=== PATIENT | male | born 1935 | race Hispanic/Latino ===

== ENCOUNTER 2017-05-06 19:48 | Inpatient (IN) | payer MEDICARE, MEDICAID ==
[2017-05-06] MEDS ORDERED: Water For Inject, Bacteriostat 30 ML ONE (20:51)
[2017-05-06] MEDS ORDERED: methylPREDNISolone Sod Succ/PF 125 MG/2 ML VIAL ONE (20:51)
[2017-05-06 21:23] LABS: PTT 29.7 SEC (22.9-36.1)
[2017-05-06 21:33] LABS: Lactic Acid - Sepsis 1.9 mmol/L (0.5-2.2)
[2017-05-06 21:39] LABS: ALT (SGPT) 17 U/L (8-55); AST (SGOT) 21 U/L (5-34); Alkaline Phosphatase 118 U/L (40-150); Anion Gap 13 mmol/L (10-20); BUN (Urea Nitrogen) 20 mg/dL (8.4-25.7); Bilirubin, Total 0.8 mg/dL (0.2-1.2); Calc. Creatinine Clearance 0 mL/min (70-130); Calcium 9.8 mg/dL (7.8-10.44); Carbon Dioxide 24 mmol/L (23-31); Chloride 105 mmol/L (98-107); Estimated GFR-MDRD 40; Globulin 4.6 g/dL (2.4-3.5); Magnesium 2.1 mg/dL (1.6-2.6); Protein, Total 8.8 g/dL (5.8-8.1)
[2017-05-06 21:40] LABS: Band 2 % (5-11); Hematocrit 51.2 % (42.0-52.0); Mean Platelet Volume 8.1 fL (7.4-10.4); Neutrophil 77 % (42-75); Red Blood Cell (RBC) Count 5.65 mill/uL (4.70-6.10); White Blood Cell (WBC) Count 20.4 thou/uL (4.8-10.8)
[2017-05-06 21:43] LABS: Troponin I Less than 0.010 ng/mL (< 0.028)
--- NOTE | 2017-05-06 21:45 | RAD ---
PORTABLE CHEST ONE VIEW: 05/06/17 at 9:11 p.m. HISTORY: Chest pain, bronchiolitis, wheezing, cough, yellow sputum. FINDINGS: Comparison made to exam of 06/12/15. The heart size is borderline. The aorta is tortuous. The lungs are expanded without focal areas of c onsolidation, pneumothorax, leilani pulmonary edema, or pleural effusions. IMPRESSION: No acute process. POS: [facility]
[2017-05-06] MEDS ORDERED: cefTRIAXone\\ROCEPHIN 1 GM VIAL ONE (23:06)
[2017-05-06] MEDS ORDERED: Sodium Chloride 0.9% 100 ML ONE (23:07)
[2017-05-06 23:15] LABS: Bilirubin Negative (Negative); Blood, Urine Small (Negative); Glucose, Urine (Dipstick) 250 mg/dL (Negative); Ketone, Urine Negative (Negative); Nitrite Negative (Negative); Protein, Urine (Dipstick) 30 mg/dL (Neg-Trace)
[2017-05-06] MEDS ORDERED: Azithromycin 500 MG in Sodium Chloride 0.9% 250 ML 250 ML IVPB SCH (23:15)
[2017-05-06 23:16] LABS: Bacteria/HPF None Seen HPF (None Seen); Hyaline Casts/LPF 0-3 HYALINE CAST LPF (0-3 Hyaline); RBC/HPF 0-3 HPF (0-3); Squamous Epithelial 0-3 HPF (0-3); WBC/HPF 0-3 HPF (0-3)
[2017-05-07] MEDS ORDERED: Acetaminophen 325 MG TAB PO PRN ×2 (00:53→01:00)
[2017-05-07] MEDS ORDERED: Ondansetron ODT 4 MG TAB SL PRN (00:53)
[2017-05-07] MEDS ORDERED: Ondansetron HCl/PF 4 MG/2 ML Vial IVP PRN (00:53)
[2017-05-07] MEDS ORDERED: Ondansetron ODT 4 MG TAB PO PRN (01:00)
[2017-05-07 01:14] VITALS: BMI 34.8
[2017-05-07 01:43] LABS: Troponin I 0.022 ng/mL (< 0.028)
[2017-05-07] MEDS ORDERED: Naproxen 500 MG TAB PO PRN (03:05)
[2017-05-07] MEDS ORDERED: PROVENTIL INHALER 6.7 G (200 INHALATIONS) INH PRN (03:05)
[2017-05-07] MEDS ORDERED: Calcium Carbonate 500 MG ChewTAB PO PRN (03:05)
[2017-05-07] MEDS ORDERED: traMADol HCl 50 MG TAB PO PRN ×3 (03:05→03:24)
[2017-05-07 04:15] LABS: #Lymphocytes 1.3 thou/uL (1.20-3.40); #Monocytes 0.2 thou/uL (0.11-0.59); #Neutrophils 21.7 thou/uL (1.40-6.50); %Basophils 0.2 % (0.0-1.0); %Eosinophils 0.2 % (0.0-10.0); %Lymphocytes 5.8 % (21.0-51.0); %Monocytes 0.8 % (0.0-10.0); Hematocrit 46.8 % (42.0-52.0); Mean Platelet Volume 8.3 fL (7.4-10.4); Red Blood Cell (RBC) Count 5.13 mill/uL (4.70-6.10); White Blood Cell (WBC) Count 23.3 thou/uL (4.8-10.8)
[2017-05-07 04:39] LABS: Troponin I 0.016 ng/mL (< 0.028)
[2017-05-07 04:44] LABS: Anion Gap 13 mmol/L (10-20); BUN (Urea Nitrogen) 21 mg/dL (8.4-25.7); Calc. Creatinine Clearance 48 mL/min (70-130); Calcium 9.1 mg/dL (7.8-10.44); Carbon Dioxide 20 mmol/L (23-31); Chloride 110 mmol/L (98-107); Estimated GFR-MDRD 44
[2017-05-07] MEDS: Sodium Chloride 0.9% 1,000 ML IV SCH ×2 (04:47→16:29)
--- NOTE | 2017-05-07 04:58 | HP-2 ---
CODE STATUS: FULL. PRIMARY CARE PHYSICIAN: [facility]. ATTENDING: Dr. Cuadra. PGY1: Nolan Olmos MD HISTORIAN: Daughter. CHIEF COMPLAINT: Chest pain and wheezing. HISTORY OF PRESENT ILLNESS: The patient is an 81-year-old male complaining of cough for 3 weeks. His daughter states that over 3 weeks, his cough got worse and began using his inhalers more. He also states he began complaining of chest pain. She notes that he has had more wheezy with shortness of breath. He states he had not had any ill contacts. The pain is made worse with coughing and is not relieved by anything. His cough has been nonproductive. In the ER, he was given Rocephin, azithromycin, Solu-Medrol, DuoNebs, and aspirin. PAST MEDICAL HISTORY: Hyperlipidemia, hypertension, diabetes mellitus, asthma, CKD 3, and chronic obstructive pulmonary disease. PAST SURGICAL HISTORY: He had a right femur fracture from a fall that was repaired. He had bladder surgery, prostate surgery, and cholecystectomy. ALLERGIES: No known drug allergies. MEDICATIONS: 1. Albuterol 8.5 gram HFA. 2. Amlodipine 10 mg. 3. Aspirin 81 mg. 4. Budesonide/eformoterol 80 mcg/4.5 mg. 5. Calcium carbonate 500 mg. 6. Carboxymethylcellulose glycerin eyedrops. 7. Docusate sodium 100 mg. 8. Hydrocortisone lotion. 9. Insulin Glargine 88 units subcu daily. 10. Lisinopril 40 mg. 11. Naproxen 220 mg t.i.d. 12. Oxybutynin 5 mg. 13. Potassium chloride 10 mEq. 14. Pravastatin 20 mg. 15. Propylene glycol eyedrops. 16. Tramadol 50 mg. SOCIAL HISTORY: He is a former tobacco user. He had about a [id number] smoking history and he quit 18 years ago. He denies alcohol use. Denies any drug use. REVIEW OF SYSTEMS: General: He denies any fevers or chills, weight changes, night sweats, or fatigue. Eyes: Denies any vision changes or eye pain. ENT: Denies nasal congestion, rhinorrhea, or sore throat. Respiratory: Admits to cough. He denies any congestion. He does admit to shortness of breath and he does admit to wheezing. Cardiovascular: Admits to chest pain, denies any palpitations, edema, orthopnea. Gastrointestinal: Denies any nausea, vomiting , diarrhea, constipation, abdominal pain, GI bleed. Genitourinary: Denies incontinence, dysuria. Skin: Denies any rashes, lesions, jaundice, itching. Musculoskeletal: Denies pain or tenderness, stiffness, swelling, or arthritis in joints. Neurologic: Denies any weakness, numbness, syncope, or seizures. Psychiatric: Denies anxiety or depression. PHYSICAL EXAMINATION: VITAL SIGNS: BP was 150/65, pulse 104, respiratory rate 24, temperature max 98.9, pulse ox 94% on room air. Current weight is 93 kilos. GENERAL: He was alert and oriented x4. He was obese and appropriately interactive, but he is only [place] speaking. EYES: PERRL. Conjunctivae within normal limits. ENT: Nasal mucosa and oropharynx within normal limits, but he is edentulous. NECK: Supple, without lymphadenopathy, without thyromegaly, without bruit. CARDIOVASCULAR: Regular rate and rhythm. No murmur. Radial and pedal pulses are equal bilaterally. RESPIRATORY: Normal effort, no retractions. LUNGS: Clear to auscultation bilaterally. There was some question coarse lung sounds. No wheezes were heard. SKIN: Warm and dry. ABDOMEN: Soft, nontender to palpation. Bowel sounds present x4. No masses or distention. EXTREMITIES: No clubbing, cyanosis. He did have slight edema to the lower extremities. MUSCULOSKELETAL: No Structure, tone. Muscle strength and range of motion within normal limits. NEUROLOGIC: No focal neurologic deficits. Sensation within normal limits. Cranial nerves II through XII are grossly intact. GCS of 15. PSYCHIATRIC: Appropriate. LABORATORY DATA: White blood cell count 20.4, platelet count 226, hemoglobin 17.6, hematocrit 51.2, MCV was 90.7. Bands are 2%, 77% neutrophils. CK-MB was 2.9. Troponins I was 0.01. Sodium was 138, potassium 4.4, chloride 105, bicarb 24, BUN 20, creatinine 1.65, glucose 192, calcium 9.8, total protein 8.8 , albumin 4.2, total bilirubin 0.8, AST 21, ALT 17, alkaline phosphatase 118, magnesium 2.1. Lactate 1.9, PTT 29.7. PT 13.0, INR 1.0. BNP was 17.0. Chest x-ray showed nothing acute. ASSESSMENT AND PLAN: This 81-year-old male with a past medical shows up with: 1. Chronic obstructive pulmonary disease exacerbation. We will continue with azithromycin. He was given Rocephin in the ER, but will be deescalated to just azithromycin p.o. We will continue his DuoNebs and prednisone. We have blood cultures pending and we will give O2 supplementation if needed. 2. Sepsis secondary to #1 above. We will give intravenous fluids for this. 3. Diabetes mellitus type 2, hemoglobin A1c. We will continue his home medications and Accu-Cheks. 4. Hypertension. Continue his home medications. 5. Hyperlipidemia. Continue his home medications. 6. Chronic kidney disease, 3. We will monitor with BMP. His creatinine is currently at baseline. 7. Atypical chest pain, likely secondary to costochondritis. We will trend his troponins. Disposition length possibly inpatient 2 midnights. Symptomatic medication will be provided. History and physical exam as well as management were discussed with Dr. Cuadra. TYRESE
[2017-05-07] MEDS ORDERED: Non-Formulary Item 1 EACH (Budesonide-Formoterol [Symbicort 80-4.5] 2 PUFF) INH SCH (06:30)
[2017-05-07] MEDS: Mometasone/Formoterol 120 PUFF INHALER INH SCH ×2 (07:17→18:48)
[2017-05-07] MEDS ORDERED: INSULIN GLARGINE SC SCH (07:30)
[2017-05-07] MEDS ORDERED: Senokot 8.6 MG TAB PO PRN (08:48)
[2017-05-07] MEDS: Amlodipine 10 MG TAB PO SCH (08:50)
[2017-05-07] MEDS: Azithromycin 250 MG TAB PO SCH (08:52)
[2017-05-07] MEDS: INSULIN DETEMIR SC SCH (08:52)
[2017-05-07] MEDS: PRE FILLED SC SCH (08:52)
[2017-05-07] MEDS: Docusate 100 MG CAP PO SCH (08:53)
[2017-05-07] MEDS: Lisinopril 20 MG TAB PO SCH (08:53)
[2017-05-07] MEDS: Potassium Chloride 10 MEQ TAB PO SCH (08:54)
[2017-05-07] MEDS: Oxybutynin 5 MG TAB PO SCH ×2 (08:54→20:31)
[2017-05-07] MEDS: predniSONE 20 MG TAB PO SCH (08:55)
[2017-05-07] MEDS ORDERED: HYDROCORTISONE TOP SCH (09:00)
[2017-05-07] MEDS ORDERED: FLU VACC TS2017-18 (>65YR) 0.5 ML SYRINGE IM ONE (09:00)
[2017-05-07] MEDS: Polyethylene Glycol OPTH DROP 15 ML BOT EA EYE SCH ×3 (09:00→20:32)
[2017-05-07] MEDS: Hydrocortisone 1% Cream 30 GM TUBE TOP SCH ×2 (09:00→20:32)
[2017-05-07] MEDS ORDERED: Dextrose 5% in Water 1,000 ML IV PRN (09:15)
[2017-05-07] MEDS ORDERED: Dextrose 50% Abboject 50 ML SYRINGE SLOW IVP PRN (09:15)
--- NOTE | 2017-05-07 10:30 | RAD ---
KUB 05/07/17 PROVIDED CLINICAL HISTORY: Abdominal distention. FINDINGS: No comparisons. The abdominal bowel gas pattern is nonspecific. Cholecystectomy clips overlie the right upper quadra nt. Presumed ingested material overlies the left upper quadrant medially. No definite evidence for u rinary tract calculi. Postoperative changes involving the right hip are partially visualized. The [place] nature of the examination is not sensitive for detection of pneumoperitoneum. IMPRESSION: Nonspecific bowel gas pattern. POS: [facility]
[2017-05-07] MEDS: HumaLOG 300 UNITS/3 ML VIAL SC PRN ×3 (12:11→21:12)
[2017-05-07] MEDS: Refresh (Polyvinyl Alcohol 1.4%/Povidone 0.6%) Opth Drops EA EYE SCH ×3 (12:13→20:31)
[2017-05-07] MEDS: Pravastatin Sodium 20 MG TAB PO SCH (20:31)
[2017-05-08] MEDS: Sodium Chloride 0.9% 1,000 ML IV SCH ×2 (00:55→03:05)
[2017-05-08 04:37] LABS: #Monocytes 1.8 thou/uL (0.11-0.59); #Neutrophils 19.8 thou/uL (1.40-6.50); %Basophils 0.1 % (0.0-1.0); %Eosinophils 0.1 % (0.0-10.0); %Lymphocytes 8.6 % (21.0-51.0); %Monocytes 7.7 % (0.0-10.0); Hematocrit 43.1 % (42.0-52.0); Mean Platelet Volume 8.5 fL (7.4-10.4); Red Blood Cell (RBC) Count 4.68 mill/uL (4.70-6.10); White Blood Cell (WBC) Count 23.7 thou/uL (4.8-10.8)
[2017-05-08 05:02] LABS: Anion Gap 13 mmol/L (10-20); BUN (Urea Nitrogen) 33 mg/dL (8.4-25.7); Calc. Creatinine Clearance 44 mL/min (70-130); Calcium 8.7 mg/dL (7.8-10.44); Carbon Dioxide 22 mmol/L (23-31); Chloride 106 mmol/L (98-107); Estimated GFR-MDRD 39
[2017-05-08] MEDS: Mometasone/Formoterol 120 PUFF INHALER INH SCH ×2 (06:39→18:27)
[2017-05-08] MEDS: Potassium Chloride 10 MEQ TAB PO SCH (07:57)
[2017-05-08] MEDS: Azithromycin 250 MG TAB PO SCH (07:57)
[2017-05-08] MEDS: Amlodipine 10 MG TAB PO SCH (07:57)
[2017-05-08] MEDS: Oxybutynin 5 MG TAB PO SCH ×2 (07:57→19:59)
[2017-05-08] MEDS: predniSONE 20 MG TAB PO SCH (07:58)
[2017-05-08] MEDS: Docusate 100 MG CAP PO SCH (07:58)
[2017-05-08] MEDS: Lisinopril 20 MG TAB PO SCH (07:58)
[2017-05-08] MEDS: Hydrocortisone 1% Cream 30 GM TUBE TOP SCH ×2 (08:06→20:01)
[2017-05-08] MEDS: Polyethylene Glycol OPTH DROP 15 ML BOT EA EYE SCH ×3 (08:07→20:00)
[2017-05-08] MEDS: Refresh (Polyvinyl Alcohol 1.4%/Povidone 0.6%) Opth Drops EA EYE SCH ×3 (09:35→20:00)
[2017-05-08] MEDS: PRE FILLED SC SCH (09:37)
[2017-05-08] MEDS: INSULIN DETEMIR SC SCH (09:37)
[2017-05-08] MEDS: Insulin Detemir 100 UNITS/ML 100 UNITS in Pre-Filled Syringe 1 EACH SC SCH (10:04)
[2017-05-08] MEDS: cefTRIAXone\\ROCEPHIN 1 GM, Admixture Fee 1 EACH in Sodium Chloride 0.9% 100 ML IVPB SCH (10:09)
--- NOTE | 2017-05-08 10:41 | PDOC.FM ---
- Subjective Subjective: Pt endorses feeling better this morning. Says he can breath better. States he had a bowel movement last night and passed gas despite the fact that his belly is still very distended. - Objective MAR Reviewed: Yes Vital Signs & Weight: Vital Signs (12 hours) Temp Pulse Resp BP BP BP Pulse Ox 05/08/17 10:18 90 16 05/08/17 08:20 97.6 F 89 16 129/68 95 05/08/17 08:00 97.6 F 89 16 99 05/08/17 07:58 143/73 H 05/08/17 07:57 74 05/08/17 06:39 74 16 95 05/08/17 04:16 98.1 F 83 18 112/72 96 05/08/17 02:30 95 16 95 05/08/17 00:50 98.3 F 98 20 128/68 94 L Weight Weight 92 kg I&O: 05/07/17 05/08/17 05/09/17 06:59 06:59 06:59 Intake Total 1200 360 Balance 1200 360 Result Diagrams: 05/08/17 03:27 05/08/17 03:27 <Ivanna Nguyen - Last Filed: 05/08/17 10:48> - Objective Vital Signs & Weight: Vital Signs (12 hours) Temp Pulse Resp BP BP BP Pulse Ox 05/08/17 10:18 90 16 05/08/17 08:20 97.6 F 89 16 129/68 95 05/08/17 08:00 97.6 F 89 16 99 05/08/17 07:58 143/73 H 05/08/17 07:57 74 05/08/17 06:39 74 16 95 05/08/17 04:16 98.1 F 83 18 112/72 96 05/08/17 02:30 95 16 95 05/08/17 00:50 98.3 F 98 20 128/68 94 L Weight Weight 202 lb 13.204 oz I&O: 05/07/17 05/08/17 05/09/17 06:59 06:59 06:59 Intake Total 1200 360 Balance 1200 360 Result Diagrams: 05/08/17 03:27 05/08/17 03:27 <Chris Cuadra - Last Filed: 05/08/17 11:01> Phys Exam - Physical Examination HEENT: PERRLA, moist MMs Neck: no nodes, no JVD Respiratory: no wheezing, no rales, no rhonchi, clear to auscultation bilateral Cardiovascular: RRR, no significant murmur Gastrointestinal: non-tender, positive bowel sounds distended Musculoskeletal: no edema, pulses present Neurological: non-focal, normal sensation <Ivanna Nguyen - Last Filed: 05/08/17 10:48> Dx/Plan (1) COPD (chronic obstructive pulmonary disease) Status: Chronic Qualifiers: COPD type: COPD with acute exacerbation Qualified Code(s): J44.1 - Chronic obstructive pulmonary disease with (acute) exacerbation (2) COPD exacerbation Code(s): J44.1 - CHRONIC OBSTRUCTIVE PULMONARY DISEASE W (ACUTE) EXACERBATION Status: Acute (3) HTN (hypertension) Code(s): I10 - ESSENTIAL (PRIMARY) HYPERTENSION Status: Chronic Qualifiers: Hypertension type: essential hypertension Qualified Code(s): I10 - Essential (primary) hypertension (4) IDDM (insulin dependent diabetes mellitus) Code(s): E11.9 - TYPE 2 DIABETES MELLITUS WITHOUT COMPLICATIONS; Z79.4 - [facility] (CURRENT) USE OF INSULIN Status: Chronic - Plan Plan: 81 yo male with PMHX COPD, T2DM, and HTN presents in an acute COPD exacerbation and admitted for acute management. 1.)COPD, acute exacerbation -Pt was started on azithromicin however, pt has an increased wbc this morning. Will add rocephin to pt's regimen. Will continue duonebs scheduled with prn duonebs, madhav continue O2 prn, will order a repeat CXR to make sure there is not a new infectious etiology. Will continue prednisone 40mg daily for a total of 5 days. 2.)DM, type 2, uncontrolled d/t prednisone- Pt required additional 28U of humalog overnight; increased Lantus to 100 and scheduled 4U before meals. 3.)HTN-will continue home meds and continue to monitor 4.)Abdomenal distention- -Provided bowel regimen for pt; Pt endorsed BM overnight. Will get a standing xray to evaluate for a pneumoperitoneum. Pt has not other signs of peritonitis. <Ivanna Nguyen - Last Filed: 05/08/17 10:48> Attending Addendum - Attending Addendum I personally evaluated the patient and discussed the management with Dr. Jung I agree with the History, Examination, Assessment and Plan documented above. <Chris Cuadra - Last Filed: 05/08/17 11:01>
[2017-05-08] MEDS: HumaLOG 300 UNITS/3 ML VIAL SC SCH ×2 (11:24→16:42)
--- NOTE | 2017-05-08 12:47 | RAD ---
PA AND LATERAL CHEST X-RAY: 05/08/2017 HISTORY: Elevated white blood cell count. Wheezing. COMPARISON: 05/06/2017 FINDINGS: The cardiac silhouette and pulmonary vasculature are within normal limits. The lungs are clear. Mi nimal symmetric biapical pleural thickening is present. The lungs are otherwise clear. Minimal vas cular calcifications are seen in an ectatic thoracic aorta. There has been no interval change from the prior study. IMPRESSION: No acute cardiopulmonary process. POS: [facility]
--- NOTE | 2017-05-08 12:52 | RAD ---
AP ABDOMINAL RADIOGRAPH: 05/08/2017 HISTORY: Abdominal distention. COMPARISON: 05/07/2017 FINDINGS: Surgical clips overly the right upper quadrant. There is an oval-shaped radiopaque density overlyin g the right upper quadrant, which previously projected over the left upper quadrant. This could pot entially represent medication within a loop of bowel. The bowel gas pattern is overall nonspecific. Tiny phleboliths overly the right hemipelvis. Stable degenerative changes are seen in the spine w ith post surgical changes of the right hip. IMPRESSION: 1. Nonspecific bowel gas pattern. 2. Oval-shaped radiopaque density overlying the right upper quadrant, which could be related to med ication within a loop of bowel. POS: [facility]
[2017-05-08] MEDS: HumaLOG 300 UNITS/3 ML VIAL SC PRN ×2 (16:44→21:32)
[2017-05-08] MEDS: Pravastatin Sodium 20 MG TAB PO SCH (19:59)
[2017-05-09 04:36] LABS: #Lymphocytes 2.1 thou/uL (1.20-3.40); #Monocytes 1.2 thou/uL (0.11-0.59); #Neutrophils 15.2 thou/uL (1.40-6.50); %Eosinophils 0.2 % (0.0-10.0); %Lymphocytes 11.2 % (21.0-51.0); %Monocytes 6.5 % (0.0-10.0); Hematocrit 43.8 % (42.0-52.0); Mean Platelet Volume 8.5 fL (7.4-10.4); Red Blood Cell (RBC) Count 4.75 mill/uL (4.70-6.10); White Blood Cell (WBC) Count 18.5 thou/uL (4.8-10.8)
[2017-05-09 05:03] LABS: Anion Gap 13 mmol/L (10-20); BUN (Urea Nitrogen) 29 mg/dL (8.4-25.7); Calc. Creatinine Clearance 51 mL/min (70-130); Calcium 8.7 mg/dL (7.8-10.44); Carbon Dioxide 24 mmol/L (23-31); Chloride 108 mmol/L (98-107); Estimated GFR-MDRD 47
[2017-05-09] MEDS: HumaLOG 300 UNITS/3 ML VIAL SC PRN (05:30)
[2017-05-09] MEDS: Mometasone/Formoterol 120 PUFF INHALER INH SCH (06:23)
--- NOTE | 2017-05-09 06:46 | PDOC.FM ---
- Subjective Subjective: Patient doing well this AM. No significant overnight events. No O2 requirement. Satting 100% on RA. Patient states that he is doing ok. He endorses some leg pain originating from lower back which sounds like sciatica. Additionally, he has complaints of mild abdominal pain in left lower quadrant. He did have BM yesterday. - Objective MAR Reviewed: Yes Vital Signs & Weight: Vital Signs (12 hours) Temp Pulse Resp BP Pulse Ox 05/09/17 06:23 71 16 100 05/09/17 02:43 91 12 05/08/17 22:47 90 16 96 05/08/17 21:06 98.6 F 90 22 H 152/51 H 96 05/08/17 20:00 98.6 F 90 22 H 96 Weight Weight 92 kg I&O: 05/07/17 05/08/17 05/09/17 06:59 06:59 06:59 Intake Total 1200 600 Balance 1200 600 Result Diagrams: 05/09/17 03:26 05/09/17 03:26 Radiology Reviewed by me: Yes <Brandi Dong - Last Filed: 05/09/17 07:54> - Objective Vital Signs & Weight: Vital Signs (12 hours) Temp Pulse Resp BP BP Pulse Ox 05/09/17 10:07 79 14 99 05/09/17 08:14 97.7 F 73 18 150/71 H 97 05/09/17 08:00 97.7 F 73 18 97 05/09/17 07:43 143/73 H 05/09/17 07:42 73 05/09/17 06:23 71 16 100 05/09/17 02:43 91 12 05/08/17 22:47 90 16 96 Weight Weight 202 lb 13.204 oz I&O: 05/08/17 05/09/17 05/10/17 06:59 06:59 06:59 Intake Total 1200 600 360 Balance 1200 600 360 Result Diagrams: 05/09/17 03:26 05/09/17 03:26 <Chris Cuadra - Last Filed: 05/09/17 10:36> Phys Exam - Physical Examination Constitutional: NAD HEENT: moist MMs, sclera anicteric Neck: supple, full ROM Wheezing diffusely throughout Cardiovascular: RRR, no significant murmur Gastrointestinal: soft Distended. Mildly tender to palpation in left lower quadrant. Musculoskeletal: no edema, pulses present Neurological: non-focal, moves all 4 limbs Psychiatric: normal affect, A&O x 3 Skin: cap refill <2 seconds <Brandi Dong - Last Filed: 05/09/17 07:54> Dx/Plan (1) COPD exacerbation Code(s): J44.1 - CHRONIC OBSTRUCTIVE PULMONARY DISEASE W (ACUTE) EXACERBATION Status: Acute (2) IDDM (insulin dependent diabetes mellitus) Code(s): E11.9 - TYPE 2 DIABETES MELLITUS WITHOUT COMPLICATIONS; Z79.4 - [facility] (CURRENT) USE OF INSULIN Status: Chronic (3) Chronic kidney disease, stage 3 (moderate) Code(s): N18.3 - CHRONIC KIDNEY DISEASE, STAGE 3 (MODERATE) Status: Acute (4) HTN (hypertension) Code(s): I10 - ESSENTIAL (PRIMARY) HYPERTENSION Status: Chronic Qualifiers: Hypertension type: essential hypertension Qualified Code(s): I10 - Essential (primary) hypertension (5) HLD (hyperlipidemia) Code(s): E78.5 - HYPERLIPIDEMIA, UNSPECIFIED Status: Acute - Plan Plan: 81 yo male with PMHX COPD, T2DM, and HTN presents in an acute COPD exacerbation and admitted for acute management. 1.) COPD, acute exacerbation: Patient started on azithromycin, duonebs, and prednisone. WBC increased on admission. This is likely 2/2 steroid use, however , rocephin was added to cover for potential infectious etiology. Will continue duonebs scheduled with prn duonebs. Patient was not using O2 this AM and satting 100%. Will continue prednisone 40mg daily for a total of 5 days. Will continue symbicort upon discharge. 2.) DM, type 2, uncontrolled: Worsening elevation in BG due to steroids. Pt required additional 24U of humalog yesterday; Lantus increased to 100 and scheduled 4U lispro before meals. BG this AM initially 199 which increased to 500. Patient may need further adjustment on insulin. Consider BID dosing of levemir. 3.) HTN: Will continue home meds and continue to monitor. BP this AM 152/51. 4.) Abdominal distention: Provided bowel regimen for pt; Pt endorsed BM yesterday. Abdominal xray yesterday showed nonspecific bowel gas pattern. No peritonitis. <Brandi Dong - Last Filed: 05/09/17 07:54> Attending Addendum - Attending Addendum I personally evaluated the patient and discussed the management with Dr. Dong I agree with the History, Examination, Assessment and Plan documented above with any addition or exceptions noted below. He is doing well. We will send home on Levaquin and tapering steroids. It appears that he has not been into the clinic in a while and needs to reestablish for care of his diabetes. <Chris Cuadra - Last Filed: 05/09/17 10:36>
[2017-05-09] MEDS: Insulin Detemir 100 UNITS/ML 100 UNITS in Pre-Filled Syringe 1 EACH SC SCH (07:39)
[2017-05-09] MEDS: HumaLOG 300 UNITS/3 ML VIAL SC SCH ×2 (07:40→11:51)
[2017-05-09] MEDS: Oxybutynin 5 MG TAB PO SCH (07:42)
[2017-05-09] MEDS: Amlodipine 10 MG TAB PO SCH (07:42)
[2017-05-09] MEDS: Potassium Chloride 10 MEQ TAB PO SCH (07:42)
[2017-05-09] MEDS: predniSONE 20 MG TAB PO SCH (07:42)
[2017-05-09] MEDS: Hydrocortisone 1% Cream 30 GM TUBE TOP SCH (07:43)
[2017-05-09] MEDS: Docusate 100 MG CAP PO SCH (07:43)
[2017-05-09] MEDS: Azithromycin 250 MG TAB PO SCH (07:43)
[2017-05-09] MEDS: Lisinopril 20 MG TAB PO SCH (07:43)
[2017-05-09] MEDS: Polyethylene Glycol OPTH DROP 15 ML BOT EA EYE SCH (07:47)
[2017-05-09] MEDS: Refresh (Polyvinyl Alcohol 1.4%/Povidone 0.6%) Opth Drops EA EYE SCH (07:47)
[2017-05-09 08:15] VITALS: BP 150/71; TEMP 97.7
[2017-05-09] MEDS: cefTRIAXone\\ROCEPHIN 1 GM, Admixture Fee 1 EACH in Sodium Chloride 0.9% 100 ML IVPB SCH (09:41)
[2017-05-09 10:22] LABS: Hemoglobin A1c 7.5 % (4.0-6.0)
--- NOTE | 2017-05-12 06:32 | DIS-2 ---
DATE OF ADMISSION: 05/06/2017 DATE OF DISCHARGE: 05/09/2017 COSIGNER: Dr. Chris Cuadra. ADMITTING RESIDENT: Dr. Nolan Olmos. ADMITTING ATTENDING: Dr. Chris Cuadra. DISCHARGE RESIDENT: Dr. Ivanna Nguyen. DISCHARGE ATTENDING: Dr. Chris Cuadra. CONSULTATIONS: None. PROCEDURES: Chest x-ray, which showed no acute process. The patient had a second chest x-ray, whic h also showed no acute process. Abdominal x-ray due to distention, which showed nonspecific bowel g as pattern. Second abdominal x-ray to follow up on his distention, nonspecific bowel gas pattern. PRIMARY DIAGNOSES: 1. Chronic obstructive pulmonary disease acute exacerbation. 2. Diabetes type 2. 3. Hypertension. 4. Abdominal distention. DISCHARGE MEDICATIONS: 1. Prednisone 40 mg daily for a total of 5 days. 2. Levaquin 500 mg daily for 7 days. 3. Metformin 500 mg p.o. b.i.d. 4. Detemir 100 units subcutaneously daily. 5. Docusate 100 mg oral daily. 6. Oxybutynin 5 mg oral twice a day. 7. Lisinopril 40 mg oral daily. 8. Symbicort 2 puffs inhalation twice daily. 9. Potassium chloride 10 mEq oral daily. 10. Pravastatin 20 mg oral at bedtime. 11. Tramadol 50-100 mg oral 4 times a day as needed. 12. Albuterol 2 puffs inhalation every 4 hours as needed. 13. Propylene glycol 1 drop each eye 3 times a day. 14. Aspirin 81 mg oral daily. 15. Amlodipine 10 mg oral daily. 16. Naproxen 220 mg oral 3 times a day as needed. 17. Carboxymethylcellulose/glycerin 1 drop each eye 3 times daily. 18. Lantus. DISCONTINUED MEDICATION: Lantus 88 units subcutaneous daily before food. HISTORY OF PRESENT ILLNESS AND HOSPITAL COURSE: An 81-year-old male who presented with a cough for 3 weeks. The patient also complained of some chest pain and states he has been more wheezy with talia rtness of breath. He states the chest pain is made worse with coughing. It is not relieved by anyt fan, with cough has been nonproductive. He was given Rocephin, azithromycin, Solu-Medrol, DuoNeb a nd aspirin in the ER. Patient was admitted for an acute COPD exacerbation. He has a past medical h istory of hyperlipidemia, hypertension, diabetes mellitus type 2, asthma, CKD and of course chronic obstructive pulmonary disease. On admission, patient's blood pressure was elevated at 150/65, patie claire was tachycardic at 104 and had an increased respiratory rate of 24. Patient was afebrile and sat ting 94% on room air. On admission, the patient had a white blood cell count 20.4, bands were 2% an d neutrophils are 77%. Patient's troponins were negative at 0.01. CK-MB was normal at 2.9. The val lutz did have an elevated creatinine of 1.65 and an elevated glucose of 192. Patient's liver enzym es were normal. Patient's lactate was normal. Patient's alkaline phosphatase was 118. The x-ray d id not show any acute process. 1. SIRS secondary to chronic obstructive pulmonary disease exacerbation. The patient was started o n DuoNeb scheduled as well as DuoNeb p.r.n. He was also given Rocephin in the ER and then was place d on azithromycin. Patient was also placed on prednisone 40 mg daily. Blood cultures were received . The patient was provided with O2 supplementation as needed. Patient initially was admitted with tachycardia and tachypnea, which resolved. No source of infection was found during the patient's [facility] stay. Patient was given Spiriva upon discharge as well as a supply of prednisone and Levaqui n to complete a 5-day course of prednisone and 7-day course of Levaquin in order to treat his chroni c obstructive pulmonary disease exacerbation. The patient improved clinically during his hospital s lizzeth. Wheezing decreased. Patient was satting well on room air upon discharge. 2. Diabetes mellitus type 2. Patient required adjustment in his Levemir regimen as his blood gluco se increased secondary to prednisone use. Patient increased from 80 units to 200 units and was disc harged on 100 units. Patient's hemoglobin A1c was ordered and resulted as 7.5. 3. Hypertension. The patient was continued on his home medications of lisinopril and amlodipine. The patient was discharged on the same medication. His blood pressure was controlled, ranging in th e 112s-150 systolic and mostly sitting in the 120s-130. 4. Chronic kidney disease stage 3. Patient's BUN and creatinine slowly down trended through his spital admission. The patient was initially started on a very slow rate of normal saline, which imp roved his BUN and creatinine. 5. Hyperlipidemia. Patient's diet was started in the hospital. 6. Atypical chest pain, likely musculoskeletal in etiology. Patient's troponins were trended and w ere negative. Patient's CK-MB was normal. The patient also had a BNP, which was . DISPOSITION: Stable. DISCHARGE INSTRUCTIONS: 1. Location: Home. 2. Diet: Heart healthy diabetic diet. ACTIVITY: As tolerated. FOLLOWUP: With primary care physician within 1-2 weeks of discharge.
== END 2017-05-09 14:31 | disposition home or self-care (01) | DRG 191 ==
LOC: ERS 19:48 → T4-A 23:00
PROVIDERS: ADMIT Student in an Organized Health Care Education/Training Program; ATTEND Student in an Organized Health Care Education/Training Program
DX: J44.1 Chronic obstructive pulmonary disease with (acute) exacerbation (principal); R65.10 Systemic inflammatory response syndrome (SIRS) of non-infectious origin without acute organ dysfunction; E11.22 Type 2 diabetes mellitus with diabetic chronic kidney disease; N18.3 Chronic kidney disease, stage 3 (moderate); E78.5 Hyperlipidemia, unspecified; J45.909 Unspecified asthma, uncomplicated; I12.9 Hypertensive chronic kidney disease with stage 1 through stage 4 chronic kidney disease, or unspecified chronic kidney disease; Z79.4 Long term (current) use of insulin; Z87.891 Personal history of nicotine dependence; M94.0 Chondrocostal junction syndrome [Tietze]; Z79.82 Long term (current) use of aspirin; E66.9 Obesity, unspecified; Z68.34 Body mass index [BMI] 34.0-34.9, adult
CPT/HCPCS: 36415; 36416; 51701; 71010; 71020; 74000; 80048; 80053; 81003; 81015; 82553; 83036; 83605; 83735; 83880; 84484; 85025; 85610; 85730; 87040; 90471; 90682; 93005; 94640; 94664; 96361; 96365; 96375; A4216; G0008; J0456; J0696; J1815; J2930; J7050; J7506; J7620; Q2036

== ENCOUNTER 2018-10-13 11:02 | Inpatient (IN) | payer MEDICARE, MEDICAID ==
--- NOTE | 2018-10-13 11:46 | CT ---
FCT Brain WO Con: 10/13/2018 11:18 AM CLINICAL HISTORY: Fall. IMAGING TECHNIQUE: Multiple CT images were obtained of the brain without IV contrast. COMPARISON: January 04, 2014 FINDINGS: Extra axial spaces: There is mild generalized cerebral atrophy. Hemorrhage: None. Ventricular system: Normal in size and morphology for the patient's age. Basal cisterns: Normal. Cerebral parenchyma: There is stable mild chronic small vessel white matter ischemic change. Midline shift: None. Cerebellum: Normal. Brainstem: Normal. OTHER: Calvarium: Normal. Vascular system: Normal. Visualized Paranasal sinuses: There is moderate mucosal thickening within the ethmoid air cells. Visualized Orbits: Normal. Visualized upper cervical spine: Normal. Sella and skull base: Normal. IMPRESSION: No acute intracranial abnormality. Stable chronic findings as above
--- NOTE | 2018-10-13 11:58 | RAD ---
FChest AP view INDICATION: Altered mental status COMPARISON: May 06, 2017 FINDINGS: The lungs are clear. The heart size is normal. No pleural effusion or pneumothorax is evide nt. No acute osseous abnormality is noted. There are mild vascular calcifications involving the thoracic aorta. There are scattered degenerati ve change involving the visualized osseous structures. IMPRESSION: No acute cardiopulmonary abnormality.
[2018-10-13 12:09] LABS: #Basophils 0.1 thou/uL (0.0-0.2); #Eosinphils 0.2 thou/uL (0.0-0.7); #Lymphocytes 1.6 thou/uL (1.20-3.40); #Monocytes 1.3 thou/uL (0.11-0.59); #Neutrophils 14.2 thou/uL (1.40-6.50); %Basophils 0.3 % (0.0-1.0); %Eosinophils 0.9 % (0.0-10.0); %Lymphocytes 9.4 % (21.0-51.0); %Monocytes 7.4 % (0.0-10.0); Mean Corpuscular HGB CONC 34.9 g/dL (32.0-36.0); Mean Corpuscular Hemoglobin 31.3 pg (27.0-31.0); Mean Corpuscular Volume 89.7 fL (78.0-98.0); Mean Platelet Volume 8.8 fL (7.4-10.4); Platelet Count 177 thou/uL (130-400); RBC Distribution Width 12.7 % (11.5-14.5); Red Blood Cell (RBC) Count 5.44 mill/uL (4.70-6.10); White Blood Cell (WBC) Count 17.3 thou/uL (4.8-10.8)
[2018-10-13 12:32] LABS: Acetaminophen Less than 6.0 mcg/mL (10.0-30.0); Alcohol Less than 10 mg/dL (Less than 10); Lipase 20 U/L (8-78); Salicylate Less than 8.0 mg/dL (15.0-30.0)
[2018-10-13 12:42] LABS: ALT (SGPT) 11 U/L (8-55); AST (SGOT) 17 U/L (5-34); Albumin 3.9 g/dL (3.4-4.8); Alkaline Phosphatase 123 U/L (40-150); Anion Gap 15 mmol/L (10-20); BUN (Urea Nitrogen) 16 mg/dL (8.4-25.7); Bilirubin, Total 1.3 mg/dL (0.2-1.2); CK (CPK) 87 U/L (30-200); Calc. Creatinine Clearance 0 mL/min (70-130); Calcium 8.9 mg/dL (7.8-10.44); Carbon Dioxide 23 mmol/L (23-31); Chloride 111 mmol/L (98-107); Estimated GFR-MDRD 44; Globulin 3.4 g/dL (2.4-3.5); Glucose 147 mg/dL (83-110); Potassium 3.9 mmol/L (3.5-5.1); Protein, Total 7.3 g/dL (5.8-8.1); Sodium 145 mmol/L (136-145)
[2018-10-13] MEDS ORDERED: Acetaminophen 325 MG TAB ONE (14:15)
[2018-10-13] MEDS ORDERED: Piperacillin/Tazobactam 4.5 GM VIAL ONE (14:15)
[2018-10-13] MEDS ORDERED: Vancomycin HCl 1.5 GM in Sodium Chloride 0.9% 250 ML 300 ML IVPB SCH (15:30)
[2018-10-13 15:32] LABS: Bilirubin Negative (Negative); Blood, Urine Trace (Negative); Clarity CLEAR (Clear); Glucose, Urine (Dipstick) >=1000 mg/dL (Negative); Leukocyte Negative (Negative); Nitrite Negative (Negative); Protein, Urine (Dipstick) 30 mg/dL (Neg-Trace); Specific Gravity, Urine 1.023 (1.002-1.036); pH, Urine 6.5 (5.0-9.0)
[2018-10-13 15:34] LABS: Bacteria/HPF None Seen HPF (None Seen); Hyaline Casts/LPF 0-3 HYALINE CAST LPF (0-3 Hyaline); Squamous Epithelial None Seen HPF (0-3); WBC/HPF 0-3 HPF (0-3)
--- NOTE | 2018-10-13 16:47 | HP ---
PRIMARY CARE PHYSICIAN: Dr. Mervat Collins. REASON FOR ADMISSION: Sepsis. HISTORY OF PRESENT ILLNESS: An 83-year-old male, who is Hungarian-speaking only, who has a daughter at bedside. The patient is extremely poor historian, unable to get detail and focused history. Today, the patient was at home and his home health nurse found him confused. He was having high-grade fever at home. He was coughing for last couple of days. He denies any chest pain. He denies any shortness of breath. He denies any constipation, diarrhea, or any flu-like illness. He denies any runny nose, but he reports some sore throat. His urine was foul smelling, but he denies any dysuria, increased frequency, or lower abdominal pain. He denies any back pain. He denies any fall or any skin rash. Currently, the patient denies any pain. The patient was appeared altered to daughter as well and that is why they brought him to emergency room for evaluation. In the emergency room, the patient was hypertensive, febrile, and slightly tachycardic. Routine blood test showed leukocytosis with left shift, and he had normal chest x-ray. In the emergency room, the patient has received vancomycin and Zosyn. As per the patient's daughter, he also had episode of fall, but he did not have any injury, and his CT of brain was negative. REVIEW OF SYSTEMS: CONSTITUTIONAL: Negative for weight loss or gain, ability to conduct usual activities. SKIN: Negative for rash, itching. EYES: Negative for double vision, pain. ENT/MOUTH: Negative for nose bleeding, neck stiffness, pain, tenderness. CARDIOVASCULAR: Negative for palpitations, dyspnea on exertion, orthopnea. RESPIRATORY: Negative for shortness of breath, wheezing, cough, hemoptysis, fever or night sweats. GASTROINTESTINAL: Negative for poor appetite, abdominal pain, heartburn, nausea, vomiting, constipation, or diarrhea. GENITOURINARY: Negative for urgency, frequency, dysuria, nocturia. MUSCULOSKELETAL: Negative for pain, swelling. NEUROLOGIC/PSYCHIATRIC: Negative for anxiety, depression. ALLERGY/IMMUNOLOGIC: Negative for skin rash, bleeding tendency. Please see my HPI for pertinent positives and negatives. All other review of systems reviewed and negative except as mentioned in HPI. Above-mentioned review of system is not reliable because of the patient's level of cognitive status. PAST MEDICAL HISTORY: 1. COPD. 2. Former smoker. 3. Hypertension. 4. Dyslipidemia. 5. Diabetes type 2. 6. CKD stage 3. 7. Obesity. 8. Right femoral fracture. PAST SURGICAL HISTORY: 1. ERCP. 2. Cholecystectomy for cholecystitis. 3. Right femur fracture repair. 4. Bladder surgery. 5. Prostate surgery. ALLERGIES: NO KNOWN DRUG ALLERGY. CURRENT HOME MEDICATIONS: 1. Amlodipine 10 mg p.o. daily. 2. Lisinopril 40 mg daily. 3. Symbicort 2 puffs inhalation b.i.d. 4. ProAir HFA as needed. 5. Pravastatin 20 mg p.o. at bedtime. 6. Colace 100 mg b.i.d. 7. Aspirin 81 mg daily. 8. Oxybutynin 5 mg b.i.d. 9. Systane eye drops t.i.d. 10. Potassium chloride 10 mEq p.o. daily. 11. Insulin. FAMILY HISTORY: No strong family history of premature coronary artery disease, stroke, or cancer. SOCIAL HISTORY: The patient lives at home. He quit smoking 18 years ago. He drinks alcohol occasionally. He denies any other illicit drug abuse. EMERGENCY ROOM COURSE: The patient has received vancomycin, Zosyn, Tylenol, IV fluid. PHYSICAL EXAMINATION: VITAL SIGNS: Currently, blood pressure 167/70, temperature 100.6, pulse 103, respiratory rate 22. Weight 87 kg. GENERAL: The patient is currently alert, awake. No obvious acute distress. HEENT: Head; normocephalic, atraumatic. Eyes; pupils are round, reactive to light. Extraocular muscle intact. ENT; oropharynx within normal limit. Moist mucous membrane. No oral lesion. No pharyngeal erythema. No exudate. NECK: Supple. No JVD. No thyromegaly. No carotid bruit. No jugular venous distention. LUNGS: Few end-expiratory wheezing heard, but no rales, no accessory muscles of respiration in use. CARDIAC: S1, S2 regular. No murmur. No gallop. No rub. ABDOMEN: Obesity present. No peritoneal sign. No guarding. No rigidity. No rebound. BACK: Unremarkable. No CVA tenderness. EXTREMITIES: Upper extremities; passive movement of all joints are normal. Lower extremities; trace edema noted. Good distal pulsation. SKIN: No skin rash. HEMATOLOGICAL: No lymphadenopathy. NEUROLOGIC: Nonfocal examination. SIGNIFICANT LABORATORY DATA: Chest x-ray based on my review, no acute cardiopulmonary process. EKG showing sinus rhythm. CBC; WBC 17.3, hemoglobin 17.0, platelet 177. BMP; sodium 145, potassium 3.9, chloride 111, carbon dioxide 23, BUN 16, creatinine 1.53, glucose 147, calcium 8.9. Lactic acid 2.1. LFT; AST 17, ALT 11, alkaline phosphatase 123, albumin 3.9. CK of 87. Troponin-I less than 0.010. Lipase 20. Serum drug screen, negative. ASSESSMENT AND PLAN: 1. Acute septic encephalopathy. 2. Sepsis with acute organ dysfunction. The patient has tachycardia, fever, leukocytosis, and encephalopathy, that met sepsis with acute organ dysfunction criteria. Source of infection is suspecting acute bronchitis and possibility of urinary tract infection cannot be entirely excluded. We will check respiratory virus panel as well. We will start empiric antibiotic therapy with vancomycin and Zosyn. We will follow up on culture result, and we will continue with gentle IV fluid. 3. Diabetes type 2. We will continue with insulin as per sliding scale protocol. Diabetic diet will be given. 4. Chronic kidney disease stage 3. Currently, stable renal function. We will continue gentle IV fluid and avoid nephrotoxin agent. We will repeat BMP tomorrow. 5. Acute bronchitis with history of chronic obstructive pulmonary disease. We will continue DuoNeb q.6 hourly, Dulera 2 puffs inhalation b.i.d., Mucinex 600 mg twice daily, and we will check respiratory virus panel to rule out any respiratory etiology. 6. Hypertension. We will continue amlodipine 10 mg p.o. daily and p.r.n. basis hydralazine, labetalol. 7. Dyslipidemia. Continue pravastatin 20 mg p.o. at bedtime. 8. Obesity. Dietary education given. Weight loss education given. 9. Deep venous thrombosis prophylaxis, Lovenox 40 mg subcu daily. 10. Gastrointestinal prophylaxis, Pepcid 20 mg p.o. b.i.d. CODE STATUS: The patient is full code. The patient's daughter is surrogate decision maker. DISPOSITION PLAN: Based on clinical course, we are expecting the patient's stay in hospital more than 2 midnights. Plan of care discussed with the patient and family member at bedside. The patient will need PT, OT while in hospital. Job ID: [id number]
[2018-10-13] MEDS ORDERED: hydrALAZINE 20 MG/ML VIAL SLOW IVP PRN (18:09)
[2018-10-13] MEDS ORDERED: Diabetic Tussin 200 MG/10 ML UDCUP PO PRN (18:09)
[2018-10-13] MEDS ORDERED: Sodium Chloride 0.65% Nasal 44 ML BOT EA NARE PRN (18:09)
[2018-10-13] MEDS ORDERED: Calcium Carbonate 500 MG ChewTAB PO PRN (18:09)
[2018-10-13] MEDS ORDERED: Acetaminophen 325 MG TAB PO PRN (18:09)
[2018-10-13] MEDS ORDERED: HumaLOG 300 UNITS/3 ML VIAL SC PRN (18:09)
[2018-10-13] MEDS ORDERED: Ondansetron PF 4 MG/2 ML Vial IVP PRN (18:09)
[2018-10-13] MEDS ORDERED: Senokot S 8.6-50 MG TAB PO PRN (18:09)
[2018-10-13] MEDS ORDERED: Docusate 100 MG CAP PO PRN (18:09)
[2018-10-13] MEDS ORDERED: Loperamide HCl 2 MG CAP PO PRN (18:09)
[2018-10-13] MEDS ORDERED: Labetalol HCl 100 MG/20 ML VIAL SLOW IVP PRN (18:09)
[2018-10-13] MEDS ORDERED: VANCOMYCIN IVPB PRN (18:09)
[2018-10-13] MEDS ORDERED: Artificial Tears 18 DROP/0.9 ML EA EYE PRN (18:09)
[2018-10-13] MEDS ORDERED: Dextrose 50% Abboject 50 ML SYRINGE SLOW IVP PRN (18:09)
[2018-10-13] MEDS ORDERED: Dextrose 5% in Water 1,000 ML IV PRN (18:09)
[2018-10-13] MEDS ORDERED: Bisacodyl 5 MG TAB PO PRN (18:09)
[2018-10-13] MEDS ORDERED: Ondansetron ODT 4 MG TAB PO PRN (18:09)
[2018-10-13] MEDS ORDERED: Loratadine 10 MG TAB PO PRN (18:09)
[2018-10-13] MEDS ORDERED: HYDROcodone/Acetaminophen 5/325 mg Tablet PO PRN (18:09)
[2018-10-13] MEDS ORDERED: Eucerin (Mineral Oil/Petrolatum,White) 30 gm Jar TOP PRN (18:09)
[2018-10-13] MEDS ORDERED: Bisacodyl 10 MG SUPP PR PRN (18:09)
[2018-10-13 18:35] LABS: Lactic Acid 1.2 mmol/L (0.5-2.2)
[2018-10-13] MEDS: Mometasone/Formoterol 120 PUFF INHALER INH SCH (18:45)
[2018-10-13] MEDS ORDERED: Piperacillin/Tazobactam 3.375 GM in Sodium Chloride 0.9% 100 ML IVPB SCH (21:00)
[2018-10-13] MEDS: Sodium Chloride 0.9% 1,000 ML IV SCH (23:21)
[2018-10-13] MEDS: guaiFENesin ER 600 MG TAB PO SCH (23:30)
[2018-10-13] MEDS: Pravastatin Sodium 20 MG TAB PO SCH (23:30)
[2018-10-13] MEDS: Famotidine 20 MG TAB PO SCH (23:30)
[2018-10-13] MEDS: Piperacillin/Tazobactam 3.375 GM in Sodium Chloride 0.9% 100 ML IVPB SCH (23:30)
[2018-10-13] MEDS: Oxybutynin 5 MG TAB PO SCH (23:30)
[2018-10-14] MEDS: Piperacillin/Tazobactam 3.375 GM in Sodium Chloride 0.9% 100 ML IVPB SCH (05:39)
[2018-10-14] MEDS: Sodium Chloride 0.9% 1,000 ML IV SCH (05:41)
[2018-10-14] MEDS: Mometasone/Formoterol 120 PUFF INHALER INH SCH ×2 (06:09→18:30)
[2018-10-14 06:29] LABS: #Basophils 0.1 thou/uL (0.0-0.2); #Eosinphils 0.3 thou/uL (0.0-0.7); #Lymphocytes 2.4 thou/uL (1.20-3.40); #Monocytes 1.3 thou/uL (0.11-0.59); #Neutrophils 8.1 thou/uL (1.40-6.50); %Basophils 0.6 % (0.0-1.0); %Eosinophils 2.4 % (0.0-10.0); %Lymphocytes 19.8 % (21.0-51.0); %Neutrophils 66.2 % (42.0-75.0); Hemoglobin 15.5 g/dL (14.0-18.0); Mean Corpuscular HGB CONC 35.3 g/dL (32.0-36.0); Mean Corpuscular Hemoglobin 30.9 pg (27.0-31.0); Mean Corpuscular Volume 87.5 fL (78.0-98.0); Mean Platelet Volume 8.7 fL (7.4-10.4); Platelet Count 169 thou/uL (130-400); RBC Distribution Width 12.5 % (11.5-14.5); Red Blood Cell (RBC) Count 5.02 mill/uL (4.70-6.10); White Blood Cell (WBC) Count 12.2 thou/uL (4.8-10.8)
[2018-10-14 06:52] LABS: ALT (SGPT) 11 U/L (8-55); AST (SGOT) 17 U/L (5-34); Albumin 3.3 g/dL (3.4-4.8); Alkaline Phosphatase 98 U/L (40-150); Anion Gap 11 mmol/L (10-20); BUN (Urea Nitrogen) 15 mg/dL (8.4-25.7); Bilirubin, Total 1.3 mg/dL (0.2-1.2); Calc. Creatinine Clearance 57 mL/min (70-130); Calcium 8.3 mg/dL (7.8-10.44); Carbon Dioxide 23 mmol/L (23-31); Chloride 111 mmol/L (98-107); Estimated GFR-MDRD 58; Globulin 3.4 g/dL (2.4-3.5); Glucose 63 mg/dL (83-110); Potassium 3.1 mmol/L (3.5-5.1); Protein, Total 6.7 g/dL (5.8-8.1); Sodium 142 mmol/L (136-145)
[2018-10-14] MEDS: Enoxaparin Sodium 40 MG/0.4 ML SYRINGE SC SCH (08:47)
[2018-10-14] MEDS: Famotidine 20 MG TAB PO SCH ×2 (08:48→21:43)
[2018-10-14] MEDS: Saccharomyces boulardii 250 MG CAP PO SCH (08:48)
[2018-10-14] MEDS: Oxybutynin 5 MG TAB PO SCH ×2 (08:48→21:43)
[2018-10-14] MEDS: Aspirin Chewable 81 MG TAB PO SCH (08:48)
[2018-10-14] MEDS: Lisinopril 20 MG TAB PO SCH (08:49)
[2018-10-14] MEDS: Mirtazapine 15 MG TAB PO SCH (08:49)
[2018-10-14] MEDS: Amlodipine 10 MG TAB PO SCH (08:49)
[2018-10-14] MEDS: guaiFENesin ER 600 MG TAB PO SCH ×2 (08:49→21:44)
[2018-10-14] MEDS: Polyethylene Glycol 3350 17 GM Packet PO SCH (09:01)
--- NOTE | 2018-10-14 11:08 | PDOC.PN ---
- Subjective Encounter Start Date: 10/14/18 Encounter Start Time: 07:40 -: old records requested/rev Patient seen and examined. No new complaints. No overnight events - Objective Resuscitation Status - Order Detail: 10/13/18 15:27 Resuscitation Status Routine Resuscitation Status: FULL: Full Resuscitation MAR Reviewed: Yes Vital Signs & Weight: Vital Signs (12 hours) Temp Pulse Resp BP Pulse Ox 10/14/18 08:49 67 10/14/18 08:00 97.5 F L 67 20 114/66 96 10/14/18 06:09 68 16 95 10/14/18 06:06 68 16 95 10/14/18 05:51 98.1 F 68 18 134/66 95 10/14/18 00:05 98.8 F 76 18 148/74 H 96 Weight Weight 193 lb 1.999 oz I&O: 10/13/18 10/14/18 10/15/18 06:59 06:59 06:59 Intake Total 600 Output Total 450 Balance 150 Result Diagrams: 10/14/18 06:15 10/14/18 06:15 Additional Labs: Accuchecks 10/14/18 05:39 POC Glucose 86 Phys Exam - Physical Examination Constitutional: NAD HEENT: PERRLA, moist MMs, sclera anicteric Neck: no JVD, supple Respiratory: no wheezing, no rales, no rhonchi Cardiovascular: RRR, no significant murmur, no rub Gastrointestinal: soft, non-tender, no distention, positive bowel sounds Musculoskeletal: no edema, pulses present Neurological: non-focal, normal sensation Lymphatic: no nodes Psychiatric: normal affect, A&O x 3 Skin: no rash, normal turgor Dx/Plan (1) Acute bronchitis Code(s): J20.9 - ACUTE BRONCHITIS, UNSPECIFIED Status: Acute (2) Encephalopathy in sepsis Code(s): G93.41 - METABOLIC ENCEPHALOPATHY Status: Acute (3) Hypokalemia Code(s): E87.6 - HYPOKALEMIA Status: Acute (4) Sepsis with acute organ dysfunction Code(s): A41.9 - SEPSIS, UNSPECIFIED ORGANISM; R65.20 - SEVERE SEPSIS WITHOUT SEPTIC SHOCK Status: Acute (5) COPD (chronic obstructive pulmonary disease) Status: Chronic (6) Chronic kidney disease, stage 3 (moderate) Code(s): N18.3 - CHRONIC KIDNEY DISEASE, STAGE 3 (MODERATE) Status: Chronic (7) HLD (hyperlipidemia) Code(s): E78.5 - HYPERLIPIDEMIA, UNSPECIFIED Status: Chronic (8) HTN (hypertension) Code(s): I10 - ESSENTIAL (PRIMARY) HYPERTENSION Status: Chronic Qualifiers: (9) Obesity (BMI 30.0-34.9) Code(s): E66.9 - OBESITY, UNSPECIFIED Status: Chronic - Plan cont current plan of care, continue antibiotics, PT/OT * change antibiotic to monotherapy with levaquin * medication reviewed as below * symptomatic treatment * discussed with family * pt is improving. Review of Systems - Review of Systems ENT: negative: Ear Pain, Ear Discharge, Nose Pain, Nose Discharge, Nose Congestion, Mouth Pain, Mouth Swelling, Throat Pain, Throat Swelling, Other Respiratory: negative: Cough, Dry, Shortness of Breath, Hemoptysis, SOB with Excertion, Pleuritic Pain, Sputum, Wheezing Cardiovascular: negative: chest pain, palpitations, orthopnea, paroxysmal nocturnal dyspnea, edema, light headedness, other Gastrointestinal: negative: Nausea, Vomiting, Abdominal Pain, Diarrhea, Constipation, Melena, Hematochezia, Other Genitourinary: negative: Dysuria, Frequency, Incontinence, Hematuria, Retention , Other Musculoskeletal: negative: Neck Pain, Shoulder Pain, Arm Pain, Back Pain, Hand Pain, Leg Pain, Foot Pain, Other - Medications/Allergies Allergies/Adverse Reactions: Allergies Allergy/AdvReac Type Severity Reaction Status Date / Time No Known Drug Allergies Allergy Verified 10/25/14 17:54 Medications: Current Medications Acetaminophen (Tylenol) 650 mg PO Q4H PRN PRN Reason: Headache/Fever/Mild Pain (1-3) Hydrocodone Bitart/Acetaminophen ([place] 5/325) 1 tab PO Q4H PRN PRN Reason: Moderate Pain (4-6) Albuterol/Ipratropium (Duoneb) 3 ml NEB [id number] [facility] Last Admin: 10/14/18 06:06 Dose: 3 ml Amlodipine Besylate (Norvasc) 10 mg PO DAILY [facility] Last Admin: 10/14/18 08:49 Dose: 10 mg Artificial Tears (Tears Naturale) 2 drop EA EYE PRN PRN PRN Reason: Dry Eyes Aspirin (Aspirin Chewable) 81 mg PO DAILY [facility] Last Admin: 10/14/18 08:48 Dose: 81 mg Bisacodyl (Dulcolax) 10 mg PO DAILYPRN PRN PRN Reason: Constipation Bisacodyl (Dulcolax) 10 mg [place] DAILYPRN PRN PRN Reason: Constipation Calcium Carbonate (Tums) 1,000 mg PO Q4H PRN PRN Reason: Heartburn or Indigestion Dextrose/Water (Dextrose 50%) 25 gm SLOW IVP PRN PRN PRN Reason: Hypoglycemia Docusate Sodium (Colace) 100 mg PO BIDPRN PRN PRN Reason: Constipation Enoxaparin Sodium (Lovenox) 40 mg SC 0900 [facility] Last Admin: 10/14/18 08:47 Dose: 40 mg Famotidine (Pepcid) 20 mg PO BID [facility] Last Admin: 10/14/18 08:48 Dose: 20 mg Glucagon (Glucagon) 1 mg IM PRN PRN PRN Reason: Hypoglycemia Guaifenesin (Mucinex) 600 mg PO Q12HR [facility] Last Admin: 10/14/18 08:49 Dose: 600 mg Guaifenesin (Robitussin Sf) 200 mg PO Q4H PRN PRN Reason: Cough Hydralazine HCl (Apresoline) 10 mg SLOW IVP Q4H PRN PRN Reason: SBP > 180 and HR < 70 Dextrose/Water (D5w) 1,000 mls @ 0 mls/hr IV .Q0M PRN PRN Reason: Hypoglycemia Levofloxacin 750 mg/ Device 150 mls @ 100 mls/hr IVPB 0800 [facility] Last Admin: 10/14/18 08:47 Dose: 150 mls Insulin Human Lispro (Humalog) 0 units SC .MODERATE SLIDING SC PRN PRN Reason: Moderate Correctional Scale Insulin Human Lispro (Humalog) 0 units SC .BEDTIME SLIDING SC PRN PRN Reason: Bedtime Correctional Scale Labetalol HCl (Normodyne) 20 mg SLOW IVP Q4H PRN PRN Reason: SBP > 180 and HR >/= 70 Lisinopril (Zestril) 20 mg PO DAILY [facility] Last Admin: 10/14/18 08:49 Dose: 20 mg Loperamide HCl (Imodium) 2 mg PO PRN PRN PRN Reason: Diarrhea/Loose Stools Loratadine (Claritin) 10 mg PO DAILYPRN PRN PRN Reason: Sinus Symptoms Mineral Oil/White Petrolatum (Eucerin Cream) 0 gm TOP BIDPRN PRN PRN Reason: Dry Skin Mirtazapine (Remeron) 15 mg PO DAILY [facility] Last Admin: 10/14/18 08:49 Dose: 15 mg Mometasone Furoate/Formoterol Fumar (Dulera 200 Mcg/5 Mcg Inhaler) 2 puff INH BID-RT [facility] Last Admin: 10/14/18 06:09 Dose: 2 puff Ondansetron HCl (Zofran Odt) 4 mg PO Q6H PRN PRN Reason: Nausea/Vomiting Ondansetron HCl (Zofran) 4 mg IVP Q6H PRN PRN Reason: Nausea/Vomiting Oxybutynin Chloride (Ditropan) 5 mg PO BID [facility] Last Admin: 10/14/18 08:48 Dose: 5 mg Polyethylene Glycol (Miralax) 17 gm PO DAILY [facility] Last Admin: 10/14/18 09:01 Dose: Not Given Pravastatin Sodium (Pravachol) 20 mg PO HS [facility] Last Admin: 10/13/18 23:30 Dose: Not Given Saccharomyces Boulardii (Florastor) 250 mg PO DAILY [facility] Last Admin: 10/14/18 08:48 Dose: 250 mg Senna/Docusate Sodium (Senokot S) 2 tab PO BIDPRN PRN PRN Reason: Constipation Sodium Chloride ([place] Nasal [place] 0.65%) 0 ml EA NARE QIDPRN PRN PRN Reason: Nasal Congestion
[2018-10-14] MEDS ORDERED: Vancomycin HCl 1.25 GM in Sodium Chloride 0.9% 250 ML 250 ML IVPB SCH (16:00)
[2018-10-14] MEDS: Pravastatin Sodium 20 MG TAB PO SCH (21:43)
[2018-10-15] MEDS: Mometasone/Formoterol 120 PUFF INHALER INH SCH ×2 (05:35→19:12)
[2018-10-15] MEDS: Enoxaparin Sodium 40 MG/0.4 ML SYRINGE SC SCH (08:04)
[2018-10-15] MEDS: Polyethylene Glycol 3350 17 GM Packet PO SCH (08:04)
[2018-10-15] MEDS: Amlodipine 10 MG TAB PO SCH (08:04)
[2018-10-15] MEDS: Famotidine 20 MG TAB PO SCH ×2 (08:04→21:36)
[2018-10-15] MEDS: Mirtazapine 15 MG TAB PO SCH (08:05)
[2018-10-15] MEDS: Lisinopril 20 MG TAB PO SCH ×3 (08:05→21:33)
[2018-10-15] MEDS: guaiFENesin ER 600 MG TAB PO SCH ×2 (08:05→21:33)
[2018-10-15] MEDS: Oxybutynin 5 MG TAB PO SCH ×2 (08:05→21:32)
[2018-10-15] MEDS: Aspirin Chewable 81 MG TAB PO SCH (08:05)
[2018-10-15] MEDS: Saccharomyces boulardii 250 MG CAP PO SCH (08:05)
--- NOTE | 2018-10-15 09:11 | PDOC.PN ---
- Subjective Encounter Start Date: 10/15/18 Encounter Start Time: 07:10 pt is overall doing fine, he has less dyspnea, no fever, did ok with PT, - Objective Resuscitation Status - Order Detail: 10/13/18 15:27 Resuscitation Status Routine Resuscitation Status: FULL: Full Resuscitation MAR Reviewed: Yes Vital Signs & Weight: Vital Signs (12 hours) Temp Pulse Resp BP BP Pulse Ox 10/15/18 08:05 175/80 H 10/15/18 08:04 97 175/80 H 10/15/18 07:51 98.1 F 97 18 175/80 H 97 10/15/18 05:35 78 16 98 10/15/18 05:33 78 16 98 10/14/18 23:32 78 16 98 Weight Weight 193 lb 1.999 oz I&O: 10/14/18 10/15/18 10/16/18 06:59 06:59 06:59 Intake Total 600 Output Total 450 850 Balance 150 -850 Result Diagrams: 10/14/18 06:15 10/14/18 06:15 Additional Labs: Accuchecks 10/15/18 10/14/18 10/14/18 04:43 19:37 16:31 POC Glucose 111 H 196 H 132 H Phys Exam - Physical Examination Constitutional: NAD HEENT: PERRLA, moist MMs, sclera anicteric Neck: no JVD, supple Respiratory: no rales few wheeze+ Cardiovascular: RRR, no significant murmur, no rub Gastrointestinal: soft, non-tender, no distention, positive bowel sounds Musculoskeletal: pulses present, edema present trace edema+ Neurological: non-focal, normal sensation Lymphatic: no nodes Psychiatric: normal affect, A&O x 3 Skin: no rash, normal turgor Dx/Plan (1) Acute bronchitis Code(s): J20.9 - ACUTE BRONCHITIS, UNSPECIFIED Status: Acute (2) Encephalopathy in sepsis Code(s): G93.41 - METABOLIC ENCEPHALOPATHY Status: Acute (3) Hypokalemia Code(s): E87.6 - HYPOKALEMIA Status: Acute (4) Sepsis with acute organ dysfunction Code(s): A41.9 - SEPSIS, UNSPECIFIED ORGANISM; R65.20 - SEVERE SEPSIS WITHOUT SEPTIC SHOCK Status: Acute (5) COPD (chronic obstructive pulmonary disease) Status: Chronic (6) Chronic kidney disease, stage 3 (moderate) Code(s): N18.3 - CHRONIC KIDNEY DISEASE, STAGE 3 (MODERATE) Status: Chronic (7) HLD (hyperlipidemia) Code(s): E78.5 - HYPERLIPIDEMIA, UNSPECIFIED Status: Chronic (8) HTN (hypertension) Code(s): I10 - ESSENTIAL (PRIMARY) HYPERTENSION Status: Chronic Qualifiers: (9) Obesity (BMI 30.0-34.9) Code(s): E66.9 - OBESITY, UNSPECIFIED Status: Chronic - Plan cont current plan of care, continue antibiotics, PT/OT, respiratory therapy * continue levaquin * so far culture negative * continue respiratory therapy * medication reviewed as below * symptomatic treatment * stable and improving. Review of Systems - Review of Systems ENT: negative: Ear Pain, Ear Discharge, Nose Pain, Nose Discharge, Nose Congestion, Mouth Pain, Mouth Swelling, Throat Pain, Throat Swelling, Other Respiratory: negative: Cough, Dry, Shortness of Breath, Hemoptysis, SOB with Excertion, Pleuritic Pain, Sputum, Wheezing Cardiovascular: negative: chest pain, palpitations, orthopnea, paroxysmal nocturnal dyspnea, edema, light headedness, other Gastrointestinal: negative: Nausea, Vomiting, Abdominal Pain, Diarrhea, Constipation, Melena, Hematochezia, Other Genitourinary: negative: Dysuria, Frequency, Incontinence, Hematuria, Retention , Other Musculoskeletal: negative: Neck Pain, Shoulder Pain, Arm Pain, Back Pain, Hand Pain, Leg Pain, Foot Pain, Other Skin: negative: Rash, Lesions, Alexey, Bruising, Other - Medications/Allergies Allergies/Adverse Reactions: Allergies Allergy/AdvReac Type Severity Reaction Status Date / Time No Known Drug Allergies Allergy Verified 10/25/14 17:54 Medications: Current Medications Acetaminophen (Tylenol) 650 mg PO Q4H PRN PRN Reason: Headache/Fever/Mild Pain (1-3) Hydrocodone Bitart/Acetaminophen ([place] 5/325) 1 tab PO Q4H PRN PRN Reason: Moderate Pain (4-6) Albuterol/Ipratropium (Duoneb) 3 ml NEB [id number] [facility] Last Admin: 10/15/18 05:33 Dose: 3 ml Amlodipine Besylate (Norvasc) 10 mg PO DAILY [facility] Last Admin: 10/15/18 08:04 Dose: 10 mg Artificial Tears (Tears Naturale) 2 drop EA EYE PRN PRN PRN Reason: Dry Eyes Aspirin (Aspirin Chewable) 81 mg PO DAILY [facility] Last Admin: 10/15/18 08:05 Dose: 81 mg Bisacodyl (Dulcolax) 10 mg PO DAILYPRN PRN PRN Reason: Constipation Bisacodyl (Dulcolax) 10 mg [place] DAILYPRN PRN PRN Reason: Constipation Calcium Carbonate (Tums) 1,000 mg PO Q4H PRN PRN Reason: Heartburn or Indigestion Dextrose/Water (Dextrose 50%) 25 gm SLOW IVP PRN PRN PRN Reason: Hypoglycemia Docusate Sodium (Colace) 100 mg PO BIDPRN PRN PRN Reason: Constipation Enoxaparin Sodium (Lovenox) 40 mg SC 0900 [facility] Last Admin: 10/15/18 08:04 Dose: 40 mg Famotidine (Pepcid) 20 mg PO BID [facility] Last Admin: 10/15/18 08:04 Dose: 20 mg Glucagon (Glucagon) 1 mg IM PRN PRN PRN Reason: Hypoglycemia Guaifenesin (Mucinex) 600 mg PO Q12HR [facility] Last Admin: 10/15/18 08:05 Dose: 600 mg Guaifenesin (Robitussin Sf) 200 mg PO Q4H PRN PRN Reason: Cough Hydralazine HCl (Apresoline) 10 mg SLOW IVP Q4H PRN PRN Reason: SBP > 180 and HR < 70 Dextrose/Water (D5w) 1,000 mls @ 0 mls/hr IV .Q0M PRN PRN Reason: Hypoglycemia Levofloxacin 750 mg/ Device 150 mls @ 100 mls/hr IVPB 0800 [facility] Last Admin: 10/15/18 08:05 Dose: 150 mls Insulin Human Lispro (Humalog) 0 units SC .MODERATE SLIDING SC PRN PRN Reason: Moderate Correctional Scale Insulin Human Lispro (Humalog) 0 units SC .BEDTIME SLIDING SC PRN PRN Reason: Bedtime Correctional Scale Labetalol HCl (Normodyne) 20 mg SLOW IVP Q4H PRN PRN Reason: SBP > 180 and HR >/= 70 Lisinopril (Zestril) 20 mg PO DAILY [facility] Last Admin: 10/15/18 08:05 Dose: 20 mg Loperamide HCl (Imodium) 2 mg PO PRN PRN PRN Reason: Diarrhea/Loose Stools Loratadine (Claritin) 10 mg PO DAILYPRN PRN PRN Reason: Sinus Symptoms Mineral Oil/White Petrolatum (Eucerin Cream) 0 gm TOP BIDPRN PRN PRN Reason: Dry Skin Mirtazapine (Remeron) 15 mg PO DAILY [facility] Last Admin: 10/15/18 08:05 Dose: 15 mg Mometasone Furoate/Formoterol Fumar (Dulera 200 Mcg/5 Mcg Inhaler) 2 puff INH BID-RT [facility] Last Admin: 10/15/18 05:35 Dose: 2 puff Ondansetron HCl (Zofran Odt) 4 mg PO Q6H PRN PRN Reason: Nausea/Vomiting Ondansetron HCl (Zofran) 4 mg IVP Q6H PRN PRN Reason: Nausea/Vomiting Oxybutynin Chloride (Ditropan) 5 mg PO BID [facility] Last Admin: 10/15/18 08:05 Dose: 5 mg Polyethylene Glycol (Miralax) 17 gm PO DAILY [facility] Last Admin: 10/15/18 08:04 Dose: 17 gm Pravastatin Sodium (Pravachol) 20 mg PO HS [facility] Last Admin: 10/14/18 21:43 Dose: 20 mg Saccharomyces Boulardii (Florastor) 250 mg PO DAILY [facility] Last Admin: 10/15/18 08:05 Dose: 250 mg Senna/Docusate Sodium (Senokot S) 2 tab PO BIDPRN PRN PRN Reason: Constipation Sodium Chloride ([place] Nasal [place] 0.65%) 0 ml EA NARE QIDPRN PRN PRN Reason: Nasal Congestion
[2018-10-15] MEDS: HumaLOG 300 UNITS/3 ML VIAL SC PRN ×2 (13:22→17:11)
[2018-10-15] MEDS: Pravastatin Sodium 20 MG TAB PO SCH (21:35)
[2018-10-16] MEDS: Mometasone/Formoterol 120 PUFF INHALER INH SCH ×2 (07:12→19:04)
[2018-10-16 08:43] LABS: #Basophils 0.1 thou/uL (0.0-0.2); #Eosinphils 0.6 thou/uL (0.0-0.7); #Lymphocytes 3.4 thou/uL (1.20-3.40); #Monocytes 1.1 thou/uL (0.11-0.59); #Neutrophils 5.7 thou/uL (1.40-6.50); %Basophils 0.6 % (0.0-1.0); %Eosinophils 5.7 % (0.0-10.0); %Lymphocytes 30.9 % (21.0-51.0); %Monocytes 10.2 % (0.0-10.0); %Neutrophils 52.6 % (42.0-75.0); Hemoglobin 16.6 g/dL (14.0-18.0); Mean Corpuscular Hemoglobin 29.5 pg (27.0-31.0); Mean Corpuscular Volume 89.5 fL (78.0-98.0); Mean Platelet Volume 8.7 fL (7.4-10.4); Platelet Count 210 thou/uL (130-400); RBC Distribution Width 12.6 % (11.5-14.5); Red Blood Cell (RBC) Count 5.61 mill/uL (4.70-6.10); White Blood Cell (WBC) Count 10.9 thou/uL (4.8-10.8)
[2018-10-16 08:52] LABS: Anion Gap 15 mmol/L (10-20); BUN (Urea Nitrogen) 15 mg/dL (8.4-25.7); Calc. Creatinine Clearance 46 mL/min (70-130); Calcium 9.8 mg/dL (7.8-10.44); Carbon Dioxide 25 mmol/L (23-31); Chloride 105 mmol/L (98-107); Estimated GFR-MDRD 45; Glucose 127 mg/dL (83-110); Potassium 3.4 mmol/L (3.5-5.1); Sodium 142 mmol/L (136-145)
[2018-10-16] MEDS: Famotidine 20 MG TAB PO SCH ×2 (09:00→21:02)
[2018-10-16] MEDS: Mirtazapine 15 MG TAB PO SCH (09:00)
[2018-10-16] MEDS: Saccharomyces boulardii 250 MG CAP PO SCH (09:00)
[2018-10-16] MEDS: Lisinopril 20 MG TAB PO SCH ×2 (09:00→21:02)
[2018-10-16] MEDS: Amlodipine 10 MG TAB PO SCH (09:00)
[2018-10-16] MEDS: Oxybutynin 5 MG TAB PO SCH ×2 (09:00→21:01)
[2018-10-16] MEDS: Aspirin Chewable 81 MG TAB PO SCH (09:00)
[2018-10-16] MEDS: guaiFENesin ER 600 MG TAB PO SCH ×2 (09:00→21:01)
[2018-10-16] MEDS: Polyethylene Glycol 3350 17 GM Packet PO SCH (09:01)
[2018-10-16] MEDS: Enoxaparin Sodium 40 MG/0.4 ML SYRINGE SC SCH (09:01)
--- NOTE | 2018-10-16 10:24 | PDOC.PN ---
- Subjective Encounter Start Date: 10/16/18 Encounter Start Time: 08:20 Patient seen and examined. No new complaints. No overnight events - Objective Resuscitation Status - Order Detail: 10/13/18 15:27 Resuscitation Status Routine Resuscitation Status: FULL: Full Resuscitation MAR Reviewed: Yes Vital Signs & Weight: Vital Signs (12 hours) Temp Pulse Resp BP BP Pulse Ox 10/16/18 09:00 81 112/63 99 10/16/18 07:42 98.1 F 81 18 112/63 99 10/16/18 07:12 80 16 97 10/16/18 07:10 80 18 99 10/16/18 00:31 77 16 98 Weight Weight 193 lb 1.999 oz I&O: 10/15/18 10/16/18 10/17/18 06:59 06:59 06:59 Intake Total 1450 Output Total 850 950 Balance -850 500 Result Diagrams: 10/16/18 08:18 10/16/18 08:18 Additional Labs: Accuchecks 10/16/18 10/15/18 10/15/18 06:19 19:58 16:47 POC Glucose 120 H 188 H 279 H 10/15/18 11:33 POC Glucose 211 H Phys Exam - Physical Examination Constitutional: NAD HEENT: PERRLA, moist MMs, sclera anicteric Neck: no JVD, supple Respiratory: no wheezing, no rales, no rhonchi Cardiovascular: RRR, no significant murmur, no rub Gastrointestinal: soft, non-tender, no distention, positive bowel sounds Musculoskeletal: no edema, pulses present Neurological: non-focal, normal sensation Lymphatic: no nodes Psychiatric: normal affect, A&O x 3 Skin: no rash, normal turgor Dx/Plan (1) Acute bronchitis Code(s): J20.9 - ACUTE BRONCHITIS, UNSPECIFIED Status: Acute (2) Encephalopathy in sepsis Code(s): G93.41 - METABOLIC ENCEPHALOPATHY Status: Acute (3) Hypokalemia Code(s): E87.6 - HYPOKALEMIA Status: Acute (4) Sepsis with acute organ dysfunction Code(s): A41.9 - SEPSIS, UNSPECIFIED ORGANISM; R65.20 - SEVERE SEPSIS WITHOUT SEPTIC SHOCK Status: Acute (5) COPD (chronic obstructive pulmonary disease) Status: Chronic (6) Chronic kidney disease, stage 3 (moderate) Code(s): N18.3 - CHRONIC KIDNEY DISEASE, STAGE 3 (MODERATE) Status: Chronic (7) HLD (hyperlipidemia) Code(s): E78.5 - HYPERLIPIDEMIA, UNSPECIFIED Status: Chronic (8) HTN (hypertension) Code(s): I10 - ESSENTIAL (PRIMARY) HYPERTENSION Status: Chronic Qualifiers: (9) Obesity (BMI 30.0-34.9) Code(s): E66.9 - OBESITY, UNSPECIFIED Status: Chronic - Plan cont current plan of care, continue antibiotics, respiratory therapy * add rocephin * start IVF with KCL * continue levaquin * repeat labs tomorrow * medication reviewed as below * symptomatic treatment. Review of Systems - Review of Systems ENT: negative: Ear Pain, Ear Discharge, Nose Pain, Nose Discharge, Nose Congestion, Mouth Pain, Mouth Swelling, Throat Pain, Throat Swelling, Other Respiratory: negative: Cough, Dry, Shortness of Breath, Hemoptysis, SOB with Excertion, Pleuritic Pain, Sputum, Wheezing Cardiovascular: negative: chest pain, palpitations, orthopnea, paroxysmal nocturnal dyspnea, edema, light headedness, other Gastrointestinal: negative: Nausea, Vomiting, Abdominal Pain, Diarrhea, Constipation, Melena, Hematochezia, Other Genitourinary: negative: Dysuria, Frequency, Incontinence, Hematuria, Retention , Other Musculoskeletal: negative: Neck Pain, Shoulder Pain, Arm Pain, Back Pain, Hand Pain, Leg Pain, Foot Pain, Other Neurological: Confusion. negative: Weakness, Numbness, Incoordination, Change in Speech, Seizures, Other - Medications/Allergies Allergies/Adverse Reactions: Allergies Allergy/AdvReac Type Severity Reaction Status Date / Time No Known Drug Allergies Allergy Verified 10/25/14 17:54 Medications: Current Medications Acetaminophen (Tylenol) 650 mg PO Q4H PRN PRN Reason: Headache/Fever/Mild Pain (1-3) Hydrocodone Bitart/Acetaminophen ([place] 5/325) 1 tab PO Q4H PRN PRN Reason: Moderate Pain (4-6) Albuterol/Ipratropium (Duoneb) 3 ml NEB [id number] [facility] Last Admin: 10/16/18 07:10 Dose: 3 ml Amlodipine Besylate (Norvasc) 10 mg PO DAILY [facility] Last Admin: 10/16/18 09:00 Dose: 10 mg Artificial Tears (Tears Naturale) 2 drop EA EYE PRN PRN PRN Reason: Dry Eyes Aspirin (Aspirin Chewable) 81 mg PO DAILY [facility] Last Admin: 10/16/18 09:00 Dose: 81 mg Bisacodyl (Dulcolax) 10 mg PO DAILYPRN PRN PRN Reason: Constipation Bisacodyl (Dulcolax) 10 mg [place] DAILYPRN PRN PRN Reason: Constipation Calcium Carbonate (Tums) 1,000 mg PO Q4H PRN PRN Reason: Heartburn or Indigestion Dextrose/Water (Dextrose 50%) 25 gm SLOW IVP PRN PRN PRN Reason: Hypoglycemia Docusate Sodium (Colace) 100 mg PO BIDPRN PRN PRN Reason: Constipation Enoxaparin Sodium (Lovenox) 40 mg SC 0900 [facility] Last Admin: 10/16/18 09:01 Dose: 40 mg Famotidine (Pepcid) 20 mg PO BID [facility] Last Admin: 10/16/18 09:00 Dose: 20 mg Glucagon (Glucagon) 1 mg IM PRN PRN PRN Reason: Hypoglycemia Guaifenesin (Mucinex) 600 mg PO Q12HR [facility] Last Admin: 10/16/18 09:00 Dose: 600 mg Guaifenesin (Robitussin Sf) 200 mg PO Q4H PRN PRN Reason: Cough Hydralazine HCl (Apresoline) 10 mg SLOW IVP Q4H PRN PRN Reason: SBP > 180 and HR < 70 Dextrose/Water (D5w) 1,000 mls @ 0 mls/hr IV .Q0M PRN PRN Reason: Hypoglycemia Levofloxacin 750 mg/ Device 150 mls @ 100 mls/hr IVPB 0800 [facility] Last Admin: 10/16/18 09:04 Dose: 150 mls Potassium Chloride/Sodium Chloride (1/2 Ns W/Kcl 20 Meq) 1,000 mls @ 75 mls/hr IV .[id number] [facility] Ceftriaxone Sodium 1 gm/ (Sodium Chloride) 100 mls @ 200 mls/hr IVPB Q24HR [facility] Insulin Human Lispro (Humalog) 0 units SC .MODERATE SLIDING SC PRN PRN Reason: Moderate Correctional Scale Last Admin: 10/15/18 17:11 Dose: 6 unit Insulin Human Lispro (Humalog) 0 units SC .BEDTIME SLIDING SC PRN PRN Reason: Bedtime Correctional Scale Labetalol HCl (Normodyne) 20 mg SLOW IVP Q4H PRN PRN Reason: SBP > 180 and HR >/= 70 Lisinopril (Zestril) 20 mg PO BID [facility] Last Admin: 10/16/18 09:00 Dose: 20 mg Loperamide HCl (Imodium) 2 mg PO PRN PRN PRN Reason: Diarrhea/Loose Stools Loratadine (Claritin) 10 mg PO DAILYPRN PRN PRN Reason: Sinus Symptoms Mineral Oil/White Petrolatum (Eucerin Cream) 0 gm TOP BIDPRN PRN PRN Reason: Dry Skin Mirtazapine (Remeron) 15 mg PO DAILY [facility] Last Admin: 10/16/18 09:00 Dose: 15 mg Mometasone Furoate/Formoterol Fumar (Dulera 200 Mcg/5 Mcg Inhaler) 2 puff INH BID-RT [facility] Last Admin: 10/16/18 07:12 Dose: 2 puff Ondansetron HCl (Zofran Odt) 4 mg PO Q6H PRN PRN Reason: Nausea/Vomiting Ondansetron HCl (Zofran) 4 mg IVP Q6H PRN PRN Reason: Nausea/Vomiting Oxybutynin Chloride (Ditropan) 5 mg PO BID [facility] Last Admin: 10/16/18 09:00 Dose: 5 mg Polyethylene Glycol (Miralax) 17 gm PO DAILY [facility] Last Admin: 10/16/18 09:01 Dose: 17 gm Potassium Chloride (K-Dur) 20 meq PO ONE [facility] Pravastatin Sodium (Pravachol) 20 mg PO HS [facility] Last Admin: 10/15/18 21:35 Dose: 20 mg Saccharomyces Boulardii (Florastor) 250 mg PO DAILY [facility] Last Admin: 10/16/18 09:00 Dose: 250 mg Senna/Docusate Sodium (Senokot S) 2 tab PO BIDPRN PRN PRN Reason: Constipation Sodium Chloride ([place] Nasal [place] 0.65%) 0 ml EA NARE QIDPRN PRN PRN Reason: Nasal Congestion
[2018-10-16] MEDS ORDERED: Potassium Chloride 20 MEQ TAB PO SCH (10:30)
[2018-10-16] MEDS: cefTRIAXone\\ROCEPHIN 1 GM in Sodium Chloride 0.9% 100 ML IVPB SCH (11:19)
[2018-10-16] MEDS: 1/2 NS w/KCL 20 mEq 1,000 ML IV SCH (12:56)
[2018-10-16] MEDS ORDERED: Labetalol HCl 100 MG/20 ML VIAL SLOW IVP PRN (14:37)
[2018-10-16] MEDS ORDERED: Lorazepam 2 MG/ML VIAL SLOW IVP SCH (14:45)
[2018-10-16] MEDS: Pravastatin Sodium 20 MG TAB PO SCH (21:01)
[2018-10-17] MEDS: 1/2 NS w/KCL 20 mEq 1,000 ML IV SCH ×2 (00:28→03:55)
[2018-10-17] MEDS: Mometasone/Formoterol 120 PUFF INHALER INH SCH (07:01)
[2018-10-17 07:41] LABS: #Eosinphils 0.6 thou/uL (0.0-0.7); #Lymphocytes 2.8 thou/uL (1.20-3.40); #Monocytes 0.9 thou/uL (0.11-0.59); #Neutrophils 5.9 thou/uL (1.40-6.50); %Basophils 0.4 % (0.0-1.0); %Eosinophils 5.5 % (0.0-10.0); %Lymphocytes 27.5 % (21.0-51.0); %Monocytes 8.8 % (0.0-10.0); %Neutrophils 57.9 % (42.0-75.0); Hemoglobin 17.4 g/dL (14.0-18.0); Mean Corpuscular HGB CONC 34.2 g/dL (32.0-36.0); Mean Corpuscular Hemoglobin 30.3 pg (27.0-31.0); Mean Corpuscular Volume 88.5 fL (78.0-98.0); Mean Platelet Volume 8.4 fL (7.4-10.4); Platelet Count 214 thou/uL (130-400); RBC Distribution Width 12.6 % (11.5-14.5); Red Blood Cell (RBC) Count 5.76 mill/uL (4.70-6.10); White Blood Cell (WBC) Count 10.1 thou/uL (4.8-10.8)
[2018-10-17] MEDS: Oxybutynin 5 MG TAB PO SCH (07:42)
[2018-10-17] MEDS: Saccharomyces boulardii 250 MG CAP PO SCH (07:42)
[2018-10-17] MEDS: guaiFENesin ER 600 MG TAB PO SCH (07:42)
[2018-10-17] MEDS: Famotidine 20 MG TAB PO SCH (07:43)
[2018-10-17] MEDS: Amlodipine 10 MG TAB PO SCH (07:43)
[2018-10-17] MEDS: Lisinopril 20 MG TAB PO SCH (07:43)
[2018-10-17] MEDS: Aspirin Chewable 81 MG TAB PO SCH (07:44)
[2018-10-17] MEDS: Mirtazapine 15 MG TAB PO SCH (07:44)
[2018-10-17] MEDS: Enoxaparin Sodium 40 MG/0.4 ML SYRINGE SC SCH (07:44)
[2018-10-17] MEDS: Polyethylene Glycol 3350 17 GM Packet PO SCH (07:44)
[2018-10-17 07:58] LABS: Anion Gap 13 mmol/L (10-20); BUN (Urea Nitrogen) 16 mg/dL (8.4-25.7); Calc. Creatinine Clearance 46 mL/min (70-130); Calcium 9.4 mg/dL (7.8-10.44); Carbon Dioxide 23 mmol/L (23-31); Chloride 107 mmol/L (98-107); Estimated GFR-MDRD 45; Glucose 150 mg/dL (83-110); Sodium 139 mmol/L (136-145)
--- NOTE | 2018-10-17 10:16 | DIS ---
DATE OF ADMISSION: 10/13/2018 DATE OF DISCHARGE: 10/17/2018 PRIMARY CARE PHYSICIAN: Dr. Mervat Collins. DISCHARGE DISPOSITION: Home. PRIMARY DISCHARGE DIAGNOSES: Acute bronchitis, acute encephalopathy in sepsis, hypokalemia, sepsis with acute organ dysfunction. SECONDARY DISCHARGE DIAGNOSES: Obesity, hypertension, dyslipidemia, COPD, chronic kidney disease stage 3. PRIMARY PROCEDURE/OPERATION: None. RADIOLOGIST INVESTIGATION: CT brain, chest x-ray. SIGNIFICANT LABORATORY DATA: Hemoglobin 17.4, creatinine 1.48. Urinalysis unremarkable. Serum drug screen negative. Blood culture negative. Influenza negative. Respiratory virus panel showed rhinovirus. Streptococcal culture was positive. DISCHARGE MEDICATIONS: 1. Levofloxacin 750 mg p.o. daily for 5 more days. 2. MiraLAX 17 g p.o. daily. 3. Aricept 5 mg p.o. at bedtime. 4. Florastor 250 mg p.o. daily for 5 days. The patient will continue following medications: 1. Amlodipine 10 mg daily. 2. Aspirin 81 mg daily. 3. Dapagliflozin 5 mg p.o. daily. 4. Colace 100 mg daily. 5. Remeron 15 mg p.o. daily. 6. Oxybutynin 5 mg b.i.d. 7. Pravastatin 20 mg p.o. at bedtime. 8. Lisinopril 40 mg p.o. daily. 9. Levemir insulin as per home dosage. CONTRAINDICATION: None. CODE STATUS: Full code. INPATIENT PLASTIC PROCESS TECHNICIAN: None. ALLERGIES: NO KNOWN DRUG ALLERGIES. DISCHARGE PLAN: Posthospital, the patient will follow up with primary care physician in one week. HOSPITAL COURSE: An 83-year-old male with above-mentioned medical problem, who was admitted by me on October 13, 2018. Please see my HPI for further details. The patient was admitted for confusion, increasing weakness, increasing cough and wheezing. The patient clinically diagnosed with acute bronchitis. His influenza screen was negative but respiratory virus panel was positive for rhinovirus. His rapid strep test was negative, but streptococcal culture was positive. The patient was treated with Rocephin and levofloxacin while in the hospital. On discharge , we changed to levofloxacin. The patient had slight confusion while in the hospital , which we are attributing to be due to dementia. This patient is given Aricept upon discharge. The patient will continue all his previous medication. All new medication prescription given to him. I have seen and examined the patient at bedside today. His vitals are stable. Plan of care discussed with the patient and the patient's family member with help of asphalt patcher. Discharge instruction given. The patient physical's examination is normal. He is on room air, tolerating p.o. well, ambulatory. Total time spent on discharge day 31 minutes Job ID: [id number] MTDD
[2018-10-17 10:25] VITALS: BP 134/81; TEMP 97.4
[2018-10-17] MEDS: cefTRIAXone\\ROCEPHIN 1 GM in Sodium Chloride 0.9% 100 ML IVPB SCH (10:26)
--- NOTE | 2018-10-17 10:57 | PDOC.PN ---
- Subjective Encounter Start Date: 10/17/18 Encounter Start Time: 09:00 Patient seen and examined. No new complaints. No overnight events - Objective Resuscitation Status - Order Detail: 10/13/18 15:27 Resuscitation Status Routine Resuscitation Status: FULL: Full Resuscitation MAR Reviewed: Yes Vital Signs & Weight: Vital Signs (12 hours) Temp Pulse Resp BP BP BP Pulse Ox 10/17/18 10:24 97.4 F L 90 18 134/81 99 10/17/18 08:00 98.2 F 91 20 165/65 H 97 10/17/18 07:43 80 159/77 H 10/17/18 07:40 97 10/17/18 07:03 80 18 96 10/17/18 07:01 85 18 96 10/17/18 01:04 88 20 98 Weight Weight 193 lb 1.999 oz I&O: 10/16/18 10/17/18 10/18/18 06:59 06:59 06:59 Intake Total 1450 2500 Output Total 950 Balance 500 2500 Result Diagrams: 10/17/18 07:18 10/17/18 07:18 Additional Labs: Accuchecks 10/17/18 10/16/18 10/16/18 04:29 20:25 16:21 POC Glucose 155 H 206 H 221 H 10/16/18 11:28 POC Glucose 172 H Phys Exam - Physical Examination Constitutional: NAD HEENT: PERRLA, moist MMs, sclera anicteric Neck: no JVD, supple Respiratory: no wheezing, no rales, no rhonchi Cardiovascular: RRR, no significant murmur, no rub Gastrointestinal: soft, non-tender, no distention, positive bowel sounds Musculoskeletal: no edema, pulses present Neurological: non-focal, normal sensation Lymphatic: no nodes Psychiatric: normal affect Skin: no rash, normal turgor Dx/Plan (1) Acute bronchitis Code(s): J20.9 - ACUTE BRONCHITIS, UNSPECIFIED Status: Acute (2) Encephalopathy in sepsis Code(s): G93.41 - METABOLIC ENCEPHALOPATHY Status: Acute (3) Hypokalemia Code(s): E87.6 - HYPOKALEMIA Status: Acute (4) Sepsis with acute organ dysfunction Code(s): A41.9 - SEPSIS, UNSPECIFIED ORGANISM; R65.20 - SEVERE SEPSIS WITHOUT SEPTIC SHOCK Status: Acute (5) COPD (chronic obstructive pulmonary disease) Status: Chronic (6) Chronic kidney disease, stage 3 (moderate) Code(s): N18.3 - CHRONIC KIDNEY DISEASE, STAGE 3 (MODERATE) Status: Chronic (7) HLD (hyperlipidemia) Code(s): E78.5 - HYPERLIPIDEMIA, UNSPECIFIED Status: Chronic (8) HTN (hypertension) Code(s): I10 - ESSENTIAL (PRIMARY) HYPERTENSION Status: Chronic Qualifiers: (9) Obesity (BMI 30.0-34.9) Code(s): E66.9 - OBESITY, UNSPECIFIED Status: Chronic - Plan cont current plan of care, plan discussed w/ family, continue antibiotics * medication reviewed as below * symptomatic treatment * see discharge summery. Review of Systems - Review of Systems ENT: negative: Ear Pain, Ear Discharge, Nose Pain, Nose Discharge, Nose Congestion, Mouth Pain, Mouth Swelling, Throat Pain, Throat Swelling, Other Respiratory: negative: Cough, Dry, Shortness of Breath, Hemoptysis, SOB with Excertion, Pleuritic Pain, Sputum, Wheezing Cardiovascular: negative: chest pain, palpitations, orthopnea, paroxysmal nocturnal dyspnea, edema, light headedness, other Gastrointestinal: negative: Nausea, Vomiting, Abdominal Pain, Diarrhea, Constipation, Melena, Hematochezia, Other Genitourinary: negative: Dysuria, Frequency, Incontinence, Hematuria, Retention , Other Musculoskeletal: negative: Neck Pain, Shoulder Pain, Arm Pain, Back Pain, Hand Pain, Leg Pain, Foot Pain, Other - Medications/Allergies Allergies/Adverse Reactions: Allergies Allergy/AdvReac Type Severity Reaction Status Date / Time No Known Drug Allergies Allergy Verified 10/25/14 17:54
== END 2018-10-17 10:42 | disposition home or self-care (01) | DRG 871 ==
LOC: ERS 11:02 → T4-A 15:46
PROVIDERS: ADMIT Internal Medicine; ATTEND Internal Medicine
DX: A41.9 Sepsis, unspecified organism (principal); G93.41 Metabolic encephalopathy; J44.0 Chronic obstructive pulmonary disease with (acute) lower respiratory infection; J44.9 Chronic obstructive pulmonary disease, unspecified; E78.5 Hyperlipidemia, unspecified; E11.22 Type 2 diabetes mellitus with diabetic chronic kidney disease; N18.3 Chronic kidney disease, stage 3 (moderate); I12.9 Hypertensive chronic kidney disease with stage 1 through stage 4 chronic kidney disease, or unspecified chronic kidney disease; E66.9 Obesity, unspecified; E87.6 Hypokalemia; R65.20 Severe sepsis without septic shock; J20.6 Acute bronchitis due to rhinovirus; F03.90 Unspecified dementia, unspecified severity, without behavioral disturbance, psychotic disturbance, mood disturbance, and anxiety; Z79.51 Long term (current) use of inhaled steroids; Z90.49 Acquired absence of other specified parts of digestive tract; Z79.82 Long term (current) use of aspirin; Z79.899 Other long term (current) drug therapy; Z79.4 Long term (current) use of insulin; Z87.891 Personal history of nicotine dependence; Z68.31 Body mass index [BMI] 31.0-31.9, adult
CPT/HCPCS: 36415; 36416; 70450; 71045; 80048; 80053; 80307; 81003; 81015; 82550; 83605; 83690; 84484; 85025; 87040; 87081; 87086; 87430; 87633; 87804; 93005; 94640; 96361; 96365; 96367; J0696; J1650; J1956; J2060; J2543; J3370; J3480; J7050; J7620

== ENCOUNTER 2019-01-17 08:54 | Emergency (ER) | payer MEDICARE, MEDICAID ==
--- NOTE | 2019-01-17 09:56 | CT ---
Exam: Head CT without contrast HISTORY: Headache, onset last night COMPARISON: 10/13/2018 FINDINGS: Hemorrhage: No intraparenchymal hemorrhage or extra-axial hematoma. Brain parenchyma: Cortical addison-white matter differentiation is preserved. No mass effect or midline shift. Basilar cisterns are patent.Stable white matter hypodensities due to chronic small vessel ischemic change Ventricular system: Ventricles and sulci are patent and symmetric. Calvarium: Intact. Sinuses and mastoid air cells: Minimal opacification of the ethmoid air cells. Adequate mastoid air c ell aeration. IMPRESSION: No acute intracranial process.
[2019-01-17 10:18] LABS: #Eosinphils 0.3 thou/uL (0.0-0.7); #Lymphocytes 2.6 thou/uL (1.20-3.40); #Monocytes 0.8 thou/uL (0.11-0.59); #Neutrophils 7.7 thou/uL (1.40-6.50); %Basophils 0.1 % (0.0-1.0); %Lymphocytes 22.9 % (21.0-51.0); %Monocytes 7.2 % (0.0-10.0); %Neutrophils 66.8 % (42.0-75.0); Mean Corpuscular HGB CONC 33.6 g/dL (32.0-36.0); Mean Corpuscular Hemoglobin 29.9 pg (27.0-31.0); Mean Corpuscular Volume 89.1 fL (78.0-98.0); Mean Platelet Volume 9.1 fL (7.4-10.4); Platelet Count 207 thou/uL (130-400); RBC Distribution Width 12.3 % (11.5-14.5); Red Blood Cell (RBC) Count 6.01 mill/uL (4.70-6.10); White Blood Cell (WBC) Count 11.5 thou/uL (4.8-10.8)
[2019-01-17 11:05] LABS: Anion Gap 15 mmol/L (10-20); BUN (Urea Nitrogen) 15 mg/dL (8.4-25.7); Calc. Creatinine Clearance 0 mL/min (70-130); Calcium 9.2 mg/dL (7.8-10.44); Carbon Dioxide 25 mmol/L (23-31); Chloride 104 mmol/L (98-107); Estimated GFR-MDRD 51; Glucose 140 mg/dL (83-110); Potassium 3.5 mmol/L (3.5-5.1); Sodium 140 mmol/L (136-145)
[2019-01-17] MEDS ORDERED: Acetaminophen 500 MG TAB ONE (11:16)
[2019-01-17] MEDS ORDERED: Ketorolac Tromethamine 60 MG/2 ML VIAL ONE (11:16)
[2019-01-17] MEDS ORDERED: Ondansetron PF 4 MG/2 ML Vial ONE (11:16)
== END 2019-01-17 11:45 | disposition home or self-care (01) ==
LOC: ERS 08:54
DX: S06.9X9A Unspecified intracranial injury with loss of consciousness of unspecified duration, initial encounter (principal); S46.919A Strain of unspecified muscle, fascia and tendon at shoulder and upper arm level, unspecified arm, initial encounter; I10 Essential (primary) hypertension; E11.9 Type 2 diabetes mellitus without complications; E78.5 Hyperlipidemia, unspecified; J44.9 Chronic obstructive pulmonary disease, unspecified; N40.0 Benign prostatic hyperplasia without lower urinary tract symptoms; Z87.891 Personal history of nicotine dependence; Z79.899 Other long term (current) drug therapy; Z79.4 Long term (current) use of insulin; Z79.82 Long term (current) use of aspirin; W19.XXXA Unspecified fall, initial encounter
CPT/HCPCS: 36415; 70450; 80048; 85025; 96374; 96375; J1885; J2405

== ENCOUNTER 2019-06-01 10:23 | Emergency (ER) | payer MEDICARE, MEDICAID ==
[2019-06-01] MEDS ORDERED: HYDROcodone/Acetaminophen 5/325 mg Tablet ONE (10:50)
--- NOTE | 2019-06-01 11:11 | RAD ---
XR Knee Lt 4 View STANDARD HISTORY: Injury, fall, left knee pain FINDINGS: No fracture or dislocation is identified. Mild degenerative changes are present. No joint effusion is seen.
--- NOTE | 2019-06-01 11:12 | RAD ---
XR Hip Lt 2-3 View HISTORY: Fall, trauma, left hip pain FINDINGS: Degenerative changes are present. No fracture or dislocation is identified.
== END 2019-06-01 12:35 | disposition home or self-care (01) ==
LOC: ERS 10:23
DX: M25.552 Pain in left hip (principal); E78.5 Hyperlipidemia, unspecified; I10 Essential (primary) hypertension; J44.9 Chronic obstructive pulmonary disease, unspecified; N40.0 Benign prostatic hyperplasia without lower urinary tract symptoms; F03.90 Unspecified dementia, unspecified severity, without behavioral disturbance, psychotic disturbance, mood disturbance, and anxiety; F20.9 Schizophrenia, unspecified; Z87.891 Personal history of nicotine dependence; Z79.899 Other long term (current) drug therapy; Z79.82 Long term (current) use of aspirin

== ENCOUNTER 2019-07-07 10:36 | Inpatient (IN) | payer MEDICARE, MEDICAID ==
[2019-07-07] MEDS ORDERED: Albuterol Sulfate 2.5 mg/3 ml Neb ONE (10:49)
[2019-07-07] MEDS ORDERED: methylPREDNISolone Sod Succ/PF 125 MG/2 ML VIAL ONE (10:51)
[2019-07-07] MEDS ORDERED: Magnesium 2 GM/50 ML BAG (IN WATER) ONE (10:51)
[2019-07-07 11:04] LABS: Bilirubin Negative (Negative); Blood, Urine Moderate (Negative); Glucose, Urine (Dipstick) >=1000 mg/dL (Negative); Leukocyte Negative (Negative); Nitrite Negative (Negative); Protein, Urine (Dipstick) 30 mg/dL (Neg-Trace)
[2019-07-07] MEDS ORDERED: Cefepime 2 GM VIAL ONE (11:06)
[2019-07-07] MEDS ORDERED: cefTRIAXone\\ROCEPHIN 2 GM VIAL ONE (11:11)
--- NOTE | 2019-07-07 11:13 | RAD ---
XR Chest 1 View Portable HISTORY: Cough, fever COMPARISON: 10/13/2018 FINDINGS: The heart size is normal. The lungs are well expanded without focal areas of consolidation, pneumothorax or pleural effusions. IMPRESSION: No radiographic evidence of acute cardiopulmonary process.
[2019-07-07 11:19] LABS: Clarity Clear (Clear)
[2019-07-07 11:20] LABS: Bacteria/HPF 1+ HPF (None Seen); Squamous Epithelial None Seen HPF (0-3); WBC/HPF None Seen HPF (0-3)
[2019-07-07 11:34] LABS: Hemoglobin 17.6 g/dL (14.0-18.0); Mean Corpuscular HGB CONC 33.2 g/dL (32.0-36.0); Mean Corpuscular Hemoglobin 29.7 pg (27.0-31.0); Mean Corpuscular Volume 89.6 fL (78.0-98.0); Mean Platelet Volume 9.5 fL (7.4-10.4); Platelet Count 194 thou/uL (130-400); RBC Distribution Width 12.5 % (11.5-14.5); Red Blood Cell (RBC) Count 5.91 mill/uL (4.70-6.10); White Blood Cell (WBC) Count 26.7 thou/uL (4.8-10.8)
[2019-07-07 11:54] LABS: ALT (SGPT) 16 U/L (8-55); AST (SGOT) 55 U/L (5-34); Albumin 4.1 g/dL (3.4-4.8); Alkaline Phosphatase 119 U/L (40-110); Anion Gap 13 mmol/L (10-20); BUN (Urea Nitrogen) 20 mg/dL (8.4-25.7); Band 16 % (5-11); Bilirubin, Total 2.2 mg/dL (0.2-1.2); Calc. Creatinine Clearance 0 mL/min (70-130); Calcium 9.4 mg/dL (7.8-10.44); Carbon Dioxide 26 mmol/L (23-31); Chloride 106 mmol/L (98-107); Estimated GFR-MDRD 30; Globulin 4.2 g/dL (2.4-3.5); Glucose 150 mg/dL (83-110); Lymphocytes 14 % (21-51); MDiff Complete? YES; Monocytes 2 % (0-10); Neutrophil 60 % (42-75); Potassium 3.7 mmol/L (3.5-5.1); Protein, Total 8.3 g/dL (5.8-8.1); RBC Morphology Normal; Reactive Lymphocytes 8 % (0-10)
[2019-07-07 12:00] LABS: Sodium 143 mmol/L (136-145)
[2019-07-07] MEDS ORDERED: Azithromycin 500 MG VIAL ONE (13:09)
[2019-07-07] MEDS ORDERED: HYDROcodone/Acetaminophen 5/325 mg Tablet PO PRN (14:29)
[2019-07-07] MEDS ORDERED: Acetaminophen 325 MG TAB PO PRN (14:29)
[2019-07-07] MEDS ORDERED: Acetaminophen 650 MG Suppository PR PRN (14:29)
--- NOTE | 2019-07-07 14:39 | RAD ---
XR Knee Lt 4 View STANDARD HISTORY: Injury, left knee pain FINDINGS: No fracture or dislocation is identified. Mild degenerative changes are present.
[2019-07-07] MEDS ORDERED: Dextrose 5% in Water 1,000 ML IV PRN (14:41)
[2019-07-07] MEDS ORDERED: HumaLOG 300 UNITS/3 ML VIAL SC PRN (14:41)
[2019-07-07] MEDS ORDERED: Dextrose 50% Abboject 50 ML SYRINGE SLOW IVP PRN (14:41)
--- NOTE | 2019-07-07 14:41 | RAD ---
XR Hip Lt 2-3 View HISTORY: Fall, left hip pain FINDINGS: No fracture or dislocation is identified. Degenerative changes are present. If there is high clinical suspicion for fracture, further evaluation with CT scan or MRI should be pe rformed.
[2019-07-07] MEDS ORDERED: Sodium Chloride 0.45% 1,000 ML IV SCH (14:45)
[2019-07-07 14:46] LABS: Actual Bicarbonate (HCO3a) 19.2 mEq/L (22-28); Analyzer IN Cardio ER; Base Excess (BEa) -4.6 mEq/L (-2.0 to +3.0); CO2 Tension 32.7 mmHg (35.0-45.0); Calcium, Ionized 1.12 mmol/L (1.12-1.30); Carboxyhemoglobin (COHb) 0.7 gm% (0.0-3.0); Hemoglobin (Hb) 16.2 g/dL (14.0-18.0); O2 Tension (PaO2) 76.9 mmHg (> 60.0); pH, Arterial 7.39 (7.35-7.45)
[2019-07-07 14:49] LABS: ALV-art Gradient 81.865 (0-20); Puncture Site RRA
[2019-07-07 14:55] LABS: Lipase Less than 4 U/L (8-78); Magnesium 1.9 mg/dL (1.6-2.6)
--- NOTE | 2019-07-07 16:05 | HP ---
TIME OF ASSESSMENT: 1400 hours. CHIEF COMPLAINT: Weakness, shortness of breath, and diarrhea. HISTORY OF PRESENT ILLNESS: Mr. Arriaza is an 83-year-old gentleman, who presents to the emergency department due to shortness of breath that started yesterday evening. The patient apparently has been feeling unwell for the last 3 to 4 days. He was having abdominal pain and distention, therefore started taking a laxative or stool softener of some sort. The patient and his daughter do not know exactly what he was taking. Apparently after taking it for 2 or 3 days, he then developed severe diarrhea two days ago. He states yesterday it was excessive and frequent, but denies any watery stools or blood in the stools. He was getting up to get to the bathroom with the help of his walker yesterday evening when he suddenly felt weak in the knees and fell face forward. The patient does not recall if he hit his head, but does recall falling onto his left knee. Since then he has had a significant amount of pain in his left knee up his thigh and into the left hip. He has had limited range of motion in the left leg because of this and has been unable to bear weight. Yesterday evening, he suddenly began to experience shortness of breath and therefore was brought in today. The patient does have a history of asthma, but does not use oxygen at home. He does use nebulizer treatments regularly. His daughter states he had a temperature 3 to 4 days ago and he has been managing this with ibuprofen. They are unable to pinpoint exactly how much ibuprofen he has required or how high his temperature has been or how frequently he has taken medications for his fever. Family and the patient are poor historians, and there is also language barrier. REVIEW OF SYSTEMS: The patient reports having lower extremity weakness and feeling generally unwell for about a week. He denies any chills. Denies any chest pain. Reports a cough, which is dry. Denies any hemoptysis. He is not experiencing any abdominal pain at this present time, but states he has noted intermittent abdominal discomfort and abdominal distention. He reports noting dysuria as of the last couple of days. Denies any hematuria. All other review of systems apart from those mentioned above in HPI are negative. ED COURSE: In the emergency department, the patient was noted to have elevated respiratory rate of 36 on initial presentation and apparently his breathing was labored, though he was saturating 94% on room air. Once placed on oxygen, his respiratory rate improved to the mid 20s and he is saturating 97% on 2 L. The patient has been treated with DuoNebs and also given 125 mg of IV methylprednisolone as well as 2 g of magnesium sulfate. He had laboratory studies done that were notable for a white count of 26. There was clinical suspicion for pneumonia. Therefore, he was started on IV antibiotics with cefepime and Rocephin as well as azithromycin. The lactic acid did come back normal and the chest x-ray was unremarkable. The patient underwent a urinalysis, which demonstrated 30 of protein, greater than 1000 glucose, trace ketones, moderate blood, and 1+ bacteria. Otherwise, no nitrites, leukocytes, or white blood cells. Remaining laboratory studies are notable for acute on chronic renal insufficiency with a creatinine of 2.14, GFR of 30, normally in the 50s, and a BUN of 20. His total bilirubin was elevated at 2.2, total protein 8.3, albumin 4.1, calcium 9.4, AST 55, and ALT 16. Imaging was done of the knee and left hip, both showing no acute findings. ALLERGIES: NO KNOWN DRUG ALLERGIES. CURRENT MEDICATIONS: 1. Lisinopril. 2. Lantus. 3. Docusate sodium. 4. Aspirin. 5. Amlodipine. 6. Oxybutynin. 7. Pravastatin. 8. Pantoprazole. 9. Farxiga. 10. Montelukast. 11. Janumet. 12. Hytone. 13. Remeron. 14. Cipro. PHYSICAL EXAMINATION: GENERAL: The patient appears generally unwell, but in no acute distress. VITAL SIGNS: Temperature 98.4, pulse 96, blood pressure 131/62, respirations 26, O2 saturation 97% on 2 L by nasal cannula. HEENT: Normocephalic and atraumatic. Pupils are equal, round, and reactive to light. Sclerae are without icterus. Oropharynx is clear. NECK: Supple. Full range of motion. LUNGS: Notable for wheezing throughout all lung ruiz. CARDIAC: Regular rate and rhythm. No chest wall tenderness. No bony deformities. Normal chest wall expansion. ABDOMEN: Obese and distended. No guarding or rigidity. Some discomfort with palpation of the right upper quadrant. EXTREMITIES: No lower leg swelling or edema. Left extremity externally rotated. Limited range of motion due to pain. Tenderness along the mid thigh. No obvious bone deformity, bruising, or swelling. NEUROLOGIC: Alert and oriented x3. No neuro deficits. INVESTIGATIONS: As mentioned above in HPI. IMPRESSION AND PLAN: Mr. Arriaza is a pleasant 83-year-old [place]iny[place]-speaking gentleman, who is being admitted for management of the followin. Suspected pneumonia. The patient with leukocytosis, low-grade temperatures, and shortness of breath with wheezing. We will continue DuoNebs. Lactic acid normal and chest x-ray unremarkable. We will obtain a CT of the chest to better assess for underlying pneumonia. We will obtain an arterial blood gas. We will also add a respiratory viral panel. 2. Left leg pain with limited range of motion. Awaiting x-ray imaging. If negative, he would benefit from Physical Therapy and Occupational Therapy consult. Consider rehab screening as family reports generalized weakness has been causing him to be more sedentary at home and difficulty coping as well on his own. 3. Abdominal pain. The patient with complaints of constipation, managed with laxative/stool softeners that has led to diarrhea. He has not been on any antibiotics recently. Stools are not watery. He does not meet criteria for Clostridium difficile testing. Given liver function tests being elevated and complaints, we will obtain CT imaging of the abdomen and pelvis. This would also help to better assess for any underlying pelvic fractures. 4. Diabetes mellitus. Monitor blood glucose and initiate insulin sliding scale. Resume home medications once verified. 5. Hypertension. Monitor blood pressure and resume home medications once verified. 6. Hyperlipidemia. Resume home medications once verified. 7. Gastrointestinal prophylaxis with famotidine. 8. Deep venous thrombosis prophylaxis with mechanical sequential compression devices. 9. Code status, full. Surrogate decision maker is his daughter, Sultana Arriaza. The patient's case was discussed with attending, who agrees upon care as described above. Job ID: [id number]
--- NOTE | 2019-07-07 16:05 | RAD ---
EXAM: LEFT FEMUR TWO VIEWS: 07/07/19 HISTORY: Injury from trauma. Pain and tenderness to the left thigh following a fall. FINDINGS: Mild osteoarthrosis changes of the hip joint and knee joint. No acute fracture or dislocation or othe r acute process. IMPRESSION: Unremarkable left femur. POS: [facility]
--- NOTE | 2019-07-07 17:02 | CT ---
CT CHEST, ABDOMEN AND PELVIS WITHOUT CONTRAST: 07/07/19 HISTORY: 83-year-old male with shortness of breath and suspected pneumonia, wheezing, cough. FINDINGS: Absence of IV contrast reduces the sensitivity of the exam particularly for evaluation of mediastinal , hilar, vascular structures and solid organs. Oral contrast was administered. No pleural or pericardial effusions are seen. No pneumothoraces identified. There is mild patchy infi ltrates in the posterior segment of the left upper lobe. There are dependent changes in the left lung base. The patient is post cholecystectomy. No free air or free fluid is seen in the abdomen or pelvis. The small bowel loops are not abnormally dilated. Appendix is normal. No calculi is seen in the kidneys, ureters, or the urinary bladder. No hydroureteronephrosis is noted on either side. There is a 2.5 cm cyst in the inferior pole of the left kidney. The prostate is mildly enlarged. There are vascular calcifications without evidence of aneurysmal dilatation of the thoracoabdominal a heriberto. There are degenerative changes in the thoracolumbar spine. Postop changes are noted in the righ t proximal femur. IMPRESSION: 1. Mild patchy infiltrate in the left upper lobe suspicious for pneumonia. 2. No evidence of urinary tract calculi/obstruction, small bowel obstruction or appendicitis. POS: [facility]
[2019-07-07 17:14] VITALS: BMI 31.4
[2019-07-07] MEDS: methylPREDNISolone Sod Succ 40 MG VIAL IVP SCH ×2 (17:37→23:36)
[2019-07-07] MEDS: HumaLOG 300 UNITS/3 ML VIAL SC PRN (17:44)
[2019-07-07] MEDS: Famotidine/PF 20 mg/2ml Vial SLOW IVP SCH (19:59)
[2019-07-07] MEDS: Sodium Chloride 0.45% 1,000 ML IV SCH (20:00)
--- NOTE | 2019-07-08 02:09 | CON ---
DATE OF CONSULTATION: SUBJECTIVE: Mr. Arriaza is an 83-year-old male, who was admitted for complaints of shortness of breath. This was associated with weakness and diarrhea. We are now being consulted for his acute kidney injury on top of his chronic renal failure. He also was complaining of joint pains. For that reason, he had an x-ray of the knee and the hip, which were all negative. Chest x-ray showed no evidence of CHF. The patient does have a history of longstanding asthma. The patient also makes mention of having fever a few days ago. REVIEW OF SYSTEMS: Positive for occasional shortness of breath. No nausea. No vomiting. No constipation. Occasional diarrhea?. No fever. Appetite and energy level are fair. No headache. No diplopia. No syncopal episode. No dysuria. No hematochezia. No melena. No hematemesis. No abdominal pain. HOME MEDICATIONS: Include the following; amitriptyline 10 mg daily, lisinopril 20 mg daily, Farxiga 5 mg q.a.m., ibuprofen 200 mg q.6 p.r.n., aspirin 81 mg tablet once a day, amlodipine 10 mg once a day, DuoNeb q.6, ProAir as directed, pravastatin 20 mg tablet at bedtime, insulin detemir 50 units subcu daily, oxybutynin 5 mg p.o. b.i.d. PAST MEDICAL HISTORY: DJD, status post sepsis, hypertension, COPD, hyperlipidemia, type 2 diabetes mellitus, status post bronchitis, status post BPH. PAST SURGICAL HISTORY: Status post cholecystectomy, status post upper GI endoscopy with ERCP, status post bladder surgery, status post cystoscopy, status post prostate surgery. SOCIAL HISTORY: The patient is . He lives in [place]. 12 children with 3 . 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 Education, no formal schooling. Used to smoke heavily, but currently not smoking. Alcohol, none. No IV drug abuse. Sedentary lifestyle. FAMILY HISTORY: No family history of ESRD. IMMUNIZATIONS: Up to date. ALLERGIES: NONE. TRAUMA: None. FAMILY HISTORY: No family history of ESRD. PHYSICAL EXAMINATION: VITAL SIGNS: Blood pressure 130/74, heart rate is 92, temperature 98, respiratory rate 20, and pulse ox 94% on 2 L. GENERAL: Awake, alert, comfortable, not in overt distress. SKIN: Adequate turgor. HEENT: Pinkish conjunctivae. Anicteric sclerae. No neck mass. No carotid bruits. No JVD. CHEST: No deformities. LUNGS: Decreased breath sounds. Positive for wheezing. HEART: Normal sinus rhythm. No murmur. No gallops. No rubs. ABDOMEN: Globular, soft, nontender. No masses. EXTREMITIES: No edema. No deformities. NEUROLOGICAL: Moving all extremities. No tremors. No asterixis. No ataxia. LABORATORY DATA: July 07, 2019, white count 26.7, hemoglobin 17.6, hematocrit 52.9. Sodium 143, potassium 3.7, chloride 106, carbon dioxide 26, BUN 20, creatinine 2.14, glucose 153, calcium 9.4, AST 55, ALT 16, albumin 4.1, lactic acid 3.0. Urinalysis, specific gravity 1.010, protein is 30, no red cells, no white cells. CT scan of the chest shows mild patchy infiltrate in the left upper lobe suspicious for pneumonia. ASSESSMENT/PLAN: 1. Acute kidney injury on top of his chronic renal failure. Consider hemodynamically-mediated renal dysfunction. The patient was on lisinopril. The plan is to continue his IV hydration at increased rate of 100 mL/h. Agree to hold off lisinopril. No indication for any dialytic intervention. Continue current management. 2. Chronic renal failure with history of diabetes and proteinuria. Consider the possibility of underlying diabetic nephropathy. 3. Leukocytosis/pneumonia. Consider empirically treating this patient with IV antibiotics - ceftriaxone 1 g IV daily. 4. Recheck basic metabolic panel, CBC in a.m. Job ID: [id number]
[2019-07-08] MEDS: methylPREDNISolone Sod Succ 40 MG VIAL IVP SCH ×4 (04:21→22:52)
[2019-07-08] MEDS: Sodium Chloride 0.45% 1,000 ML IV SCH ×2 (04:21→16:07)
[2019-07-08] MEDS: HumaLOG 300 UNITS/3 ML VIAL SC PRN ×3 (05:40→17:08)
[2019-07-08 06:36] LABS: Hemoglobin 14.8 g/dL (14.0-18.0); Mean Corpuscular HGB CONC 33.1 g/dL (32.0-36.0); Mean Corpuscular Hemoglobin 29.2 pg (27.0-31.0); Mean Corpuscular Volume 88.2 fL (78.0-98.0); Mean Platelet Volume 9.4 fL (7.4-10.4); Platelet Count 188 thou/uL (130-400); RBC Distribution Width 12.3 % (11.5-14.5); Red Blood Cell (RBC) Count 5.08 mill/uL (4.70-6.10); White Blood Cell (WBC) Count 19.9 thou/uL (4.8-10.8)
[2019-07-08 07:08] LABS: ALT (SGPT) 19 U/L (8-55); AST (SGOT) 58 U/L (5-34); Albumin 3.3 g/dL (3.4-4.8); Alkaline Phosphatase 103 U/L (40-110); Anion Gap 15 mmol/L (10-20); BUN (Urea Nitrogen) 26 mg/dL (8.4-25.7); Bilirubin, Total 0.9 mg/dL (0.2-1.2); Calc. Creatinine Clearance 39 mL/min (70-130); Calcium 8.3 mg/dL (7.8-10.44); Carbon Dioxide 19 mmol/L (23-31); Chloride 107 mmol/L (98-107); Estimated GFR-MDRD 39; Globulin 3.8 g/dL (2.4-3.5); Glucose 184 mg/dL (83-110); Potassium 3.6 mmol/L (3.5-5.1); Protein, Total 7.1 g/dL (5.8-8.1); Sodium 137 mmol/L (136-145)
[2019-07-08 07:27] LABS: Band 11 % (5-11); Lymphocytes 3 % (21-51); MDiff Complete? YES; Neutrophil 85 % (42-75); RBC Morphology Normal; Reactive Lymphocytes 1 % (0-10)
[2019-07-08] MEDS ORDERED: Prevnar 13-Val Conj/PF 0.5 ML SYRINGE IM ONE (09:00)
[2019-07-08] MEDS ORDERED: FLU VACC TS2019-20(65YR UP)/PF 180 MCG/0.5 ML SYRINGE IM ONE (09:00)
[2019-07-08] MEDS: cefTRIAXone\\ROCEPHIN 1 GM in Sodium Chloride 0.9% 100 ML IVPB SCH (12:06)
--- NOTE | 2019-07-08 19:17 | PDOC.HOSPP ---
- Subjective Encounter Date: 07/08/19 Encounter Time: 13:12 Subjective: 83 y/o male with HTN, asthma admitted with worsening SOB associated with weakness and a fall. Patient had developed abdominal pain and distension wwhich he felt was constipation and had started laxatives following which he developed frequent loose stools. Evaluation showed left upper lobe patchy infiltrates consistent with pneumonia. Feeling better. - Objective Vital Signs & Weight: Vital Signs (12 hours) Temp Pulse Resp BP Pulse Ox Pulse Ox Pulse Ox 07/08/19 18:52 83 16 90 L 07/08/19 16:00 98.0 F 83 20 132/76 96 07/08/19 14:13 72 16 95 07/08/19 12:00 97.5 F L 94 20 125/63 96 07/08/19 10:43 93 L 94 L 07/08/19 09:56 76 16 93 L 07/08/19 09:17 94 L 07/08/19 08:20 94 L 07/08/19 07:41 97.4 F L 86 20 106/62 Pulse Ox 07/08/19 18:52 07/08/19 16:00 07/08/19 14:13 07/08/19 12:00 07/08/19 10:43 94 L 07/08/19 09:56 07/08/19 09:17 07/08/19 08:20 07/08/19 07:41 Weight Weight 188 lb 14.4 oz I&O: 07/07/19 07/08/19 07/09/19 06:59 06:59 06:59 Intake Total 1450 1720 Output Total 450 Balance 1000 1720 Result Diagrams: 07/08/19 05:51 07/08/19 05:51 Additional Labs: Accuchecks 07/08/19 07/08/19 07/08/19 16:41 12:07 04:49 POC Glucose 243 H 267 H 214 H 07/07/19 20:17 POC Glucose 285 H Hospitalist ROS - Medication Medications: Active Medications Generic Name Dose Route Start Last Admin Trade Name Freq PRN Reason Stop Dose Admin Albuterol/Ipratropium 3 ml 07/07/19 14:30 07/08/19 18:52 Duoneb NEB 3 ml [id number] SHAYE Administration Famotidine 20 mg 07/07/19 21:00 07/07/19 19:59 Pepcid SLOW IVP 20 mg QPM SHAYE Administration Sodium Chloride 1,000 mls @ 100 mls/hr 07/07/19 19:16 07/08/19 16:07 1/2 Normal Saline IV 1,000 mls .Q10H SHAYE Administration Ceftriaxone Sodium 1 gm/ 100 mls @ 200 mls/hr 07/08/19 12:00 07/08/19 12:06 Sodium Chloride IVPB 100 mls 1200 SHAYE Administration Insulin Human Lispro 0 units 07/07/19 14:41 07/08/19 17:08 Humalog SC 3 unit .MILD SLIDING SCALE PRN Administration Mild Correctional Scale Methylprednisolone Sodium Succinate 40 mg 07/07/19 18:00 07/08/19 17:08 Solu-Medrol IVP 40 mg Q6HR SHAYE Administration - Exam General Appearance: awake alert ENT: normocephalic atraumatic Neck: symmetric, no JVD Heart: RRR Respiratory: no wheezes, no ronchi, no tachypnea Gastrointestinal: soft, non-tender, non-distended, normal bowel sounds Extremities: no edema Neurological: cranial nerve grossly intact, no focal deficits Psychiatric: A&O x 3 Hosp A/P (1) Left upper lobe pneumonia Code(s): J18.9 - PNEUMONIA, UNSPECIFIED ORGANISM Status: Acute (2) Constipation Code(s): K59.00 - CONSTIPATION, UNSPECIFIED Status: Acute (3) Frequent bowel movements Code(s): R19.4 - CHANGE IN BOWEL HABIT Status: Acute (4) Physical deconditioning Code(s): R53.81 - OTHER MALAISE Status: Acute (5) Chronic kidney disease, stage 3 (moderate) Code(s): N18.3 - CHRONIC KIDNEY DISEASE, STAGE 3 (MODERATE) Status: Chronic (6) HTN (hypertension) Code(s): I10 - ESSENTIAL (PRIMARY) HYPERTENSION Status: Chronic Qualifiers: (7) COLETTE (acute kidney injury) Code(s): N17.9 - ACUTE KIDNEY FAILURE, UNSPECIFIED Status: Acute (8) Diabetes mellitus Code(s): E11.9 - TYPE 2 DIABETES MELLITUS WITHOUT COMPLICATIONS Status: Acute Qualifiers: Diabetes mellitus complication detail: with dermatitis - Plan Continue antibiotics, Wean oxygen Continue insulin therapy PT.OT eval and treat
[2019-07-08] MEDS: Famotidine/PF 20 mg/2ml Vial SLOW IVP SCH (19:58)
[2019-07-09] MEDS: Sodium Chloride 0.45% 1,000 ML IV SCH ×3 (02:47→22:26)
[2019-07-09] MEDS: methylPREDNISolone Sod Succ 40 MG VIAL IVP SCH (05:49)
[2019-07-09] MEDS: HumaLOG 300 UNITS/3 ML VIAL SC PRN ×3 (05:50→17:03)
[2019-07-09 06:17] LABS: Hemoglobin 14.9 g/dL (14.0-18.0); Mean Corpuscular HGB CONC 34.9 g/dL (32.0-36.0); Mean Corpuscular Hemoglobin 30.8 pg (27.0-31.0); Mean Corpuscular Volume 88.2 fL (78.0-98.0); Mean Platelet Volume 9.3 fL (7.4-10.4); Platelet Count 195 thou/uL (130-400); RBC Distribution Width 12.2 % (11.5-14.5); Red Blood Cell (RBC) Count 4.85 mill/uL (4.70-6.10); White Blood Cell (WBC) Count 19.2 thou/uL (4.8-10.8)
[2019-07-09 06:19] LABS: #Lymphocytes 0.7 thou/uL (1.20-3.40); #Monocytes 0.7 thou/uL (0.11-0.59); #Neutrophils 17.4 thou/uL (1.40-6.50); %Eosinophils 0.1 % (0.0-10.0); %Lymphocytes 3.5 % (21.0-51.0); %Monocytes 3.5 % (0.0-10.0); %Neutrophils 92.9 % (42.0-75.0); Mean Corpuscular HGB CONC 34.5 g/dL (32.0-36.0); Mean Corpuscular Hemoglobin 30.5 pg (27.0-31.0); Mean Corpuscular Volume 88.5 fL (78.0-98.0); Mean Platelet Volume 9.8 fL (7.4-10.4); Platelet Count 200 thou/uL (130-400); RBC Distribution Width 12.2 % (11.5-14.5); Red Blood Cell (RBC) Count 4.92 mill/uL (4.70-6.10); White Blood Cell (WBC) Count 18.7 thou/uL (4.8-10.8)
[2019-07-09 06:34] LABS: Anion Gap 15 mmol/L (10-20); BUN (Urea Nitrogen) 35 mg/dL (8.4-25.7); Calc. Creatinine Clearance 41 mL/min (70-130); Calcium 8.3 mg/dL (7.8-10.44); Carbon Dioxide 18 mmol/L (23-31); Chloride 108 mmol/L (98-107); Estimated GFR-MDRD 40; Glucose 283 mg/dL (83-110); Potassium 3.7 mmol/L (3.5-5.1); Sodium 137 mmol/L (136-145)
[2019-07-09] MEDS ORDERED: Melatonin 3 MG TAB PO PRN (11:48)
[2019-07-09] MEDS: cefTRIAXone\\ROCEPHIN 1 GM in Sodium Chloride 0.9% 100 ML IVPB SCH (12:19)
[2019-07-09] MEDS: Sodium Bicarbonate Tab 325 MG TAB PO SCH ×2 (14:57→20:07)
--- NOTE | 2019-07-09 15:57 | PDOC.HOSPP ---
- Subjective Encounter Date: 07/09/19 Encounter Time: 13:55 Subjective: 83 y/o male with HTN, asthma admitted with worsening SOB associated with weakness and a fall. Evaluation showed left upper lobe patchy infiltrates consistent with pneumonia. Feeling better. Complaining of sleepless night. - Objective Vital Signs & Weight: Vital Signs (12 hours) Temp Pulse Resp BP BP Pulse Ox 07/09/19 14:12 82 16 92 L 07/09/19 12:00 97.1 F L 07/09/19 11:00 97.1 F L 100 20 133/69 92 L 07/09/19 08:00 97.8 F 07/09/19 07:56 97.8 F 105 H 18 147/76 H 93 L 07/09/19 06:33 79 16 91 L 07/09/19 04:00 98.7 F 88 20 137/76 92 L Weight Weight 188 lb 14.4 oz I&O: 07/08/19 07/09/19 07/10/19 06:59 06:59 06:59 Intake Total 1450 3270 480 Output Total 450 300 Balance 1000 2970 480 Result Diagrams: 07/09/19 05:36 07/09/19 05:36 Additional Labs: Accuchecks 07/09/19 07/09/19 07/08/19 11:19 05:14 19:45 POC Glucose 299 H 277 H 302 H 07/08/19 16:41 POC Glucose 243 H Hospitalist ROS - Medication Medications: Active Medications Generic Name Dose Route Start Last Admin Trade Name Freq PRN Reason Stop Dose Admin Albuterol/Ipratropium 3 ml 07/07/19 14:30 07/09/19 14:12 Duoneb NEB 3 ml [id number] SHAYE Administration Famotidine 20 mg 07/07/19 21:00 07/08/19 19:58 Pepcid SLOW IVP 20 mg QPM SHAYE Administration Sodium Chloride 1,000 mls @ 100 mls/hr 07/07/19 19:16 07/09/19 12:28 1/2 Normal Saline IV Not Given .Q10H SHAYE Ceftriaxone Sodium 1 gm/ 100 mls @ 200 mls/hr 07/08/19 12:00 07/09/19 12:19 Sodium Chloride IVPB 100 mls 1200 SHAYE Administration Insulin Human Lispro 0 units 07/07/19 14:41 07/09/19 14:20 Humalog SC 4 unit .MILD SLIDING SCALE PRN Administration Mild Correctional Scale Sodium Bicarbonate 650 mg 07/09/19 15:00 07/09/19 14:57 Bicarbonate, Sodium PO 650 mg TID SHAYE Administration - Exam General Appearance: awake alert Eye: anicteric sclera ENT: normocephalic atraumatic, moist mucosa Neck: supple, symmetric, no JVD Heart: RRR Respiratory: no wheezes, no ronchi, normal chest expansion Gastrointestinal: soft, non-tender, non-distended, normal bowel sounds Extremities: no edema Neurological: cranial nerve grossly intact, no focal deficits Neurological - other findings: mild memory lapses noted Psychiatric: A&O x 3 Hosp A/P (1) Left upper lobe pneumonia Code(s): J18.9 - PNEUMONIA, UNSPECIFIED ORGANISM Status: Acute (2) COLETTE (acute kidney injury) Code(s): N17.9 - ACUTE KIDNEY FAILURE, UNSPECIFIED Status: Acute (3) Constipation Code(s): K59.00 - CONSTIPATION, UNSPECIFIED Status: Acute (4) Frequent bowel movements Code(s): R19.4 - CHANGE IN BOWEL HABIT Status: Acute (5) Physical deconditioning Code(s): R53.81 - OTHER MALAISE Status: Acute (6) Chronic kidney disease, stage 3 (moderate) Code(s): N18.3 - CHRONIC KIDNEY DISEASE, STAGE 3 (MODERATE) Status: Chronic (7) HTN (hypertension) Code(s): I10 - ESSENTIAL (PRIMARY) HYPERTENSION Status: Chronic Qualifiers: (8) Diabetes mellitus Code(s): E11.9 - TYPE 2 DIABETES MELLITUS WITHOUT COMPLICATIONS Status: Acute Qualifiers: Diabetes mellitus complication detail: with dermatitis - Plan Add azithromycin to Rocephin. Start alkali therapy for metabolic acidosis Continue mucolytic and bronchodilators as needed DC Steroid. Adjust insulin therapy to get adequate glycemic control PT.OT eval and treat. Discussed SNF with patient and daughter but this is not an option for them. Positive blood culture with 1/2 coag negative staph considered contaminant
[2019-07-09] MEDS: guaiFENesin ER 600 MG TAB PO SCH (20:06)
[2019-07-09] MEDS: Famotidine/PF 20 mg/2ml Vial SLOW IVP SCH (20:06)
--- NOTE | 2019-07-09 20:35 | PRG ---
DATE OF SERVICE: 07/09/2019 Mr. Arriaza is an 83-year-old male, who was seen for an acute kidney injury. He had a hemodynamically-mediated renal dysfunction. Empiric volume repletion was given. We have also discontinued his lisinopril. Renal function over the last 2 days improving. No new complaints, no chest pain or shortness of breath. BP - 140/70, HR-80, RR-12 Gen: Awake, alert, supine, comfortable, not in distres Skin: Adequate turgor HEENT: Pinkish conjunctiva, anicteric sclerae, no neck mass,no JVD Lungs: Clear breath sounds,no wheezing, no crackles Heart: NSR, no murmur,no gallops, no rubs Abdomen: Globular, soft, non-tender, + BS Ext: no edema,no deformities Meds of 07/09/19 - Reviewed Labs of 07/09/19 - Reviewed 1. Acute renal failure - superimposed hemodynamically mediated renal dysfunction - much improved with IV hydration and cessation of the use of ROXANN- i. 2. Chronic renal failure with proteinuria, diabetes, most likely diabetic nephropathy. 3. Leukocytosis/pneumonia - patient is positive for his blood culture, currently on IV antibiotics. We will recheck CBC, basic metabolic panel. Agree with current management. Job ID: [id number] [facility]ITAL[facility]a
--- NOTE | 2019-07-10 01:50 | PDOC.EVN ---
Event Note - Event Note Event Note: Mr Arriaza became very agitated and confused tonight after he was woken up for vital signs. While the nurse was speaking with his family to try and calm him, they mentioned he does this at home as well. They are asking for if testing for intermittent confusion/agitation would be needed. Nurse was able to calm him down and he settled without further intervention.
[2019-07-10] MEDS: HumaLOG 300 UNITS/3 ML VIAL SC PRN ×2 (06:32→12:18)
[2019-07-10] MEDS: Sodium Chloride 0.45% 1,000 ML IV SCH (06:41)
[2019-07-10 06:47] LABS: Anion Gap 14 mmol/L (10-20); BUN (Urea Nitrogen) 29 mg/dL (8.4-25.7); Calc. Creatinine Clearance 49 mL/min (70-130); Calcium 8.7 mg/dL (7.8-10.44); Carbon Dioxide 23 mmol/L (23-31); Chloride 109 mmol/L (98-107); Estimated GFR-MDRD 50; Glucose 207 mg/dL (83-110); Potassium 3.9 mmol/L (3.5-5.1); Sodium 142 mmol/L (136-145)
[2019-07-10 07:39] LABS: Band 4 % (5-11); Hemoglobin 15.9 g/dL (14.0-18.0); Lymphocytes 3 % (21-51); MDiff Complete? YES; Mean Corpuscular Hemoglobin 30.7 pg (27.0-31.0); Mean Corpuscular Volume 87.8 fL (78.0-98.0); Mean Platelet Volume 9.3 fL (7.4-10.4); Monocytes 9 % (0-10); Neutrophil 84 % (42-75); Platelet Count 212 thou/uL (130-400); RBC Distribution Width 12.2 % (11.5-14.5); Red Blood Cell (RBC) Count 5.19 mill/uL (4.70-6.10); White Blood Cell (WBC) Count 19.3 thou/uL (4.8-10.8)
[2019-07-10] MEDS: Sodium Bicarbonate Tab 325 MG TAB PO SCH ×2 (08:48→13:49)
[2019-07-10] MEDS: guaiFENesin ER 600 MG TAB PO SCH (08:48)
[2019-07-10] MEDS ORDERED: Azithromycin 250 MG TAB PO SCH (09:00)
[2019-07-10] MEDS: Insulin Glargine 20 UNITS in Pre-Filled Syringe 1 EACH SC SCH ×2 (10:00→10:34)
[2019-07-10 13:54] VITALS: BP 178/84; TEMP 98.2
--- NOTE | 2019-07-10 20:16 | DIS ---
DATE OF ADMISSION: 07/07/2019 DATE OF DISCHARGE: 07/10/2019 PRIMARY CARE PHYSICIAN: Dr. Turner Zamudio. DISCHARGE DIAGNOSES: 1. Sepsis due to Left upper lobe pneumonia. present on admission 2. left upper lobe pneumonia 3. Acute metabolic encephalopathy: Present on admission. 4. Acute kidney injury. 5. Diabetes mellitus with hyperglycemia. 6. Chronic kidney disease, stage 3. 7. Hypertension. 8. Physical deconditioning. 9. Frequent bowel movements. 10. Constipation. CONSULT: Nephrology. HOSPITAL COURSE: An 83-year-old male with known history of hypertension and asthma, admitted with worsening shortness of breath associated with weakness. The patient has been having constipation for which he took some laxative and subsequently developed frequent loose stools associated with weakness. About the same time, he developed worsening shortness of breath and cough associated with generalized weakness and fever necessitating presentation to the ER. Evaluation with chest x-ray showed left upper lobe patchy infiltrate consistent with pneumonia. The patient also was found to have acute elevation in creatinine. He was started on IV fluid, antibiotics, and bronchodilators with improvement of respiratory status such that oxygen supplementation was soon weaned off. Renal function improved such that creatinine went down from above 2 to 1.3 on the day of discharge. Hospital course was complicated by some confusion since presentation as well as sleepless nights and ing. The patient improved generally and was found to have physical deconditioning. Discussion about alf placement was discussed with the patient and family, but this was considered not an option and the patient and family would prefer him to come home with home health. He remained stable and was subsequently discharged home with home health. PHYSICAL EXAMINATION: VITAL SIGNS: Temperature 98.4, pulse 89, respiratory rate 20, SpO2 of 94% on room air and blood pressure is 160/77. GENERAL: Comfortable elderly male, in no distress. Afebrile. Anicteric. Acyanotic. HEENT: Normocephalic, atraumatic. Oral mucosa is moist. NECK: Supple with no JVD. CARDIOVASCULAR: Regular rhythm and rate with normal heart sounds 1 and 2. RESPIRATORY: Fair air entry bilaterally. Few transmitted breath sounds. No crackle or rhonchi was appreciated. GI: Full, soft, nontender, and nondistended with normal bowel sounds. EXTREMITIES: No edema or erythema. 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 Memory lapse is noted. DISCHARGE CONDITION: Improved. DISCHARGE DISPOSITION: Home with home health. DISCHARGE MEDICATIONS: 1. Albuterol HFA 1 puff inhalation q.4 hours p.r.n. 2. Elavil 10 mg p.o. daily. 3. Amlodipine 10 mg p.o. daily. 4. Aspirin 81 mg p.o. daily. 5. Docusate sodium 100 mg p.o. daily. 6. Levemir 50 units subcutaneously daily. 7. DuoNeb 3 mL inhalation q.6h. p.r.n. for shortness of breath. 8. Oxybutynin chloride 5 mg p.o. b.i.d. 9. Pravastatin 20 mg p.o. daily at bedtime. 10. Mucinex 600 mg p.o. b.i.d. 11. Humalog 0-6 units subcutaneously according to mild sliding scale. 12. Levofloxacin 500 mg p.o. daily for 7 days. 13. Sodium bicarbonate 650 mg p.o. b.i.d. This discharge took more than 37 minutes. Job ID: [id number] [facility]
--- NOTE | 2019-07-12 07:58 | PQF ---
MARIAH CHAN OBI, CHIZOBA C [id number] CLINICAL DOCUMENTATION CLARIFICATION FORM: POST DISCHARGE Addendum to original discharge summary date: ____ Late entry note date: __ DATE: 07/12/2019 ATTN: LUKE WOODS Please exercise your independent, professional judgment in responding to the clarification form. Clinical indicators are provided on the bottom of this form for your review Please check appropriate box(s) to clarify if the following diagnosis has been ruled in or ruled out: SEPSIS [ x ] Ruled in diagnosis [ ] Continue to treat [ x ] Resolved [ ] Ruled out diagnosis [ ] Cannot rule out diagnosis [ ] Other diagnosis [ ] Unable to determine For continuity of documentation, please document condition throughout progress notes and discharge summary. Thank You. CLINICAL INDICATORS - SIGNS / SYMPTOMS / LABS - Sepsis- ED record, 07/07, Indy Perez MD - Temp: 98.0, RR: 36, Pulse: 118-ED record, 07/07, Inyd Perez MD - Pulse: tachycardic-ED record, 07/07, Indy Perez MD - Acute metabolic encephalopathy- DS, 07/10, Luke Woods MD - WBC: 26.7H on 07/07, 19.9H on 07/08, 19.2H on 07/09 RISK FACTORS - Left upper lobe pneumonia-DS, 07/10, Luke Woods MD - Acute kidney injury- DS, 07/10, Luke Woods MD TREATMENTS - Cefepime.IV-07/07 - Rocephin.IV-07/07, 07/10 (This form is maintained as a part of the permanent medical record) 2014 [employer]. All Rights Reserved Riri Ramirez [not provided] [not provided] MTDD
== END 2019-07-10 14:33 | disposition home health service (06) | DRG 871 ==
LOC: ERS 10:36 → T4-B 16:51
PROVIDERS: ADMIT Internal Medicine; ATTEND Internal Medicine
DX: A41.9 Sepsis, unspecified organism (principal); G93.41 Metabolic encephalopathy; J18.9 Pneumonia, unspecified organism; N17.9 Acute kidney failure, unspecified; J44.0 Chronic obstructive pulmonary disease with (acute) lower respiratory infection; K59.00 Constipation, unspecified; N18.3 Chronic kidney disease, stage 3 (moderate); I12.9 Hypertensive chronic kidney disease with stage 1 through stage 4 chronic kidney disease, or unspecified chronic kidney disease; J45.909 Unspecified asthma, uncomplicated; E78.5 Hyperlipidemia, unspecified; E11.65 Type 2 diabetes mellitus with hyperglycemia; E11.21 Type 2 diabetes mellitus with diabetic nephropathy; N40.0 Benign prostatic hyperplasia without lower urinary tract symptoms; Z90.49 Acquired absence of other specified parts of digestive tract; Z79.4 Long term (current) use of insulin
CPT/HCPCS: 36415; 36416; 51701; 71045; 71250; 74177; 80048; 80053; 81003; 81015; 82805; 83605; 83690; 83735; 83880; 84484; 85025; 85027; 87040; 87086; 87149; 87633; 93005; 94640; 94644; 94760; 96365; 96367; 96375; J0456; J0692; J0696; J1815; J1956; J2920; J2930; J3370; J3475; J3490; J7611; J7620; S0028

== ENCOUNTER 2019-09-28 13:46 | Inpatient (IN) | payer MEDICARE, MEDICAID ==
[2019-09-28 14:45] LABS: Hemoglobin 16.6 g/dL (14.0-18.0); Mean Corpuscular Hemoglobin 29.8 pg (27.0-31.0); Mean Corpuscular Volume 87.9 fL (78.0-98.0); Mean Platelet Volume 9.3 fL (7.4-10.4); Platelet Count 217 thou/uL (130-400); RBC Distribution Width 12.3 % (11.5-14.5); Red Blood Cell (RBC) Count 5.56 mill/uL (4.70-6.10); White Blood Cell (WBC) Count 20.1 thou/uL (4.8-10.8)
[2019-09-28 15:02] LABS: Band 27 % (5-11); Lymphocytes 8 % (21-51); MDiff Complete? YES; Metamyelocyte 1 % (0-0); Monocytes 8 % (0-10); Neutrophil 52 % (42-75); Platelet Morphology Comment Appears Adequate; RBC Morphology Normal; Reactive Lymphocytes 4 % (0-10)
[2019-09-28 15:27] LABS: ALT (SGPT) 11 U/L (8-55); AST (SGOT) 19 U/L (5-34); Albumin 3.6 g/dL (3.4-4.8); Alkaline Phosphatase 117 U/L (40-110); Anion Gap 14 mmol/L (10-20); BUN (Urea Nitrogen) 20 mg/dL (8.4-25.7); Bilirubin, Total 1.6 mg/dL (0.2-1.2); Calc. Creatinine Clearance 0 mL/min (70-130); Calcium 8.6 mg/dL (7.8-10.44); Carbon Dioxide 24 mmol/L (23-31); Chloride 107 mmol/L (98-107); Estimated GFR-MDRD 35; Globulin 3.2 g/dL (2.4-3.5); Glucose 166 mg/dL (83-110); Potassium 3.6 mmol/L (3.5-5.1); Protein, Total 6.8 g/dL (5.8-8.1); Sodium 141 mmol/L (136-145)
--- NOTE | 2019-09-28 16:12 | RAD ---
Chest one view HISTORY: Cough. COMPARISON: 07/07/2019. FINDINGS: Cardiac silhouette and pulmonary vasculature are unremarkable. Mediastinum is midline with aortic calcification. No lobar consolidation or evidence of pneumothorax. compliance monitor leads overlie the chest. IMPRESSION: Atherosclerosis. No active cardiopulmonary abnormalities are otherwise demonstrated.
[2019-09-28] MEDS ORDERED: Cefepime 2 GM VIAL ONE (16:23)
--- NOTE | 2019-09-28 17:51 | CT ---
CT OF BRAIN PERFORMED WITHOUT CONTRAST ENHANCEMENT: 09/28/19 HISTORY: Right arm numbness. COMPARISON: 01/17/19 study. Generalized ventricular and sulcal prominence with decreased attenuation of the periventricular white matter consistent with chronic white matter change. There is no signs of intracerebral hemorrhage or extra-axial fluid collections. Mastoid air cells are clear. There is some moderate mucosal change wi thin the ethmoid air cells. IMPRESSION: No acute intracranial abnormalities. POS: [facility]
[2019-09-28] MEDS ORDERED: Labetalol HCl 100 MG/20 ML VIAL SLOW IVP PRN (18:33)
[2019-09-28] MEDS ORDERED: hydrALAZINE 20 MG/ML VIAL SLOW IVP PRN (18:33)
[2019-09-28] MEDS ORDERED: Dextrose 5% in Water 1,000 ML IV PRN (18:42)
[2019-09-28] MEDS ORDERED: HumaLOG 300 UNITS/3 ML VIAL SC PRN ×2 (18:42)
[2019-09-28] MEDS ORDERED: Dextrose 50% Abboject 50 ML SYRINGE SLOW IVP PRN (18:42)
[2019-09-28] MEDS ORDERED: Calcium Carbonate 500 MG ChewTAB PO PRN (18:43)
[2019-09-28] MEDS ORDERED: Acetaminophen 325 MG TAB PO PRN (18:43)
[2019-09-28] MEDS ORDERED: Guaifenesin DM 100-10/5 ML UDCUP PO PRN (18:43)
[2019-09-28] MEDS ORDERED: Benzonatate 100 MG CAP PO PRN (18:46)
--- NOTE | 2019-09-28 18:57 | PDOC.HHP ---
Hospitalist HPI - History of Present Illness Left upper extremity weakness History of Present Illness: PCP: Dr. Collins The patient is icelandic speaking, the H&P was taken from both the patient and his daughter, Hina, at bedside. The patient is an 84/M with PMH significant for HTN, HLD, DMII, and dementia that presents to ER for above complaint. Hina reports that her sister came to the patient's house to help dress him this morning, as she often does. She noticed that his left arm was weak. She also noticed some left facial droop and slurred speech. She denies any known trauma or falls. The patient denies any headaches or vision changes. At that time, the patient's home health nurse was there for her daily visit for medication administration. She examined the patient and told the family that "he was fine", so she left to continue on with her day. The sister returned to the house, around noon, a felt that he still had left arm weakness with left facial droop and slurred speech. She called EMS. Of note, the patient has been battling bronchitis for past week, family reports he has been getting weaker over past several day. He is taking nebs and inhalers for his bronchitis. ED Course: BP: 129/72, MAP: 91, Pulse: 91, Resp: 24, Temp: 98.7 (Oral), Pain: 5, O2 sat: 93 on (Room Air) GCS 15, NIH 5 CT brain negative CXR negative Trop negative WBC > 54296 LA 1.5 Given Cefepime, Vanc and 1L NS Hospitalist ROS - Review of Systems Constitutional: reports: malaise. denies: fever, chills Eyes: denies: pain, vision change, conjunctivae inflammation, eyelid inflammation, redness, other ENT: denies: ear pain, ear discharge, nose pain, nose discharge, nose congestion , mouth pain, mouth swelling, throat pain, throat swelling, other Respiratory: reports: cough, dry. denies: shortness of breath, hemoptysis, SOB with excertion, sputum Cardiovascular: denies: chest pain, palpitations, orthopnea, paroxysmal noc. dyspnea, edema, light headedness, other Gastrointestinal: denies: nausea, vomiting, abdominal pain, diarrhea, constipation, melena, hematochezia, other Genitourinary: denies: dysuria, frequency, incontinence, hematuria, retention, other Musculoskeletal: denies: neck pain, shoulder pain, arm pain, back pain, hand pain, leg pain, foot pain, other Skin: denies: rash, lesions, miryam, bruising, other Neurological: reports: weakness, change in speech Hospitalist History - Past Medical History Source: patient, family Cardiac: reports: HTN, Hyperlipidemia Pulmonary: reports: asthma [employer]: reports: Dementia Gastrointestinal: reports: GERD Endocrine: reports: Diabetes - Past Surgical History Past Surgical History: reports: Cholecystectomy, Other (Prostate and Bladder sx) - Family History Family History: reports: cardiac disorder, diabetes mellitus - Social History Smoking Status: Former smoker Tobacco Type: cigarettes Alcohol: reports: None Drugs: reports: none Living Situation: Alone 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, 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 in 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 Activity level: independent ambulation - Exam General Appearance: NAD, awake alert Eye: PERRL, anicteric sclera ENT: normocephalic atraumatic Neck: supple, no JVD, no thyromegaly, no lymphadenopathy, no carotid bruit Heart: RRR, no murmur, no gallops, no rubs, diminshed peripheral pulses Respiratory: CTAB, no wheezes, no rales, no ronchi Gastrointestinal: non-tender, normal bowel sounds, no guarding, no rigidity Extremities: no cyanosis, no edema Skin: no rashes Neurological: cranial nerve grossly intact Neurological - other findings: NIH 3, LUE drift, LLE drift, Left facial droop, GCS 15 Psychiatric: normal affect, A&O x 3 Hospitalist Results - Labs Result Diagrams: 09/28/19 14:19 09/28/19 14:19 Lab results: WBC 20.1 thou/uL (4.8-10.8) H 09/28/19 14:19 Hgb 16.6 g/dL (14.0-18.0) 09/28/19 14:19 Hct 48.8 % (42.0-52.0) 09/28/19 14:19 MCV 87.9 fL (78.0-98.0) 09/28/19 14:19 Plt Count 217 thou/uL (130-400) 09/28/19 14:19 Band Neuts % (Manual) 27 % (5-11) H 09/28/19 14:19 Sodium 141 mmol/L (136-145) 09/28/19 14:19 Potassium 3.6 mmol/L (3.5-5.1) 09/28/19 14:19 Chloride 107 mmol/L (98-107) 09/28/19 14:19 Carbon Dioxide 24 mmol/L (23-31) 09/28/19 14:19 BUN 20 mg/dL (8.4-25.7) 09/28/19 14:19 Creatinine 1.83 mg/dL (0.7-1.3) H 09/28/19 14:19 Glucose 166 mg/dL (83-110) H 09/28/19 14:19 Lactic Acid 1.5 mmol/L (0.5-2.2) 09/28/19 15:15 Calcium 8.6 mg/dL (7.8-10.44) 09/28/19 14:19 Total Bilirubin 1.6 mg/dL (0.2-1.2) H 09/28/19 14:19 AST 19 U/L (5-34) 09/28/19 14:19 ALT 11 U/L (8-55) 09/28/19 14:19 Alkaline Phosphatase 117 U/L (40-110) H 09/28/19 14:19 Troponin I 0.015 ng/mL (< 0.028) 09/28/19 14:19 Serum Total Protein 6.8 g/dL (5.8-8.1) 09/28/19 14:19 Albumin 3.6 g/dL (3.4-4.8) 09/28/19 14:19 - EKG Interpretation EKG: NSR - Radiology Interpretation CT scan - head Status: report reviewed by me Chest x-ray Status: report reviewed by me Hospitalist H&P A/P - Problem (1) Weakness of left upper extremity Code(s): R29.898 - OTH SYMPTOMS AND SIGNS INVOLVING THE MUSCULOSKELETAL SYSTEM Status: Acute Assessment and Plan: Admit to stroke unit, inpatient status Rule out CVA Order MRI, CD, Echocardiogram Consult neurology and Stroke team Administer ASA 243mg Continue 81 mg ASA daily Check TSH, FLP, B12 and folate (2) Facial droop Code(s): R29.810 - FACIAL WEAKNESS Status: Acute Assessment and Plan: family is unsure if this is his baseline. Will rule out CVA (3) Dysarthria Code(s): R47.1 - DYSARTHRIA AND ANARTHRIA Status: Acute Assessment and Plan: family is unsure if he is baseline. Will rule out stroke. (4) COLETTE (acute kidney injury) Code(s): N17.9 - ACUTE KIDNEY FAILURE, UNSPECIFIED Status: Acute Assessment and Plan: Creatinine 1.83, was 1.37 in 07/07 Gentle IVF hydration Avoid nephrotoxic medications Recheck bmp in am (5) Leukocytosis Code(s): D72.829 - ELEVATED WHITE BLOOD CELL COUNT, UNSPECIFIED Status: Acute Assessment and Plan: WBC 20,100 LA 1.5 Blood and Urine CX pending CXR negative Will continue Vanc and cefepime (6) Diabetes mellitus Code(s): E11.9 - TYPE 2 DIABETES MELLITUS WITHOUT COMPLICATIONS Status: Chronic Qualifiers: Diabetes mellitus complication detail: with dermatitis Assessment and Plan: Lantus 88 units daily home dose Aggressive sliding scale AC/HS accuchecks Consistent carb diet (7) HTN (hypertension) Code(s): I10 - ESSENTIAL (PRIMARY) HYPERTENSION Status: Chronic Qualifiers: Assessment and Plan: Will restart home medications when reconciled by nursing (8) HLD (hyperlipidemia) Code(s): E78.5 - HYPERLIPIDEMIA, UNSPECIFIED Status: Chronic Assessment and Plan: Will restart home medications when reconciled FLP in am (9) Obesity (BMI 30.0-34.9) Code(s): E66.9 - OBESITY, UNSPECIFIED Status: Chronic Assessment and Plan: HH/diabetic diet (10) GERD (gastroesophageal reflux disease) Code(s): K21.9 - GASTRO-ESOPHAGEAL REFLUX DISEASE WITHOUT ESOPHAGITIS Status: Acute Assessment and Plan: Will restart home medication when reconciled. (11) COPD (chronic obstructive pulmonary disease) Status: Chronic Assessment and Plan: Duo nebs, tessalon perles and guaifenesin prn (12) Chronic kidney disease, stage 3 (moderate) Code(s): N18.3 - CHRONIC KIDNEY DISEASE, STAGE 3 (MODERATE) Status: Chronic (13) Dementia Code(s): F03.90 - UNSPECIFIED DEMENTIA WITHOUT BEHAVIORAL DISTURBANCE Status: Acute Assessment and Plan: Patient is at baseline per family Will have OT evaluation already has HH nurse daily. - Plan Plan: CMP, CBC, FLP in am Full Code DPOA Hina Arsalan [phone]
[2019-09-28] MEDS ORDERED: Aspirin 81 mg Enteric Coated Tablet PO SCH (19:00)
[2019-09-28 19:06] LABS: Bilirubin Negative (Negative); Blood, Urine Negative (Negative); Clarity Clear (Clear); Glucose, Urine (Dipstick) Greater than 1000 mg/dL (Negative); Leukocyte Negative Leu/uL (Negative); Nitrite Negative (Negative); Protein, Urine (Dipstick) 20 mg/dL (Neg-Trace); Urobilinogen Normal mg/dL (Less than 2)
[2019-09-28 20:35] LABS: Thyroid Stimulating Hormone 1.1585 uIU/mL (0.35-4.94)
[2019-09-28 20:40] VITALS: BMI 33.0
--- NOTE | 2019-09-28 21:52 | ULT ---
US Carotid Doppler STANDARD HISTORY: Stroke symptoms. Left-sided weakness. COMPARISON: None. FINDINGS: Real-time color Doppler evaluation the right and left carotid systems was performed. On the right side peak systolic velocities of the common carotid were 109 cm/s. Internal carotid velo cities were 99 cm/s. External carotid velocities 101 cm/s. On the left side peak systolic velocities of the common carotid were as high as 122 cm/s. Internal ca rotid velocities of 73 cm/s and external carotid velocities of 68 cm/s were obtained. Vertebral flow is antegrade bilaterally. IMPRESSION: No evidence of hemodynamically significant stenosis of either internal carotid artery.
[2019-09-28] MEDS: Sodium Chloride 0.9% 1,000 ML IV SCH (22:04)
[2019-09-29 05:11] LABS: #Basophils 0.1 thou/uL (0.0-0.2); #Eosinphils 0.4 thou/uL (0.0-0.7); #Lymphocytes 2.4 thou/uL (1.20-3.40); #Neutrophils 9.4 thou/uL (1.40-6.50); %Basophils 0.5 % (0.0-1.0); %Eosinophils 3.3 % (0.0-10.0); %Lymphocytes 18.2 % (21.0-51.0); %Monocytes 7.5 % (0.0-10.0); %Neutrophils 70.6 % (42.0-75.0); Mean Corpuscular HGB CONC 34.4 g/dL (32.0-36.0); Mean Corpuscular Hemoglobin 30.6 pg (27.0-31.0); Mean Corpuscular Volume 88.9 fL (78.0-98.0); Mean Platelet Volume 9.1 fL (7.4-10.4); Platelet Count 183 thou/uL (130-400); RBC Distribution Width 12.4 % (11.5-14.5); Red Blood Cell (RBC) Count 5.23 mill/uL (4.70-6.10); White Blood Cell (WBC) Count 13.4 thou/uL (4.8-10.8)
[2019-09-29 05:39] LABS: ALT (SGPT) 9 U/L (8-55); AST (SGOT) 18 U/L (5-34); Albumin 3.2 g/dL (3.4-4.8); Alkaline Phosphatase 97 U/L (40-110); Anion Gap 10 mmol/L (10-20); BUN (Urea Nitrogen) 14 mg/dL (8.4-25.7); Bilirubin, Total 1.1 mg/dL (0.2-1.2); Calc. Creatinine Clearance 52 mL/min (70-130); Calcium 8.3 mg/dL (7.8-10.44); Carbon Dioxide 22 mmol/L (23-31); Cardiac Risk 2.9 (Less than 4.5); Chloride 113 mmol/L (98-107); Cholesterol 84 mg/dl (< 200 Desired); Estimated GFR-MDRD 55; Globulin 3.2 g/dL (2.4-3.5); Glucose 93 mg/dL (83-110); HDL Cholesterol 29 mg/dL (>60 Neg Risk); LDL Cholesterol, Calculated 42 mg/dL; Potassium 3.2 mmol/L (3.5-5.1); Protein, Total 6.4 g/dL (5.8-8.1); Sodium 142 mmol/L (136-145); Triglycerides 67 mg/dL (Less than 150)
[2019-09-29] MEDS ORDERED: PROVENTIL INHALER 6.7 G (200 INHALATIONS) INH PRN (07:47)
[2019-09-29] MEDS ORDERED: Potassium Chloride 20 MEQ TAB PO SCH (08:00)
--- NOTE | 2019-09-29 09:06 | MRI ---
MRI of thebrain without contrast: 09/29/2019 COMPARISON:None available HISTORY:Altered mental status with generalized weakness TECHNIQUE: Multiplanar multisequence MR imaging of thebrain without contrast Findings:The diffusion weighted imaging demonstrates no evidence for acute infarction. The axial gradient echo imaging demonstrates no evidence for acute intracranial hemorrhage. There is mild polypoid mucosal thickening involving the maxillary sinus on the left. There is periventricular T2 and FLAIR hyperintensity, evidence of small vessel disease. Arterial flow voids at the axial level of the skull base appear grossly unremarkable on the T2-weight ed imaging. There is mild degenerative change at the atlantoaxial interspace. Regional bone marrow signal intensi ty appears within normal limits. IMPRESSION:Small vessel disease. No evidence for intracranial hemorrhage or acute infarction.
[2019-09-29] MEDS: Insulin Glargine 50 UNITS in Pre-Filled Syringe 1 EACH SC SCH (09:37)
[2019-09-29] MEDS: Amlodipine 10 MG TAB PO SCH (09:38)
[2019-09-29] MEDS: Sodium Bicarbonate Tab 325 MG TAB PO SCH ×2 (09:38→23:06)
[2019-09-29] MEDS: Amitriptyline HCl 10 MG TAB PO SCH (09:38)
[2019-09-29] MEDS: Oxybutynin 5 MG TAB PO SCH ×2 (09:38→23:06)
[2019-09-29] MEDS: Aspirin 81 mg Enteric Coated Tablet PO SCH (09:38)
[2019-09-29] MEDS: Docusate 100 MG CAP PO SCH (09:38)
--- NOTE | 2019-09-29 11:19 | PDOC.HOSPP ---
- Subjective Encounter Date: 09/29/19 Encounter Time: 07:00 Subjective: Patient seen and examined. No new complaints. No overnight events - Objective Vital Signs & Weight: Vital Signs (12 hours) Temp Pulse Resp BP Pulse Ox 09/29/19 09:38 76 09/29/19 07:19 98.4 F 76 20 159/77 H 94 L 09/29/19 03:28 98 F 79 18 185/83 H 98 09/28/19 23:54 98 F 74 18 135/74 96 Weight Weight 186 lb 6.4 oz I&O: 09/28/19 09/29/19 09/30/19 06:59 06:59 06:59 Intake Total 360 Balance 360 Result Diagrams: 09/29/19 04:53 09/29/19 04:53 Additional Labs: Accuchecks 09/29/19 09/29/19 09/28/19 11:05 05:52 22:04 POC Glucose 135 H 86 138 H Radiology Reviewed by me: Yes EKG Reviewed by me: Yes Hospitalist ROS - Review of Systems ENT: denies: ear pain, ear discharge, nose pain, nose discharge, nose congestion , mouth pain, mouth swelling, throat pain, throat swelling, other Respiratory: denies: cough, dry, shortness of breath, hemoptysis, SOB with excertion, pleuritic pain, sputum, wheezing, other Cardiovascular: denies: chest pain, palpitations, orthopnea, paroxysmal noc. dyspnea, edema, light headedness, other Gastrointestinal: denies: nausea, vomiting, abdominal pain, diarrhea, constipation, melena, hematochezia, other Genitourinary: denies: dysuria, frequency, incontinence, hematuria, retention, other Musculoskeletal: denies: neck pain, shoulder pain, arm pain, back pain, hand pain, leg pain, foot pain, other - Medication Medications: Active Medications Generic Name Dose Route Start Last Admin Trade Name Freq PRN Reason Stop Dose Admin Amitriptyline HCl 10 mg 09/29/19 09:00 09/29/19 09:38 Elavil PO 10 mg DAILY SHYAE Administration Amlodipine Besylate 10 mg 09/29/19 09:00 09/29/19 09:38 Norvasc PO 10 mg DAILY SHAYE Administration Aspirin 81 mg 09/29/19 09:00 09/29/19 09:38 Ecotrin PO 81 mg DAILY SHAYE Administration Docusate Sodium 100 mg 09/29/19 09:00 09/29/19 09:38 Colace PO 100 mg DAILY SHAYE Administration Sodium Chloride 1,000 mls @ 70 mls/hr 09/28/19 19:45 09/28/19 22:04 Normal Saline 0.9% IV 1,000 mls .[id number] SHAYE Administration Insulin Glargine 50 units/ 0.5 mls @ 0 mls/hr 09/29/19 09:00 09/29/19 09:37 Miscellaneous Medication SC 0.5 mls QAM SHAYE Administration Oxybutynin Chloride 5 mg 09/29/19 09:00 09/29/19 09:38 Ditropan PO 5 mg BID SHAYE Administration Sodium Bicarbonate 650 mg 09/29/19 09:00 09/29/19 09:38 Bicarbonate, Sodium PO 650 mg BID SHAYE Administration Sodium Chloride 10 ml 09/28/19 21:00 09/29/19 09:40 Flush - Normal Saline IVF 10 ml Q12HR SHAYE Administration Sodium Chloride 10 ml 09/28/19 18:33 09/28/19 22:05 Flush - Normal Saline IVF 10 ml PRN PRN Administration Saline Flush - Exam General Appearance: NAD, awake alert Eye: PERRL, anicteric sclera ENT: normocephalic atraumatic, no oropharyngeal lesions Neck: supple, symmetric, no JVD, no thyromegaly Heart: RRR, no murmur, no gallops, no rubs Respiratory: CTAB, no wheezes, no rales, no ronchi Gastrointestinal: soft, non-tender, non-distended, normal bowel sounds Extremities: no cyanosis, no clubbing Skin: normal turgor, no lesions Neurological: no focal deficits Musculoskeletal: normal tone, normal strength Psychiatric: normal affect, normal behavior Hosp A/P (1) Weakness of left upper extremity Code(s): R29.898 - OTH SYMPTOMS AND SIGNS INVOLVING THE MUSCULOSKELETAL SYSTEM Status: Acute (2) Dysarthria Code(s): R47.1 - DYSARTHRIA AND ANARTHRIA Status: Acute (3) Facial droop Code(s): R29.810 - FACIAL WEAKNESS Status: Acute (4) GERD (gastroesophageal reflux disease) Code(s): K21.9 - GASTRO-ESOPHAGEAL REFLUX DISEASE WITHOUT ESOPHAGITIS Status: Chronic (5) COPD (chronic obstructive pulmonary disease) Status: Chronic (6) Chronic kidney disease, stage 3 (moderate) Code(s): N18.3 - CHRONIC KIDNEY DISEASE, STAGE 3 (MODERATE) Status: Chronic (7) Diabetes mellitus Code(s): E11.9 - TYPE 2 DIABETES MELLITUS WITHOUT COMPLICATIONS Status: Chronic Qualifiers: Diabetes mellitus complication detail: with dermatitis (8) HLD (hyperlipidemia) Code(s): E78.5 - HYPERLIPIDEMIA, UNSPECIFIED Status: Chronic (9) HTN (hypertension) Code(s): I10 - ESSENTIAL (PRIMARY) HYPERTENSION Status: Chronic Qualifiers: (10) Obesity (BMI 30.0-34.9) Code(s): E66.9 - OBESITY, UNSPECIFIED Status: Chronic (11) Dementia Code(s): F03.90 - UNSPECIFIED DEMENTIA WITHOUT BEHAVIORAL DISTURBANCE Status: Chronic Qualifiers: Dementia type: Alzheimer's disease (12) Leukocytosis Code(s): D72.829 - ELEVATED WHITE BLOOD CELL COUNT, UNSPECIFIED Status: Acute Qualifiers: Leukocytosis type: unspecified Qualified Code(s): D72.829 - Elevated white blood cell count, unspecified - Plan old records reviewed/req, plan discussed w/ family, PT/OT continue PT/OT echo pending MRI negative, carotid US normal discussed with pt and family neuro consult will observe today repeat labs tomorrow hold on antibiotic for now
[2019-09-29] MEDS: Sodium Chloride 0.9% 1,000 ML IV SCH (16:03)
[2019-09-29] MEDS: Simvastatin 20 MG TAB PO SCH (23:04)
--- NOTE | 2019-09-30 00:07 | RAD ---
XR Abdomen 1 View/KUB HISTORY: Abdominal distention and bloating. COMPARISON: 05/08/2017 exam. FINDINGS: There is air within mildly distended small bowel loops also air throughout the colon. No fr ee air demonstrated in the supine film. Postcholecystectomy changes are present. IMPRESSION: Findings raising the possibility of a developing small bowel obstruction versus ileus.
--- NOTE | 2019-09-30 03:38 | PDOC.EVN ---
Event Note - Event Note Event Note: Notified by RN, patient complaining of constipation and requesting stool softener. Patient with abdominal distention, unknown date of last bowel movement. I ordered KUB, and it has shown changes concerning for bowel obstruction vs. ileus. No vomiting. Will keep patient NPO and KUB to be repeated in the AM as per discussion with Dr. Gillette.
[2019-09-30 05:10] LABS: #Eosinphils 0.8 thou/uL (0.0-0.7); #Lymphocytes 3.7 thou/uL (1.20-3.40); #Monocytes 0.8 thou/uL (0.11-0.59); #Neutrophils 7.6 thou/uL (1.40-6.50); %Basophils 0.1 % (0.0-1.0); %Eosinophils 6.3 % (0.0-10.0); %Lymphocytes 28.3 % (21.0-51.0); %Monocytes 6.5 % (0.0-10.0); %Neutrophils 58.9 % (42.0-75.0); Hemoglobin 16.1 g/dL (14.0-18.0); Mean Corpuscular HGB CONC 34.2 g/dL (32.0-36.0); Mean Corpuscular Hemoglobin 30.3 pg (27.0-31.0); Mean Corpuscular Volume 88.5 fL (78.0-98.0); Platelet Count 204 thou/uL (130-400); RBC Distribution Width 12.3 % (11.5-14.5); Red Blood Cell (RBC) Count 5.33 mill/uL (4.70-6.10); White Blood Cell (WBC) Count 12.9 thou/uL (4.8-10.8)
[2019-09-30 05:30] LABS: Anion Gap 12 mmol/L (10-20); BUN (Urea Nitrogen) 13 mg/dL (8.4-25.7); Calc. Creatinine Clearance 57 mL/min (70-130); Calcium 8.4 mg/dL (7.8-10.44); Carbon Dioxide 21 mmol/L (23-31); Chloride 111 mmol/L (98-107); Estimated GFR-MDRD 61; Glucose 65 mg/dL (83-110); Potassium 3.4 mmol/L (3.5-5.1); Sodium 141 mmol/L (136-145)
[2019-09-30] MEDS: Sodium Chloride 0.9% 1,000 ML IV SCH (06:03)
[2019-09-30] MEDS ORDERED: Dextrose 5 % And 0.9 % NaCl 1,000 ML IV SCH (06:30)
[2019-09-30] MEDS ORDERED: INSULIN DETEMIR SC SCH (07:30)
--- NOTE | 2019-09-30 08:52 | RAD ---
Radiograph abdomen one view: DATE: 09/30/2019 HISTORY: 84-year-old male with abdominal distention. Follow-up abnormal bowel gas pattern. COMPARISON: 09/29/2019 FINDINGS: There is now interval decrease in the number of air-filled small bowel loops, at upper limits of norm al in caliber. There is one such bowel loop in the left lateral mid abdomen which is dilated to at least 4 cm. There is also gas in nondilated colon, including a greater amount of air in the sigmoid. Cholecystectomy clips in the right upper quadrant. No organomegaly. Moderate volume of stool. IMPRESSION: Interval overall improvement in bowel gas pattern. No convincing evidence of high-grade small bowel o bstruction.
--- NOTE | 2019-09-30 09:30 | PDOC.HOSPP ---
- Subjective Encounter Date: 09/30/19 Encounter Time: 07:00 Subjective: pt has abdominal bloating, has constipation, no fever, no focal deficit, last night xray sispected sbo but this morning has improvement, - Objective Vital Signs & Weight: Vital Signs (12 hours) Temp Pulse Resp BP Pulse Ox 09/30/19 07:23 97.5 F L 81 19 168/90 H 96 09/30/19 03:29 97.8 F 82 16 143/78 H 100 09/29/19 23:13 97.9 F 77 18 164/77 H 96 Weight Admit Weight 186 lb 6.4 oz Weight 186 lb 6.4 oz I&O: 09/29/19 09/30/19 10/01/19 06:59 06:59 06:59 Intake Total 1265 Balance 1265 Result Diagrams: 09/30/19 04:46 09/30/19 04:46 Additional Labs: Accuchecks 09/30/19 09/29/19 09/29/19 06:01 21:06 16:53 POC Glucose 73 88 187 H 09/29/19 11:05 POC Glucose 135 H Radiology Reviewed by me: Yes EKG Reviewed by me: Yes Hospitalist ROS - Review of Systems Eyes: denies: pain, vision change, conjunctivae inflammation, eyelid inflammation, redness, other ENT: denies: ear pain, ear discharge, nose pain, nose discharge, nose congestion , mouth pain, mouth swelling, throat pain, throat swelling, other Respiratory: denies: cough, dry, shortness of breath, hemoptysis, SOB with excertion, pleuritic pain, sputum, wheezing, other Cardiovascular: denies: chest pain, palpitations, orthopnea, paroxysmal noc. dyspnea, edema, light headedness, other Gastrointestinal: reports: abdominal pain, constipation. denies: nausea, vomiting, diarrhea, melena, hematochezia, other Genitourinary: denies: dysuria, frequency, incontinence, hematuria, retention, other Musculoskeletal: denies: neck pain, shoulder pain, arm pain, back pain, hand pain, leg pain, foot pain, other - Medication Medications: Active Medications Generic Name Dose Route Start Last Admin Trade Name Freq PRN Reason Stop Dose Admin Acetaminophen 650 mg 09/28/19 18:43 09/30/19 04:16 Tylenol PO 650 mg Q4H PRN Administration Headache/Fever/Mild Pain (1-3) Amitriptyline HCl 10 mg 09/29/19 09:00 09/29/19 09:38 Elavil PO 10 mg DAILY SHAYE Administration Amlodipine Besylate 10 mg 09/29/19 09:00 09/29/19 09:38 Norvasc PO 10 mg DAILY SHAYE Administration Aspirin 81 mg 09/29/19 09:00 09/29/19 09:38 Ecotrin PO 81 mg DAILY SHAYE Administration Docusate Sodium 100 mg 09/29/19 09:00 09/29/19 09:38 Colace PO 100 mg DAILY SHAYE Administration Insulin Glargine 50 units/ 0.5 mls @ 0 mls/hr 09/29/19 09:00 09/29/19 09:37 Miscellaneous Medication SC 0.5 mls QAM SHAYE Administration Dextrose/Sodium Chloride 1,000 mls @ 70 mls/hr 09/30/19 06:30 09/30/19 06:27 D5 0.9% Ns IV 1,000 mls .[id number] SHAYE Administration Insulin Human Lispro 0 units 09/28/19 18:42 09/29/19 17:51 Humalog SC 3 unit .AGGRESSIVE SLIDING PRN Administration Aggressive Correctional Scale Oxybutynin Chloride 5 mg 09/29/19 09:00 09/29/19 23:06 Ditropan PO 5 mg BID SHAYE Administration Simvastatin 10 mg 09/29/19 21:00 09/29/19 23:04 Zocor PO 10 mg HS SHAYE Administration Sodium Bicarbonate 650 mg 09/29/19 09:00 09/29/19 23:06 Bicarbonate, Sodium PO 650 mg BID SHAYE Administration Sodium Chloride 10 ml 09/28/19 21:00 09/29/19 23:33 Flush - Normal Saline IVF Not Given Q12HR SHAYE Sodium Chloride 10 ml 09/28/19 18:33 09/28/19 22:05 Flush - Normal Saline IVF 10 ml PRN PRN Administration Saline Flush - Exam General Appearance: NAD, awake alert Eye: PERRL, anicteric sclera ENT: normocephalic atraumatic, no oropharyngeal lesions Neck: supple, symmetric, no JVD, no thyromegaly Heart: RRR, no murmur, no gallops, no rubs Respiratory: CTAB, no wheezes, no rales, no ronchi Gastrointestinal: soft, non-tender, non-distended, normal bowel sounds Extremities: no edema Skin: normal turgor, no lesions Neurological: no focal deficits Musculoskeletal: normal tone, normal strength Psychiatric: normal affect, normal behavior Hosp A/P (1) Weakness of left upper extremity Code(s): R29.898 - OT SYMPTOMS AND SIGNS INVOLVING THE MUSCULOSKELETAL SYSTEM Status: Resolved (2) Dysarthria Code(s): R47.1 - DYSARTHRIA AND ANARTHRIA Status: Resolved (3) Facial droop Code(s): R29.810 - FACIAL WEAKNESS Status: Resolved (4) GERD (gastroesophageal reflux disease) Code(s): K21.9 - GASTRO-ESOPHAGEAL REFLUX DISEASE WITHOUT ESOPHAGITIS Status: Chronic (5) COPD (chronic obstructive pulmonary disease) Status: Chronic (6) Chronic kidney disease, stage 3 (moderate) Code(s): N18.3 - CHRONIC KIDNEY DISEASE, STAGE 3 (MODERATE) Status: Chronic (7) Diabetes mellitus Code(s): E11.9 - TYPE 2 DIABETES MELLITUS WITHOUT COMPLICATIONS Status: Chronic Qualifiers: Diabetes mellitus complication detail: with dermatitis (8) HLD (hyperlipidemia) Code(s): E78.5 - HYPERLIPIDEMIA, UNSPECIFIED Status: Chronic (9) HTN (hypertension) Code(s): I10 - ESSENTIAL (PRIMARY) HYPERTENSION Status: Chronic Qualifiers: (10) Obesity (BMI 30.0-34.9) Code(s): E66.9 - OBESITY, UNSPECIFIED Status: Chronic (11) Dementia Code(s): F03.90 - UNSPECIFIED DEMENTIA WITHOUT BEHAVIORAL DISTURBANCE Status: Chronic Qualifiers: Dementia type: Alzheimer's disease (12) Leukocytosis Code(s): D72.829 - ELEVATED WHITE BLOOD CELL COUNT, UNSPECIFIED Status: Acute Qualifiers: Leukocytosis type: unspecified Qualified Code(s): D72.829 - Elevated white blood cell count, unspecified (13) TIA (transient ischemic attack) Code(s): G45.9 - TRANSIENT CEREBRAL ISCHEMIC ATTACK, UNSPECIFIED Status: Acute (14) Constipation Code(s): K59.00 - CONSTIPATION, UNSPECIFIED Status: Acute - Plan old records reviewed/req, plan discussed w/ family, PT/OT continue PT/OT echo pending MRI negative, carotid US normal discussed with pt and family neuro consult will observe today repeat labs tomorrow hold on antibiotic for now 09/30/[address] abdomen for evaluation neuro to see today expecting discharge tomorrow treat constipation watch for hypoglycemia today will decide about diet after CT abdomen continue IVF
[2019-09-30] MEDS ORDERED: Potassium Chloride 20 MEQ TAB PO SCH (09:45)
--- NOTE | 2019-09-30 11:43 | CT ---
CT ABDOMEN AND PELVIS WITH ORAL AND IV CONTRAST: Date: 09/30/2019 HISTORY: Abdominal distention. FINDINGS: There are mild patchy infiltrates in the lung bases. There is diffusely decreased attenuation of the liver compared to the spleen consistent with fatty infiltration. No focal mass or abnormal biliary du ctal dilatation is seen. The patient is post cholecystectomy. The spleen and adrenal glands appear no rmal. There are cysts in the kidneys. There is a 7.0 mm lipoma in the neck of the pancreas and a 14.0 mm lipoma in the body of the pancreas. No free air, free fluid, or lymphadenopathy seen in the abdomen or pelvis. There are vascular calcifi cations without evidence of aneurysmal dilatation of the abdominal aorta. There are degenerative linder ges in the spine. The small bowel loops are not abnormally dilated. A normal appearing appendix is pr esent. There are postop changes of metallic hardware in the right proximal femur. A small hiatal hernia is present. A small, fat-containing umbilical hernia is present. IMPRESSION: 1. Mild bibasilar infiltrates. 2. Small hiatal hernia. 3. Fatty liver. 4. Small pancreatic lipomas. 5. Renal cysts. POS: [facility]
[2019-09-30] MEDS: Sodium Bicarbonate Tab 325 MG TAB PO SCH ×2 (13:15→22:11)
[2019-09-30] MEDS: Oxybutynin 5 MG TAB PO SCH ×2 (13:16→22:11)
[2019-09-30] MEDS: Aspirin 81 mg Enteric Coated Tablet PO SCH (13:16)
[2019-09-30] MEDS: Docusate 100 MG CAP PO SCH (13:16)
[2019-09-30] MEDS: Amlodipine 10 MG TAB PO SCH (13:16)
[2019-09-30] MEDS: Amitriptyline HCl 10 MG TAB PO SCH (13:17)
[2019-09-30] MEDS ORDERED: Iopamidol-370 76% 500 ML 1 ML ONE (15:24)
[2019-09-30] MEDS: Simvastatin 20 MG TAB PO SCH (22:10)
[2019-10-01] MEDS: Oxybutynin 5 MG TAB PO SCH (08:59)
[2019-10-01] MEDS: Amlodipine 10 MG TAB PO SCH (08:59)
[2019-10-01] MEDS: Sodium Bicarbonate Tab 325 MG TAB PO SCH (08:59)
[2019-10-01] MEDS: Amitriptyline HCl 10 MG TAB PO SCH (08:59)
[2019-10-01] MEDS: Docusate 100 MG CAP PO SCH (08:59)
[2019-10-01] MEDS: Aspirin 81 mg Enteric Coated Tablet PO SCH (08:59)
[2019-10-01] MEDS: Insulin Glargine 50 UNITS in Pre-Filled Syringe 1 EACH SC SCH (08:59)
[2019-10-01 12:26] VITALS: BP 129/73; TEMP 98.3
[2019-10-01] MEDS ORDERED: Atorvastatin Calcium 20 MG TAB PO SCH (13:00)
[2019-10-01] MEDS ORDERED: Aspirin 81 mg Enteric Coated Tablet PO SCH (13:00)
[2019-10-01 13:19] LABS: Hemoglobin 16.3 g/dL (14.0-18.0); Mean Corpuscular HGB CONC 34.8 g/dL (32.0-36.0); Mean Corpuscular Hemoglobin 30.4 pg (27.0-31.0); Mean Corpuscular Volume 87.3 fL (78.0-98.0); Mean Platelet Volume 8.2 fL (7.4-10.4); Platelet Count 236 thou/uL (130-400); RBC Distribution Width 12.2 % (11.5-14.5); Red Blood Cell (RBC) Count 5.37 mill/uL (4.70-6.10); White Blood Cell (WBC) Count 9.9 thou/uL (4.8-10.8)
[2019-10-01 13:39] LABS: Anion Gap 14 mmol/L (10-20); BUN (Urea Nitrogen) 11 mg/dL (8.4-25.7); Calc. Creatinine Clearance 54 mL/min (70-130); Calcium 8.6 mg/dL (7.8-10.44); Carbon Dioxide 24 mmol/L (23-31); Chloride 106 mmol/L (98-107); Estimated GFR-MDRD 58; Glucose 143 mg/dL (83-110); Potassium 3.6 mmol/L (3.5-5.1); Sodium 140 mmol/L (136-145)
--- NOTE | 2019-10-01 15:37 | EKG ---
Test Reason : Blood Pressure : / mmHG Vent. Rate : 089 BPM Atrial Rate : 089 BPM P-R Int : 170 ms QRS Dur : 138 ms QT Int : 406 ms P-R-T Axes : 040 -56 016 degrees QTc Int : 493 ms Normal sinus rhythm Right bundle branch block Left anterior fascicular block Bifascicular block Inferior infarct , age undetermined Abnormal ECG Confirmed by CATRACHO JEFFERSON M.D. ([id number]), city editor ELFEGO PATEL ([id number]) on 10/01/2019 3:37:26 PM Referred By: Confirmed By:CATRACHO JEFFERSON M.D.
[2019-10-01] MEDS ORDERED: Prevnar 13-Val Conj/PF 0.5 ML SYRINGE IM ONE (16:00)
--- NOTE | 2019-10-01 19:44 | DIS ---
DATE OF ADMISSION: 09/28/2019 DATE OF DISCHARGE: 10/01/2019 DISCHARGE DIAGNOSES: Transient ischemic attack, pancreatic lipoma, fatty liver, renal cyst, leukocytosis. CONSULTATIONS: Neurology with Alem Fong MD. PROCEDURES: None. BRIEF HISTORY OF PRESENT ILLNESS: This is an 84-year-old male with a past medical history of TIA in the past, diabetes, who had presented to the emergency room due to left-sided facial droop, slurred speech, and left arm weakness. The patient has been noting to have bronchitis for the past week and reported excessive cough. The patient has been reporting some abdominal pain with eating and also reported that he was having difficulty with having a bowel movement for the past few days. The patient was admitted for stroke workup. HOSPITAL COURSE: TIA: The patient had a CT scan of his head, which showed no acute disease. He had an MRI of his brain, which was normal. Carotid Dopplers were unremarkable. Chest x-ray was unremarkable. ECHO was normal. Upon the day of discharge, the patient had no neuro deficits and had 5/5 strength. He does have some difficulty moving his eyes completely to the right side. The patient otherwise had no sensory deficits or no motor deficits on the day of discharge. He does have mild face pain on the left side of his face from a fall. He was seen by Physical Therapy who felt that he did not need rehab. Neurology was consulted and the patient was started on aspirin 325 mg and switched to 20 mg of atorvastatin. On discharge, the patient should follow up with his PCP in a week. Possible cataracts: The patient is noted to have a sluggish pupillary reflex on the left eye and difficulty completely looking to the right side on both eyes. He also does have slightly cloudy lens bilaterally. He should have consideration of Ophthalmology evaluation on discharge. The patient does have normal visual acuity. Constipation: The patient reported that he was having severe abdominal pain and was not able to have adequate bowel movement. He did have an abdominal x-ray done on the , which showed possible small bowel obstruction versus ileus. CT scan of his abdomen on the showed an umbilical hernia and fatty liver, but no small bowel obstruction. Repeat abdominal x-ray on the showed improvement in bowel gas pattern. The patient reported that his abdominal pain had resolved and he was able to tolerate a regular diet. The patient will be discharged with MiraLAX p.r.n. for constipation. Leukocytosis: The patient presented with a white blood cell count of 20.1 on admission. He had a UA, which was unremarkable and a chest x-ray, which was unremarkable. CT scan of his abdomen showed mild bibasilar infiltrates. The patient's leukocytosis resolved without any antibiotics. Bronchitis versus viral pneumonia: The patient has reported that he was coughing excessively the days prior to admission. He states that his cough is improved and is occasionally productive. On exam, the patient is noted to be wheezing. He was discharged with inhaled steroid twice a day and azithromycin for 5 days. Consideration of a repeat chest x-ray should be done as an outpatient. DISCHARGE PHYSICAL EXAMINATION: VITAL SIGNS: Temperature 98.3, heart rate 82, respiratory rate 18, O2 saturation 95% on room air, blood pressure 129/73. GENERAL: The patient is alert, awake, oriented x3. He is Greenlandic speaking. EYES: Pupils are equal. Left pupil is slightly sluggishly reactive to light. However, it does respond adequately when you shine the light in the opposite eye. He possibly has cataracts bilaterally. NEUROLOGIC: The patient's cranial nerves 2 -12 are intact except for sluggish pupillary reaction on the left. He has 5/5 strength in his upper and lower extremities. He has intact sensation in all 4 extremities. The patient reports increased sensation on the left side of his face due to a fall. His tongue is at midline. He has no facial droop evident. Biphml-bc-xbua testing is intact. There is no dysdiadochokinesia. CVS: Regular rate and rhythm with no murmurs, rubs, or gallops. LUNGS: wheezing bilaterally ABDOMEN: Positive bowel sounds, soft, nontender, nondistended. EXTREMITIES: No edema. LABORATORY DATA: CBC on 09/30: Normal. BMP on 09/30 Normal. LFTs on 09/28: Normal. Lipid panel on 09/28: Unremarkable. Vitamin B12: 461. Folate: 12. TSH: 1.15. UA: Glucose is greater than 1000. IMAGING STUDIES: Echo on 09/29: EF 55% to 60%. Otherwise unremarkable. Chest x-ray on 09/27: No acute disease. CT brain on 09/27: Shows no acute intracranial abnormalities. Carotid Doppler on 09/27: Shows no stenosis. MRI brain on 09/28: Shows small vessel disease. Abdominal x-ray on 09/28: Possibility of a developing small bowel obstruction versus ileus. CT abdomen and pelvis on 09/29: Mild bibasilar infiltrates. Small hiatal hernia. Fatty liver. 7 mm lipoma in the neck of the pancreas and a 14 mm lipoma in the body of the pancreas. Renal cyst. Abdominal x-ray on 09/29: No high-grade obstruction. DISCHARGE CONDITION: Stable. ACTIVITY: As tolerated. DIET: Heart healthy, diabetic diet. DISCHARGE MEDICATIONS: New prescriptions; 1. Aspirin 325 mg p.o. daily. 2. Atorvastatin 20 mg p.o. daily. 3. Azithromycin 250 mg p.o. daily. 4. Tessalon Perles 100 mg p.o. t.i.d. p.r.n. for cough. 5. Pulmicort 1 puff inhaled b.i.d. 6. Senna 8.6 mg p.o. at bedtime p.r.n. Discontinued medications; 1. Pravastatin 20 mg p.o. at bedtime. All other home medications are resumed. DISCHARGE INSTRUCTIONS: The patient should follow up with his PCP in a week and consideration of a repeat chest x-ray in 6 weeks. He should return to the ER if he experiences fever, bloody cough, or new focal neurologic deficits. Job ID: [id number] [facility]
--- NOTE | 2019-10-01 22:18 | CON ---
DATE OF TELEMEDICINE CONSULTATION: 10/01/2019 CHIEF COMPLAINT: Confusion and weakness. HISTORY OF PRESENT ILLNESS: The patient's daughter gave medical history over the phone. The patient is not bilingual. He speaks Burkinan only and daughter is bilingual. Another daughter was present in the room and this consultation was conducted. Date of tele medicine consult 10/01/2019. The patient has past asthma and had a prior history of stroke and per daughter, he became weaker over the last four days and is now doing much better since hospitalization. He has been receiving help from family to get dressed and shower or for make making his meals. He had a stroke 20 years ago and has recovered from that stroke. PREVIOUS MEDICAL HISTORY: Positive for diabetes, hypertension, gallbladder surgery, prostate cancer, and bladder surgery in the past. FAMILY HISTORY: The patient's daughter does not know the details of the family history, but states there was no known strokes in the family. SOCIAL HISTORY: No alcohol or smoking. 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 He lives at home and children help him daily. REVIEW OF SYSTEMS: PULMONARY: Positive for shortness of breath. GI: Negative for nausea, vomiting, or diarrhea. NEUROLOGIC: Positive for generalized weakness and prior stroke with baseline dementia. ENT: Negative. PSYCHIATRIC: Negative for depression or anxiety. OPHTHALMOLOGIC: Negative for vision problem. DERMATOLOGIC: Negative for any skin rash. DIAGNOSTIC STUDIES: LABORATORY RESULTS: His workup lab reports; white count 9.9, hemoglobin 16.3, hematocrit 46.9, platelet count 236. Chemistry; sodium 140, potassium 3.6, chloride 106, bicarb 24, BUN 11, creatinine 1.19, glucose 143. Lactic acid 8.6. Urinalysis; urine glucose is high and his MRI scan of the brain was completed and reviewed. MRI of the brain showed small vessel disease. No acute infarct and echocardiogram was also completed and showed normal size of the left ventricle. EF is 55% to 60%. PHYSICAL EXAMINATION: VITAL SIGNS: Temperature 98.3, pulse 82, respiratory rate 18, O2 saturation 95 , and blood pressure 129/73. CHEST: Clear vesicular breathing. CARDIOVASCULAR: S1 and S2 heard. No murmurs. ABDOMEN: Soft. No organomegaly noted. NEUROLOGIC: Higher intellectual functions. Normal orientation to month and year, but not to date. Normal orientation to place. Cranial nerves, pupils 2 mm, reactive to light. Left side is poorly reactive. He has direct reflex present, absent but consensual reflex present for the left eye. He may have a cataract due to opacity and the patient's sensory exam of the face is normal. No facial asymmetry noted. Tongue in midline. No atrophy noted. Normal elevation of palate. Motor exam, bulk and normal. Tone, normal. Strength 5/5 throughout in upper and lower extremities. Sensory normal throughout, but slightly decreased sensation on the right side and he had some facial pain as well. Cerebellar, normal [id number] and [id number]. IMPRESSION: The patient is an elderly man with a history, given by his daughter , of generalized weakness, but no specific localization was given. He has dementia as well. On the MRI, he does not have any acute infarct. I do think he might have had a TIA, but due to language barrier between family and us as well, there has been some confusion as the daughter started very unclear to me what his deficits were specifically. At this time, I am comfortable calling this a transient ischemic attack and he can be given aspirin 325 mg along with statin and follow up with his physician. Job ID: [id number] [facility]
--- NOTE | 2019-10-03 11:45 | PQF ---
MARIAH CHAN UMA [id number] [facility] [place]-213 [id number] CLINICAL DOCUMENTATION CLARIFICATION FORM: POST DISCHARGE Addendum to original discharge summary date: ____ Late entry note date: __ DATE:10/03/2019 ATTN:YOKO CRYSTAL Please exercise your independent, professional judgment in responding to the clarification form. Clinical indicators are provided on the bottom of this form for your review Please check appropriate box(s) to clarify if the following diagnosis has been ruled in or ruled out: Sepsis [ ] Ruled in diagnosis [ ] Continue to treat [ ] Resolved [ ] Ruled out diagnosis [X ] Cannot rule out diagnosis [ ] Other diagnosis [ ] Unable to determine For continuity of documentation, please document condition throughout progress notes and discharge summary. Thank You. CLINICAL INDICATORS - SIGNS / SYMPTOMS / LABS Resp-26 -Documented in ED on 09/27 By Dee Dee Gamez MD SIRS scoring: Productive cough/PNA , Yes Patient did meet at least 1 criteria for STEP A, Respiratory rate >20/min, WBC count >12.000 or >10% bands,Patient did meet at least 1 criteria for STEP B-Documented in ED on 09/27 By Dee Dee Gamez MD Sepsis -Documented in ED on 09/27 By Dee Dee Gamez MD Bronchitis versus viral pneumonia -Documented in discharge summary on 09/30 by Yoko Crystal MD Leukocytosis -Documented in H&P on 09/27 by Henrique Marcelo COLETTE-Documented in H&P on 09/27 by Henrique Marcelo [employer]IS[employer] Bronchitis versus viral pneumonia -Documented in discharge summary on 09/30 by Yoko Crystal MD TREATMENTS Cefepime 2g IV-Documented in ED on 09/27 By Dee Dee Gamez MD Vancomycin 2 g IV- Documented in ED on 09/27 By Dee Dee Gamez MD will continue vanc and cefepime-Documented in H&P on 09/27 by Henrique Marcelo [facility] Education And Outreach Coordinator Crystal Reports Winform Viewer (This form is maintained as a part of the permanent medical record) 2014 [employer], [facility]. All Rights Reserved Dimitris MTDD
== END 2019-10-01 17:50 | disposition home or self-care (01) | DRG 871 ==
LOC: ERS 13:46 → OBSVTOIN 16:51 → 2SE 16:51
PROVIDERS: ADMIT Emergency Medicine; ATTEND Internal Medicine
DX: A41.9 Sepsis, unspecified organism (principal); J12.89 Other viral pneumonia; G45.9 Transient cerebral ischemic attack, unspecified; N17.9 Acute kidney failure, unspecified; D17.79 Benign lipomatous neoplasm of other sites; K76.0 Fatty (change of) liver, not elsewhere classified; N28.1 Cyst of kidney, acquired; H26.9 Unspecified cataract; K59.00 Constipation, unspecified; J40 Bronchitis, not specified as acute or chronic; Z85.46 Personal history of malignant neoplasm of prostate; R40.2362 Coma scale, best motor response, obeys commands, at arrival to emergency department; R40.2142 Coma scale, eyes open, spontaneous, at arrival to emergency department; R40.2252 Coma scale, best verbal response, oriented, at arrival to emergency department; R29.705 NIHSS score 5; E78.5 Hyperlipidemia, unspecified; J44.9 Chronic obstructive pulmonary disease, unspecified; K21.9 Gastro-esophageal reflux disease without esophagitis; Z90.49 Acquired absence of other specified parts of digestive tract; Z87.891 Personal history of nicotine dependence; R47.1 Dysarthria and anarthria; I12.9 Hypertensive chronic kidney disease with stage 1 through stage 4 chronic kidney disease, or unspecified chronic kidney disease; E11.22 Type 2 diabetes mellitus with diabetic chronic kidney disease; D72.829 Elevated white blood cell count, unspecified; N18.3 Chronic kidney disease, stage 3 (moderate); E66.9 Obesity, unspecified; Z68.33 Body mass index [BMI] 33.0-33.9, adult; G30.9 Alzheimer's disease, unspecified; F02.80 Dementia in other diseases classified elsewhere, unspecified severity, without behavioral disturbance, psychotic disturbance, mood disturbance, and anxiety; R29.810 Facial weakness
CPT/HCPCS: 36415; 36416; 70450; 70551; 71045; 74018; 74177; 80048; 80053; 80061; 81003; 82607; 82746; 83605; 84443; 84484; 85025; 85027; 87040; 90471; 90670; 93005; 93306; 93880; 94760; 96361; 96365; 96366; 96367; G0009; J0692; J1815; J3370; J7050; Q9967

== ENCOUNTER 2020-06-27 17:24 | Emergency (ER) | payer MEDICARE, MEDICAID ==
--- NOTE | 2020-06-27 19:30 | RAD ---
XR Chest 1 View Portable History: Chest pain Comparison: Radiograph January 2020 Findings: Mild scarring lung bases. No confluent airspace consolidation, pneumothorax or effusion. He art size mildly enlarged. No acute osseous abnormality. Impression: No acute intrathoracic abnormality.
== END 2020-06-27 20:25 | disposition home or self-care (01) ==
LOC: ERS 17:24
DX: R09.81 Nasal congestion (principal); E11.9 Type 2 diabetes mellitus without complications; J45.909 Unspecified asthma, uncomplicated; N40.0 Benign prostatic hyperplasia without lower urinary tract symptoms; Z79.4 Long term (current) use of insulin; Z79.82 Long term (current) use of aspirin; Z79.899 Other long term (current) drug therapy
CPT/HCPCS: 71045; 93005

== ENCOUNTER 2020-07-03 23:58 | Inpatient (IN) | payer MEDICARE, MEDICAID ==
[2020-07-04 00:39] LABS: Mean Corpuscular HGB CONC 34.2 g/dL (32.0-36.0); Mean Corpuscular Hemoglobin 29.6 pg (27.0-31.0); Mean Corpuscular Volume 86.4 fL (78.0-98.0); Mean Platelet Volume 9.4 fL (7.4-10.4); Platelet Count 185 thou/uL (130-400); Red Blood Cell (RBC) Count 5.74 mill/uL (4.70-6.10); White Blood Cell (WBC) Count 22.2 thou/uL (4.8-10.8)
[2020-07-04 00:44] LABS: INR-International Normal Ratio 1.2; PTT 31.8 sec (22.9-36.1); Prothrombin Time 15.2 sec (12.0-14.7)
[2020-07-04 00:55] LABS: Bilirubin Negative (Negative); Blood, Urine 1+ (Negative); Clarity Clear (Clear); Glucose, Urine (Dipstick) Greater than 1000 mg/dL (Negative); Ketone, Urine 10 mg/dL (Negative); Leukocyte Negative Leu/uL (Negative); Nitrite Negative (Negative); Protein, Urine (Dipstick) 30 mg/dL (Neg-Trace); RBC/HPF 0-3 HPF (0-3); Specific Gravity, Urine 1.028 (1.002-1.036); Urobilinogen Normal mg/dL (Less than 2)
[2020-07-04 00:56] LABS: Bacteria/HPF None Seen HPF (None Seen); Squamous Epithelial None Seen HPF (0-3); WBC/HPF 0-3 HPF (0-3)
[2020-07-04 00:59] LABS: Band 16 % (5-11); Lymphocytes 6 % (21-51); MDiff Complete? YES; Monocytes 9 % (0-10); Neutrophil 69 % (42-75); Platelet Morphology Comment Appears Adequate; RBC Morphology Normal
[2020-07-04 01:00] LABS: ALT (SGPT) 9 U/L (8-55); AST (SGOT) 13 U/L (5-34); Albumin 3.8 g/dL (3.4-4.8); Alkaline Phosphatase 143 U/L (40-110); Anion Gap 20 mmol/L (10-20); BUN (Urea Nitrogen) 22 mg/dL (8.4-25.7); Calc. Creatinine Clearance 0 mL/min (70-130); Calcium 8.9 mg/dL (7.8-10.44); Carbon Dioxide 24 mmol/L (23-31); Chloride 100 mmol/L (98-107); Globulin 3.9 g/dL (2.4-3.5); Glucose 486 mg/dL (83-110); Lipase 9 U/L (8-78); Protein, Total 7.7 g/dL (5.8-8.1); Sodium 140 mmol/L (136-145)
[2020-07-04] MEDS ORDERED: Azithromycin 500 MG VIAL ONE (01:20)
[2020-07-04] MEDS ORDERED: cefTRIAXone\\ROCEPHIN 1 GM VIAL ONE (01:20)
[2020-07-04] MEDS ORDERED: Dextrose 50% Abboject 50 ML SYRINGE SLOW IVP PRN (02:08)
[2020-07-04] MEDS ORDERED: Dextrose 5% in Water 1,000 ML IV PRN (02:08)
[2020-07-04] MEDS ORDERED: Pantoprazole 40 MG VIAL IVP SCH (02:15)
[2020-07-04] MEDS ORDERED: Sodium Chloride 0.9% (PF) 10 ML VIAL FS PRN (02:15)
[2020-07-04] MEDS ORDERED: Pantoprazole 40 MG VIAL ONE ×2 (02:24→08:07)
[2020-07-04 02:32] LABS: SARS-CoV-2 NAA Rapid Test DETECTED (NotDetected)
[2020-07-04] MEDS ORDERED: HumaLOG 300 UNITS/3 ML VIAL ONE (02:48)
[2020-07-04] MEDS: HumaLOG 300 UNITS/3 ML VIAL SC PRN ×2 (02:49→08:21)
[2020-07-04] MEDS ORDERED: Clindamycin/D5W 600 mg/50 ml Premix Bag ONE ×2 (03:00→08:07)
[2020-07-04] MEDS ORDERED: Dexamethasone 10 MG in Sodium Chloride 0.9% 50 ML IVPB SCH (03:00)
--- NOTE | 2020-07-04 03:01 | PDOC.EVN ---
Event Note - Event Note Event Note: patient's covid test came back positive, will start him on decadron, and check inflammatory markers, will also check pro-calcitonin. will add Clindamycin for possible superimposed aspiration pneumonia.
[2020-07-04] MEDS: Clindamycin/D5W 600 MG in Premix Bag 1 BAG IVPB SCH ×2 (03:12→08:20)
[2020-07-04] MEDS: Sodium Chloride 0.9% 1,000 ML IV SCH ×2 (03:12→18:50)
[2020-07-04] MEDS: hydrALAZINE 20 MG/ML VIAL SLOW IVP PRN (03:13)
[2020-07-04] MEDS ORDERED: hydrALAZINE 20 MG/ML VIAL ONE (03:14)
--- NOTE | 2020-07-04 03:20 | HP ---
REASON FOR ADMISSION: Vomiting. HISTORY OF PRESENT ILLNESS: This is an 84-year-old male patient, who was seen in the emergency room approximately a week ago for congestion. He was sent home without any antibiotics as per his daughter and he was doing well over week, then his cough got worse. He started having chills and wheezing 24 hours ago. He coughed and started vomiting. Today, he woke up, went to the restroom, then ate. After eating, he vomited what looks like dark material. The family was concerned that he is having gastrointestinal bleed. EMS was called. Upon their arrival, his pulse ox was 90%. He was brought to the ER. He appeared to be very congested. He has dementia, so we are unable to obtain much history from him. I did review his records and the patient was admitted to our hospital approximately 5 months ago, diagnosed with frequent falls and rhabdo, also acute kidney injury. His troponin was indeterminate. He was diagnosed with COVID pneumonia. During his stay, he did develop delirium. He refused to go to a [place] [facility] facility. He was sent home and when he came to this ER a couple weeks ago, he was retested for COVID and it was negative. PAST MEDICAL HISTORY: 1. Suspected dementia. 2. Diabetes. 3. Chronic kidney disease, stage 3. 4. High cholesterol. 5. High blood pressure. 6. Asthma. 7. COPD. 8. BPH. 9. Schizophrenia. 10. GERD. 11. Status post cholecystectomy. 12. Prostate surgery. 13. Bladder surgery. 14. Hip surgery. SOCIAL HISTORY: He does not smoke. Does not drink alcohol. ALLERGIES: NO KNOWN DRUG ALLERGIES. REVIEW OF SYSTEMS: Unable to obtain due to his confusion. PHYSICAL EXAMINATION: GENERAL: He is awake, but is confused. He appears to be very congested. VITAL SIGNS: His blood pressure is 150/90, repeat is 170/90; heart rate of 98; temperature is 98.8; saturating 92% on room air. HEENT: Head is nontraumatic, normocephalic. Pupils equal, reactive. Extraocular movements are intact. Nonicteric sclerae. Well injected conjunctivae. Oral mucosa dry. Nasal mucosa normal. NECK: Supple. No adenopathy. No murmur. Thyroid is not palpable. Trachea is midline. No supraclavicular adenopathy. HEART: S1, S2 regular. No murmurs. No gallops. No friction rubs. No displacement of PMI. LUNGS: Diffuse inspiratory and expiratory rhonchi. Poor air entry bilaterally. ABDOMEN: Bowel sounds are positive. Nontender abdomen. No hepatosplenomegaly. EXTREMITIES: No lower extremity edema. No cyanosis. NEUROLOGIC: Unable to fully assess. He is moving all four extremities. Cranial nerves appeared to be intact. LABORATORY DATA: Blood work shows a WBC of 22.2 with 16% bands, hemoglobin of 17. His sodium is 140, potassium 4, bicarb 24, BUN 22, creatinine 1.77. His baseline creatinine is around 1.4. His glucose is 486. Lactic acid 2.5. His urinalysis negative for an infection. His chest x-ray shows possible right lower lobe pneumonia, as per my read. ASSESSMENT AND PLAN: This is an 84-year-old male patient presenting with multiple episodes of vomiting, suspected coffee-grounds emesis, but hemoglobin does not show evidence of anemia, also severe congestion and chest x-ray showing possible right lower lobe pneumonia, may be aspiration pneumonia versus community-acquired pneumonia. Neurology: Patient is demented and would continue to monitor him from that standpoint. GI: The patient had multiple episodes of emesis, could be due to his pneumonia versus peptic ulcer disease. In the ER, his emesis looked bloody but not overtly hemorrhagic or reflecting coffee-grounds emesis. Nevertheless, we will start him on IV Protonix and keep him n.p.o. for now. Pulmonary: The patient does have possible bronchitis versus pneumonia. We will have him on IV azithromycin and Rocephin. We will have one neb treatments. Endocrinology: He is diabetic. We will have him on insulin. For DVT prophylaxis, he will be on SCDs. We will prioritize treating his pneumonia and congestion. He is not a candidate for an EGD and since his vitals are stable and he is not anemic, we can continue observing him from that standpoint, I did relay that to his daughter, Hina, who wishes him to be a full code. Her phone #[phone]. Job ID: [id number]
[2020-07-04 04:32] LABS: Lactic Acid 2.6 mmol/L (0.5-2.2)
--- NOTE | 2020-07-04 07:53 | RAD ---
EXAM: CHEST ONE VIEW HISTORY: Vomiting and cough. GI bleed. COMPARISON: 06/27/2020 FINDINGS: Cardiac silhouette is magnified by projection but is stable in size. Pulmonary vasculature is within normal limits. Minimal linear patchy densities are seen in the right midlung zone. Left lung is clear. Vascular calcifications are seen in the thoracic aorta. No other interval change. IMPRESSION: Minimal linear and patchy densities right midlung zone. Findings may be related to pneumonitis. Follo w-up chest x-ray is recommended.
[2020-07-04] MEDS ORDERED: Dexamethasone 10 MG/ML VIAL ONE (08:07)
[2020-07-04] MEDS: Pantoprazole 40 MG VIAL IVP SCH ×2 (08:20→21:20)
[2020-07-04] MEDS: Dexamethasone 10 MG/ML VIAL SLOW IVP SCH (08:20)
[2020-07-04 08:33] LABS: Hemoglobin 15.4 g/dL (14.0-18.0); Mean Corpuscular HGB CONC 34.8 g/dL (32.0-36.0); Mean Corpuscular Hemoglobin 30.5 pg (27.0-31.0); Mean Corpuscular Volume 87.6 fL (78.0-98.0); Mean Platelet Volume 9.9 fL (7.4-10.4); Platelet Count 148 thou/uL (130-400); RBC Distribution Width 12.9 % (11.5-14.5); Red Blood Cell (RBC) Count 5.04 mill/uL (4.70-6.10); White Blood Cell (WBC) Count 14.5 thou/uL (4.8-10.8)
[2020-07-04 08:43] LABS: Anion Gap 16 mmol/L (10-20); BUN (Urea Nitrogen) 20 mg/dL (8.4-25.7); Calc. Creatinine Clearance 0 mL/min (70-130); Calcium 8.5 mg/dL (7.8-10.44); Carbon Dioxide 20 mmol/L (23-31); Chloride 107 mmol/L (98-107); Glucose 309 mg/dL (83-110); Potassium 4.1 mmol/L (3.5-5.1); Sodium 139 mmol/L (136-145)
[2020-07-04] MEDS ORDERED: Heparin 5,000 UNITS/ML VIAL SC SCH (09:00)
[2020-07-04 09:01] LABS: Band 13 % (5-11); Lymphocytes 2 % (21-51); MDiff Complete? YES; Monocytes 2 % (0-10); Neutrophil 83 % (42-75); Platelet Morphology Comment Appears Adequate; RBC Morphology Normal
[2020-07-04] MEDS: Ampicillin/Sulbactam 1.5 GM in Sodium Chloride 0.9% 100 ML IVPB SCH ×2 (12:20→18:50)
[2020-07-04 16:48] LABS: Mean Corpuscular HGB CONC 34.9 g/dL (32.0-36.0); Mean Corpuscular Hemoglobin 30.4 pg (27.0-31.0); Mean Corpuscular Volume 87.1 fL (78.0-98.0); Mean Platelet Volume 9.7 fL (7.4-10.4); Platelet Count 187 thou/uL (130-400); RBC Distribution Width 13.1 % (11.5-14.5); Red Blood Cell (RBC) Count 5.59 mill/uL (4.70-6.10); White Blood Cell (WBC) Count 20.6 thou/uL (4.8-10.8)
[2020-07-04] MEDS ORDERED: Haloperidol Lactate 5 MG/ML VIAL SLOW IVP PRN (17:08)
[2020-07-05 00:47] VITALS: BMI 35.2
[2020-07-05] MEDS ORDERED: Azithromycin 500 MG in Sodium Chloride 0.9% 250 ML 250 ML IVPB SCH (01:00)
[2020-07-05] MEDS ORDERED: cefTRIAXone\\ROCEPHIN 1 GM in Sodium Chloride 0.9% 100 ML IVPB SCH (02:00)
[2020-07-05] MEDS: Sodium Chloride 0.9% 1,000 ML IV SCH ×2 (05:13→18:00)
[2020-07-05] MEDS: Ampicillin/Sulbactam 1.5 GM in Sodium Chloride 0.9% 100 ML IVPB SCH ×5 (05:14→23:58)
[2020-07-05 06:05] LABS: #Lymphocytes 1.6 thou/uL (1.20-3.40); #Monocytes 0.9 thou/uL (0.11-0.59); #Neutrophils 13.9 thou/uL (1.40-6.50); %Basophils 0.1 % (0.0-1.0); %Eosinophils 0.1 % (0.0-10.0); %Monocytes 5.4 % (0.0-10.0); %Neutrophils 84.4 % (42.0-75.0); Hemoglobin 15.9 g/dL (14.0-18.0); Mean Corpuscular HGB CONC 34.6 g/dL (32.0-36.0); Mean Corpuscular Hemoglobin 30.1 pg (27.0-31.0); Mean Corpuscular Volume 87.2 fL (78.0-98.0); Platelet Count 177 thou/uL (130-400); RBC Distribution Width 13.1 % (11.5-14.5); Red Blood Cell (RBC) Count 5.29 mill/uL (4.70-6.10); White Blood Cell (WBC) Count 16.4 thou/uL (4.8-10.8)
[2020-07-05 06:24] LABS: Anion Gap 16 mmol/L (10-20); BUN (Urea Nitrogen) 27 mg/dL (8.4-25.7); Calc. Creatinine Clearance 60 mL/min (70-130); Calcium 8.7 mg/dL (7.8-10.44); Carbon Dioxide 21 mmol/L (23-31); Chloride 113 mmol/L (98-107); Glucose 263 mg/dL (83-110); Sodium 146 mmol/L (136-145)
[2020-07-05] MEDS ORDERED: FLU VACC QS2020-21(65YR UP)/PF 240 MCG/0.7 ML SYRINGE IM ONE (09:00)
[2020-07-05] MEDS: Pantoprazole 40 MG VIAL IVP SCH ×2 (09:33→20:35)
[2020-07-05] MEDS: Dexamethasone 10 MG/ML VIAL SLOW IVP SCH (09:34)
[2020-07-05] MEDS: hydrALAZINE 20 MG/ML VIAL SLOW IVP PRN ×2 (13:02→19:06)
--- NOTE | 2020-07-05 16:52 | PDOC.HOSPP ---
- Subjective Encounter Date: 07/05/20 Subjective: The patient is pleasantly confused. - Objective Vital Signs & Weight: Vital Signs (12 hours) Temp Pulse Resp BP Pulse Ox 07/05/20 13:02 79 07/05/20 08:00 98.0 F 79 17 159/75 H 98 Weight Admit Weight 218 lb 4.128 oz Weight 218 lb 4.122 oz I&O: 07/04/20 07/05/20 07/06/20 06:59 06:59 06:59 Intake Total 900 Balance 900 Result Diagrams: 07/05/20 05:43 07/05/20 05:43 Additional Labs: Accuchecks 07/05/20 07/05/20 07/05/20 16:43 11:14 04:58 POC Glucose 282 H 243 H 256 H 07/04/20 22:53 POC Glucose 265 H Hospitalist ROS - Medication Medications: Active Medications Generic Name Dose Route Start Last Admin Trade Name Freq PRN Reason Stop Dose Admin Dexamethasone 6 mg 07/04/20 09:00 07/05/20 09:34 Dexamethasone 10 Mg/Ml Vial SLOW IVP 6 mg DAILY SHAYE Administration Haloperidol Lactate 2 mg 07/04/20 17:08 07/04/20 21:32 Haloperidol Lactate 5 Mg/Ml Vial SLOW IVP 2 mg Q4H PRN Administration Agitation Hydralazine HCl 5 mg 07/04/20 02:21 07/05/20 13:02 Hydralazine 20 Mg/Ml Vial SLOW IVP 5 mg Q6H PRN Administration SBP > 140 Sodium Chloride 1,000 mls @ 75 mls/hr 07/04/20 03:00 07/05/20 05:13 Normal Saline 0.9% IV 1,000 mls .[id number] SHAYE Administration Ampicillin Sodium/Sulbactam 100 mls @ 200 mls/hr 07/04/20 12:00 07/05/20 11:07 Sodium 1.5 gm/ Sodium Chloride IVPB 100 mls Q6HR SHAYE Administration Insulin Human Lispro 0 units 07/04/20 02:08 07/04/20 08:21 Humalog 300 Units/3 Ml Vial SC 6 unit .MODERATE SLIDING SC PRN Administration Moderate Correctional Scale Pantoprazole Sodium 40 mg 07/04/20 09:00 07/05/20 09:33 Pantoprazole 40 Mg Vial IVP 40 mg Q12HR SHAYE Administration - Exam General Appearance: awake alert ENT: normocephalic atraumatic Neck: supple Heart: RRR Respiratory: normal chest expansion, no tachypnea Gastrointestinal: soft Extremities: no cyanosis, no clubbing Neurological: cranial nerve grossly intact, no focal deficits Hosp A/P (1) COLETTE (acute kidney injury) Code(s): N17.9 - ACUTE KIDNEY FAILURE, UNSPECIFIED Status: Acute (2) COVID-19 Code(s): U07.1 - COVID-19 Status: Acute (3) Physical deconditioning Code(s): R53.81 - OTHER MALAISE Status: Acute (4) COPD (chronic obstructive pulmonary disease) Status: Chronic Qualifiers: (5) HLD (hyperlipidemia) Code(s): E78.5 - HYPERLIPIDEMIA, UNSPECIFIED Status: Chronic Qualifiers: (6) HTN (hypertension) Code(s): I10 - ESSENTIAL (PRIMARY) HYPERTENSION Status: Chronic Qualifiers: - Plan The patient was agitated yesterday but appears to be calm and confused today. Acute kidney injury improving with hydration. No evidence of sepsis at this time. He is saturating well on room air. He will likely need placement on discharge.
[2020-07-05] MEDS: HumaLOG 300 UNITS/3 ML VIAL SC PRN (17:33)
[2020-07-06] MEDS: HumaLOG 300 UNITS/3 ML VIAL SC PRN ×2 (00:10→17:25)
[2020-07-06] MEDS: hydrALAZINE 20 MG/ML VIAL SLOW IVP PRN ×3 (00:57→18:27)
[2020-07-06] MEDS: Ampicillin/Sulbactam 1.5 GM in Sodium Chloride 0.9% 100 ML IVPB SCH ×3 (05:37→18:43)
[2020-07-06 06:12] LABS: #Lymphocytes 1.5 thou/uL (1.20-3.40); #Monocytes 0.9 thou/uL (0.11-0.59); #Neutrophils 12.4 thou/uL (1.40-6.50); %Basophils 0.1 % (0.0-1.0); %Eosinophils 0.1 % (0.0-10.0); %Lymphocytes 10.1 % (21.0-51.0); %Monocytes 5.9 % (0.0-10.0); %Neutrophils 83.9 % (42.0-75.0); Hemoglobin 15.2 g/dL (14.0-18.0); Mean Corpuscular HGB CONC 33.8 g/dL (32.0-36.0); Mean Corpuscular Hemoglobin 29.4 pg (27.0-31.0); Mean Corpuscular Volume 86.9 fL (78.0-98.0); Mean Platelet Volume 9.6 fL (7.4-10.4); Platelet Count 198 thou/uL (130-400); Red Blood Cell (RBC) Count 5.17 mill/uL (4.70-6.10); White Blood Cell (WBC) Count 14.8 thou/uL (4.8-10.8)
[2020-07-06 06:35] LABS: Anion Gap 18 mmol/L (10-20); BUN (Urea Nitrogen) 25 mg/dL (8.4-25.7); Calc. Creatinine Clearance 70 mL/min (70-130); Calcium 8.2 mg/dL (7.8-10.44); Carbon Dioxide 20 mmol/L (23-31); Chloride 109 mmol/L (98-107); Glucose 179 mg/dL (83-110); Potassium 3.7 mmol/L (3.5-5.1); Sodium 143 mmol/L (136-145)
[2020-07-06] MEDS: Pantoprazole 40 MG VIAL IVP SCH ×2 (09:22→20:49)
[2020-07-06] MEDS: Dexamethasone 10 MG/ML VIAL SLOW IVP SCH (09:24)
[2020-07-06] MEDS: Sodium Chloride 0.9% 1,000 ML IV SCH (09:25)
--- NOTE | 2020-07-06 14:49 | PDOC.HOSPP ---
- Subjective Encounter Date: 07/06/20 Subjective: The patient is saturating well on room air. He remains confused. - Objective Vital Signs & Weight: Vital Signs (12 hours) Temp Pulse Resp BP BP Pulse Ox 07/06/20 12:04 70 163/75 H 07/06/20 08:00 97.8 F 70 17 144/69 H 98 07/06/20 05:10 97.9 F 72 18 156/72 H 99 Weight Admit Weight 218 lb 4.128 oz Weight 218 lb 4.122 oz I&O: 07/05/20 07/06/20 07/07/20 06:59 06:59 06:59 Intake Total 900 1700 Balance 900 1700 Result Diagrams: 07/06/20 05:45 07/06/20 05:45 Additional Labs: Accuchecks 07/06/20 07/06/20 07/06/20 11:38 05:45 00:03 POC Glucose 192 H 163 H 235 H 07/05/20 16:43 POC Glucose 282 H Hospitalist ROS - Medication Medications: Active Medications Generic Name Dose Route Start Last Admin Trade Name Freq PRN Reason Stop Dose Admin Dexamethasone 6 mg 07/04/20 09:00 07/06/20 09:24 Dexamethasone 10 Mg/Ml Vial SLOW IVP 6 mg DAILY SHAYE Administration Haloperidol Lactate 2 mg 07/04/20 17:08 07/04/20 21:32 Haloperidol Lactate 5 Mg/Ml Vial SLOW IVP 2 mg Q4H PRN Administration Agitation Hydralazine HCl 5 mg 07/04/20 02:21 07/06/20 12:04 Hydralazine 20 Mg/Ml Vial SLOW IVP 5 mg Q6H PRN Administration SBP > 140 Sodium Chloride 1,000 mls @ 75 mls/hr 07/04/20 03:00 07/06/20 09:25 Normal Saline 0.9% IV 1,000 mls .[id number] SHAYE Administration Ampicillin Sodium/Sulbactam 100 mls @ 200 mls/hr 07/04/20 12:00 07/06/20 12:03 Sodium 1.5 gm/ Sodium Chloride IVPB 100 mls Q6HR SHAYE Administration Insulin Human Lispro 0 units 07/04/20 02:08 07/06/20 00:10 Humalog 300 Units/3 Ml Vial SC 2 unit .MODERATE SLIDING SC PRN Administration Moderate Correctional Scale Pantoprazole Sodium 40 mg 07/04/20 09:00 07/06/20 09:22 Pantoprazole 40 Mg Vial IVP 40 mg Q12HR SHAYE Administration - Exam General Appearance: awake alert ENT: normocephalic atraumatic Neck: supple, no JVD Respiratory: normal chest expansion, no tachypnea Neurological: cranial nerve grossly intact, no weakness Hosp A/P (1) COLETTE (acute kidney injury) Code(s): N17.9 - ACUTE KIDNEY FAILURE, UNSPECIFIED Status: Acute (2) COVID-19 Code(s): U07.1 - COVID-19 Status: Acute (3) Physical deconditioning Code(s): R53.81 - OTHER MALAISE Status: Acute (4) COPD (chronic obstructive pulmonary disease) Status: Chronic Qualifiers: (5) HLD (hyperlipidemia) Code(s): E78.5 - HYPERLIPIDEMIA, UNSPECIFIED Status: Chronic Qualifiers: (6) HTN (hypertension) Code(s): I10 - ESSENTIAL (PRIMARY) HYPERTENSION Status: Chronic Qualifiers: - Plan The patient is calmly confused. Acute kidney injury improving with hydration. No evidence of sepsis at this time. He is saturating well on room air. We will discontinue dexamethasone. The patient was diagnosed with COVID-19 months ago and he is currently asymptomatic. We will discontinue isolation.
[2020-07-06] MEDS ORDERED: Amlodipine 10 MG TAB PO SCH (22:00)
[2020-07-06] MEDS: Melatonin 3 MG TAB PO PRN (22:03)
[2020-07-07] MEDS: Ampicillin/Sulbactam 1.5 GM in Sodium Chloride 0.9% 100 ML IVPB SCH ×3 (00:30→11:00)
[2020-07-07] MEDS: hydrALAZINE 20 MG/ML VIAL SLOW IVP PRN ×2 (00:34→06:08)
[2020-07-07] MEDS: HumaLOG 300 UNITS/3 ML VIAL SC PRN ×4 (00:48→17:13)
[2020-07-07] MEDS: Sodium Chloride 0.9% 1,000 ML IV SCH (04:45)
[2020-07-07 06:51] LABS: #Lymphocytes 1.7 thou/uL (1.20-3.40); #Monocytes 1.4 thou/uL (0.11-0.59); #Neutrophils 11.9 thou/uL (1.40-6.50); %Basophils 0.2 % (0.0-1.0); %Eosinophils 0.3 % (0.0-10.0); %Monocytes 9.1 % (0.0-10.0); %Neutrophils 79.4 % (42.0-75.0); Hemoglobin 16.2 g/dL (14.0-18.0); Mean Corpuscular HGB CONC 35.2 g/dL (32.0-36.0); Mean Corpuscular Volume 85.4 fL (78.0-98.0); Mean Platelet Volume 9.5 fL (7.4-10.4); Platelet Count 212 thou/uL (130-400); RBC Distribution Width 12.8 % (11.5-14.5)
[2020-07-07 07:14] LABS: Anion Gap 19 mmol/L (10-20); BUN (Urea Nitrogen) 21 mg/dL (8.4-25.7); Calc. Creatinine Clearance 77 mL/min (70-130); Carbon Dioxide 17 mmol/L (23-31); Chloride 109 mmol/L (98-107); Glucose 206 mg/dL (83-110); Potassium 3.5 mmol/L (3.5-5.1); Sodium 141 mmol/L (136-145)
[2020-07-07] MEDS: Amlodipine 10 MG TAB PO SCH (09:25)
[2020-07-07] MEDS: Pantoprazole 40 MG VIAL IVP SCH (09:26)
[2020-07-07] MEDS ORDERED: Losartan 25 MG TAB PO SCH (09:45)
[2020-07-07] MEDS: Ondansetron PF 4 MG/2 ML Vial IVP PRN ×2 (11:13→17:13)
--- NOTE | 2020-07-07 13:29 | EKG ---
Test Reason : Blood Pressure : / mmHG Vent. Rate : 101 BPM Atrial Rate : 101 BPM P-R Int : 170 ms QRS Dur : 142 ms QT Int : 388 ms P-R-T Axes : 040 -68 024 degrees QTc Int : 503 ms Sinus tachycardia Right bundle branch block Left anterior fascicular block Bifascicular block Abnormal ECG Confirmed by LOW DORSEY M.D. ([id number]), social media editor ELFEGO PATEL ([id number]) on 07/07/2020 1:29:36 PM Referred By: Confirmed By:LOW DORSEY M.D.
--- NOTE | 2020-07-07 15:41 | PDOC.HOSPP ---
- Subjective Encounter Date: 07/07/20 Subjective: The patient still confused. He had an episode of nausea vomiting today. - Objective Vital Signs & Weight: Vital Signs (12 hours) Temp Pulse Resp BP BP Pulse Ox 07/07/20 09:25 86 170/76 H 07/07/20 09:00 97.8 F 86 18 170/76 H 95 07/07/20 08:00 95 07/07/20 06:00 90 18 197/90 H 93 L Weight Admit Weight 218 lb 4.128 oz Weight 218 lb 4.122 oz I&O: 07/06/20 07/07/20 07/08/20 06:59 06:59 06:59 Intake Total 1700 Output Total 1150 Balance 1700 -1150 Result Diagrams: 07/07/20 06:39 07/07/20 06:39 Additional Labs: Accuchecks 07/07/20 07/07/20 07/07/20 11:09 05:54 00:16 POC Glucose 239 H 192 H 235 H 07/06/20 15:37 POC Glucose 267 H Hospitalist ROS - Medication Medications: Active Medications Generic Name Dose Route Start Last Admin Trade Name Freq PRN Reason Stop Dose Admin Amlodipine Besylate 10 mg 07/07/20 09:00 07/07/20 09:25 Amlodipine 10 Mg Tab PO 10 mg DAILY SHAYE Administration Haloperidol Lactate 2 mg 07/04/20 17:08 07/04/20 21:32 Haloperidol Lactate 5 Mg/Ml Vial SLOW IVP 2 mg Q4H PRN Administration Agitation Hydralazine HCl 5 mg 07/04/20 02:21 07/07/20 06:08 Hydralazine 20 Mg/Ml Vial SLOW IVP 5 mg Q6H PRN Administration SBP > 140 Insulin Human Lispro 0 units 07/04/20 02:08 07/07/20 11:11 Humalog 300 Units/3 Ml Vial SC 4 unit .MODERATE SLIDING SC PRN Administration Moderate Correctional Scale Melatonin 3 mg 07/06/20 21:56 07/06/20 22:03 Melatonin 3 Mg Tab PO 3 mg HS PRN Administration Insomnia Ondansetron HCl 4 mg 07/04/20 02:10 07/07/20 11:13 Ondansetron Pf 4 Mg/2 Ml Vial IVP 4 mg Q6H PRN Administration Nausea/Vomiting - Exam General Appearance: awake alert ENT: normocephalic atraumatic Neck: supple, no JVD Heart: RRR Respiratory: normal chest expansion, no tachypnea Extremities: no cyanosis Neurological: cranial nerve grossly intact Hosp A/P (1) COLETTE (acute kidney injury) Code(s): N17.9 - ACUTE KIDNEY FAILURE, UNSPECIFIED Status: Acute (2) COVID-19 Code(s): U07.1 - COVID-19 Status: Acute (3) Physical deconditioning Code(s): R53.81 - OTHER MALAISE Status: Acute (4) COPD (chronic obstructive pulmonary disease) Status: Chronic Qualifiers: (5) HLD (hyperlipidemia) Code(s): E78.5 - HYPERLIPIDEMIA, UNSPECIFIED Status: Chronic Qualifiers: (6) HTN (hypertension) Code(s): I10 - ESSENTIAL (PRIMARY) HYPERTENSION Status: Chronic Qualifiers: - Plan Confused secondary to his underlying dementia Acute kidney injury resolved. No evidence of sepsis at this time. He is saturating well on room air. Antibiotics and dexamethasone discontinued. The patient was diagnosed with COVID-19 months ago and he is currently asymptomatic. Isolation discontinued. Zofran as needed for nausea.
[2020-07-08 06:06] LABS: #Basophils 0.1 thou/uL (0.0-0.2); #Lymphocytes 2.1 thou/uL (1.20-3.40); #Monocytes 1.2 thou/uL (0.11-0.59); #Neutrophils 8.5 thou/uL (1.40-6.50); %Basophils 0.6 % (0.0-1.0); %Eosinophils 0.3 % (0.0-10.0); %Lymphocytes 17.9 % (21.0-51.0); %Monocytes 10.2 % (0.0-10.0); Hemoglobin 15.2 g/dL (14.0-18.0); Mean Corpuscular HGB CONC 34.7 g/dL (32.0-36.0); Mean Corpuscular Volume 86.4 fL (78.0-98.0); Mean Platelet Volume 9.3 fL (7.4-10.4); Platelet Count 191 thou/uL (130-400); RBC Distribution Width 12.7 % (11.5-14.5); Red Blood Cell (RBC) Count 5.06 mill/uL (4.70-6.10); White Blood Cell (WBC) Count 11.9 thou/uL (4.8-10.8)
[2020-07-08 06:24] LABS: Anion Gap 16 mmol/L (10-20); BUN (Urea Nitrogen) 19 mg/dL (8.4-25.7); Calc. Creatinine Clearance 71 mL/min (70-130); Calcium 8.1 mg/dL (7.8-10.44); Carbon Dioxide 21 mmol/L (23-31); Chloride 109 mmol/L (98-107); Glucose 187 mg/dL (83-110); Potassium 3.4 mmol/L (3.5-5.1); Sodium 143 mmol/L (136-145)
[2020-07-08] MEDS: Losartan 25 MG TAB PO SCH (08:46)
[2020-07-08] MEDS: Amlodipine 10 MG TAB PO SCH (08:47)
[2020-07-08] MEDS: HumaLOG 300 UNITS/3 ML VIAL SC PRN ×2 (11:46→17:32)
[2020-07-08] MEDS: Ondansetron PF 4 MG/2 ML Vial IVP PRN (17:39)
[2020-07-08] MEDS ORDERED: Polyethylene Glycol 3350 17 GM Packet PO SCH (18:00)
--- NOTE | 2020-07-08 18:19 | PDOC.HOSPP ---
- Subjective Encounter Date: 07/08/20 Subjective: The patient is calmly watching TV today. No new episodes of agitation. - Objective Vital Signs & Weight: Vital Signs (12 hours) Temp Pulse Resp BP BP Pulse Ox 07/08/20 15:50 98.7 F 76 18 176/83 H 92 L 07/08/20 10:51 97.8 F 76 18 162/73 H 94 L 07/08/20 08:47 72 166/84 H 07/08/20 08:00 98.3 F 72 20 166/84 H 96 Weight Admit Weight 218 lb 4.128 oz Weight 218 lb 4.122 oz I&O: 07/07/20 07/08/20 07/09/20 06:59 06:59 06:59 Intake Total 850 Output Total 1150 Balance -1150 850 Result Diagrams: 07/08/20 05:24 07/08/20 05:24 Additional Labs: Accuchecks 07/08/20 07/08/20 07/08/20 15:41 10:57 05:01 POC Glucose 204 H 251 H 204 H 07/07/20 21:08 POC Glucose 220 H Hospitalist ROS - Medication Medications: Active Medications Generic Name Dose Route Start Last Admin Trade Name Freq PRN Reason Stop Dose Admin Amlodipine Besylate 10 mg 07/07/20 09:00 07/08/20 08:47 Amlodipine 10 Mg Tab PO 10 mg DAILY SHAYE Administration Haloperidol Lactate 2 mg 07/04/20 17:08 07/04/20 21:32 Haloperidol Lactate 5 Mg/Ml Vial SLOW IVP 2 mg Q4H PRN Administration Agitation Hydralazine HCl 5 mg 07/04/20 02:21 07/07/20 06:08 Hydralazine 20 Mg/Ml Vial SLOW IVP 5 mg Q6H PRN Administration SBP > 140 Insulin Human Lispro 0 units 07/04/20 02:08 07/08/20 17:32 Humalog 300 Units/3 Ml Vial SC 4 unit .MODERATE SLIDING SC PRN Administration Moderate Correctional Scale Losartan Potassium 50 mg 07/08/20 09:00 07/08/20 08:46 Losartan 25 Mg Tab PO 50 mg DAILY SHAYE Administration Melatonin 3 mg 07/06/20 21:56 07/06/20 22:03 Melatonin 3 Mg Tab PO 3 mg HS PRN Administration Insomnia Ondansetron HCl 4 mg 07/04/20 02:10 07/08/20 17:39 Ondansetron Pf 4 Mg/2 Ml Vial IVP 4 mg Q6H PRN Administration Nausea/Vomiting Pantoprazole Sodium 40 mg 07/08/20 09:00 07/08/20 08:47 Pantoprazole 40 Mg Tab PO 40 mg DAILY SHAYE Administration Polyethylene Glycol 17 gm 07/08/20 18:00 07/08/20 18:08 Polyethylene Glycol 3350 17 Gm Packet PO 07/08/20 20:00 17 gm NOW SHAYE Administration - Exam General Appearance: awake alert ENT: normocephalic atraumatic Neck: supple, no JVD Heart: RRR Respiratory: normal chest expansion, no tachypnea Neurological: cranial nerve grossly intact, no focal deficits Hosp A/P (1) COLETTE (acute kidney injury) Code(s): N17.9 - ACUTE KIDNEY FAILURE, UNSPECIFIED Status: Acute (2) COVID-19 Code(s): U07.1 - COVID-19 Status: Acute (3) Physical deconditioning Code(s): R53.81 - OTHER MALAISE Status: Acute (4) COPD (chronic obstructive pulmonary disease) Status: Chronic Qualifiers: (5) HLD (hyperlipidemia) Code(s): E78.5 - HYPERLIPIDEMIA, UNSPECIFIED Status: Chronic Qualifiers: (6) HTN (hypertension) Code(s): I10 - ESSENTIAL (PRIMARY) HYPERTENSION Status: Chronic Qualifiers: (7) Confusion Code(s): R41.0 - DISORIENTATION, UNSPECIFIED Status: Acute - Plan Confused secondary to his underlying dementia Acute kidney injury resolved. No evidence of sepsis at this time. He is saturating well on room air. Antibiotics and dexamethasone discontinued. The patient was diagnosed with COVID-19 months ago and he is currently asymptomatic. Isolation discontinued. Zofran as needed for nausea. Currently clinically stable and awaiting placement.
[2020-07-09 05:56] LABS: #Eosinphils 0.1 thou/uL (0.0-0.7); #Lymphocytes 2.4 thou/uL (1.20-3.40); #Monocytes 1.2 thou/uL (0.11-0.59); #Neutrophils 7.6 thou/uL (1.40-6.50); %Basophils 0.4 % (0.0-1.0); %Eosinophils 1.1 % (0.0-10.0); %Lymphocytes 20.9 % (21.0-51.0); %Monocytes 10.8 % (0.0-10.0); %Neutrophils 66.9 % (42.0-75.0); Hemoglobin 15.3 g/dL (14.0-18.0); Mean Corpuscular HGB CONC 34.8 g/dL (32.0-36.0); Mean Corpuscular Hemoglobin 29.5 pg (27.0-31.0); Mean Corpuscular Volume 84.7 fL (78.0-98.0); Platelet Count 203 thou/uL (130-400); RBC Distribution Width 12.5 % (11.5-14.5); Red Blood Cell (RBC) Count 5.19 mill/uL (4.70-6.10); White Blood Cell (WBC) Count 11.4 thou/uL (4.8-10.8)
[2020-07-09 06:20] LABS: Anion Gap 14 mmol/L (10-20); BUN (Urea Nitrogen) 14 mg/dL (8.4-25.7); Calc. Creatinine Clearance 90 mL/min (70-130); Calcium 7.9 mg/dL (7.8-10.44); Carbon Dioxide 21 mmol/L (23-31); Chloride 107 mmol/L (98-107); Glucose 150 mg/dL (83-110); Potassium 3.3 mmol/L (3.5-5.1); Sodium 139 mmol/L (136-145)
[2020-07-09] MEDS: Losartan 25 MG TAB PO SCH (07:44)
[2020-07-09] MEDS: Amlodipine 10 MG TAB PO SCH (07:45)
--- NOTE | 2020-07-09 08:43 | PDOC.HOSPP ---
- Subjective Encounter Date: 07/09/20 Encounter Time: 08:42 Subjective: calm, confused - Objective Vital Signs & Weight: Vital Signs (12 hours) Temp Pulse Resp BP BP Pulse Ox 07/09/20 08:12 97.8 F 99 22 H 91 L 07/09/20 08:00 98.4 F 67 18 162/76 H 97 07/09/20 07:45 67 162/76 H 07/09/20 00:29 97.9 F 68 18 151/86 H 98 Weight Admit Weight 218 lb 4.128 oz Weight 218 lb 4.122 oz I&O: 07/08/20 07/09/20 07/10/20 06:59 06:59 06:59 Intake Total 850 800 Balance 850 800 Result Diagrams: 07/09/20 05:23 07/09/20 05:23 Additional Labs: Accuchecks 07/09/20 07/08/20 07/08/20 03:48 20:24 15:41 POC Glucose 161 H 150 H 204 H 07/08/20 10:57 POC Glucose 251 H Hospitalist ROS - Medication Medications: Active Medications Generic Name Dose Route Start Last Admin Trade Name Freq PRN Reason Stop Dose Admin Amlodipine Besylate 10 mg 07/07/20 09:00 07/09/20 07:45 Amlodipine 10 Mg Tab PO 10 mg DAILY SHAYE Administration Haloperidol Lactate 2 mg 07/04/20 17:08 07/04/20 21:32 Haloperidol Lactate 5 Mg/Ml Vial SLOW IVP 2 mg Q4H PRN Administration Agitation Hydralazine HCl 5 mg 07/04/20 02:21 07/07/20 06:08 Hydralazine 20 Mg/Ml Vial SLOW IVP 5 mg Q6H PRN Administration SBP > 140 Insulin Human Lispro 0 units 07/04/20 02:08 07/08/20 17:32 Humalog 300 Units/3 Ml Vial SC 4 unit .MODERATE SLIDING SC PRN Administration Moderate Correctional Scale Losartan Potassium 50 mg 07/08/20 09:00 07/09/20 07:44 Losartan 25 Mg Tab PO 50 mg DAILY SHAYE Administration Melatonin 3 mg 07/06/20 21:56 07/06/20 22:03 Melatonin 3 Mg Tab PO 3 mg HS PRN Administration Insomnia Ondansetron HCl 4 mg 07/04/20 02:10 12/20/20 17:39 Ondansetron Pf 4 Mg/2 Ml Vial IVP 4 mg Q6H PRN Administration Nausea/Vomiting Pantoprazole Sodium 40 mg 07/08/20 09:00 07/09/20 07:44 Pantoprazole 40 Mg Tab PO 40 mg DAILY SHAYE Administration - Exam General Appearance: awake alert Neck: no JVD Heart: RRR, no murmur Respiratory: CTAB Gastrointestinal: soft, normal bowel sounds Extremities: no edema Hosp A/P (1) COVID-19 Code(s): U07.1 - COVID-19 Status: Acute (2) COPD (chronic obstructive pulmonary disease) Status: Chronic Qualifiers: Emphysema type: unspecified (3) Dementia Code(s): F03.90 - UNSPECIFIED DEMENTIA WITHOUT BEHAVIORAL DISTURBANCE Status: Chronic Qualifiers: Dementia type: Alzheimer's disease (4) Diabetes mellitus Code(s): E11.9 - TYPE 2 DIABETES MELLITUS WITHOUT COMPLICATIONS Status: Chronic Qualifiers: Diabetes mellitus type: type 2 Diabetes mellitus chcf insulin use: without lobsterman use Diabetes mellitus complication detail: with nephropathy (5) HLD (hyperlipidemia) Code(s): E78.5 - HYPERLIPIDEMIA, UNSPECIFIED Status: Chronic Qualifiers: (6) HTN (hypertension) Code(s): I10 - ESSENTIAL (PRIMARY) HYPERTENSION Status: Chronic Qualifiers: Hypertension type: essential hypertension - Plan stable on current therapy discharge planning
[2020-07-09] MEDS: Aspirin 325 MG TAB PO SCH (09:40)
--- NOTE | 2020-07-09 10:05 | PQF ---
CLINICAL DOCUMENTATION CLARIFICATION FORM Dear Date: 07/09/20 0946, 07/10/20 Please exercise your independent, professional judgment in responding to the clarification form. Clinical indicators are provided on the bottom of this form for your review. Please check appropriate box(es) to clarify if the following diagnosis has been ruled in our ruled out: PNEUMONIA [ x ] Ruled in diagnosis [ x] Continue to treat [ ] Resolved [ ] Ruled out diagnosis [ ] Improving [ ] Cannot rule out diagnosis [ x] Other diagnosis ___COVID pna [ ] Unable to determine In addition, please specify: Present on Admission (POA): [ ] Yes [ ] No [ ] Unable to determine For continuity of documentation, please document condition throughout progress notes and discharge summary. Thank You. To be completed by CDI/Coding staff for physician review: CLINICAL INDICATORS - SIGNS / SYMPTOMS / LABS / RESULTS AND LOCATION IN MR 07/04 WBC 22.2, 14.5, 20.6 o 07/05 WBC 16.4 o 07/06 WBC 14.8 o 07/07 WBC 15.0 o 07/08 WBC 11.9 o 07/09 WBC 11.4 07/04 Bands 16, 13 CXR impression: findings may be related to pneumonitis, follow up chest x-ray is recommended Resp 26, 95% 2L/NC// ED final DX: Sepsis, Pneumonia, Vomiting (ED Report) 07/04 Seen in the ED week ago for congestion, sent home without antibioticsdoing well then cough got worse and started to vomit what looked like dark material. Upon arrival O2 sat 90%, appears to be congested. Chest X-Ray showing possible RLL pneumonia, may be aspiration pneumonia versus CAP ( H&P / [facility]) 07/04 RISK FACTORS / RESULTS AND LOCATION IN MR Covid 19, Chronic COPD, advanced age( 84) ( PN/ Alnazeer) 07/04 TREATMENTS / RESULTS AND LOCATION IN MR Serial labs ( 07/04- present ) Ceftriaxone 1g IVPB ( 07/04/ED) Azithromycin IV 500mg IVPB ( 07/04/ED) THANK YOU! CDS Signature: MADISON CHAVEZ RN Phone #: [phone] Date: 07/09/20 1000 This is a permanent part of the Medical Record [facility]
[2020-07-09] MEDS: HumaLOG 300 UNITS/3 ML VIAL SC PRN (16:47)
[2020-07-09] MEDS ORDERED: Simvastatin 10 MG TAB PO SCH (21:00)
[2020-07-09] MEDS ORDERED: Montelukast Sodium 10 mg Tablet PO SCH (21:00)
[2020-07-09] MEDS: Melatonin 3 MG TAB PO PRN (21:05)
[2020-07-10 08:09] VITALS: BP 154/71; TEMP 97.9
[2020-07-10] MEDS: Amlodipine 10 MG TAB PO SCH (08:59)
[2020-07-10] MEDS: Aspirin 325 MG TAB PO SCH (08:59)
--- NOTE | 2020-07-10 09:35 | PDOC.HOSPP ---
- Subjective Encounter Date: 07/10/20 Encounter Time: 09:34 Subjective: no complaints - Objective Vital Signs & Weight: Vital Signs (12 hours) Temp Pulse Resp BP Pulse Ox 07/10/20 08:59 70 07/10/20 07:25 97.9 F 70 16 154/71 H 96 07/10/20 04:00 98.0 F 74 18 165/76 H 97 07/10/20 00:00 97.6 F 69 18 159/76 H 100 Weight Admit Weight 218 lb 4.128 oz Weight 218 lb 4.122 oz I&O: 07/09/20 07/10/20 07/11/20 06:59 06:59 06:59 Intake Total 800 600 Balance 800 600 Result Diagrams: 07/09/20 05:23 07/09/20 05:23 Additional Labs: Accuchecks 07/10/20 07/09/20 07/09/20 06:36 21:51 16:25 POC Glucose 177 H 217 H 228 H 07/09/20 11:25 POC Glucose 162 H Hospitalist ROS - Medication Medications: Active Medications Generic Name Dose Route Start Last Admin Trade Name Freq PRN Reason Stop Dose Admin Amlodipine Besylate 10 mg 07/07/20 09:00 07/10/20 08:59 Amlodipine 10 Mg Tab PO 10 mg DAILY SHAYE Administration Aspirin 325 mg 07/09/20 09:00 07/10/20 08:59 Aspirin 325 Mg Tab PO 325 mg DAILY SHAYE Administration Haloperidol Lactate 2 mg 07/04/20 17:08 07/04/20 21:32 Haloperidol Lactate 5 Mg/Ml Vial SLOW IVP 2 mg Q4H PRN Administration Agitation Hydralazine HCl 5 mg 07/04/20 02:21 07/07/20 06:08 Hydralazine 20 Mg/Ml Vial SLOW IVP 5 mg Q6H PRN Administration SBP > 140 Insulin Human Lispro 0 units 07/04/20 02:08 07/09/20 16:47 Humalog 300 Units/3 Ml Vial SC 4 unit .MODERATE SLIDING SC PRN Administration Moderate Correctional Scale Losartan Potassium 50 mg 07/08/20 09:00 07/09/20 07:44 Losartan 25 Mg Tab PO 50 mg DAILY SHAYE Administration Melatonin 3 mg 07/06/20 21:56 07/09/20 21:05 Melatonin 3 Mg Tab PO 3 mg HS PRN Administration Insomnia Montelukast Sodium 10 mg 07/09/20 21:00 07/09/20 21:04 Montelukast Sodium 10 Mg Tablet PO 10 mg HS SHAYE Administration Ondansetron HCl 4 mg 07/04/20 02:10 07/08/20 17:39 Ondansetron Pf 4 Mg/2 Ml Vial IVP 4 mg Q6H PRN Administration Nausea/Vomiting Pantoprazole Sodium 40 mg 07/08/20 09:00 07/10/20 08:59 Pantoprazole 40 Mg Tab PO 40 mg DAILY SHAYE Administration Simvastatin 10 mg 07/09/20 21:00 07/09/20 21:05 Simvastatin 10 Mg Tab PO 10 mg HS SHAYE Administration - Exam General Appearance: awake alert Neck: no JVD Heart: RRR, no murmur Respiratory - other findings: bilat fine rales Gastrointestinal: soft, normal bowel sounds Extremities: no edema Hosp A/P (1) Pneumonia due to COVID-19 virus Code(s): U07.1 - COVID-19; J12.89 - OTHER VIRAL PNEUMONIA Status: Acute (2) COPD (chronic obstructive pulmonary disease) Status: Chronic Qualifiers: Emphysema type: unspecified (3) Dementia Code(s): F03.90 - UNSPECIFIED DEMENTIA WITHOUT BEHAVIORAL DISTURBANCE Status: Chronic Qualifiers: Dementia type: Alzheimer's disease (4) Diabetes mellitus Code(s): E11.9 - TYPE 2 DIABETES MELLITUS WITHOUT COMPLICATIONS Status: Chronic Qualifiers: Diabetes mellitus type: type 2 Diabetes mellitus intermediate card tender insulin use: without intermediate card tender use Diabetes mellitus complication detail: with nephropathy (5) HLD (hyperlipidemia) Code(s): E78.5 - HYPERLIPIDEMIA, UNSPECIFIED Status: Chronic Qualifiers: (6) HTN (hypertension) Code(s): I10 - ESSENTIAL (PRIMARY) HYPERTENSION Status: Chronic Qualifiers: Hypertension type: essential hypertension - Plan CBC, CXR likely DC
--- NOTE | 2020-07-10 10:29 | DIS ---
DATE OF ADMISSION: 07/04/2020 DATE OF DISCHARGE: 07/10/2020 DISPOSITION: Discharged to home. PRIMARY CARE PHYSICIAN: Turner Zamudio. FINAL DIAGNOSES: COVID pneumonia, dementia, hypertension, diabetes mellitus type 2. DISCHARGE MEDICATIONS: 1. Cozaar 50 mg a day. 2. Elavil 10 mg a day. 3. Amlodipine 10 mg a day. 4. Aspirin 325 mg a day. 5. DuoNeb 2.5 q.6 hours p.r.n. 6. Singulair 10 mg a day. 7. Pravastatin 20 mg a day. ALLERGIES: NO KNOWN DRUG ALLERGIES. PENDING AT TIME OF DISCHARGE: Cultures, no growth for 5 days. CODE STATUS: Full. DIET: Diabetic. HOSPITAL COURSE: The patient was admitted to the emergency room to the Hospitalist Service with nausea and vomiting, had some congestion. He had a low pulse ox when he was admitted. His admitting chest x-ray had patchy infiltrate consistent with a viral pneumonitis. His COVID test was positive. White cell count was elevated to 22,000 with a low lymphocytes and high neutrophil count. Chemistries revealed a high creatinine at 1.77 with a BUN of 20. Electrolytes were balanced. Lactic acid was elevated at 2.5. Blood sugar was in the high range. Cultures were drawn. He was started on IV antibiotics, O2 support. His cultures were negative. Antibiotics were discontinued. Started on dexamethasone, which has subsequently been discontinued. No consultations were obtained. No procedures were done. The patient's hospital course has been benign. His renal failure improved with IV hydration. His creatinine came down to normal. Apparently, he was diagnosed with COVID-19 a month ago. A followup chest x-ray was obtained today which demonstrated significant clearing of bilateral infiltrates. His white cell count dropped down to 11.4 on the . His hemoglobin is 15. His creatinine came down to 0.84 with a BUN of 14. His blood sugars are in the low 100 to 200, probably elevated from the earlier steroids. He is being discharged to follow up with PCP. He will need a chest x-ray in approximately 1 month. The only new medication listed is losartan. He will need follow up with his diabetes as well as follow up on his chest x-ray after he returns home. Job ID: [id number] [facility]
--- NOTE | 2020-07-10 10:31 | RAD ---
CHEST 1 VIEW: Date: 07/10/2020 HISTORY: Pneumonia. COMPARISON: Radiograph dated 07/04/2020. FINDINGS: There is mild improved lung aeration. No definite confluent air space consolidation, pneumothorax, or effusion. Some small volume scar right middle lobe. IMPRESSION: Improved lung aeration. POS: [facility]
[2020-07-10] MEDS: Losartan 25 MG TAB PO SCH (11:49)
== END 2020-07-10 13:10 | disposition home or self-care (01) | DRG 177 ==
LOC: ERS 23:58 → ERHOLD 07-04 01:36 → T4-B 07-04 18:43
PROVIDERS: ADMIT Internal Medicine; ATTEND Internal Medicine
PROC: 8E0ZXY6 Isolation (ICD-10-PCS; principal; 2020-07-04)
DX: U07.1 COVID-19 (principal); J12.89 Other viral pneumonia; I13.0 Hypertensive heart and chronic kidney disease with heart failure and stage 1 through stage 4 chronic kidney disease, or unspecified chronic kidney disease; N17.9 Acute kidney failure, unspecified; J44.0 Chronic obstructive pulmonary disease with (acute) lower respiratory infection; I50.9 Heart failure, unspecified; N40.0 Benign prostatic hyperplasia without lower urinary tract symptoms; E11.22 Type 2 diabetes mellitus with diabetic chronic kidney disease; K21.9 Gastro-esophageal reflux disease without esophagitis; F20.9 Schizophrenia, unspecified; E78.00 Pure hypercholesterolemia, unspecified; E11.21 Type 2 diabetes mellitus with diabetic nephropathy; G30.9 Alzheimer's disease, unspecified; F02.80 Dementia in other diseases classified elsewhere, unspecified severity, without behavioral disturbance, psychotic disturbance, mood disturbance, and anxiety; Z79.899 Other long term (current) drug therapy; Z79.82 Long term (current) use of aspirin; Z79.51 Long term (current) use of inhaled steroids; Z90.49 Acquired absence of other specified parts of digestive tract; N18.30 Chronic kidney disease, stage 3 unspecified
CPT/HCPCS: 0240U; 36415; 36416; 51701; 71045; 80048; 80053; 81003; 81015; 82728; 83605; 83615; 83690; 83880; 84145; 84484; 85025; 85610; 85730; 86140; 86850; 86900; 86901; 87040; 87804; 93005; 94760; 96365; 96368; C9113; J0295; J0360; J0456; J0696; J1100; J1630; J2405; J3490; J7620

== ENCOUNTER 2020-09-09 14:02 | Inpatient (IN) | payer MEDICARE, MEDICAID ==
[2020-09-09 14:35] LABS: #Lymphocytes 1.9 thou/uL (1.20-3.40); #Monocytes 0.9 thou/uL (0.11-0.59); #Neutrophils 12.4 thou/uL (1.40-6.50); %Basophils 0.2 % (0.0-1.0); %Eosinophils 0.1 % (0.0-10.0); %Lymphocytes 12.5 % (21.0-51.0); %Monocytes 5.7 % (0.0-10.0); %Neutrophils 81.5 % (42.0-75.0); Hemoglobin 15.8 g/dL (14.0-18.0); Mean Corpuscular Hemoglobin 30.5 pg (27.0-31.0); Mean Corpuscular Volume 87.1 fL (78.0-98.0); Mean Platelet Volume 9.6 fL (7.4-10.4); Platelet Count 194 thou/uL (130-400); RBC Distribution Width 12.3 % (11.5-14.5); Red Blood Cell (RBC) Count 5.18 mill/uL (4.70-6.10); White Blood Cell (WBC) Count 15.2 thou/uL (4.8-10.8)
[2020-09-09 14:42] LABS: INR-International Normal Ratio 1.1; PTT 27.8 sec (22.9-36.1); Prothrombin Time 14.2 sec (12.0-14.7)
[2020-09-09 14:55] LABS: ALT (SGPT) 13 U/L (8-55); AST (SGOT) 35 U/L (5-34); Albumin 3.6 g/dL (3.4-4.8); Alkaline Phosphatase 113 U/L (40-110); Anion Gap 20 mmol/L (10-20); BUN (Urea Nitrogen) 19 mg/dL (8.4-25.7); Bilirubin, Total 1.6 mg/dL (0.2-1.2); Calc. Creatinine Clearance 0 mL/min (70-130); Calcium 8.4 mg/dL (7.8-10.44); Carbon Dioxide 21 mmol/L (23-31); Chloride 102 mmol/L (98-107); Globulin 3.5 g/dL (2.4-3.5); Glucose 526 mg/dL (83-110); Potassium 3.8 mmol/L (3.5-5.1); Protein, Total 7.1 g/dL (5.8-8.1); Sodium 139 mmol/L (136-145)
[2020-09-09] MEDS ORDERED: Cefepime 2 GM VIAL ONE (15:17)
[2020-09-09 15:21] LABS: CKMB 8.6 ng/mL (0-6.6)
--- NOTE | 2020-09-09 15:30 | RAD ---
PORTABLE CHEST: History: Chest pain Comparison: 07-10-2020 FINDINGS: Heart size within normal limits. Atherosclerotic changes of the aorta are noted. Mild chronic appeari ng lung changes. No definite interval change since the prior exam. IMPRESSION: Stable chest. POS: OFF
[2020-09-09] MEDS ORDERED: Aspirin 300 MG Suppository ONE (16:19)
[2020-09-09 16:38] LABS: Bacteria/HPF None Seen HPF (None Seen); Bilirubin Negative (Negative); Blood, Urine 3+ (Negative); Clarity Extra Turbid (Clear); Glucose, Urine (Dipstick) Greater than 1000 mg/dL (Negative); Ketone, Urine 40 mg/dL (Negative); Leukocyte 500 Leu/uL (Negative); Nitrite Negative (Negative); Protein, Urine (Dipstick) 50 mg/dL (Neg-Trace); RBC/HPF Greater than 50 HPF (0-3); Specific Gravity, Urine 1.026 (1.002-1.036); Squamous Epithelial None Seen HPF (0-3); Urobilinogen Normal mg/dL (Less than 2); Yeast-Budding 4+ HPF (None Seen); pH, Urine 5.5 (5.0-9.0)
[2020-09-09 16:39] LABS: Yeast-Hyphae 1+ HPF (None Seen)
[2020-09-09 16:40] LABS: WBC/HPF 21-50 HPF (0-3)
--- NOTE | 2020-09-09 17:15 | CT ---
CT ANGIO OF CHEST AND ABDOMEN PERFORMED WITH INTRAVENOUS CONTRAST ENHANCEMENT WITH 3D RECONSTRUCTIONS : History: Chest pain, back pain, concern for dissection. Comparison: 01-22-2020 FINDINGS: There has been a progression in some of the parenchymal lung changes. More prominent interstitial ankita nges in a more Subpleural location. Some of these changes still have more of a chronic appearance wit h reticular scarring and Subpleural space. There is a more definitive acute superior segment left low er lobe infiltrate and some patchy changes in the region of the lingula. There is no significant mediastinal or hilar adenopathy. There is less than optimal arterial opacific ation, but the thoracic aorta is normal in caliber and I see no evidence for dissection. Coronary pam cifications are seen. CT ANGIO OF ABDOMEN PERFORMED WITH CONTRAST WITH 3D RECONSTRUCTIONS: Fatty change of the liver is noted. A hiatal hernia is seen. The spleen is normal in size. Pancreas r egion appears unremarkable. The gallbladder has been removed. Right and left adrenal glands and right and left kidneys are normal in size. Left renal cyst is simil ar to the previous exam. Atherosclerotic changes of the aorta without aneurysm or dissection. A small fat containing paraumbilical hernia is present. IMPRESSION: 1. No evidence of aortic aneurysm or dissection. 2. Left lower lobe pneumonic infiltrate. There are some reticular changes in both lung ruiz, f avored to be scarring, although they have developed since the 01-22-2020 exam. POS: OFF
[2020-09-09 17:21] LABS: Lactic Acid 1.5 mmol/L (0.5-2.2)
[2020-09-09] MEDS ORDERED: Fluconazole 100 MG TAB PO SCH (18:45)
[2020-09-09 19:39] LABS: Troponin I 0.099 ng/mL (< 0.028)
[2020-09-09] MEDS ORDERED: Vancomycin 1 GM/200 ML BAG ONE (19:52)
--- NOTE | 2020-09-09 20:11 | PDOC.HHP ---
Hospitalist HPI altered mental status History of Present Illness: 85 yr old male with HTN , DM , Dementia ,recurrent pna, s/p recent covid pna 2 months ago -admitted for altered mental status , noted with elevated glucose of > 500 -admit to cough , no fever , , left sided chest pain with cough -history provided by spouse -caregiver and daughter -staff report drowsy on arrival but much improved after IVF Allergies/Adverse Reactions: Allergy/AdvReac Type Severity Reaction Status Date / Time No Known Drug Allergies Allergy Verified 01/21/20 02:49 Home Medications: Medication Instructions Recorded Confirmed Type Amlodipine Besylate [amLODIPine 10 mg PO DAILY 06/12/15 07/05/20 History Besylate] Amitriptyline HCl [Elavil] 10 mg PO HS 07/07/19 07/05/20 History Ipratropium/Albuterol Sulfate 3 ml INH Q0IN-GN PRN 07/07/19 07/05/20 History [Iprat-Albut 0.5-3(2.5) mg/3 ml] Sodium Bicarbonate [Bicarbonate, 650 mg PO BID #60 tab 07/10/19 07/05/20 Rx Sodium] Aspirin 325 mg PO DAILY #30 tablet 10/01/19 07/05/20 Rx Montelukast Sodium [Singulair] 10 mg PO HS 01/20/20 07/05/20 History Pravastatin Sodium 20 mg PO HS 01/20/20 07/05/20 History Losartan [Cozaar] 50 mg PO DAILY #30 tab 07/10/20 Rx Past History: PMHx: PSHx: FHx: Social: Hospitalist HPI ROS ROS unobtainable: due to mental status Hospitalist Exam General Appearance: NAD, awake alert General - other findings: more awake now Eye: PERRL, anicteric sclera ENT: normocephalic atraumatic, dry oral mucosa Neck: supple, symmetric, no carotid bruit Heart: RRR, no murmur Respiratory: no wheezes, rales Gastrointestinal: soft, non-tender, non-distended Extremities: no cyanosis, no clubbing Skin: normal turgor, no lesions Musculoskeletal: normal tone, normal strength Psychiatric: normal affect, oriented to place Hospitalist Results Result Diagrams: 09/09/20 14:25 09/09/20 14:25 Lab results: Laboratory Last Values WBC 15.2 thou/uL (4.8-10.8) H 09/09/20 14:25 RBC 5.18 mill/uL (4.70-6.10) 09/09/20 14:25 Hgb 15.8 g/dL (14.0-18.0) 09/09/20 14:25 Hct 45.1 % (42.0-52.0) 09/09/20 14:25 MCV 87.1 fL (78.0-98.0) 09/09/20 14:25 MCH 30.5 pg (27.0-31.0) 09/09/20 14:25 MCHC 35.0 g/dL (32.0-36.0) 09/09/20 14:25 RDW 12.3 % (11.5-14.5) 09/09/20 14:25 Plt Count 194 thou/uL (130-400) 09/09/20 14:25 MPV 9.6 fL (7.4-10.4) 09/09/20 14:25 Neutrophils % 81.5 % (42.0-75.0) H 09/09/20 14:25 Lymphocytes % 12.5 % (21.0-51.0) L 09/09/20 14:25 Monocytes % 5.7 % (0.0-10.0) 09/09/20 14:25 Eosinophils % 0.1 % (0.0-10.0) 09/09/20 14:25 Basophils % 0.2 % (0.0-1.0) 09/09/20 14:25 Neutrophils # 12.4 thou/uL (1.40-6.50) H 09/09/20 14:25 Lymphocytes # 1.9 thou/uL (1.20-3.40) 09/09/20 14:25 Monocytes # 0.9 thou/uL (0.11-0.59) H 09/09/20 14:25 Eosinophils # 0.0 thou/uL (0.0-0.7) 09/09/20 14:25 Basophils # 0.0 thou/uL (0.0-0.2) 09/09/20 14:25 PT 14.2 sec (12.0-14.7) 09/09/20 14:25 INR 1.1 09/09/20 14:25 APTT 27.8 sec (22.9-36.1) 09/09/20 14:25 Sodium 139 mmol/L (136-145) 09/09/20 14:25 Potassium 3.8 mmol/L (3.5-5.1) 09/09/20 14:25 Chloride 102 mmol/L (98-107) 09/09/20 14:25 Carbon Dioxide 21 mmol/L (23-31) L 09/09/20 14:25 Anion Gap 20 mmol/L (10-20) 09/09/20 14:25 BUN 19 mg/dL (8.4-25.7) 09/09/20 14:25 Creatinine 1.80 mg/dL (0.7-1.3) H 09/09/20 14:25 Estimated GFR (MDRD) 36 09/09/20 14:25 Glucose 526 mg/dL (83-110) H 09/09/20 14:25 POC Glucose 383 mg/dL (70-100) H 09/09/20 16:14 Lactic Acid 1.5 mmol/L (0.5-2.2) 09/09/20 17:00 Calcium 8.4 mg/dL (7.8-10.44) 09/09/20 14:25 Total Bilirubin 1.6 mg/dL (0.2-1.2) H 09/09/20 14:25 AST 35 U/L (5-34) H 09/09/20 14:25 ALT 13 U/L (8-55) 09/09/20 14:25 Alkaline Phosphatase 113 U/L (40-110) H 09/09/20 14:25 CK-MB (CK-2) 8.6 ng/mL (0-6.6) H* 09/09/20 14:25 Troponin I 0.099 ng/mL (< 0.028) H 09/09/20 19:06 Serum Total Protein 7.1 g/dL (5.8-8.1) 09/09/20 14:25 Albumin 3.6 g/dL (3.4-4.8) 09/09/20 14:25 Globulin 3.5 g/dL (2.4-3.5) 09/09/20 14:25 Albumin/Globulin Ratio 1.0 g/dL (1.2-2.2) L 09/09/20 14:25 Urine Color Yellow (Yellow) 09/09/20 15:00 Urine Clarity Extra Turbid (Clear) A 09/09/20 15:00 Urine pH 5.5 (5.0-9.0) 09/09/20 15:00 Ur Specific [place] 1.026 (1.002-1.036) 09/09/20 15:00 Urine Protein 50 mg/dL (Neg-Trace) A 09/09/20 15:00 Urine Glucose (UA) Greater than 1000 mg/dL (Negative) A 09/09/20 15:00 Urine Ketones 40 mg/dL (Negative) A 09/09/20 15:00 Urine Blood 3+ (Negative) A 09/09/20 15:00 Urine Nitrite Negative (Negative) 09/09/20 15:00 Urine Bilirubin Negative (Negative) 09/09/20 15:00 Urine Urobilinogen Normal mg/dL (Less than 2) 09/09/20 15:00 Ur Leukocyte Esterase 500 Sesar/uL (Negative) A 09/09/20 15:00 Urine RBC Greater than 50 HPF (0-3) A 09/09/20 15:00 Urine WBC 21-50 HPF (0-3) A 09/09/20 15:00 Ur Squamous Epith Cells None Seen HPF (0-3) 09/09/20 15:00 Urine Bacteria None Seen HPF (None Seen) 09/09/20 15:00 Ur Yeast w Hyphae 1+ HPF (None Seen) A 09/09/20 15:00 Urine Yeast (Budding) 4+ HPF (None Seen) A 09/09/20 15:00 B-Hydroxybutyrate 1.81 mmol/L (0.02-0.27) H 09/09/20 14:25 CT scan - chest Additional Comments: CT chest - left lowbe infiltrate Hospitalist H&P A/P (1) Left lower lobe pneumonia Code(s): J18.9 - PNEUMONIA, UNSPECIFIED ORGANISM Status: Acute (2) COLETTE (acute kidney injury) Code(s): N17.9 - ACUTE KIDNEY FAILURE, UNSPECIFIED Status: Acute (3) Encephalopathy in sepsis Code(s): G93.41 - METABOLIC ENCEPHALOPATHY Status: Acute (4) UTI (urinary tract infection) Status: Acute Qualifiers: (5) COPD (chronic obstructive pulmonary disease) Status: Chronic Qualifiers: Emphysema type: unspecified (6) Dementia Code(s): F03.90 - UNSPECIFIED DEMENTIA WITHOUT BEHAVIORAL DISTURBANCE Status: Chronic Qualifiers: Dementia type: Alzheimer's disease (7) Diabetes mellitus Code(s): E11.9 - TYPE 2 DIABETES MELLITUS WITHOUT COMPLICATIONS Status: Chronic Qualifiers: Diabetes mellitus type: type 2 Diabetes mellitus gate watch insulin use: without custodial use Diabetes mellitus complication detail: with nephropathy (8) HTN (hypertension) Code(s): I10 - ESSENTIAL (PRIMARY) HYPERTENSION Status: Chronic Qualifiers: Hypertension type: essential hypertension Plan: # Left Pneumonia /UTI / Sepsis - will start abx with rocephin - obtain blood cx and follow - start gentle IVF - start cough meds - obtain repeat covid screening # HTN - controlled , hold losartan # ARF - elevate dagain , renal consult -follow with IVF # DM with Hyperglycemia - start insulin regime - will need adjust home meds # Met Encephalopathy on basleine dementia -improving # Dispo - > 2 days hosp stay # Advance Directive - d/w with daughter and , wnats full code
[2020-09-09] MEDS ORDERED: HYDROcodone/Acetaminophen 5/325 mg Tablet PO PRN (20:45)
[2020-09-09] MEDS ORDERED: Dextrose 50% Abboject 50 ML SYRINGE SLOW IVP PRN (20:45)
[2020-09-09] MEDS ORDERED: Dextrose 5% in Water 1,000 ML IV PRN (20:45)
[2020-09-09] MEDS ORDERED: Ondansetron PF 4 MG/2 ML Vial IVP PRN (20:45)
[2020-09-09] MEDS ORDERED: hydrALAZINE 20 MG/ML VIAL SLOW IVP PRN (20:54)
[2020-09-09] MEDS ORDERED: GUAIFENESIN SF SOLN 200 MG/10 ML UDCUP PO PRN (20:54)
[2020-09-09 21:25] LABS: Troponin I 0.058 ng/mL (< 0.028)
[2020-09-09] MEDS ORDERED: HumaLOG 300 UNITS/3 ML VIAL ONE (22:00)
[2020-09-09] MEDS: HumaLOG 300 UNITS/3 ML VIAL SC PRN (22:22)
[2020-09-09] MEDS: Insulin Glargine 25 UNITS in Pre-Filled Syringe 1 EACH SC SCH (22:24)
[2020-09-09] MEDS ORDERED: Acetaminophen 325 MG TAB ONE (23:38)
[2020-09-09] MEDS ORDERED: cefTRIAXone\\ROCEPHIN 1 GM VIAL ONE (23:38)
[2020-09-10] MEDS ORDERED: Acetaminophen 325 MG TAB ONE ×2 (01:05→05:37)
[2020-09-10] MEDS: Acetaminophen 325 MG TAB PO PRN ×2 (01:20→05:42)
[2020-09-10] MEDS: guaiFENesin ER 600 MG TAB PO SCH ×3 (01:21→21:02)
[2020-09-10 01:49] VITALS: BMI 28.5
[2020-09-10] MEDS ORDERED: Ibuprofen 200 MG TAB ONE (03:43)
[2020-09-10 05:08] LABS: SARS-CoV-2 PCR by NAA Not Detected (NotDetected)
[2020-09-10 06:23] LABS: Hemoglobin 14.8 g/dL (14.0-18.0); Mean Corpuscular HGB CONC 34.6 g/dL (32.0-36.0); Mean Corpuscular Hemoglobin 30.4 pg (27.0-31.0); Mean Corpuscular Volume 87.6 fL (78.0-98.0); Mean Platelet Volume 9.2 fL (7.4-10.4); Platelet Count 193 thou/uL (130-400); RBC Distribution Width 12.4 % (11.5-14.5); Red Blood Cell (RBC) Count 4.86 mill/uL (4.70-6.10); White Blood Cell (WBC) Count 15.7 thou/uL (4.8-10.8)
[2020-09-10 06:40] LABS: Albumin 3.3 g/dL (3.4-4.8); Anion Gap 15 mmol/L (10-20); BUN (Urea Nitrogen) 17 mg/dL (8.4-25.7); BUN/Creatinine Ratio 11.18; Calc. Creatinine Clearance 40 mL/min (70-130); Calcium 8.9 mg/dL (7.8-10.44); Carbon Dioxide 25 mmol/L (23-31); Chloride 105 mmol/L (98-107); Glucose 165 mg/dL (83-110); Sodium 142 mmol/L (136-145)
[2020-09-10 06:51] LABS: Band 21 % (5-11); Lymphocytes 11 % (21-51); MDiff Complete? YES; Monocytes 7 % (0-10); Neutrophil 61 % (42-75); Platelet Morphology Comment Appears Adequate
[2020-09-10] MEDS ORDERED: Enoxaparin Sodium 30 MG/0.3 ML SYRINGE ONE (08:12)
[2020-09-10] MEDS: Enoxaparin Sodium 30 MG/0.3 ML SYRINGE SC SCH (08:34)
[2020-09-10] MEDS: Insulin Glargine 25 UNITS in Pre-Filled Syringe 1 EACH SC SCH ×2 (08:36→21:01)
--- NOTE | 2020-09-10 11:35 | PDOC.HOSPP ---
- Subjective Encounter Date: 09/10/20 Encounter Time: 12:30 non-verbal Subjective: Patient was a little more responsive earlier today but is now become somnolent and groaning. Will not wake up or speak any words. No changes in his vital signs per nursing. - Objective Vital Signs & Weight: Vital Signs (12 hours) Temp Pulse Resp BP Pulse Ox 09/10/20 10:24 82 19 98 09/10/20 07:50 82 24 H 93 L 09/10/20 05:42 100.6 F H 88 24 H 105/58 L 09/10/20 02:39 103 H 24 H 95 09/10/20 02:20 101.7 F H 103 H 24 H 135/100 H 09/10/20 01:50 101.8 F H 104 H 24 H 143/73 H 09/10/20 01:20 101.7 F H 107 H 24 H 150/64 H Weight Weight 177 lb Result Diagrams: 09/10/20 06:13 09/10/20 06:13 Additional Labs: Accuchecks 09/10/20 09/09/20 09/09/20 08:25 21:27 16:14 POC Glucose 191 H 307 H 383 H 09/09/20 14:13 POC Glucose 501 H Hospitalist ROS - Review of Systems ROS unobtainable: due to mental status - Medication Medications: Active Medications Generic Name Dose Route Start Last Admin Trade Name Freq PRN Reason Stop Dose Admin Acetaminophen 650 mg 09/09/20 20:45 09/10/20 05:42 Acetaminophen 325 Mg Tab PO 650 mg Q4H PRN Administration Headache/Fever/Mild Pain (1-3) Albuterol/Ipratropium 3 ml 09/09/20 22:30 09/10/20 10:24 Ipratropium/Albuterol Sulfate 3 Ml Neb NEB 3 ml [id number] SHAYE Administration Enoxaparin Sodium 30 mg 09/10/20 09:00 09/10/20 08:34 Enoxaparin Sodium 30 Mg/0.3 Ml Syringe SC 30 mg 0900 SHAYE Administration Guaifenesin 1,200 mg 09/09/20 21:00 09/10/20 08:34 Guaifenesin Er 600 Mg Tab PO 1,200 mg Q12HR SHAYE Administration Insulin Glargine 25 units/ 0.25 mls @ 0 mls/hr 09/09/20 21:00 09/10/20 08:36 Miscellaneous Medication SC 0.25 mls BID SHAYE Administration Insulin Human Lispro 0 units 09/09/20 20:45 09/09/20 22:22 Humalog 300 Units/3 Ml Vial SC 11 unit .AGGRESSIVE SLIDING PRN Administration Aggressive Correctional Scale Hospitalist Exam Vitals: Vital Signs (12 hours) Temp Pulse Resp BP Pulse Ox 09/10/20 10:24 82 19 98 09/10/20 07:50 82 24 H 93 L 09/10/20 05:42 100.6 F H 88 24 H 105/58 L 09/10/20 02:39 103 H 24 H 95 09/10/20 02:20 101.7 F H 103 H 24 H 135/100 H 09/10/20 01:50 101.8 F H 104 H 24 H 143/73 H 09/10/20 01:20 101.7 F H 107 H 24 H 150/64 H Weight Weight 177 lb General - other findings: Groaning in bed, will not open eyes to stimulation ENT: moist mucosa Heart: RRR, no murmur, no gallops, no rubs Respiratory: CTAB, no wheezes, no rales, no ronchi Gastrointestinal: non-distended, normal bowel sounds Gastrointestinal - other findings: Some mild guarding Extremities: no cyanosis, no clubbing, no edema Psychiatric: somnolent (Groaning, not arousable) Hosp A/P - Plan # Left Pneumonia / Sepsis - will start abx with rocephin - obtain blood cx and follownegative so far - start gentle IVF - cough meds - obtain repeat covid screeningnegative #UTIyeast Urine culture growing back yeast, no bacteria seen on microscopy # HTN - controlled , hold losartan # ARF - elevated again , renal consult -follow with IVF # DM with Hyperglycemia - start insulin regime - will need adjust home meds #COPD Continue home medications, no evidence of exacerbation at this time # Met Encephalopathy on basleine dementia -was improving but now significantly worse Likely secondary to sepsis We will check CT scan of the brain to make sure no other source Continue treatment of underlying conditions DVT prophylaxis: Lovenox subcu GI prophylaxis: Pepcid twice a day Disposition: Plan is to go back home with family once he is improved.
[2020-09-10] MEDS ORDERED: Potassium Chloride 20 MEQ TAB PO SCH (11:45)
[2020-09-10] MEDS ORDERED: Fluconazole 100 MG TAB PO SCH (12:00)
[2020-09-10 12:01] LABS: SARS-CoV-2 PCR by NAA Not Detected (NotDetected)
[2020-09-10] MEDS ORDERED: Potassium Chloride 20 MEQ TAB ONE (12:50)
[2020-09-10] MEDS ORDERED: Sodium Phosphate 15 MMOL in Sodium Chloride 0.9% 250 ML 250 ML IVPB SCH (13:30)
--- NOTE | 2020-09-10 14:03 | CT ---
EXAM: Brain CTWithout contrast: HISTORY: Altered mental status, decreased responsiveness COMPARISON: 01/20/2020 FINDINGS: Stable atrophy and chronic white matter ischemic change. No focal mass or midline shift. No intra or extra-axial hemorrhage. Bilateral ethmoid, sphenoid, and left maxillary sinus mucosal disease with possible tiny air-fluid le oil in the dependent portion of the left maxillary sinus. IMPRESSION: No mass or bleed or other significant acute intracranial process. Stable atrophy and chronic white matter ischemic change. Sinus mucosal disease.
--- NOTE | 2020-09-10 18:51 | CON ---
DATE OF CONSULTATION: CONSULTING PHYSICIAN: Elizabeth Elias MD REQUESTING PHYSICIAN: Antonietta Velez MD REASON FOR CONSULTATION: Acute kidney injury. IMPRESSION: Acute kidney injury. This is likely prerenal in the context of intravascular depletion from severe hyperglycemia with its attendant polyuria. PLAN: 1. Hemodynamic support/rehydration. I do believe it should be enough to revise the renal course. 2. Further management will be dependent on the clinical course. HISTORY OF PRESENT ILLNESS: An 85-year-old gentleman with history of diabetes, dementia, hypertension, who presented here with altered mental status, noted with severely elevated blood sugar above 500 and elevated creatinine. As a result of these findings, decision was taken to involve Renal in the management of this case. PAST MEDICAL HISTORY: As documented in the body of the history. SOCIAL HISTORY: Could not be obtained from this patient and pretty much unremarkable. REVIEW OF SYSTEMS: Due to the mental status of this patient, the patient could not offer me any comprehensive review of systems. LABORATORY INVESTIGATION: Significant for creatinine of 1.8. PHYSICAL EXAMINATION: GENERAL: The patient was found to be confused with the following vital signs. VITAL SIGNS: Blood pressure 105/58 with a temperature of 100.6, pulse of 82, O2 saturation of 93%. HEENT: Revealed dry oral mucosa. CARDIOVASCULAR SYSTEM: First and second heart sounds were heard. EXTREMITIES: No peripheral edema. SKIN: No new gross rash. LYMPHATICS: No peripheral lymphadenopathy. SUMMARY: An 85-year-old gentleman who presented here with altered mental status with severely elevated blood sugar and elevated creatinine. Thank you for this consultation. We will follow with you. Job ID: [id number]
[2020-09-10] MEDS: cefTRIAXone\\ROCEPHIN 1 GM in Sodium Chloride 0.9% 100 ML IVPB SCH (21:01)
[2020-09-10] MEDS: Famotidine 20 MG TAB PO SCH (21:02)
[2020-09-11 04:52] LABS: #Lymphocytes 1.5 thou/uL (1.20-3.40); #Monocytes 0.9 thou/uL (0.11-0.59); #Neutrophils 13.2 thou/uL (1.40-6.50); %Basophils 0.2 % (0.0-1.0); %Eosinophils 0.1 % (0.0-10.0); %Lymphocytes 9.6 % (21.0-51.0); %Monocytes 5.7 % (0.0-10.0); %Neutrophils 84.4 % (42.0-75.0); Mean Corpuscular HGB CONC 32.1 g/dL (32.0-36.0); Mean Corpuscular Hemoglobin 28.7 pg (27.0-31.0); Mean Corpuscular Volume 89.4 fL (78.0-98.0); Mean Platelet Volume 9.6 fL (7.4-10.4); Platelet Count 179 thou/uL (130-400); RBC Distribution Width 12.5 % (11.5-14.5); Red Blood Cell (RBC) Count 5.24 mill/uL (4.70-6.10); White Blood Cell (WBC) Count 15.6 thou/uL (4.8-10.8)
[2020-09-11 05:20] LABS: Phosphorus 2.8 mg/dL (2.3-4.7)
[2020-09-11 05:24] LABS: ALT (SGPT) 10 U/L (8-55); AST (SGOT) 31 U/L (5-34); Albumin 3.3 g/dL (3.4-4.8); Alkaline Phosphatase 121 U/L (40-110); Anion Gap 15 mmol/L (10-20); BUN (Urea Nitrogen) 16 mg/dL (8.4-25.7); Bilirubin, Total 0.9 mg/dL (0.2-1.2); Calc. Creatinine Clearance 46 mL/min (70-130); Calcium 8.9 mg/dL (7.8-10.44); Carbon Dioxide 25 mmol/L (23-31); Chloride 106 mmol/L (98-107); Globulin 4.3 g/dL (2.4-3.5); Glucose 165 mg/dL (83-110); Magnesium 2.1 mg/dL (1.6-2.6); Protein, Total 7.6 g/dL (5.8-8.1); Sodium 143 mmol/L (136-145)
--- NOTE | 2020-09-11 08:40 | PDOC.HOSPP ---
- Subjective Encounter Date: 09/11/20 Encounter Time: 11:30 Subjective: No events overnight. Patient continues to have some cough including with eating. - Objective Vital Signs & Weight: Vital Signs (12 hours) Temp Pulse Resp BP Pulse Ox 09/11/20 08:17 97.7 F 92 20 144/64 H 96 09/11/20 07:43 88 18 96 09/11/20 04:18 98.8 F 89 20 127/61 97 09/11/20 02:45 20 92 L 09/10/20 22:45 92 20 99 Weight Weight 177 lb I&O: 09/10/20 09/11/20 09/12/20 06:59 06:59 06:59 Intake Total 291 Output Total 445 Balance -154 Result Diagrams: 09/11/20 04:33 09/11/20 04:33 Additional Labs: Accuchecks 09/10/20 09/10/20 09/10/20 20:35 17:18 08:25 POC Glucose 210 H 201 H 191 H 09/09/20 09/09/20 21:27 14:13 POC Glucose 307 H 501 H Hospitalist ROS - Review of Systems ROS unobtainable: due to mental status - Medication Medications: Active Medications Generic Name Dose Route Start Last Admin Trade Name Freq PRN Reason Stop Dose Admin Acetaminophen 650 mg 09/09/20 20:45 09/10/20 05:42 Acetaminophen 325 Mg Tab PO 650 mg Q4H PRN Administration Headache/Fever/Mild Pain (1-3) Albuterol/Ipratropium 3 ml 09/09/20 22:30 09/11/20 07:43 Ipratropium/Albuterol Sulfate 3 Ml Neb NEB 3 ml [id number] SHAYE Administration Enoxaparin Sodium 30 mg 09/10/20 09:00 09/10/20 08:34 Enoxaparin Sodium 30 Mg/0.3 Ml Syringe SC 30 mg 0900 SHAYE Administration Famotidine 20 mg 09/10/20 21:00 09/10/20 21:02 Famotidine 20 Mg Tab PO Not Given BID SHAYE Guaifenesin 1,200 mg 09/09/20 21:00 09/10/20 21:02 Guaifenesin Er 600 Mg Tab PO Not Given Q12HR SHAYE Insulin Glargine 25 units/ 0.25 mls @ 0 mls/hr 09/09/20 21:00 09/10/20 21:01 Miscellaneous Medication SC 0.25 mls BID SHAYE Administration Ceftriaxone Sodium 1 gm/ 100 mls @ 200 mls/hr 09/09/20 21:00 09/10/20 21:01 Sodium Chloride IVPB 100 mls Q24HR SHAYE Administration Insulin Human Lispro 0 units 09/09/20 20:45 09/09/20 22:22 Humalog 300 Units/3 Ml Vial SC 11 unit .AGGRESSIVE SLIDING PRN Administration Aggressive Correctional Scale Hospitalist Exam Vitals: Vital Signs (12 hours) Temp Pulse Resp BP Pulse Ox 09/11/20 08:17 97.7 F 92 20 144/64 H 96 09/11/20 07:43 88 18 96 09/11/20 04:18 98.8 F 89 20 127/61 97 09/11/20 02:45 20 92 L 09/10/20 22:45 92 20 99 Weight Weight 177 lb General Appearance: NAD, awake alert ENT: moist mucosa Heart: RRR, no murmur, no gallops, no rubs Respiratory: CTAB, no wheezes, no rales, no ronchi Gastrointestinal: soft, non-tender, non-distended, normal bowel sounds Extremities: no edema Psychiatric: normal affect, normal behavior Hosp A/P - Plan # Left Pneumonia / Sepsis - on abx with rocephin since 09/09/2020 - obtain blood cx and follownegative so far - start gentle IVF - cough meds - obtain repeat covid screeningnegative # Dysphagia Concern for possible aspiration as source for pneumonia Speech therapy unable to clear patient, n.p.o. and then schedule modified barium swallow for tomorrow #UTIyeast Urine culture growing back yeast, no bacteria seen on microscopy, no indications for antifungal at this time # HTN - controlled , hold losartan # ARF - elevated again , renal consult -follow with IVF # DM with Hyperglycemia - start insulin regime - will need adjust home meds #COPD Continue home medications, no evidence of exacerbation at this time # Met Encephalopathy on basleine dementia Likely secondary to sepsis CT brain negative Continue treatment of underlying conditions DVT prophylaxis: Lovenox subcu GI prophylaxis: Pepcid twice a day Disposition: Plan is to go back home with family once he is improved.
[2020-09-11] MEDS ORDERED: Potassium Chloride 20 MEQ TAB PO SCH (08:45)
[2020-09-11] MEDS: Enoxaparin Sodium 30 MG/0.3 ML SYRINGE SC SCH (09:27)
[2020-09-11] MEDS: Famotidine 20 MG TAB PO SCH ×2 (09:27→21:37)
[2020-09-11] MEDS: Fluconazole 100 MG TAB PO SCH (09:28)
[2020-09-11] MEDS: guaiFENesin ER 600 MG TAB PO SCH ×2 (09:28→21:36)
[2020-09-11] MEDS: cefTRIAXone\\ROCEPHIN 1 GM in Sodium Chloride 0.9% 100 ML IVPB SCH ×2 (10:08→21:37)
[2020-09-11] MEDS: Insulin Glargine 25 UNITS in Pre-Filled Syringe 1 EACH SC SCH ×2 (10:13→21:38)
[2020-09-11] MEDS: HumaLOG 300 UNITS/3 ML VIAL SC PRN ×2 (11:38→17:25)
[2020-09-11] MEDS: Sodium Chloride 0.9% 1,000 ML IV SCH (11:44)
--- NOTE | 2020-09-11 17:27 | PRG ---
DATE OF SERVICE: 09/11/2020 OBJECTIVE: VITAL SIGNS: The patient is noted with the following vital signs; afebrile, temperature 98.4, pulse 94, respiratory rate of 18, O2 saturation of 98%, blood pressure 135/81. HEENT: Unremarkable CARDIOVASCULAR SYSTEM: First and second heart sounds were heard. RESPIRATORY SYSTEM: Clear to auscultation. DIGESTIVE SYSTEM: Revealed a benign abdomen with positive bowel sounds. EXTREMITIES: No peripheral edema. SKIN: No new gross rash. IMPRESSION: 1. Acute kidney injury, prerenal, which seems to be improving. 2. Severe hyperglycemia, much improved. PLAN: Continue current renal supportive measures. Job ID: [id number]
[2020-09-12] MEDS: Sodium Chloride 0.9% 1,000 ML IV SCH ×2 (04:09→17:19)
[2020-09-12 04:45] LABS: #Eosinphils 0.1 thou/uL (0.0-0.7); #Lymphocytes 1.9 thou/uL (1.20-3.40); #Monocytes 0.9 thou/uL (0.11-0.59); #Neutrophils 8.3 thou/uL (1.40-6.50); %Basophils 0.4 % (0.0-1.0); %Eosinophils 0.9 % (0.0-10.0); %Lymphocytes 17.2 % (21.0-51.0); %Monocytes 8.1 % (0.0-10.0); %Neutrophils 73.5 % (42.0-75.0); Hemoglobin 14.2 g/dL (14.0-18.0); Mean Corpuscular HGB CONC 31.7 g/dL (32.0-36.0); Mean Corpuscular Hemoglobin 28.8 pg (27.0-31.0); Mean Corpuscular Volume 90.7 fL (78.0-98.0); Mean Platelet Volume 9.8 fL (7.4-10.4); Platelet Count 190 thou/uL (130-400); RBC Distribution Width 12.6 % (11.5-14.5); Red Blood Cell (RBC) Count 4.93 mill/uL (4.70-6.10); White Blood Cell (WBC) Count 11.3 thou/uL (4.8-10.8)
[2020-09-12 04:52] LABS: Anion Gap 13 mmol/L (10-20); BUN (Urea Nitrogen) 13 mg/dL (8.4-25.7); Calc. Creatinine Clearance 55 mL/min (70-130); Calcium 8.7 mg/dL (7.8-10.44); Carbon Dioxide 22 mmol/L (23-31); Chloride 111 mmol/L (98-107); Glucose 83 mg/dL (83-110); Sodium 143 mmol/L (136-145)
--- NOTE | 2020-09-12 07:08 | RAD ---
Modified barium swallow: 09/11/2020 COMPARISON: None HISTORY: Unspecified dysphasia, feeding difficulties FINDINGS: A modified barium swallow is performed in conjunction with a member division of speech path ology. The patient is imaged in the lateral projection swallowing various consistencies of barium. 2 separate bouts of penetration and aspiration noted with thin liquids. Aspiration of thin liquids el icited a cough. No additional penetration or aspiration seen. IMPRESSION: Penetration and aspiration with thin liquids.
--- NOTE | 2020-09-12 07:53 | PDOC.HOSPP ---
- Subjective Encounter Date: 09/12/20 Encounter Time: 11:00 Subjective: Patient does report some itching on his hands and forearms. Patient without other complaints this morning. He is doing much better and is very interactive. - Objective Vital Signs & Weight: Vital Signs (12 hours) Temp Pulse Resp BP Pulse Ox 09/12/20 07:22 83 16 09/12/20 04:26 98.5 F 82 18 124/58 L 96 09/12/20 01:00 98.3 F 86 18 153/68 H 97 09/11/20 21:00 97.9 F 89 20 133/63 95 Weight Weight 177 lb I&O: 09/11/20 09/12/20 09/13/20 06:59 06:59 06:59 Intake Total 291 2000 Output Total 445 1000 Balance -154 1000 Result Diagrams: 09/12/20 04:19 09/12/20 04:19 Additional Labs: Accuchecks 09/12/20 09/11/20 09/11/20 05:22 21:05 10:35 POC Glucose 82 143 H 196 H Hospitalist ROS - Review of Systems Constitutional: denies: fever, chills Respiratory: denies: cough, shortness of breath Cardiovascular: denies: chest pain, palpitations Gastrointestinal: denies: nausea, vomiting Skin: reports: other (Itching) - Medication Medications: Active Medications Generic Name Dose Route Start Last Admin Trade Name Freq PRN Reason Stop Dose Admin Acetaminophen 650 mg 09/09/20 20:45 09/10/20 05:42 Acetaminophen 325 Mg Tab PO 650 mg Q4H PRN Administration Headache/Fever/Mild Pain (1-3) Albuterol/Ipratropium 3 ml 09/09/20 22:30 09/12/20 07:22 Ipratropium/Albuterol Sulfate 3 Ml Neb NEB 3 ml [id number] SHAYE Administration Enoxaparin Sodium 30 mg 09/10/20 09:00 09/11/20 09:27 Enoxaparin Sodium 30 Mg/0.3 Ml Syringe SC 30 mg 0900 SHAYE Administration Famotidine 20 mg 09/10/20 21:00 09/11/20 21:37 Famotidine 20 Mg Tab PO 20 mg BID SHAYE Administration Fluconazole 200 mg 09/11/20 09:00 09/11/20 09:28 Fluconazole 100 Mg Tab PO 200 mg DAILY SHAYE Administration Guaifenesin 1,200 mg 09/09/20 21:00 09/11/20 21:36 Guaifenesin Er 600 Mg Tab PO 1,200 mg Q12HR SHAYE Administration Insulin Glargine 25 units/ 0.25 mls @ 0 mls/hr 09/09/20 21:00 09/11/20 21:38 Miscellaneous Medication SC 0.25 mls BID SHAYE Administration Ceftriaxone Sodium 1 gm/ 100 mls @ 200 mls/hr 09/09/20 21:00 09/11/20 21:37 Sodium Chloride IVPB 100 mls Q24HR SHAYE Administration Sodium Chloride 1,000 mls @ 75 mls/hr 09/11/20 11:45 09/12/20 04:09 Normal Saline 0.9% IV 1,000 mls .[id number] SHAYE Administration Insulin Human Lispro 0 units 09/09/20 20:45 09/11/20 17:25 Humalog 300 Units/3 Ml Vial SC 3 unit .AGGRESSIVE SLIDING PRN Administration Aggressive Correctional Scale Hospitalist Exam Vitals: Vital Signs (12 hours) Temp Pulse Resp BP Pulse Ox 09/12/20 07:22 83 16 09/12/20 04:26 98.5 F 82 18 124/58 L 96 09/12/20 01:00 98.3 F 86 18 153/68 H 97 09/11/20 21:00 97.9 F 89 20 133/63 95 Weight Weight 177 lb General Appearance: NAD, awake alert ENT: moist mucosa Heart: RRR, no murmur, no gallops, no rubs Respiratory: CTAB, no wheezes, no rales, no ronchi Gastrointestinal: soft, non-tender, non-distended, normal bowel sounds Extremities: no edema Psychiatric: normal affect, normal behavior Hosp A/P - Plan # Left Pneumonia / Sepsis - on abx with rocephin since 09/09/2020 - obtain blood cx and follownegative so far - started gentle IVF - cough meds - obtain repeat covid screeningnegative # Dysphagia Concern for possible aspiration as source for pneumonia MBS done, patient started on NDD2 ground, extra sauce/gravy, nectar thick liquids #UTIyeast Urine culture growing back yeast, no bacteria seen on microscopy, no indications for antifungal at this time # HTN - controlled , holding losartan # ARF - improving with IV fluids # DM with Hyperglycemia - started insulin regime - now well controlled #COPD Continue home medications, no evidence of exacerbation at this time # Met Encephalopathy on basleine dementia Likely secondary to sepsis CT brain negative Continue treatment of underlying conditions DVT prophylaxis: Lovenox subcu GI prophylaxis: Pepcid twice a day Disposition: Weak with PT. May need SNF unless family able to provide care at home. Will consult case management.
[2020-09-12] MEDS ORDERED: Potassium Chloride 20 MEQ in Premix Bag 1 BAG IVPB SCH (08:00)
[2020-09-12] MEDS: Famotidine 20 MG TAB PO SCH ×2 (08:53→21:51)
[2020-09-12] MEDS: guaiFENesin ER 600 MG TAB PO SCH ×2 (08:53→21:51)
[2020-09-12] MEDS: Fluconazole 100 MG TAB PO SCH (08:54)
[2020-09-12] MEDS: Acetaminophen 325 MG TAB PO PRN (08:54)
[2020-09-12] MEDS: Enoxaparin Sodium 30 MG/0.3 ML SYRINGE SC SCH (08:56)
[2020-09-12] MEDS: Insulin Glargine 25 UNITS in Pre-Filled Syringe 1 EACH SC SCH ×2 (09:08→22:56)
[2020-09-12] MEDS ORDERED: Hydrocerin (Eucerin) Cream 120 gm Jar TOP PRN (11:48)
[2020-09-12] MEDS ORDERED: Loratadine 10 MG TAB PO PRN (11:48)
--- NOTE | 2020-09-12 19:05 | PRG ---
DATE OF SERVICE: 09/12/2020 SUBJECTIVE: The patient was seen, noted with the following vital signs. OBJECTIVE: VITAL SIGNS: Afebrile, temperature 98.2, pulse 79, respiratory rate of 18, O2 saturations of 95%, blood pressure . HEENT: Unremarkable. CARDIOVASCULAR SYSTEM: First and second heart sounds were heard. RESPIRATORY SYSTEM: Clear to auscultation. DIGESTIVE SYSTEM: Revealed a benign abdomen. EXTREMITIES: No peripheral edema. SKIN: No new gross rash. LYMPHATICS: No peripheral lymphadenopathy. LABORATORY INVESTIGATION: Showed a creatinine down to 1.09, potassium of 3.0. IMPRESSION: 1. Acute on chronic kidney disease, which has resolved. 2. Hyponatremia. PLAN: 1. Replete potassium. 2. Continue other current renal supportive measures. Job ID: [id number]
[2020-09-12] MEDS: cefTRIAXone\\ROCEPHIN 1 GM in Sodium Chloride 0.9% 100 ML IVPB SCH (21:51)
[2020-09-13] MEDS: Sodium Chloride 0.9% 1,000 ML IV SCH ×2 (04:58→18:10)
--- NOTE | 2020-09-13 07:49 | PDOC.HOSPP ---
- Subjective Encounter Date: 09/13/20 Encounter Time: 10:30 Subjective: Patient without complaints today. Nurse has noted some white discharge penile for the last couple days with some red swelling around the penis and then some blood in the urine today. He does have a Mcintosh catheter in place. Patient denies any complaints around his penis. - Objective Vital Signs & Weight: Vital Signs (12 hours) Temp Pulse Resp BP Pulse Ox 09/13/20 05:00 98.4 F 76 20 155/68 H 97 09/13/20 01:00 98.4 F 70 20 154/70 H 98 09/12/20 21:00 98.0 F 77 18 160/72 H 96 09/12/20 20:00 97 Weight Weight 177 lb I&O: 09/12/20 09/13/20 09/14/20 06:59 06:59 06:59 Intake Total 1999 2430 Output Total 1000 1950 Balance 1000 480 Result Diagrams: 09/13/20 13:54 09/12/20 04:19 Additional Labs: Accuchecks 09/13/20 09/13/20 09/12/20 06:45 05:59 20:29 POC Glucose 78 67 L 124 H 09/12/20 09/12/20 09/12/20 19:11 17:29 10:49 POC Glucose 71 70 138 H 09/12/20 09/11/20 09/11/20 05:57 16:36 06:09 POC Glucose 106 H 161 H 150 H Hospitalist ROS - Review of Systems Constitutional: denies: fever, chills Respiratory: denies: cough, shortness of breath Cardiovascular: denies: chest pain, palpitations Gastrointestinal: denies: nausea, vomiting, abdominal pain - Medication Medications: Active Medications Generic Name Dose Route Start Last Admin Trade Name Freq PRN Reason Stop Dose Admin Acetaminophen 650 mg 09/09/20 20:45 09/12/20 08:54 Acetaminophen 325 Mg Tab PO 650 mg Q4H PRN Administration Headache/Fever/Mild Pain (1-3) Enoxaparin Sodium 30 mg 09/10/20 09:00 09/12/20 08:56 Enoxaparin Sodium 30 Mg/0.3 Ml Syringe SC 30 mg 0900 SHAYE Administration Famotidine 20 mg 09/10/20 21:00 09/12/20 21:51 Famotidine 20 Mg Tab PO 20 mg BID SHAYE Administration Fluconazole 200 mg 09/11/20 09:00 09/12/20 08:54 Fluconazole 100 Mg Tab PO 200 mg DAILY SHAYE Administration Guaifenesin 1,200 mg 09/09/20 21:00 09/12/20 21:51 Guaifenesin Er 600 Mg Tab PO 1,200 mg Q12HR SHAYE Administration Insulin Glargine 25 units/ 0.25 mls @ 0 mls/hr 09/09/20 21:00 09/12/20 22:56 Miscellaneous Medication SC 0.25 mls BID SHAYE Administration Ceftriaxone Sodium 1 gm/ 100 mls @ 200 mls/hr 09/09/20 21:00 09/12/20 21:51 Sodium Chloride IVPB 100 mls Q24HR SHAYE Administration Sodium Chloride 1,000 mls @ 75 mls/hr 09/11/20 11:45 09/13/20 04:58 Normal Saline 0.9% IV 1,000 mls .[id number] SHAYE Administration Insulin Human Lispro 0 units 09/09/20 20:45 09/11/20 17:25 Humalog 300 Units/3 Ml Vial SC 3 unit .AGGRESSIVE SLIDING PRN Administration Aggressive Correctional Scale Hospitalist Exam Vitals: Vital Signs (12 hours) Temp Pulse Resp BP Pulse Ox 09/13/20 05:00 98.4 F 76 20 155/68 H 97 09/13/20 01:00 98.4 F 70 20 154/70 H 98 09/12/20 21:00 98.0 F 77 18 160/72 H 96 09/12/20 20:00 97 Weight Weight 177 lb General Appearance: NAD, awake alert ENT: moist mucosa Heart: RRR, no murmur, no gallops, no rubs Respiratory: CTAB, no wheezes, no rales, no ronchi Gastrointestinal: soft, non-tender, non-distended, normal bowel sounds Extremities: no edema Psychiatric: normal affect, normal behavior Hosp A/P - Plan # Left Pneumonia / Sepsis - on abx with rocephin since 09/09/2020 - obtain blood cx and follownegative at 48 hours final - started gentle IVF - cough meds - obtain repeat covid screeningnegative # Dysphagia Concern for possible aspiration as source for pneumonia MBS done, patient started on NDD2 ground, extra sauce/gravy, nectar thick liquids # UTIyeast Urine culture growing back yeast, and now with some hematuria and white penile discharge. We will go ahead and do a full course of Diflucan. We will reculture urine and then discontinue the Mcintosh. 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 SNF placement pending.
[2020-09-13] MEDS: Enoxaparin Sodium 30 MG/0.3 ML SYRINGE SC SCH (08:37)
[2020-09-13] MEDS: Famotidine 20 MG TAB PO SCH ×2 (08:37→20:19)
[2020-09-13] MEDS: guaiFENesin ER 600 MG TAB PO SCH ×2 (08:37→20:16)
[2020-09-13] MEDS: Fluconazole 100 MG TAB PO SCH (08:37)
[2020-09-13] MEDS: Insulin Glargine 25 UNITS in Pre-Filled Syringe 1 EACH SC SCH ×2 (10:15→22:49)
[2020-09-13 14:02] LABS: #Eosinphils 0.4 thou/uL (0.0-0.7); #Monocytes 0.8 thou/uL (0.11-0.59); #Neutrophils 5.2 thou/uL (1.40-6.50); %Basophils 0.2 % (0.0-1.0); %Eosinophils 4.2 % (0.0-10.0); %Lymphocytes 23.4 % (21.0-51.0); %Monocytes 9.7 % (0.0-10.0); %Neutrophils 62.4 % (42.0-75.0); Mean Corpuscular HGB CONC 34.8 g/dL (32.0-36.0); Mean Corpuscular Hemoglobin 31.1 pg (27.0-31.0); Mean Corpuscular Volume 89.2 fL (78.0-98.0); Mean Platelet Volume 8.9 fL (7.4-10.4); Platelet Count 197 thou/uL (130-400); RBC Distribution Width 12.1 % (11.5-14.5); Red Blood Cell (RBC) Count 4.83 mill/uL (4.70-6.10); White Blood Cell (WBC) Count 8.4 thou/uL (4.8-10.8)
[2020-09-13 14:39] LABS: Anion Gap 14 mmol/L (10-20); BUN (Urea Nitrogen) 9 mg/dL (8.4-25.7); Calc. Creatinine Clearance 66 mL/min (70-130); Calcium 8.4 mg/dL (7.8-10.44); Carbon Dioxide 21 mmol/L (23-31); Chloride 108 mmol/L (98-107); Glucose 90 mg/dL (83-110); Sodium 140 mmol/L (136-145)
[2020-09-13 15:12] LABS: Bilirubin Negative (Negative); Blood, Urine 3+ (Negative); Clarity Turbid (Clear); Glucose, Urine (Dipstick) 50 mg/dL (Negative); Ketone, Urine 10 mg/dL (Negative); Leukocyte 250 Leu/uL (Negative); Nitrite Negative (Negative); Protein, Urine (Dipstick) 50 mg/dL (Neg-Trace); RBC/HPF Greater than 50 HPF (0-3); Specific Gravity, Urine 1.014 (1.002-1.036); Squamous Epithelial None Seen HPF (0-3); WBC/HPF 21-50 HPF (0-3)
[2020-09-13 15:13] LABS: Bacteria/HPF 1+ HPF (None Seen)
[2020-09-13] MEDS ORDERED: Potassium Chloride 20 MEQ TAB PO SCH (15:30)
[2020-09-13] MEDS: Potassium Chloride 20 MEQ TAB PO SCH (16:54)
[2020-09-13] MEDS: cefTRIAXone\\ROCEPHIN 1 GM in Sodium Chloride 0.9% 100 ML IVPB SCH (20:15)
[2020-09-14] MEDS: Sodium Chloride 0.9% 1,000 ML IV SCH (05:38)
--- NOTE | 2020-09-14 08:30 | PDOC.HOSPP ---
- Subjective Encounter Date: 09/14/20 Encounter Time: 10:30 Subjective: Spoke with patient with tech ed teacher. Patient remains a little bit confused and does not know the year. He knows he is in [place] but does not know that he is in the hospital. Today he reports feeling "bad" but cannot give further description beyond that. He does report some issues with urinating but is not able to tell me more details beyond that. He did refuse genital exam today. - Objective Vital Signs & Weight: Vital Signs (12 hours) Resp BP Pulse Ox 09/14/20 04:45 96 09/14/20 03:52 20 143/73 H 96 09/14/20 00:00 157/72 H Weight Weight 177 lb I&O: 09/13/20 09/14/20 09/15/20 06:59 06:59 06:59 Intake Total 2430 1891 Output Total 1950 1075 Balance 480 816 Result Diagrams: 09/13/20 13:54 09/13/20 13:54 Additional Labs: Accuchecks 09/14/20 09/13/20 09/13/20 05:47 20:22 18:25 POC Glucose 76 95 76 09/13/20 09/13/20 16:54 11:07 POC Glucose 72 106 H Hospitalist ROS - Review of Systems Constitutional: denies: fever, chills Respiratory: denies: cough, shortness of breath Cardiovascular: denies: chest pain, palpitations Gastrointestinal: denies: nausea, vomiting, abdominal pain, diarrhea, constipation Genitourinary: reports: other (See history) - Medication Medications: Active Medications Generic Name Dose Route Start Last Admin Trade Name Jakeq PRN Reason Stop Dose Admin Acetaminophen 650 mg 09/09/20 20:45 09/12/20 08:54 Acetaminophen 325 Mg Tab PO 650 mg Q4H PRN Administration Headache/Fever/Mild Pain (1-3) Emollient Cream 120 gm 09/12/20 11:48 09/13/20 17:02 Hydrocerin (Eucerin) Cream 120 Gm Jar TOP 1 applic PRN PRN Administration Dry Skin Enoxaparin Sodium 30 mg 09/10/20 09:00 09/13/20 08:37 Enoxaparin Sodium 30 Mg/0.3 Ml Syringe SC 30 mg 0900 SHAYE Administration Famotidine 20 mg 09/10/20 21:00 09/13/20 20:19 Famotidine 20 Mg Tab PO 20 mg BID SHAYE Administration Fluconazole 200 mg 09/11/20 09:00 09/13/20 08:37 Fluconazole 100 Mg Tab PO 200 mg DAILY SHAYE Administration Guaifenesin 1,200 mg 09/09/20 21:00 09/13/20 20:16 Guaifenesin Er 600 Mg Tab PO Not Given Q12HR SHAYE Hydralazine HCl 10 mg 09/09/20 20:54 09/13/20 14:05 Hydralazine 20 Mg/Ml Vial SLOW IVP 10 mg Q4H PRN Administration Blood Pressure Insulin Glargine 25 units/ 0.25 mls @ 0 mls/hr 09/09/20 21:00 09/13/20 22:49 Miscellaneous Medication SC Not Given BID [facility] Ceftriaxone Sodium 1 gm/ 100 mls @ 200 mls/hr 09/09/20 21:00 09/13/20 20:15 Sodium Chloride IVPB 100 mls Q24HR SHAYE Administration Sodium Chloride 1,000 mls @ 75 mls/hr 09/11/20 11:45 09/14/20 05:38 Normal Saline 0.9% IV 1,000 mls .[id number] SHAYE Administration Insulin Human Lispro 0 units 09/09/20 20:45 09/11/20 17:25 Humalog 300 Units/3 Ml Vial SC 3 unit .AGGRESSIVE SLIDING PRN Administration Aggressive Correctional Scale Potassium Chloride 20 meq 09/13/20 17:00 09/13/20 16:54 Potassium Chloride 20 Meq Tab PO 20 meq BID-WM SHAYE Administration Hospitalist Exam Vitals: Vital Signs (12 hours) Resp BP Pulse Ox 09/14/20 04:45 96 09/14/20 03:52 20 143/73 H 96 09/14/20 00:00 157/72 H Weight Weight 177 lb General Appearance: NAD, awake alert ENT: moist mucosa Heart: RRR, no murmur, no gallops, no rubs Respiratory: CTAB, no wheezes, no rales, no ronchi Gastrointestinal: soft, non-tender, non-distended, normal bowel sounds Psychiatric: normal affect, normal behavior, oriented to person. negative: oriented to place, oriented to time Hosp A/P - Plan # Left Pneumonia / Sepsis - on abx with rocephin since 09/09/2020 - obtain blood cx and follownegative at 48 hours final - started gentle IVF - cough meds - obtain repeat covid screeningnegative - can stop abx after 1 more day # Dysphagia Concern for possible aspiration as source for pneumonia MBS done, patient started on NDD2 ground, extra sauce/gravy, nectar thick liquids # UTIyeast Urine culture growing back yeast, and now with some hematuria and white penile discharge. We will go ahead and do a full course of Diflucan. Repeat culture pending and Mcintosh discontinued. 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 SNF placement pending.
[2020-09-14] MEDS: guaiFENesin ER 600 MG TAB PO SCH (08:35)
[2020-09-14] MEDS: Famotidine 20 MG TAB PO SCH (08:36)
[2020-09-14] MEDS: Potassium Chloride 20 MEQ TAB PO SCH (08:36)
[2020-09-14] MEDS: Insulin Glargine 25 UNITS in Pre-Filled Syringe 1 EACH SC SCH (08:36)
[2020-09-14] MEDS: Fluconazole 100 MG TAB PO SCH (08:36)
[2020-09-14] MEDS: Enoxaparin Sodium 30 MG/0.3 ML SYRINGE SC SCH (08:36)
[2020-09-14 15:16] VITALS: BP 156/72; TEMP 97.9
--- NOTE | 2020-09-14 15:58 | PDOC.DS.DS ---
Provider Date of Admission: 09/09/20 18:46 Date of Discharge: 09/14/20 Admitting Provider: Flako Small MD Consultations: Nephrology (Dr. Johnson) Primary Care Physician: NO PCP PROVIDER Course Hospital Course: This is a 85-year-old male with a history of hypertension, diabetes mellitus type 2, dementia, and recurrent pneumonia who presented with altered mental status. He had had COVID-19 pneumonia 2 months ago. In the emergency room patient was found to have altered mental status which improved with IV fluids. A CT scan done of the chest showed a left lower lobe pneumonia. Patient did have declined in the emergency room with evidence of sepsis and became less responsive and moaning. Patient was given IV antibiotics and urine and blood cultures were sent. Blood cultures were negative but urine culture did grow back Corine. Patient was having a whitish discharge from his Rowland catheter and discomfort and so fluconazole was started for the yeast. Patient's mental status markedly improved during the hospitalization on Rocephin for his pneumonia. His white blood cell count came down to normal. He also had some acute renal failure initially that resolved with treatment. Dr. Johnson was consulted and followed along. Patient did have some hypokalemia that required continuous replacement. He was much more interactive but remains slightly confused, possibly his baseline dementia in the hospital. Patient was evaluated by speech therapy and had a modified barium swallow showing aspiration with thin liquids so he was put on thickened liquids and a pured diet. He was eating better and so his IV fluids were discontinued. He was still having some trouble getting around with physical therapy it was recommended that he go to SNF for further therapy so he is being discharged to [facility]. Patient is Togolese- speaking only and so a grab hooker phone was utilized when speaking with him. Pertinent Studies: CT ANGIO OF CHEST AND ABDOMEN PERFORMED WITH INTRAVENOUS CONTRAST ENHANCEMENT WITH 3D RECONSTRUCTIONS: History: Chest pain, back pain, concern for dissection. Comparison: 01-22-2020 FINDINGS: There has been a progression in some of the parenchymal lung changes. More prominent interstitial changes in a more Subpleural location. Some of these changes still have more of a chronic appearance with reticular scarring and Subpleural space. There is a more definitive acute superior segment left lower lobe infiltrate and some patchy changes in the region of the lingula. There is no significant mediastinal or hilar adenopathy. There is less than optimal arterial opacification, but the thoracic aorta is normal in caliber and I see no evidence for dissection. Coronary calcifications are seen. CT ANGIO OF ABDOMEN PERFORMED WITH CONTRAST WITH 3D RECONSTRUCTIONS: Fatty change of the liver is noted. A hiatal hernia is seen. The spleen is normal in size. Pancreas region appears unremarkable. The gallbladder has been removed. Right and left adrenal glands and right and left kidneys are normal in size. Left renal cyst is similar to the previous exam. Atherosclerotic changes of the aorta without aneurysm or dissection. A small fat containing paraumbilical hernia is present. IMPRESSION: 1. No evidence of aortic aneurysm or dissection. 2. Left lower lobe pneumonic infiltrate. There are some reticular changes in both lung ruiz, favored to be scarring, although they have developed since the 01-22-[address] Without contrast: HISTORY: Altered mental status, decreased responsiveness COMPARISON: 01/20/2020 FINDINGS: Stable atrophy and chronic white matter ischemic change. No focal mass or midline shift. No intra or extra-axial hemorrhage. Bilateral ethmoid, sphenoid, and left maxillary sinus mucosal disease with possible tiny air-fluid level in the dependent portion of the left maxillary sinus. IMPRESSION: No mass or bleed or other significant acute intracranial process. Stable atrophy and chronic white matter ischemic change. Sinus mucosal disease. Modified barium swallow: 09/11/2020 COMPARISON: None HISTORY: Unspecified dysphasia, feeding difficulties FINDINGS: A modified barium swallow is performed in conjunction with a member division of speech pathology. The patient is imaged in the lateral projection swallowing various consistencies of barium. 2 separate bouts of penetration and aspiration noted with thin liquids. Aspiration of thin liquids elicited a cough. No additional penetration or aspiration seen. IMPRESSION: Penetration and aspiration with thin liquids. Resuscitation Status: 09/09/20 20:45 Resuscitation Status Routine Resuscitation Status: FULL: Full Resuscitation Lab Results: 09/13/20 13:54 09/13/20 13:54 Abnormal Lab Results - Last 48 hrs 09/13/20 13:54: Potassium 3.0 L, Chloride 108 H, Carbon Dioxide 21 L 09/13/20 13:54: MCH 31.1 H, Monocytes # 0.8 H 09/13/20 14:23: Urine Clarity Turbid A, Urine Protein 50 A, Urine Ketones 10 A, Urine Blood 3+ A, Urine Urobilinogen 2.0 A, Ur Leukocyte Esterase 250 A, Urine RBC Greater than 50 A, Urine WBC 21-50 A, Urine Bacteria 1+ A Microbiology - Entire Visit 09/13/20 14:23 Urine rowland catheter Urine Culture - Preliminary NO GROWTH AT 24 HOURS 09/09/20 14:25 Venous blood - Left Arm Blood Culture - Preliminary NO GROWTH AT 48 HOURS 09/09/20 14:25 Venous blood - Left Arm Blood Culture - Preliminary NO GROWTH AT 48 HOURS 09/09/20 15:30 Urine rowland catheter Urine Culture - Final Presumptive Corine albicans Vitals: Vital Signs (12 hours) Temp Pulse Resp BP Pulse Ox 09/14/20 15:14 97.9 F 80 18 156/72 H 95 09/14/20 11:35 97.6 F 77 19 149/70 H 96 09/14/20 08:00 97.1 F L 80 18 138/73 94 L 09/14/20 04:45 96 Weight Weight 177 lb Physical Exam: The patient was seen and examined on the day of discharge. Problem Assessment: # Left Pneumonia / Sepsis # Dysphagia # UTIyeast # HTN # ARF # DM with Hyperglycemia # COPD # Met Encephalopathy on baseline dementia # Hypokalemia Plan of Treatment: Patient being discharged to SNF at [facility]. He has finished his antibiotic course. He needs to continue another week of fluconazole orally for the yeast UTI. Time Spent in discharge related activities (mins): 35 Plan Home Medications: Medication Instructions Recorded Confirmed Type Sodium Bicarbonate [Bicarbonate, 650 mg PO BID #60 tab 07/10/19 09/11/20 Rx Sodium] Montelukast Sodium [Singulair] 10 mg PO DAILY 01/20/20 09/11/20 History Pravastatin Sodium 20 mg PO HS 01/20/20 09/11/20 History Aspirin 81 mg PO DAILY 09/11/20 09/11/20 History Docusate Sodium [Dok] 100 mg PO DAILY PRN 09/11/20 09/11/20 History Lisinopril 20 mg PO DAILY 09/11/20 09/11/20 History Mirtazapine 15 mg PO HS 09/11/20 09/11/20 History Oxybutynin [Ditropan] 5 mg PO BID 09/11/20 09/11/20 History Pantoprazole [Protonix] 40 mg PO DAILY 09/11/20 09/11/20 History Acetaminophen [Tylenol Regular 650 mg PO Q4H PRN tab 09/14/20 Rx Strength] Enoxaparin Sodium [Lovenox] 30 mg SC 0900 syringe 09/14/20 Rx Famotidine [Pepcid] 20 mg PO BID tab 09/14/20 Rx Fluconazole [Diflucan] 200 mg PO DAILY tab 09/14/20 Rx HYDROcodone Bit/APAP 5/325 [Zavalla] 1 tab PO Q4H PRN tab 09/14/20 Rx Insulin Glargine [Lantus Vial] 25 units SC BID vial 09/14/20 Rx Ipratropium/Albuterol Sulfate 3 ml NEB [id number] PRN neb 09/14/20 Rx [DuoNeb] Loratadine [Claritin] 10 mg PO DAILYPRN PRN tab 09/14/20 Rx Moisturizing Cream (Eucerin) 120 gm TOP PRN PRN jar 09/14/20 Rx [Hydrocerin Cream] Potassium Chloride [K-Dur] 20 meq PO BID-WM tab 09/14/20 Rx guaiFENesin ER [Mucinex] 1,200 mg PO Q12HR tab 09/14/20 Rx Allergies: No Known Drug Allergies Allergy (Verified 01/21/20 02:49) Activity:: Activity as Tolerated Nourishment:: Diabetic Diet (NDD1 Pureed, [place] thick liquids, extra charli ce/gravy) Therapies:: Occupational Therapy, Physical Therapy, Speech Therapy Equipment/Supplies:: Not Applicable IV Therapy:: Not Applicable Referrals: [facility], [place] [facility] [Other] ([facility].) [facility] [Outside] (Currently on Home health services.) Mervat Collins MD [Affiliate] - ([facility] Placement.) Madelyn Lamar [ Not on Staff] - (Accepting pcp at the [facility] for snf placement.) Disposition: REHABILITATION INPATIENT Quality CORE MEASURES:: N/A
--- NOTE | 2020-09-14 18:35 | PRG ---
DATE OF SERVICE: 09/14/2020 OBJECTIVE: The patient noted with the following vital signs. Afebrile, temperature 97.9, pulse 80, respiratory rate 18, O2 saturation of 95%, blood pressure . HEENT EXAMINATION: Unremarkable RESPIRATORY SYSTEM: First and second heart sounds were heard. RESPIRATORY SYSTEM: Clear to auscultation. DIGESTIVE SYSTEM: Revealed a benign abdomen with positive bowel sounds. EXTREMITIES: No peripheral edema. SKIN: No new gross rash. LYMPHATICS: No peripheral lymphadenopathy. IMPRESSION: Acute on chronic kidney disease much improved. PLAN: Continue current renal supportive measures. Job ID: [id number]
== END 2020-09-14 17:35 | DRG 871 ==
LOC: ERS 14:02 → ERHOLD 18:46 → 2NO 09-10 17:18
PROVIDERS: ADMIT Internal Medicine; ATTEND Emergency Medicine
PROC: 0T9B70Z Drainage of Bladder with Drainage Device, Via Natural or Artificial Opening (ICD-10-PCS; principal; 2020-09-09)
DX: A41.9 Sepsis, unspecified organism (principal); J18.9 Pneumonia, unspecified organism; G93.41 Metabolic encephalopathy; B37.49 Other urogenital candidiasis; N17.9 Acute kidney failure, unspecified; J44.0 Chronic obstructive pulmonary disease with (acute) lower respiratory infection; E87.1 Hypo-osmolality and hyponatremia; Z20.822 Contact with and (suspected) exposure to COVID-19; R13.10 Dysphagia, unspecified; E11.65 Type 2 diabetes mellitus with hyperglycemia; F03.90 Unspecified dementia, unspecified severity, without behavioral disturbance, psychotic disturbance, mood disturbance, and anxiety; E87.6 Hypokalemia; N18.9 Chronic kidney disease, unspecified; I12.9 Hypertensive chronic kidney disease with stage 1 through stage 4 chronic kidney disease, or unspecified chronic kidney disease; E11.22 Type 2 diabetes mellitus with diabetic chronic kidney disease; R65.20 Severe sepsis without septic shock; N40.1 Benign prostatic hyperplasia with lower urinary tract symptoms; R33.8 Other retention of urine; R31.9 Hematuria, unspecified; Z86.16 Personal history of COVID-19; Z79.899 Other long term (current) drug therapy; Z79.82 Long term (current) use of aspirin
CPT/HCPCS: 36415; 36416; 51702; 70450; 71045; 71275; 74174; 74230; 80048; 80053; 80069; 81003; 81015; 82010; 82553; 83605; 83735; 84100; 84484; 85025; 85610; 85730; 87040; 87086; 87635; 93005; 94640; 94760; 96365; 96366; 96367; 96375; J0360; J0692; J0696; J1650; J1815; J1956; J3370; J3480; J3490; J7050; J7620; U0003; U0005

== ENCOUNTER 2020-10-29 19:13 | Emergency (ER) | payer MEDICARE, MEDICAID ==
[~2020-10-29 19:13] MED LIST: Iopamidol-370 76% 500 ML 1 ML ONE
[2020-10-29] MEDS ORDERED: Ketorolac Tromethamine 30 MG/ML VIAL ONE (20:26)
[2020-10-29 20:31] LABS: #Eosinphils 0.5 thou/uL (0.0-0.7); #Lymphocytes 2.4 thou/uL (1.20-3.40); #Neutrophils 5.6 thou/uL (1.40-6.50); %Basophils 0.3 % (0.0-1.0); %Eosinophils 4.8 % (0.0-10.0); %Monocytes 10.5 % (0.0-10.0); %Neutrophils 59.5 % (42.0-75.0); Hemoglobin 14.6 g/dL (14.0-18.0); Mean Corpuscular HGB CONC 34.2 g/dL (32.0-36.0); Mean Corpuscular Hemoglobin 30.3 pg (27.0-31.0); Mean Corpuscular Volume 88.5 fL (78.0-98.0); Mean Platelet Volume 8.5 fL (7.4-10.4); Platelet Count 211 thou/uL (130-400); RBC Distribution Width 12.3 % (11.5-14.5); Red Blood Cell (RBC) Count 4.84 mill/uL (4.70-6.10); White Blood Cell (WBC) Count 9.5 thou/uL (4.8-10.8)
[2020-10-29 20:50] LABS: ALT (SGPT) Less than 7 U/L (8-55); AST (SGOT) 13 U/L (5-34); Albumin 3.5 g/dL (3.4-4.8); Alkaline Phosphatase 125 U/L (40-110); Anion Gap 15 mmol/L (10-20); BUN (Urea Nitrogen) 25 mg/dL (8.4-25.7); Bilirubin, Total 0.7 mg/dL (0.2-1.2); Calc. Creatinine Clearance 0 mL/min (70-130); Calcium 8.6 mg/dL (7.8-10.44); Carbon Dioxide 25 mmol/L (23-31); Chloride 101 mmol/L (98-107); Globulin 3.6 g/dL (2.4-3.5); Glucose 243 mg/dL (83-110); Lipase 41 U/L (8-78); Potassium 3.8 mmol/L (3.5-5.1); Protein, Total 7.1 g/dL (5.8-8.1); Sodium 137 mmol/L (136-145)
[2020-10-29] MEDS ORDERED: predniSONE 20 MG TAB ONE (22:07)
[2020-10-29 23:37] LABS: Bacteria/HPF None Seen HPF (None Seen); Bilirubin Negative (Negative); Blood, Urine Trace (Negative); Clarity Clear (Clear); Glucose, Urine (Dipstick) Greater than 1000 mg/dL (Negative); Ketone, Urine Negative (Negative); Leukocyte 500 Leu/uL (Negative); Nitrite Negative (Negative); Protein, Urine (Dipstick) 20 mg/dL (Neg-Trace); Squamous Epithelial 0-3 HPF (0-3); Urobilinogen Normal mg/dL (Less than 2); WBC/HPF 21-50 HPF (0-3); pH, Urine 5.5 (5.0-9.0)
[2020-10-29 23:38] LABS: Specific Gravity, Urine 1.052 (1.002-1.036)
== END 2020-10-30 00:26 | disposition home or self-care (01) ==
LOC: ERS 19:13
DX: J44.0 Chronic obstructive pulmonary disease with (acute) lower respiratory infection (principal); J20.9 Acute bronchitis, unspecified; J44.1 Chronic obstructive pulmonary disease with (acute) exacerbation; N39.0 Urinary tract infection, site not specified; I10 Essential (primary) hypertension; E11.9 Type 2 diabetes mellitus without complications
CPT/HCPCS: 36415; 71045; 71275; 74174; 80053; 81003; 81015; 83690; 83880; 84484; 85025; 87086; 93005; 94640; 96374; J1885; J7512; J7620; Q9967

== ENCOUNTER 2020-11-29 12:39 | Inpatient (IN) | payer MEDICARE, MEDICAID ==
[2020-11-29 13:24] LABS: #Basophils 0.1 thou/uL (0.0-0.2); #Eosinphils 0.2 thou/uL (0.0-0.7); #Lymphocytes 2.4 thou/uL (1.20-3.40); #Neutrophils 6.6 thou/uL (1.40-6.50); %Basophils 0.6 % (0.0-1.0); %Eosinophils 2.1 % (0.0-10.0); %Lymphocytes 23.1 % (21.0-51.0); %Monocytes 9.3 % (0.0-10.0); %Neutrophils 64.9 % (42.0-75.0); Hemoglobin 16.1 g/dL (14.0-18.0); Mean Corpuscular HGB CONC 34.9 g/dL (32.0-36.0); Mean Platelet Volume 8.6 fL (7.4-10.4); Platelet Count 232 thou/uL (130-400); RBC Distribution Width 12.5 % (11.5-14.5); Red Blood Cell (RBC) Count 5.19 mill/uL (4.70-6.10); White Blood Cell (WBC) Count 10.2 thou/uL (4.8-10.8)
[2020-11-29] MEDS ORDERED: Insulin Regular 300 UNITS/3 ML VIAL ONE (13:36)
[2020-11-29 13:46] LABS: ALT (SGPT) 11 U/L (8-55); AST (SGOT) 25 U/L (5-34); Albumin 3.9 g/dL (3.4-4.8); Alkaline Phosphatase 145 U/L (40-110); Anion Gap 15 mmol/L (10-20); BUN (Urea Nitrogen) 12 mg/dL (8.4-25.7); Bilirubin, Total 1.1 mg/dL (0.2-1.2); CK (CPK) 1057 U/L (30-200); Calc. Creatinine Clearance 0 mL/min (70-130); Calcium 9.1 mg/dL (7.8-10.44); Carbon Dioxide 22 mmol/L (23-31); Chloride 105 mmol/L (98-107); Globulin 3.9 g/dL (2.4-3.5); Glucose 388 mg/dL (83-110); Protein, Total 7.8 g/dL (5.8-8.1); Sodium 138 mmol/L (136-145)
[2020-11-29] MEDS ORDERED: Acetaminophen 325 MG TAB PO PRN (16:09)
[2020-11-29] MEDS ORDERED: Dextrose 50% Abboject 50 ML SYRINGE SLOW IVP PRN (16:11)
[2020-11-29] MEDS ORDERED: Dextrose 5% in Water 1,000 ML IV PRN (16:11)
[2020-11-29 16:19] LABS: Lactic Acid 1.7 mmol/L (0.5-2.2)
[2020-11-29] MEDS ORDERED: Ondansetron PF 4 MG/2 ML Vial IVP PRN (18:30)
[2020-11-29] MEDS ORDERED: Ondansetron ODT 4 MG TAB SL PRN (18:30)
[2020-11-29 18:44] VITALS: BMI 27.2
[2020-11-29] MEDS: Sodium Chloride 0.9% 1,000 ML IV SCH (21:37)
[2020-11-29] MEDS: Lantus 1000 UNITS/10 ML VIAL SC SCH (21:39)
[2020-11-30 02:04] LABS: Bacteria/HPF 3+ HPF (None Seen); Bilirubin Negative (Negative); Blood, Urine 3+ (Negative); Clarity Clear (Clear); Glucose, Urine (Dipstick) Greater than 1000 mg/dL (Negative); Ketone, Urine Trace mg/dL (Negative); Leukocyte Negative Leu/uL (Negative); Nitrite Negative (Negative); Protein, Urine (Dipstick) 10 mg/dL (Neg-Trace); Specific Gravity, Urine 1.011 (1.002-1.036); Squamous Epithelial 0-3 HPF (0-3); Urobilinogen Normal mg/dL (Less than 2); pH, Urine 6.5 (5.0-9.0)
[2020-11-30 02:06] LABS: Urine Culture Reflex Yes Yes
[2020-11-30] MEDS ORDERED: Ziprasidone 20 MG VIAL IM SCH (05:30)
[2020-11-30] MEDS ORDERED: Sterile Water 10 ML VIAL FS PRN (05:30)
[2020-11-30 06:30] LABS: #Basophils 0.1 thou/uL (0.0-0.2); #Eosinphils 0.6 thou/uL (0.0-0.7); #Lymphocytes 3.9 thou/uL (1.20-3.40); #Monocytes 0.8 thou/uL (0.11-0.59); #Neutrophils 4.9 thou/uL (1.40-6.50); %Basophils 1.1 % (0.0-1.0); %Eosinophils 5.4 % (0.0-10.0); %Lymphocytes 37.9 % (21.0-51.0); %Neutrophils 47.6 % (42.0-75.0); Hemoglobin 15.9 g/dL (14.0-18.0); Mean Corpuscular Hemoglobin 31.6 pg (27.0-31.0); Mean Corpuscular Volume 90.4 fL (78.0-98.0); Mean Platelet Volume 8.6 fL (7.4-10.4); Platelet Count 204 thou/uL (130-400); RBC Distribution Width 12.6 % (11.5-14.5); Red Blood Cell (RBC) Count 5.04 mill/uL (4.70-6.10); White Blood Cell (WBC) Count 10.2 thou/uL (4.8-10.8)
[2020-11-30 06:42] LABS: Anion Gap 15 mmol/L (10-20); BUN (Urea Nitrogen) 11 mg/dL (8.4-25.7); CK (CPK) 661 U/L (30-200); Calc. Creatinine Clearance 51 mL/min (70-130); Calcium 8.6 mg/dL (7.8-10.44); Carbon Dioxide 20 mmol/L (23-31); Cardiac Risk 2.7 (Less than 4.5); Chloride 111 mmol/L (98-107); Cholesterol 114 mg/dl (< 200 Desired); Glucose 155 mg/dL (83-110); HDL Cholesterol 43 mg/dL (>60 Neg Risk); LDL Cholesterol, Calculated 58 mg/dL; Potassium 4.5 mmol/L (3.5-5.1); Sodium 141 mmol/L (136-145); Triglycerides 66 mg/dL (Less than 150)
[2020-11-30 06:42] LABS: Hemoglobin A1c 10.8 % (4.0-6.0)
[2020-11-30] MEDS: Sodium Chloride 0.9% 1,000 ML IV SCH ×2 (07:50→11:40)
[2020-11-30] MEDS ORDERED: Aspirin 81 mg Enteric Coated Tablet PO SCH (09:00)
[2020-11-30] MEDS ORDERED: Mag-Al Plus 1200 MG/1200 MG/120 MG/30 ML UDCUP PO PRN (13:56)
[2020-11-30 14:24] LABS: SARS-CoV-2 PCR by NAA Not Detected (NotDetected)
[2020-11-30] MEDS ORDERED: Docusate 100 MG CAP PO PRN (14:55)
[2020-11-30] MEDS: Lorazepam 2 MG/ML VIAL SLOW IVP PRN (15:32)
[2020-11-30] MEDS ORDERED: hydrALAZINE 20 MG/ML VIAL SLOW IVP PRN (20:23)
[2020-11-30] MEDS: Gabapentin 100 MG CAP PO SCH (21:53)
[2020-11-30] MEDS: Amlodipine 10 MG TAB PO SCH (21:53)
[2020-11-30] MEDS: Simvastatin 10 MG TAB PO SCH (21:54)
[2020-11-30] MEDS: Mirtazapine 15 MG TAB PO SCH (21:54)
[2020-11-30] MEDS: Lantus 1000 UNITS/10 ML VIAL SC SCH (22:02)
[2020-12-01] MEDS: Aspirin Chewable 81 MG TAB PO SCH (08:57)
[2020-12-01] MEDS: Lorazepam 2 MG/ML VIAL SLOW IVP PRN (10:09)
[2020-12-01] MEDS ORDERED: hydrALAZINE 20 MG/ML VIAL SLOW IVP PRN (17:56)
[2020-12-01] MEDS: Dextrose 5 %-0.45 % NaCl 1,000 ML IV SCH (18:26)
[2020-12-01] MEDS: cefTRIAXone\\ROCEPHIN 1 GM in Sodium Chloride 0.9% 100 ML IVPB SCH (18:27)
[2020-12-01] MEDS: Amlodipine 10 MG TAB PO SCH (20:22)
[2020-12-01] MEDS: Mirtazapine 15 MG TAB PO SCH (20:23)
[2020-12-01] MEDS: Simvastatin 10 MG TAB PO SCH (20:23)
[2020-12-01] MEDS: Gabapentin 100 MG CAP PO SCH (20:23)
[2020-12-01] MEDS: Lantus 1000 UNITS/10 ML VIAL SC SCH (22:54)
[2020-12-02 04:49] LABS: #Eosinphils 0.5 thou/uL (0.0-0.7); #Lymphocytes 2.5 thou/uL (1.20-3.40); #Neutrophils 8.2 thou/uL (1.40-6.50); %Basophils 0.2 % (0.0-1.0); %Eosinophils 3.8 % (0.0-10.0); %Lymphocytes 20.3 % (21.0-51.0); %Monocytes 7.9 % (0.0-10.0); %Neutrophils 67.8 % (42.0-75.0); Hemoglobin 15.5 g/dL (14.0-18.0); Mean Corpuscular HGB CONC 33.1 g/dL (32.0-36.0); Mean Corpuscular Hemoglobin 29.5 pg (27.0-31.0); Platelet Count 241 thou/uL (130-400); RBC Distribution Width 12.5 % (11.5-14.5); Red Blood Cell (RBC) Count 5.25 mill/uL (4.70-6.10); White Blood Cell (WBC) Count 12.2 thou/uL (4.8-10.8)
[2020-12-02 05:08] LABS: Anion Gap 15 mmol/L (10-20); BUN (Urea Nitrogen) 16 mg/dL (8.4-25.7); CK (CPK) 82 U/L (30-200); Calc. Creatinine Clearance 45 mL/min (70-130); Calcium 8.9 mg/dL (7.8-10.44); Carbon Dioxide 21 mmol/L (23-31); Chloride 107 mmol/L (98-107); Glucose 214 mg/dL (83-110); Potassium 3.6 mmol/L (3.5-5.1); Sodium 139 mmol/L (136-145)
[2020-12-02] MEDS: Aspirin Chewable 81 MG TAB PO SCH (09:35)
[2020-12-02] MEDS: Dextrose 5 %-0.45 % NaCl 1,000 ML IV SCH (09:35)
[2020-12-02] MEDS: HumaLOG 300 UNITS/3 ML VIAL SC PRN ×2 (11:40→17:29)
[2020-12-02] MEDS: cefTRIAXone\\ROCEPHIN 1 GM in Sodium Chloride 0.9% 100 ML IVPB SCH (17:29)
[2020-12-02] MEDS: Simvastatin 10 MG TAB PO SCH (21:38)
[2020-12-02] MEDS: Mirtazapine 15 MG TAB PO SCH (21:42)
[2020-12-02] MEDS: Amlodipine 10 MG TAB PO SCH (21:42)
[2020-12-02] MEDS: Gabapentin 100 MG CAP PO SCH (21:42)
[2020-12-02] MEDS: Lantus 1000 UNITS/10 ML VIAL SC SCH (21:44)
[2020-12-02] MEDS: cefOXitin Sodium/Dextrose,Iso 1 GM in Premix Bag 1 BAG IVPB SCH (23:35)
[2020-12-03] MEDS: cefOXitin Sodium/Dextrose,Iso 1 GM in Premix Bag 1 BAG IVPB SCH ×3 (06:23→18:21)
[2020-12-03] MEDS: Aspirin Chewable 81 MG TAB PO SCH (09:22)
[2020-12-03] MEDS: HumaLOG 300 UNITS/3 ML VIAL SC PRN ×2 (12:37→22:45)
[2020-12-03] MEDS: Lorazepam 2 MG/ML VIAL SLOW IVP PRN (14:41)
[2020-12-03] MEDS ORDERED: Lantus 1000 UNITS/10 ML VIAL SC SCH ×2 (21:00)
[2020-12-03] MEDS: Gabapentin 100 MG CAP PO SCH (22:46)
[2020-12-03] MEDS: Mirtazapine 15 MG TAB PO SCH (22:47)
[2020-12-03] MEDS: Simvastatin 10 MG TAB PO SCH (22:47)
[2020-12-03] MEDS: Amlodipine 10 MG TAB PO SCH (22:47)
[2020-12-04] MEDS: cefOXitin Sodium/Dextrose,Iso 1 GM in Premix Bag 1 BAG IVPB SCH ×3 (01:03→12:03)
[2020-12-04] MEDS: Aspirin Chewable 81 MG TAB PO SCH (09:01)
[2020-12-04 09:14] LABS: #Eosinphils 0.8 thou/uL (0.0-0.7); #Lymphocytes 2.8 thou/uL (1.20-3.40); #Neutrophils 5.4 thou/uL (1.40-6.50); %Basophils 0.5 % (0.0-1.0); %Eosinophils 7.7 % (0.0-10.0); %Monocytes 9.7 % (0.0-10.0); %Neutrophils 54.2 % (42.0-75.0); Hemoglobin 16.5 g/dL (14.0-18.0); Mean Corpuscular HGB CONC 33.3 g/dL (32.0-36.0); Mean Corpuscular Hemoglobin 29.5 pg (27.0-31.0); Mean Corpuscular Volume 88.5 fL (78.0-98.0); Mean Platelet Volume 8.4 fL (7.4-10.4); Platelet Count 248 thou/uL (130-400); RBC Distribution Width 12.4 % (11.5-14.5); Red Blood Cell (RBC) Count 5.58 mill/uL (4.70-6.10)
[2020-12-04 09:36] LABS: Anion Gap 16 mmol/L (10-20); BUN (Urea Nitrogen) 11 mg/dL (8.4-25.7); Calc. Creatinine Clearance 51 mL/min (70-130); Calcium 9.1 mg/dL (7.8-10.44); Carbon Dioxide 22 mmol/L (23-31); Chloride 107 mmol/L (98-107); Glucose 172 mg/dL (83-110); Potassium 3.5 mmol/L (3.5-5.1); Sodium 141 mmol/L (136-145)
[2020-12-04] MEDS: HumaLOG 300 UNITS/3 ML VIAL SC PRN (12:03)
[2020-12-04 16:20] VITALS: BP 148/70; TEMP 97.2
== END 2020-12-04 16:20 | DRG 682 ==
LOC: ERS 12:39 → 2NO 15:07 → OBSVTOIN 11-30 16:40
PROVIDERS: ADMIT Family Medicine; ATTEND Internal Medicine
DX: N17.9 Acute kidney failure, unspecified (principal); G93.41 Metabolic encephalopathy; M62.82 Rhabdomyolysis; N39.0 Urinary tract infection, site not specified; E78.5 Hyperlipidemia, unspecified; Z79.82 Long term (current) use of aspirin; Z79.4 Long term (current) use of insulin; Z79.52 Long term (current) use of systemic steroids; J44.9 Chronic obstructive pulmonary disease, unspecified; J45.909 Unspecified asthma, uncomplicated; N40.0 Benign prostatic hyperplasia without lower urinary tract symptoms; E11.65 Type 2 diabetes mellitus with hyperglycemia; E11.22 Type 2 diabetes mellitus with diabetic chronic kidney disease; I12.9 Hypertensive chronic kidney disease with stage 1 through stage 4 chronic kidney disease, or unspecified chronic kidney disease; W18.30XA Fall on same level, unspecified, initial encounter; E86.0 Dehydration; B96.1 Klebsiella pneumoniae [K. pneumoniae] as the cause of diseases classified elsewhere; G30.9 Alzheimer's disease, unspecified; F02.80 Dementia in other diseases classified elsewhere, unspecified severity, without behavioral disturbance, psychotic disturbance, mood disturbance, and anxiety
CPT/HCPCS: 36415; 36416; 51701; 70450; 70551; 71045; 72125; 72170; 80048; 80053; 80061; 81001; 82550; 83036; 83605; 83880; 84484; 85025; 87077; 87086; 87186; 87635; 93306; 94640; 96372; 96374; 96375; G0378; J0694; J0696; J1815; J2060; J3486; J3490; J7042; J7620; U0003; U0005

== ENCOUNTER 2021-04-23 10:10 | Inpatient (IN) | payer MEDICARE, MEDICAID ==
[2021-04-23 10:36] LABS: #Basophils 0.1 thou/uL (0.0-0.2); #Eosinphils 0.6 thou/uL (0.0-0.7); #Lymphocytes 2.8 thou/uL (1.20-3.40); #Monocytes 0.8 thou/uL (0.11-0.59); #Neutrophils 8.8 thou/uL (1.40-6.50); %Basophils 0.4 % (0.0-1.0); %Eosinophils 4.4 % (0.0-10.0); %Lymphocytes 21.8 % (21.0-51.0); %Monocytes 5.8 % (0.0-10.0); %Neutrophils 67.7 % (42.0-75.0); Hemoglobin 17.9 g/dL (14.0-18.0); Mean Corpuscular HGB CONC 32.6 g/dL (32.0-36.0); Mean Corpuscular Hemoglobin 28.6 pg (27.0-31.0); Mean Corpuscular Volume 87.7 fL (78.0-98.0); Mean Platelet Volume 8.8 fL (7.4-10.4); Platelet Count 223 thou/uL (130-400); RBC Distribution Width 12.2 % (11.5-14.5); Red Blood Cell (RBC) Count 6.26 mill/uL (4.70-6.10)
[2021-04-23] MEDS ORDERED: Iopamidol-370 76% 500 ML 1 ML ONE (10:41)
[2021-04-23 10:43] LABS: Prothrombin Time 12.9 sec (12.0-14.7)
[2021-04-23 10:44] LABS: PTT 31.4 sec (22.9-36.1)
[2021-04-23 10:57] LABS: ALT (SGPT) Less than 7 U/L (8-55); AST (SGOT) 13 U/L (5-34); Albumin 3.9 g/dL (3.4-4.8); Alkaline Phosphatase 141 U/L (40-110); Anion Gap 17 mmol/L (10-20); BUN (Urea Nitrogen) 16 mg/dL (8.4-25.7); Bilirubin, Total 0.8 mg/dL (0.2-1.2); CK (CPK) 41 U/L (30-200); Calc. Creatinine Clearance 0 mL/min (70-130); Calcium 9.6 mg/dL (7.8-10.44); Carbon Dioxide 24 mmol/L (23-31); Chloride 101 mmol/L (98-107); Globulin 4.5 g/dL (2.4-3.5); Glucose 397 mg/dL (83-110); Potassium 4.3 mmol/L (3.5-5.1); Protein, Total 8.4 g/dL (5.8-8.1); Sodium 138 mmol/L (136-145)
[2021-04-23] MEDS ORDERED: Cefepime 1 GM VIAL ONE (11:57)
[2021-04-23] MEDS ORDERED: Vancomycin 1 GM/200 ML BAG ONE (12:03)
[2021-04-23 12:31] LABS: Bilirubin Negative (Negative); Blood, Urine 2+ (Negative); Clarity Extra Turbid (Clear); Glucose, Urine (Dipstick) Greater than 1000 mg/dL (Negative); Ketone, Urine Trace mg/dL (Negative); Leukocyte 500 Leu/uL (Negative); Nitrite Negative (Negative); Protein, Urine (Dipstick) 30 mg/dL (Neg-Trace); RBC/HPF 21-50 HPF (0-3); Specific Gravity, Urine 1.038 (1.002-1.036); Squamous Epithelial 0-3 HPF (0-3); Urobilinogen Normal mg/dL (Less than 2); WBC/HPF Greater than 50 HPF (0-3); pH, Urine 6.5 (5.0-9.0)
[2021-04-23 12:38] LABS: Bacteria/HPF 4+ HPF (None Seen)
[2021-04-23 13:53] LABS: Lactic Acid 1.5 mmol/L (0.5-2.2)
[2021-04-23] MEDS ORDERED: Dextrose 50% Abboject 50 ML SYRINGE SLOW IVP PRN (15:02)
[2021-04-23] MEDS ORDERED: Acetaminophen 325 MG TAB PO PRN (15:02)
[2021-04-23] MEDS ORDERED: Senokot S 8.6-50 MG TAB PO PRN (15:02)
[2021-04-23] MEDS ORDERED: Dextrose 5% in Water 1,000 ML IV PRN (15:02)
[2021-04-23] MEDS ORDERED: Ondansetron ODT 4 MG TAB PO PRN (15:02)
[2021-04-23] MEDS ORDERED: Sodium Chloride 0.9% 1,000 ML IV SCH (15:15)
[2021-04-23 16:08] VITALS: BMI 28.5
[2021-04-23] MEDS: HumaLOG 300 UNITS/3 ML VIAL SC PRN (16:52)
[2021-04-23] MEDS: Simvastatin 10 MG TAB PO SCH (19:45)
[2021-04-23] MEDS: Cefepime 1 GM in Sodium Chloride 0.9% 100 ML IVPB SCH (22:58)
[2021-04-23 23:48] LABS: SARS-CoV-2 PCR by NAA Not Detected (NotDetected)
[2021-04-24 07:20] LABS: Anion Gap 13 mmol/L (10-20); BUN (Urea Nitrogen) 11 mg/dL (8.4-25.7); Calc. Creatinine Clearance 44 mL/min (70-130); Carbon Dioxide 26 mmol/L (23-31); Chloride 105 mmol/L (98-107); Glucose 221 mg/dL (83-110); Potassium 3.6 mmol/L (3.5-5.1); Sodium 140 mmol/L (136-145)
[2021-04-24 07:26] LABS: #Eosinphils 0.4 thou/uL (0.0-0.7); #Lymphocytes 2.5 thou/uL (1.20-3.40); #Monocytes 0.6 thou/uL (0.11-0.59); #Neutrophils 4.3 thou/uL (1.40-6.50); %Basophils 0.6 % (0.0-1.0); %Eosinophils 5.3 % (0.0-10.0); %Lymphocytes 31.4 % (21.0-51.0); %Monocytes 7.7 % (0.0-10.0); %Neutrophils 54.9 % (42.0-75.0); Hemoglobin 16.5 g/dL (14.0-18.0); Mean Corpuscular HGB CONC 34.2 g/dL (32.0-36.0); Mean Corpuscular Hemoglobin 29.6 pg (27.0-31.0); Mean Corpuscular Volume 86.5 fL (78.0-98.0); Platelet Count 197 thou/uL (130-400); Red Blood Cell (RBC) Count 5.59 mill/uL (4.70-6.10); White Blood Cell (WBC) Count 7.8 thou/uL (4.8-10.8)
[2021-04-24] MEDS: Enoxaparin Sodium 40 MG/0.4 ML SYRINGE SC SCH (09:05)
[2021-04-24] MEDS: Aspirin Chewable 81 MG TAB PO SCH (09:06)
[2021-04-24] MEDS ORDERED: Vancomycin 1 GM in Premix Bag 1 BAG IVPB SCH (12:00)
[2021-04-24] MEDS: Cefepime 1 GM in Sodium Chloride 0.9% 100 ML IVPB SCH ×2 (12:29→23:12)
[2021-04-24] MEDS: HumaLOG 300 UNITS/3 ML VIAL SC PRN ×3 (12:29→23:06)
[2021-04-24] MEDS ORDERED: Vancomycin 1 GM, Admixture Fee 1 EACH in Premix Bag 1 BAG IVPB SCH (13:00)
[2021-04-24 13:20] LABS: Vancomycin, Random 5.4 ug/mL (See Comment)
[2021-04-24] MEDS ORDERED: Vancomycin HCl 750 MG in Sodium Chloride 0.9% 250 ML 250 ML IVPB SCH (17:00)
[2021-04-24] MEDS: Simvastatin 10 MG TAB PO SCH (20:16)
[2021-04-25] MEDS: HumaLOG 300 UNITS/3 ML VIAL SC PRN ×3 (06:29→16:25)
[2021-04-25 07:03] LABS: #Eosinphils 0.7 thou/uL (0.0-0.7); #Lymphocytes 2.7 thou/uL (1.20-3.40); #Monocytes 0.8 thou/uL (0.11-0.59); #Neutrophils 4.3 thou/uL (1.40-6.50); %Basophils 0.5 % (0.0-1.0); %Eosinophils 8.6 % (0.0-10.0); %Lymphocytes 31.4 % (21.0-51.0); %Monocytes 9.6 % (0.0-10.0); %Neutrophils 49.9 % (42.0-75.0); Hemoglobin 17.2 g/dL (14.0-18.0); Mean Corpuscular HGB CONC 34.6 g/dL (32.0-36.0); Mean Corpuscular Hemoglobin 29.7 pg (27.0-31.0); Mean Corpuscular Volume 85.7 fL (78.0-98.0); Mean Platelet Volume 8.7 fL (7.4-10.4); Platelet Count 211 thou/uL (130-400); RBC Distribution Width 11.9 % (11.5-14.5); Red Blood Cell (RBC) Count 5.78 mill/uL (4.70-6.10); White Blood Cell (WBC) Count 8.6 thou/uL (4.8-10.8)
[2021-04-25 07:23] LABS: Anion Gap 12 mmol/L (10-20); BUN (Urea Nitrogen) 13 mg/dL (8.4-25.7); Calc. Creatinine Clearance 49 mL/min (70-130); Calcium 9.1 mg/dL (7.8-10.44); Carbon Dioxide 27 mmol/L (23-31); Chloride 104 mmol/L (98-107); Glucose 200 mg/dL (83-110); Potassium 3.3 mmol/L (3.5-5.1); Sodium 140 mmol/L (136-145)
[2021-04-25] MEDS: Aspirin Chewable 81 MG TAB PO SCH (08:28)
[2021-04-25] MEDS: Enoxaparin Sodium 40 MG/0.4 ML SYRINGE SC SCH (08:28)
[2021-04-25] MEDS: Cefepime 1 GM in Sodium Chloride 0.9% 100 ML IVPB SCH ×2 (11:21→23:52)
[2021-04-25] MEDS ORDERED: FLU VACC QS2021-22(65YR UP)/PF 240 MCG/0.7 ML SYRINGE IM ONE (16:45)
[2021-04-25] MEDS: Simvastatin 10 MG TAB PO SCH (22:10)
[2021-04-26] MEDS: Aspirin Chewable 81 MG TAB PO SCH (09:27)
[2021-04-26] MEDS: Enoxaparin Sodium 40 MG/0.4 ML SYRINGE SC SCH (09:28)
[2021-04-26] MEDS: Cefepime 1 GM in Sodium Chloride 0.9% 100 ML IVPB SCH (12:48)
[2021-04-26] MEDS: HumaLOG 300 UNITS/3 ML VIAL SC PRN ×2 (12:53→20:03)
[2021-04-26] MEDS: Simvastatin 10 MG TAB PO SCH (20:02)
[2021-04-26 20:49] VITALS: BP 138/81; TEMP 97
== END 2021-04-26 21:09 | DRG 871 ==
LOC: ERS 10:10 → T4-A 13:48
PROVIDERS: ADMIT Internal Medicine; ATTEND Internal Medicine
DX: A41.9 Sepsis, unspecified organism (principal); G93.41 Metabolic encephalopathy; N17.9 Acute kidney failure, unspecified; N30.00 Acute cystitis without hematuria; E78.5 Hyperlipidemia, unspecified; E11.22 Type 2 diabetes mellitus with diabetic chronic kidney disease; I12.9 Hypertensive chronic kidney disease with stage 1 through stage 4 chronic kidney disease, or unspecified chronic kidney disease; J44.9 Chronic obstructive pulmonary disease, unspecified; N40.0 Benign prostatic hyperplasia without lower urinary tract symptoms; K21.9 Gastro-esophageal reflux disease without esophagitis; F20.9 Schizophrenia, unspecified; E86.0 Dehydration; R29.6 Repeated falls; N18.30 Chronic kidney disease, stage 3 unspecified; Z20.822 Contact with and (suspected) exposure to COVID-19; B96.20 Unspecified Escherichia coli [E. coli] as the cause of diseases classified elsewhere; F03.90 Unspecified dementia, unspecified severity, without behavioral disturbance, psychotic disturbance, mood disturbance, and anxiety; Z79.82 Long term (current) use of aspirin; Z79.4 Long term (current) use of insulin; Z79.899 Other long term (current) drug therapy; Z90.49 Acquired absence of other specified parts of digestive tract; Z98.890 Other specified postprocedural states; Z86.73 Personal history of transient ischemic attack (TIA), and cerebral infarction without residual deficits
CPT/HCPCS: 36415; 36416; 70450; 70496; 70498; 71045; 80048; 80202; 81003; 81015; 82550; 83605; 84484; 85025; 85610; 85730; 87040; 87077; 87086; 87186; 90471; 90662; 93005; G0008; J0692; J1650; J1815; J3370; J3490; J7050; Q9967; U0003; U0005

== ENCOUNTER 2021-06-13 17:09 | Inpatient (IN) | payer MEDICARE, MEDICAID ==
[2021-06-13] MEDS ORDERED: Acetaminophen 500 MG TAB ONE ×2 (17:34→17:36)
[2021-06-13] MEDS ORDERED: cefTRIAXone\\ROCEPHIN 1 GM VIAL ONE ×2 (17:34→17:35)
[2021-06-13 18:00] LABS: #Eosinphils 1.1 thou/uL (0.0-0.7); #Lymphocytes 2.1 thou/uL (1.20-3.40); #Monocytes 0.7 thou/uL (0.11-0.59); #Neutrophils 9.3 thou/uL (1.40-6.50); %Basophils 0.1 % (0.0-1.0); %Eosinophils 8.3 % (0.0-10.0); %Lymphocytes 15.9 % (21.0-51.0); %Monocytes 5.6 % (0.0-10.0); %Neutrophils 70.1 % (42.0-75.0); Hemoglobin 17.8 g/dL (14.0-18.0); Mean Corpuscular HGB CONC 34.5 g/dL (32.0-36.0); Mean Corpuscular Hemoglobin 30.9 pg (27.0-31.0); Mean Corpuscular Volume 89.5 fL (78.0-98.0); Mean Platelet Volume 9.2 fL (7.4-10.4); Platelet Count 220 thou/uL (130-400); RBC Distribution Width 12.4 % (11.5-14.5); Red Blood Cell (RBC) Count 5.77 mill/uL (4.70-6.10); White Blood Cell (WBC) Count 13.3 thou/uL (4.8-10.8)
[2021-06-13 18:20] LABS: ALT (SGPT) 11 U/L (8-55); AST (SGOT) 24 U/L (5-34); Albumin 4.1 g/dL (3.4-4.8); Alkaline Phosphatase 137 U/L (40-110); Anion Gap 15 mmol/L (10-20); BUN (Urea Nitrogen) 17 mg/dL (8.4-25.7); Bilirubin, Total 0.7 mg/dL (0.2-1.2); Calc. Creatinine Clearance 0 mL/min (70-130); Calcium 9.6 mg/dL (7.8-10.44); Carbon Dioxide 26 mmol/L (23-31); Chloride 104 mmol/L (98-107); Globulin 4.8 g/dL (2.4-3.5); Glucose 175 mg/dL (83-110); Potassium 4.7 mmol/L (3.5-5.1); Protein, Total 8.9 g/dL (5.8-8.1); Sodium 140 mmol/L (136-145)
[2021-06-13] MEDS ORDERED: Azithromycin 500 MG VIAL ONE (18:36)
[2021-06-13 19:16] LABS: SARS-CoV-2 NAA Rapid Test Not Detected (NotDetected)
[2021-06-13] MEDS ORDERED: Bisacodyl 5 MG TAB PO PRN (19:47)
[2021-06-13] MEDS ORDERED: Ondansetron PF 4 MG/2 ML Vial IVP PRN (19:47)
[2021-06-13] MEDS ORDERED: Senokot S 8.6-50 MG TAB PO PRN (19:47)
[2021-06-13] MEDS ORDERED: HYDROcodone/Acetaminophen 5/325 mg Tablet PO PRN (19:47)
[2021-06-13] MEDS ORDERED: HumaLOG 300 UNITS/3 ML VIAL SC PRN ×2 (19:55)
[2021-06-13] MEDS ORDERED: Dextrose 5% in Water 1,000 ML IV PRN (19:55)
[2021-06-13] MEDS ORDERED: Dextrose 50% Abboject 50 ML SYRINGE SLOW IVP PRN (19:55)
[2021-06-13] MEDS ORDERED: Enoxaparin Sodium 40 MG/0.4 ML SYRINGE SC SCH (21:00)
[2021-06-13 21:17] LABS: Lactic Acid 1.6 mmol/L (0.5-2.2)
[2021-06-13 22:01] LABS: Bacteria/HPF 4+ HPF (None Seen); Bilirubin Negative (Negative); Blood, Urine 1+ (Negative); Clarity Turbid (Clear); Glucose, Urine (Dipstick) 30 mg/dL (Negative); Ketone, Urine Negative (Negative); Leukocyte 500 Leu/uL (Negative); Nitrite Negative (Negative); Protein, Urine (Dipstick) 20 mg/dL (Neg-Trace); Specific Gravity, Urine 1.016 (1.002-1.036); Squamous Epithelial None Seen HPF (0-3); Urobilinogen Normal mg/dL (Less than 2); WBC/HPF Greater than 50 HPF (0-3)
[2021-06-13] MEDS: Sodium Chloride 0.9% 1,000 ML IV SCH (22:03)
[2021-06-13] MEDS: Famotidine/PF 20 mg/2ml Vial SLOW IVP SCH (22:07)
[2021-06-13 22:44] VITALS: BMI 24.7
[2021-06-14] MEDS: Acetaminophen 325 MG TAB PO PRN ×2 (01:04→05:22)
[2021-06-14] MEDS: Guaifenesin DM 100-10/5 ML UDCUP PO PRN (01:04)
[2021-06-14] MEDS ORDERED: Sodium Chloride 0.9% 500 ML IV SCH (02:30)
[2021-06-14] MEDS ORDERED: Ibuprofen 100 MG/5 ML UDCUP PO SCH (02:45)
[2021-06-14 04:41] LABS: #Eosinphils 0.1 thou/uL (0.0-0.7); #Lymphocytes 0.3 thou/uL (1.20-3.40); #Monocytes 0.1 thou/uL (0.11-0.59); #Neutrophils 11.5 thou/uL (1.40-6.50); %Basophils 0.1 % (0.0-1.0); %Eosinophils 0.9 % (0.0-10.0); %Lymphocytes 2.8 % (21.0-51.0); %Neutrophils 95.2 % (42.0-75.0); Hemoglobin 15.5 g/dL (14.0-18.0); Mean Corpuscular HGB CONC 34.5 g/dL (32.0-36.0); Mean Corpuscular Hemoglobin 30.9 pg (27.0-31.0); Mean Corpuscular Volume 89.6 fL (78.0-98.0); Mean Platelet Volume 8.4 fL (7.4-10.4); Platelet Count 137 thou/uL (130-400); RBC Distribution Width 12.3 % (11.5-14.5); Red Blood Cell (RBC) Count 5.04 mill/uL (4.70-6.10); White Blood Cell (WBC) Count 12.1 thou/uL (4.8-10.8)
[2021-06-14 05:04] LABS: Lactic Acid 2.6 mmol/L (0.5-2.2)
[2021-06-14 06:07] LABS: ALT (SGPT) 34 U/L (8-55); AST (SGOT) 84 U/L (5-34); Alkaline Phosphatase 157 U/L (40-110); Anion Gap 15 mmol/L (10-20); BUN (Urea Nitrogen) 15 mg/dL (8.4-25.7); Bilirubin, Total 1.2 mg/dL (0.2-1.2); Calc. Creatinine Clearance 45 mL/min (70-130); Calcium 8.3 mg/dL (7.8-10.44); Carbon Dioxide 19 mmol/L (23-31); Chloride 109 mmol/L (98-107); Globulin 3.6 g/dL (2.4-3.5); Glucose 154 mg/dL (83-110); Potassium 3.2 mmol/L (3.5-5.1); Protein, Total 6.6 g/dL (5.8-8.1); Sodium 140 mmol/L (136-145)
[2021-06-14] MEDS ORDERED: Potassium Chloride 20 MEQ TAB PO SCH (07:45)
[2021-06-14] MEDS: Divalproex Sodium 125 mg Sprinkle Capsule PO SCH (08:41)
[2021-06-14] MEDS: Aspirin Chewable 81 MG TAB PO SCH (08:41)
[2021-06-14] MEDS: Docusate 100 MG CAP PO SCH (08:41)
[2021-06-14] MEDS: Enoxaparin Sodium 40 MG/0.4 ML SYRINGE SC SCH (08:42)
[2021-06-14] MEDS: Sodium Chloride 0.9% 1,000 ML IV SCH ×2 (08:42→15:35)
[2021-06-14 09:28] LABS: Lactic Acid 3.1 mmol/L (0.5-2.2)
[2021-06-14] MEDS: cefTRIAXone\\ROCEPHIN 2 GM in Sodium Chloride 0.9% 100 ML IVPB SCH (15:35)
[2021-06-14] MEDS: Azithromycin 500 MG in Sodium Chloride 0.9% 250 ML 250 ML IVPB SCH (17:12)
[2021-06-14] MEDS: Famotidine/PF 20 mg/2ml Vial SLOW IVP SCH (20:41)
[2021-06-14] MEDS: Simvastatin 10 MG TAB PO SCH (20:43)
[2021-06-14] MEDS: Mirtazapine 15 MG TAB PO SCH (20:43)
[2021-06-14] MEDS: Gabapentin 100 MG CAP PO SCH (20:43)
[2021-06-15] MEDS: Sodium Chloride 0.9% 1,000 ML IV SCH ×3 (02:48→15:01)
[2021-06-15 07:17] LABS: Hemoglobin 14.2 g/dL (14.0-18.0); Mean Corpuscular HGB CONC 33.2 g/dL (32.0-36.0); Mean Corpuscular Hemoglobin 30.6 pg (27.0-31.0); Mean Corpuscular Volume 92.3 fL (78.0-98.0); Platelet Count 126 thou/uL (130-400); RBC Distribution Width 12.7 % (11.5-14.5); Red Blood Cell (RBC) Count 4.64 mill/uL (4.70-6.10)
[2021-06-15 07:19] LABS: Anion Gap 10 mmol/L (10-20); BUN (Urea Nitrogen) 21 mg/dL (8.4-25.7); Calc. Creatinine Clearance 44 mL/min (70-130); Calcium 7.9 mg/dL (7.8-10.44); Carbon Dioxide 22 mmol/L (23-31); Chloride 114 mmol/L (98-107); Glucose 127 mg/dL (83-110); Potassium 4.1 mmol/L (3.5-5.1); Sodium 142 mmol/L (136-145)
[2021-06-15 07:57] LABS: Band 27 % (5-11); Eosinophils 1 % (0-10); Lymphocytes 4 % (21-51); MDiff Complete? YES; Mean Platelet Volume 9.3 fL (7.4-10.4); Monocytes 3 % (0-10); Neutrophil 64 % (42-75); Platelet Morphology Comment Appears Adequate; White Blood Cell (WBC) Count 24.2 thou/uL (4.8-10.8)
[2021-06-15] MEDS: Divalproex Sodium 125 mg Sprinkle Capsule PO SCH (08:44)
[2021-06-15] MEDS: Aspirin Chewable 81 MG TAB PO SCH (08:44)
[2021-06-15] MEDS: Docusate 100 MG CAP PO SCH (08:44)
[2021-06-15] MEDS: Enoxaparin Sodium 40 MG/0.4 ML SYRINGE SC SCH (08:45)
[2021-06-15 15:21] LABS: Lactic Acid 2.5 mmol/L (0.5-2.2)
[2021-06-15] MEDS: cefTRIAXone\\ROCEPHIN 2 GM in Sodium Chloride 0.9% 100 ML IVPB SCH (16:20)
[2021-06-15] MEDS: Azithromycin 500 MG in Sodium Chloride 0.9% 250 ML 250 ML IVPB SCH (17:51)
[2021-06-15] MEDS: Gabapentin 100 MG CAP PO SCH (21:03)
[2021-06-15] MEDS: Mirtazapine 15 MG TAB PO SCH (21:04)
[2021-06-15] MEDS: Simvastatin 10 MG TAB PO SCH (21:04)
[2021-06-15] MEDS: Famotidine/PF 20 mg/2ml Vial SLOW IVP SCH (21:05)
[2021-06-16] MEDS: Sodium Chloride 0.9% 1,000 ML IV SCH ×2 (05:27→17:54)
[2021-06-16 06:49] LABS: #Eosinphils 0.2 thou/uL (0.0-0.7); #Lymphocytes 2.9 thou/uL (1.20-3.40); #Neutrophils 14.7 thou/uL (1.40-6.50); %Eosinophils 1.2 % (0.0-10.0); %Lymphocytes 15.5 % (21.0-51.0); %Monocytes 5.3 % (0.0-10.0); Hemoglobin 15.6 g/dL (14.0-18.0); Mean Corpuscular HGB CONC 34.2 g/dL (32.0-36.0); Mean Corpuscular Hemoglobin 31.1 pg (27.0-31.0); Mean Corpuscular Volume 90.9 fL (78.0-98.0); Mean Platelet Volume 9.2 fL (7.4-10.4); Platelet Count 145 thou/uL (130-400); RBC Distribution Width 12.3 % (11.5-14.5); Red Blood Cell (RBC) Count 5.01 mill/uL (4.70-6.10); White Blood Cell (WBC) Count 18.8 thou/uL (4.8-10.8)
[2021-06-16 07:12] LABS: ALT (SGPT) 27 U/L (8-55); AST (SGOT) 48 U/L (5-34); Albumin 3.2 g/dL (3.4-4.8); Alkaline Phosphatase 121 U/L (40-110); Anion Gap 16 mmol/L (10-20); BUN (Urea Nitrogen) 16 mg/dL (8.4-25.7); Bilirubin, Total 0.8 mg/dL (0.2-1.2); Calc. Creatinine Clearance 50 mL/min (70-130); Carbon Dioxide 21 mmol/L (23-31); Chloride 110 mmol/L (98-107); Globulin 4.3 g/dL (2.4-3.5); Glucose 121 mg/dL (83-110); Potassium 3.7 mmol/L (3.5-5.1); Protein, Total 7.5 g/dL (5.8-8.1); Sodium 143 mmol/L (136-145)
[2021-06-16] MEDS: Aspirin Chewable 81 MG TAB PO SCH (08:25)
[2021-06-16] MEDS: Divalproex Sodium 125 mg Sprinkle Capsule PO SCH (08:25)
[2021-06-16] MEDS: Docusate 100 MG CAP PO SCH (08:26)
[2021-06-16] MEDS: Enoxaparin Sodium 40 MG/0.4 ML SYRINGE SC SCH (08:26)
[2021-06-16] MEDS ORDERED: Piperacillin/Tazobactam 3.375 GM in Sodium Chloride 0.9% 100 ML IVPB SCH ×2 (08:45→10:00)
[2021-06-16] MEDS: Piperacillin/Tazobactam 3.375 GM in Sodium Chloride 0.9% 100 ML IVPB SCH ×2 (14:10→21:12)
[2021-06-16] MEDS ORDERED: Sodium Chloride 0.9% 1,000 ML IV SCH (17:45)
[2021-06-16] MEDS: Famotidine/PF 20 mg/2ml Vial SLOW IVP SCH (20:15)
[2021-06-16] MEDS: Mirtazapine 15 MG TAB PO SCH (20:15)
[2021-06-16] MEDS: Gabapentin 100 MG CAP PO SCH (20:15)
[2021-06-16] MEDS: Simvastatin 10 MG TAB PO SCH (20:15)
[2021-06-16] MEDS: hydrALAZINE 20 MG/ML VIAL SLOW IVP PRN (22:25)
[2021-06-17] MEDS: Piperacillin/Tazobactam 3.375 GM in Sodium Chloride 0.9% 100 ML IVPB SCH ×3 (05:24→21:37)
[2021-06-17] MEDS: Sodium Chloride 0.9% 1,000 ML IV SCH ×2 (05:32→17:13)
[2021-06-17 05:37] LABS: #Eosinphils 0.2 thou/uL (0.0-0.7); #Lymphocytes 2.6 thou/uL (1.20-3.40); #Monocytes 0.6 thou/uL (0.11-0.59); #Neutrophils 9.1 thou/uL (1.40-6.50); %Basophils 0.4 % (0.0-1.0); %Eosinophils 1.4 % (0.0-10.0); %Lymphocytes 20.6 % (21.0-51.0); %Monocytes 4.9 % (0.0-10.0); %Neutrophils 72.8 % (42.0-75.0); Hemoglobin 16.1 g/dL (14.0-18.0); Mean Corpuscular HGB CONC 34.4 g/dL (32.0-36.0); Mean Corpuscular Hemoglobin 30.3 pg (27.0-31.0); Mean Corpuscular Volume 87.9 fL (78.0-98.0); Mean Platelet Volume 8.5 fL (7.4-10.4); Platelet Count 167 thou/uL (130-400); RBC Distribution Width 12.2 % (11.5-14.5); Red Blood Cell (RBC) Count 5.32 mill/uL (4.70-6.10); White Blood Cell (WBC) Count 12.5 thou/uL (4.8-10.8)
[2021-06-17 05:53] LABS: Anion Gap 14 mmol/L (10-20); BUN (Urea Nitrogen) 13 mg/dL (8.4-25.7); Calc. Creatinine Clearance 57 mL/min (70-130); Calcium 8.9 mg/dL (7.8-10.44); Carbon Dioxide 19 mmol/L (23-31); Chloride 109 mmol/L (98-107); Glucose 114 mg/dL (83-110); Potassium 3.4 mmol/L (3.5-5.1); Sodium 139 mmol/L (136-145)
[2021-06-17] MEDS: Divalproex Sodium 125 mg Sprinkle Capsule PO SCH ×2 (08:06→09:35)
[2021-06-17] MEDS: Aspirin Chewable 81 MG TAB PO SCH ×2 (08:06→09:34)
[2021-06-17] MEDS: Docusate 100 MG CAP PO SCH ×2 (08:06→09:36)
[2021-06-17] MEDS: Enoxaparin Sodium 40 MG/0.4 ML SYRINGE SC SCH ×2 (08:06→09:36)
[2021-06-17] MEDS: Gabapentin 100 MG CAP PO SCH (20:13)
[2021-06-17] MEDS: Famotidine/PF 20 mg/2ml Vial SLOW IVP SCH (20:13)
[2021-06-17] MEDS: Mirtazapine 15 MG TAB PO SCH (20:14)
[2021-06-17] MEDS: Simvastatin 10 MG TAB PO SCH (20:18)
[2021-06-18] MEDS: Piperacillin/Tazobactam 3.375 GM in Sodium Chloride 0.9% 100 ML IVPB SCH ×3 (06:34→22:16)
[2021-06-18] MEDS: Sodium Chloride 0.9% 1,000 ML IV SCH ×2 (06:37→20:35)
[2021-06-18] MEDS: Docusate 100 MG CAP PO SCH (08:13)
[2021-06-18] MEDS: Enoxaparin Sodium 40 MG/0.4 ML SYRINGE SC SCH (08:13)
[2021-06-18] MEDS: Aspirin Chewable 81 MG TAB PO SCH (08:13)
[2021-06-18] MEDS: Divalproex Sodium 125 mg Sprinkle Capsule PO SCH (08:14)
[2021-06-18] MEDS: Simvastatin 10 MG TAB PO SCH (20:31)
[2021-06-18] MEDS: Mirtazapine 15 MG TAB PO SCH (20:31)
[2021-06-18] MEDS: Gabapentin 100 MG CAP PO SCH (20:31)
[2021-06-18] MEDS: Famotidine/PF 20 mg/2ml Vial SLOW IVP SCH (20:31)
[2021-06-18] MEDS: hydrALAZINE 20 MG/ML VIAL SLOW IVP PRN (20:34)
[2021-06-18] MEDS: Guaifenesin DM 100-10/5 ML UDCUP PO PRN (20:35)
[2021-06-19] MEDS: Piperacillin/Tazobactam 3.375 GM in Sodium Chloride 0.9% 100 ML IVPB SCH ×2 (06:44→12:06)
[2021-06-19] MEDS: Aspirin Chewable 81 MG TAB PO SCH (08:26)
[2021-06-19] MEDS: Docusate 100 MG CAP PO SCH (08:26)
[2021-06-19] MEDS: Enoxaparin Sodium 40 MG/0.4 ML SYRINGE SC SCH (08:26)
[2021-06-19] MEDS: Divalproex Sodium 125 mg Sprinkle Capsule PO SCH (08:26)
[2021-06-19] MEDS: Sodium Chloride 0.9% 1,000 ML IV SCH (08:26)
[2021-06-19 08:53] VITALS: TEMP 97.5
[2021-06-19] MEDS ORDERED: Amlodipine 5 MG TAB PO SCH (11:45)
[2021-06-19] MEDS: hydrALAZINE 20 MG/ML VIAL SLOW IVP PRN (14:04)
[2021-06-19 15:25] VITALS: BP 175/82
[2021-06-20] MEDS ORDERED: Amlodipine 5 MG TAB PO SCH (09:00)
== END 2021-06-19 18:35 | DRG 871 ==
LOC: ERS 17:09 → T4-B 18:58
PROVIDERS: ADMIT Internal Medicine; ATTEND Internal Medicine Geriatric Medicine
DX: A41.59 Other Gram-negative sepsis (principal); J18.9 Pneumonia, unspecified organism; J96.01 Acute respiratory failure with hypoxia; G93.41 Metabolic encephalopathy; J44.0 Chronic obstructive pulmonary disease with (acute) lower respiratory infection; Z16.19 Resistance to other specified beta lactam antibiotics; Z16.29 Resistance to other single specified antibiotic; Z16.11 Resistance to penicillins; E87.2 Acidosis; Z20.822 Contact with and (suspected) exposure to COVID-19; N30.90 Cystitis, unspecified without hematuria; R65.20 Severe sepsis without septic shock; N40.0 Benign prostatic hyperplasia without lower urinary tract symptoms; I10 Essential (primary) hypertension; F03.90 Unspecified dementia, unspecified severity, without behavioral disturbance, psychotic disturbance, mood disturbance, and anxiety; R13.10 Dysphagia, unspecified; K21.9 Gastro-esophageal reflux disease without esophagitis; E87.6 Hypokalemia; N18.30 Chronic kidney disease, stage 3 unspecified; I12.9 Hypertensive chronic kidney disease with stage 1 through stage 4 chronic kidney disease, or unspecified chronic kidney disease; E11.22 Type 2 diabetes mellitus with diabetic chronic kidney disease; Z98.890 Other specified postprocedural states
CPT/HCPCS: 0240U; 36415; 36416; 71045; 80048; 80053; 81003; 81015; 83605; 83880; 84484; 85025; 87040; 87077; 87086; 87186; 93005; 94640; 96365; 96375; J0360; J0456; J0696; J1650; J2543; J3490; J7030; J7050; J7620; S0028

== ENCOUNTER 2021-07-01 15:05 | Inpatient (IN) | payer MEDICARE, MEDICAID ==
[2021-07-01 16:08] LABS: #Basophils 0.1 thou/uL (0.0-0.2); #Eosinphils 0.2 thou/uL (0.0-0.7); #Lymphocytes 1.6 thou/uL (1.20-3.40); #Monocytes 0.7 thou/uL (0.11-0.59); #Neutrophils 7.4 thou/uL (1.40-6.50); %Basophils 0.6 % (0.0-1.0); %Eosinophils 2.5 % (0.0-10.0); %Lymphocytes 16.3 % (21.0-51.0); %Monocytes 6.5 % (0.0-10.0); %Neutrophils 74.2 % (42.0-75.0); Hemoglobin 18.9 g/dL (14.0-18.0); Mean Corpuscular HGB CONC 34.6 g/dL (32.0-36.0); Mean Corpuscular Hemoglobin 31.4 pg (27.0-31.0); Mean Corpuscular Volume 90.7 fL (78.0-98.0); Mean Platelet Volume 9.2 fL (7.4-10.4); Platelet Count 271 thou/uL (130-400); RBC Distribution Width 13.2 % (11.5-14.5); Red Blood Cell (RBC) Count 6.02 mill/uL (4.70-6.10)
[2021-07-01 16:19] LABS: Bilirubin 1+ (Negative); Blood, Urine Trace (Negative); Clarity Turbid (Clear); Glucose, Urine (Dipstick) Normal (Negative); Ketone, Urine 20 mg/dL (Negative); Leukocyte 500 Leu/uL (Negative); Nitrite Negative (Negative); Protein, Urine (Dipstick) 50 mg/dL (Neg-Trace); RBC/HPF 0-3 HPF (0-3); Specific Gravity, Urine 1.023 (1.002-1.036); Squamous Epithelial 0-3 HPF (0-3); WBC/HPF 21-50 HPF (0-3)
[2021-07-01 16:20] LABS: Bacteria/HPF 1+ HPF (None Seen)
[2021-07-01] MEDS ORDERED: cefTRIAXone\\ROCEPHIN 2 GM VIAL ONE (16:30)
[2021-07-01 16:36] LABS: ALT (SGPT) 12 U/L (8-55); AST (SGOT) 25 U/L (5-34); Albumin 3.9 g/dL (3.4-4.8); Alkaline Phosphatase 131 U/L (40-110); Anion Gap 22 mmol/L (10-20); BUN (Urea Nitrogen) 34 mg/dL (8.4-25.7); Bilirubin, Total 0.8 mg/dL (0.2-1.2); Calc. Creatinine Clearance 0 mL/min (70-130); Calcium 9.4 mg/dL (7.8-10.44); Carbon Dioxide 23 mmol/L (23-31); Chloride 104 mmol/L (98-107); Globulin 4.6 g/dL (2.4-3.5); Glucose 115 mg/dL (83-110); Lipase 28 U/L (8-78); Potassium 5.1 mmol/L (3.5-5.1); Protein, Total 8.5 g/dL (5.8-8.1); Sodium 144 mmol/L (136-145)
[2021-07-01 16:58] LABS: CKMB 5.1 ng/mL (0-6.6)
[2021-07-01] MEDS ORDERED: Acetaminophen 325 MG TAB PO PRN (17:42)
[2021-07-01] MEDS ORDERED: HumaLOG 300 UNITS/3 ML VIAL SC PRN (17:46)
[2021-07-01] MEDS ORDERED: Dextrose 50% Abboject 50 ML SYRINGE SLOW IVP PRN (17:46)
[2021-07-01] MEDS ORDERED: Dextrose 5% in Water 1,000 ML IV PRN (17:46)
[2021-07-01 19:24] LABS: Troponin I Less than 0.010 ng/mL (< 0.028)
[2021-07-01 19:49] VITALS: BMI 23.6
[2021-07-01] MEDS: Sodium Chloride 0.9% 1,000 ML IV SCH (20:25)
[2021-07-01] MEDS: cefOXitin Sodium 1 GM in Sodium Chloride 0.9% 100 ML IVPB SCH (20:25)
[2021-07-01] MEDS: Heparin 5,000 UNITS/ML VIAL SC SCH (20:26)
[2021-07-01] MEDS: Divalproex Sodium 125 mg Sprinkle Capsule PO SCH (20:26)
[2021-07-02] MEDS: Divalproex Sodium 125 mg Sprinkle Capsule PO SCH ×3 (00:34→20:47)
[2021-07-02] MEDS: cefOXitin Sodium 1 GM in Sodium Chloride 0.9% 100 ML IVPB SCH ×4 (03:36→21:13)
[2021-07-02 05:36] LABS: Anion Gap 15 mmol/L (10-20); BUN (Urea Nitrogen) 26 mg/dL (8.4-25.7); Calc. Creatinine Clearance 35 mL/min (70-130); Calcium 8.6 mg/dL (7.8-10.44); Carbon Dioxide 23 mmol/L (23-31); Chloride 109 mmol/L (98-107); Glucose 103 mg/dL (83-110); Potassium 4.1 mmol/L (3.5-5.1); Sodium 143 mmol/L (136-145)
[2021-07-02] MEDS ORDERED: Lisinopril 10 MG TAB PO SCH (09:00)
[2021-07-02] MEDS ORDERED: Lisinopril 20 MG TAB PO SCH (09:00)
[2021-07-02] MEDS: Sodium Chloride 0.9% 1,000 ML IV SCH ×3 (09:18→21:22)
[2021-07-02] MEDS: Aspirin Chewable 81 MG TAB PO SCH (09:45)
[2021-07-02] MEDS: Heparin 5,000 UNITS/ML VIAL SC SCH ×3 (09:45→20:47)
[2021-07-02 13:10] LABS: SARS-CoV-2 PCR by NAA Not Detected (NotDetected)
[2021-07-02] MEDS: Simvastatin 10 MG TAB PO SCH (20:46)
[2021-07-02] MEDS: Gabapentin 100 MG CAP PO SCH (20:47)
[2021-07-02] MEDS: Mirtazapine 15 MG TAB PO SCH (20:48)
[2021-07-02] MEDS ORDERED: Pravastatin Sodium 20 MG TAB PO SCH (21:00)
[2021-07-03] MEDS: cefOXitin Sodium 1 GM in Sodium Chloride 0.9% 100 ML IVPB SCH ×4 (02:48→20:42)
[2021-07-03 08:28] LABS: #Basophils 0.1 thou/uL (0.0-0.2); #Eosinphils 0.8 thou/uL (0.0-0.7); #Lymphocytes 2.4 thou/uL (1.20-3.40); #Monocytes 0.6 thou/uL (0.11-0.59); #Neutrophils 2.3 thou/uL (1.40-6.50); %Basophils 0.8 % (0.0-1.0); %Eosinophils 13.3 % (0.0-10.0); %Monocytes 9.8 % (0.0-10.0); Hemoglobin 15.4 g/dL (14.0-18.0); Mean Corpuscular HGB CONC 33.5 g/dL (32.0-36.0); Mean Corpuscular Hemoglobin 30.5 pg (27.0-31.0); Mean Platelet Volume 8.8 fL (7.4-10.4); Platelet Count 199 thou/uL (130-400); RBC Distribution Width 12.8 % (11.5-14.5); Red Blood Cell (RBC) Count 5.05 mill/uL (4.70-6.10); White Blood Cell (WBC) Count 6.2 thou/uL (4.8-10.8)
[2021-07-03 09:12] LABS: Anion Gap 14 mmol/L (10-20); Calcium 8.1 mg/dL (7.8-10.44); Carbon Dioxide 19 mmol/L (23-31); Chloride 113 mmol/L (98-107); Glucose 102 mg/dL (83-110); Potassium 3.8 mmol/L (3.5-5.1); Sodium 142 mmol/L (136-145)
[2021-07-03 09:27] LABS: BUN (Urea Nitrogen) 12 mg/dL (8.4-25.7); Calc. Creatinine Clearance 57 mL/min (70-130)
[2021-07-03] MEDS: Aspirin Chewable 81 MG TAB PO SCH (10:23)
[2021-07-03] MEDS: Divalproex Sodium 125 mg Sprinkle Capsule PO SCH ×2 (10:23→20:43)
[2021-07-03] MEDS: Heparin 5,000 UNITS/ML VIAL SC SCH ×3 (10:24→20:42)
[2021-07-03] MEDS: Sodium Chloride 0.9% 1,000 ML IV SCH ×2 (10:26→20:54)
[2021-07-03] MEDS: Polyethylene Glycol 3350 17 GM Packet PO SCH (13:22)
[2021-07-03] MEDS: Gabapentin 100 MG CAP PO SCH (20:43)
[2021-07-03] MEDS: Simvastatin 10 MG TAB PO SCH (20:43)
[2021-07-03] MEDS: Mirtazapine 15 MG TAB PO SCH (20:43)
[2021-07-04] MEDS: cefOXitin Sodium 1 GM in Sodium Chloride 0.9% 100 ML IVPB SCH ×2 (02:57→07:48)
[2021-07-04] MEDS ORDERED: Sodium Chloride 0.9% 1,000 ML IV SCH (07:15)
[2021-07-04] MEDS: Heparin 5,000 UNITS/ML VIAL SC SCH (07:47)
[2021-07-04] MEDS: Divalproex Sodium 125 mg Sprinkle Capsule PO SCH (07:48)
[2021-07-04] MEDS: Aspirin Chewable 81 MG TAB PO SCH (07:48)
[2021-07-04] MEDS: Polyethylene Glycol 3350 17 GM Packet PO SCH (07:49)
[2021-07-04 08:25] VITALS: BP 145/82; TEMP 97.3
== END 2021-07-04 13:16 | DRG 682 ==
LOC: ERS 15:05 → 2NO 16:48 → T4-A 07-02 19:48
PROVIDERS: ADMIT Internal Medicine; ATTEND Internal Medicine
DX: N17.9 Acute kidney failure, unspecified (principal); G93.41 Metabolic encephalopathy; Z20.822 Contact with and (suspected) exposure to COVID-19; N30.00 Acute cystitis without hematuria; E87.2 Acidosis; N40.0 Benign prostatic hyperplasia without lower urinary tract symptoms; F32.A Depression, unspecified; N18.30 Chronic kidney disease, stage 3 unspecified; R79.89 Other specified abnormal findings of blood chemistry; I12.9 Hypertensive chronic kidney disease with stage 1 through stage 4 chronic kidney disease, or unspecified chronic kidney disease; J44.9 Chronic obstructive pulmonary disease, unspecified; E11.22 Type 2 diabetes mellitus with diabetic chronic kidney disease; F03.90 Unspecified dementia, unspecified severity, without behavioral disturbance, psychotic disturbance, mood disturbance, and anxiety; K21.9 Gastro-esophageal reflux disease without esophagitis; E86.0 Dehydration; Z79.82 Long term (current) use of aspirin; Z79.4 Long term (current) use of insulin; Z79.51 Long term (current) use of inhaled steroids; Z79.899 Other long term (current) drug therapy
CPT/HCPCS: 36415; 36416; 51701; 70450; 71045; 80048; 80053; 81003; 81015; 82553; 83605; 83690; 84484; 85025; 87040; 87149; 93005; 96365; J0694; J0696; J1644; J1815; J3490; J7050; U0003; U0005

== ENCOUNTER 2021-08-05 16:14 | Inpatient (IN) | payer MEDICARE, MEDICAID ==
[2021-08-05 17:06] LABS: #Eosinphils 0.4 thou/uL (0.0-0.7); #Lymphocytes 1.5 thou/uL (1.20-3.40); #Monocytes 0.7 thou/uL (0.11-0.59); #Neutrophils 10.6 thou/uL (1.40-6.50); %Basophils 0.2 % (0.0-1.0); %Lymphocytes 11.1 % (21.0-51.0); %Neutrophils 80.8 % (42.0-75.0); Hemoglobin 16.4 g/dL (14.0-18.0); Mean Corpuscular HGB CONC 33.5 g/dL (32.0-36.0); Mean Corpuscular Hemoglobin 30.8 pg (27.0-31.0); Mean Corpuscular Volume 91.9 fL (78.0-98.0); Mean Platelet Volume 8.5 fL (7.4-10.4); Platelet Count 225 thou/uL (130-400); RBC Distribution Width 12.7 % (11.5-14.5); Red Blood Cell (RBC) Count 5.32 mill/uL (4.70-6.10); White Blood Cell (WBC) Count 13.1 thou/uL (4.8-10.8)
[2021-08-05 18:38] LABS: ALT (SGPT) 10 U/L (8-55); AST (SGOT) 18 U/L (5-34); Albumin 3.5 g/dL (3.4-4.8); Alkaline Phosphatase 109 U/L (40-110); Anion Gap 20 mmol/L (10-20); BUN (Urea Nitrogen) 29 mg/dL (8.4-25.7); Bilirubin, Total 0.5 mg/dL (0.2-1.2); CK (CPK) 45 U/L (30-200); Calc. Creatinine Clearance 0 mL/min (70-130); Calcium 9.3 mg/dL (7.8-10.44); Carbon Dioxide 18 mmol/L (23-31); Chloride 108 mmol/L (98-107); Glucose 210 mg/dL (83-110); Potassium 4.2 mmol/L (3.5-5.1); Protein, Total 7.5 g/dL (5.8-8.1); Sodium 142 mmol/L (136-145)
[2021-08-05 19:25] LABS: Bilirubin Negative (Negative); Blood, Urine 3+ (Negative); Clarity Turbid (Clear); Glucose, Urine (Dipstick) 500 mg/dL (Negative); Ketone, Urine Negative (Negative); Leukocyte 500 Leu/uL (Negative); Nitrite 2+ (Negative); Protein, Urine (Dipstick) 20 mg/dL (Neg-Trace); Specific Gravity, Urine 1.021 (1.002-1.036); Squamous Epithelial 0-3 HPF (0-3); Urobilinogen Normal mg/dL (Less than 2)
[2021-08-05 19:34] LABS: Bacteria/HPF 3+ HPF (None Seen); WBC/HPF 21-50 HPF (0-3)
[2021-08-05] MEDS ORDERED: cefTRIAXone\\ROCEPHIN 1 GM VIAL ONE (20:00)
[2021-08-05 20:12] LABS: SARS-CoV-2 NAA Rapid Test Not Detected (NotDetected)
[2021-08-05] MEDS ORDERED: Acetaminophen 325 MG TAB PO PRN (22:00)
[2021-08-05] MEDS ORDERED: Ondansetron PF 4 MG/2 ML Vial IVP PRN (22:00)
[2021-08-05] MEDS ORDERED: Ondansetron ODT 4 MG TAB SL PRN (22:00)
[2021-08-05] MEDS ORDERED: Senokot S 8.6-50 MG TAB PO PRN (22:13)
[2021-08-05] MEDS ORDERED: Dextrose 50% Abboject 50 ML SYRINGE SLOW IVP PRN (22:13)
[2021-08-05] MEDS ORDERED: Dextrose 5% in Water 1,000 ML IV PRN (22:13)
[2021-08-05] MEDS ORDERED: hydrALAZINE 20 MG/ML VIAL SLOW IVP PRN (22:16)
[2021-08-05] MEDS ORDERED: GUAIFENESIN SF SOLN 200 MG/10 ML UDCUP PO PRN (22:16)
[2021-08-05] MEDS ORDERED: Ziprasidone 20 MG VIAL IM PRN (22:17)
[2021-08-05] MEDS ORDERED: Cefepime 1 GM in Sodium Chloride 0.9% 100 ML IVPB SCH (22:30)
[2021-08-05] MEDS ORDERED: Vancomycin 1 GM in Premix Bag 1 BAG IVPB SCH (22:30)
[2021-08-06] MEDS ORDERED: Cefepime 1 GM VIAL ONE (00:07)
[2021-08-06] MEDS ORDERED: Vancomycin 1 GM/200 ML BAG ONE (00:07)
[2021-08-06] MEDS: Sodium Chloride 0.9% 1,000 ML IV SCH (00:21)
[2021-08-06 00:49] VITALS: BMI 27.5
[2021-08-06] MEDS ORDERED: Vancomycin HCl 500 MG in Sodium Chloride 0.9% 100 ML IVPB SCH (01:30)
[2021-08-06 08:15] LABS: Hemoglobin 16.3 g/dL (14.0-18.0); Mean Corpuscular Hemoglobin 30.3 pg (27.0-31.0); Mean Corpuscular Volume 91.7 fL (78.0-98.0); Mean Platelet Volume 8.9 fL (7.4-10.4); Platelet Count 194 thou/uL (130-400); RBC Distribution Width 12.6 % (11.5-14.5); Red Blood Cell (RBC) Count 5.38 mill/uL (4.70-6.10); White Blood Cell (WBC) Count 20.2 thou/uL (4.8-10.8)
[2021-08-06 08:25] LABS: Albumin 3.2 g/dL (3.4-4.8)
[2021-08-06 08:27] LABS: Chloride 110 mmol/L (98-107); Potassium 4.9 mmol/L (3.5-5.1); Sodium 139 mmol/L (136-145)
[2021-08-06 08:28] LABS: Globulin 3.9 g/dL (2.4-3.5); Glucose 244 mg/dL (83-110); Protein, Total 7.1 g/dL (5.8-8.1)
[2021-08-06 08:29] LABS: Anion Gap 18 mmol/L (10-20); Carbon Dioxide 16 mmol/L (23-31)
[2021-08-06 08:31] LABS: Alkaline Phosphatase 97 U/L (40-110); Calc. Creatinine Clearance 38 mL/min (70-130)
[2021-08-06 08:32] LABS: BUN (Urea Nitrogen) 26 mg/dL (8.4-25.7)
[2021-08-06 08:33] LABS: AST (SGOT) 17 U/L (5-34)
[2021-08-06 08:34] LABS: ALT (SGPT) 10 U/L (8-55)
[2021-08-06 08:37] LABS: Bilirubin, Total 1.1 mg/dL (0.2-1.2)
[2021-08-06] MEDS: Enoxaparin Sodium 30 MG/0.3 ML SYRINGE SC SCH (08:41)
[2021-08-06] MEDS: Cefepime 1 GM in Sodium Chloride 0.9% 100 ML IVPB SCH ×2 (08:41→22:21)
[2021-08-06 09:30] LABS: Band 29 % (5-11); Lymphocytes 15 % (21-51); MDiff Complete? YES; Metamyelocyte 1 % (0-0); Monocytes 7 % (0-10); Myelocyte 1 % (0-0); Neutrophil 45 % (42-75); Platelet Morphology Comment Appears Adequate; Polychromasia SLIGHT = 2-3 cells (100X) (0-2/hpf); Reactive Lymphocytes 2 % (0-10)
[2021-08-06] MEDS: Divalproex Sodium 125 mg Sprinkle Capsule PO SCH (09:49)
[2021-08-06] MEDS ORDERED: HumaLOG 300 UNITS/3 ML VIAL ONE (11:21)
[2021-08-06] MEDS: HumaLOG 300 UNITS/3 ML VIAL SC PRN (11:29)
[2021-08-06] MEDS ORDERED: Lantus 1000 UNITS/10 ML VIAL SC SCH (18:00)
[2021-08-07] MEDS ORDERED: Morphine 4 MG/ML VIAL ONE (02:10)
[2021-08-07] MEDS: Sodium Chloride 0.9% 1,000 ML IV SCH (02:14)
[2021-08-07] MEDS ORDERED: Morphine 4 MG/ML VIAL SLOW IVP SCH (02:15)
[2021-08-07] MEDS: Vancomycin HCl 750 MG in Sodium Chloride 0.9% 250 ML 250 ML IVPB SCH ×2 (02:27→22:59)
[2021-08-07] MEDS ORDERED: Acetaminophen 650 MG Suppository PR PRN (06:02)
[2021-08-07] MEDS ORDERED: Ketorolac Tromethamine 30 MG/ML VIAL IVP SCH (06:15)
[2021-08-07] MEDS: Enoxaparin Sodium 30 MG/0.3 ML SYRINGE SC SCH (08:47)
[2021-08-07] MEDS: Divalproex Sodium 125 mg Sprinkle Capsule PO SCH (08:47)
[2021-08-07] MEDS: Cefepime 1 GM in Sodium Chloride 0.9% 100 ML IVPB SCH ×2 (08:47→20:37)
[2021-08-07 11:11] LABS: Hemoglobin 14.6 g/dL (14.0-18.0); Mean Corpuscular HGB CONC 32.7 g/dL (32.0-36.0); Mean Corpuscular Hemoglobin 30.3 pg (27.0-31.0); Mean Corpuscular Volume 92.6 fL (78.0-98.0); Mean Platelet Volume 9.4 fL (7.4-10.4); Platelet Count 155 thou/uL (130-400); RBC Distribution Width 12.9 % (11.5-14.5); Red Blood Cell (RBC) Count 4.82 mill/uL (4.70-6.10); White Blood Cell (WBC) Count 14.4 thou/uL (4.8-10.8)
[2021-08-07 11:25] LABS: Anion Gap 15 mmol/L (10-20); BUN (Urea Nitrogen) 29 mg/dL (8.4-25.7); Calc. Creatinine Clearance 36 mL/min (70-130); Calcium 8.9 mg/dL (7.8-10.44); Carbon Dioxide 21 mmol/L (23-31); Chloride 111 mmol/L (98-107); Glucose 284 mg/dL (83-110); Potassium 4.3 mmol/L (3.5-5.1); Sodium 143 mmol/L (136-145)
[2021-08-07] MEDS: HumaLOG 300 UNITS/3 ML VIAL SC PRN (12:46)
[2021-08-07] MEDS ORDERED: Amino Acids 4.25 %/Dextrose 5% 1,000 ML IV SCH (15:30)
[2021-08-07] MEDS ORDERED: Labetalol HCl 100 MG/20 ML VIAL ONE (20:30)
[2021-08-07] MEDS: Lantus 1000 UNITS/10 ML VIAL SC SCH (20:38)
[2021-08-07 23:58] LABS: Vancomycin, Trough 37.1 ug/mL
[2021-08-08] MEDS: Divalproex Sodium 125 mg Sprinkle Capsule PO SCH (08:00)
[2021-08-08] MEDS ORDERED: [UNRECOGNIZED DRUG - OTHER] IV SCH (08:30)
[2021-08-08] MEDS ORDERED: AMINO ACIDS IV SCH (08:30)
[2021-08-08] MEDS ORDERED: STERILE WATER IV SCH (08:30)
[2021-08-08] MEDS ORDERED: DEXTROSE 70% IV SCH (08:30)
[2021-08-08] MEDS: Enoxaparin Sodium 30 MG/0.3 ML SYRINGE SC SCH (08:52)
[2021-08-08] MEDS: Cefepime 1 GM in Sodium Chloride 0.9% 100 ML IVPB SCH ×2 (08:52→21:38)
[2021-08-08 10:09] LABS: Hemoglobin 15.4 g/dL (14.0-18.0); Mean Corpuscular HGB CONC 32.1 g/dL (32.0-36.0); Mean Corpuscular Hemoglobin 30.1 pg (27.0-31.0); Mean Corpuscular Volume 93.6 fL (78.0-98.0); Mean Platelet Volume 9.3 fL (7.4-10.4); Platelet Count 165 thou/uL (130-400); RBC Distribution Width 12.8 % (11.5-14.5); Red Blood Cell (RBC) Count 5.11 mill/uL (4.70-6.10)
[2021-08-08 10:25] LABS: Anion Gap 16 mmol/L (10-20); BUN (Urea Nitrogen) 25 mg/dL (8.4-25.7); Calc. Creatinine Clearance 40 mL/min (70-130); Calcium 9.4 mg/dL (7.8-10.44); Carbon Dioxide 23 mmol/L (23-31); Chloride 109 mmol/L (98-107); Glucose 189 mg/dL (83-110); Potassium 4.1 mmol/L (3.5-5.1); Sodium 144 mmol/L (136-145)
[2021-08-08 11:38] LABS: Band 45 % (5-11); Lymphocytes 1 % (21-51); MDiff Complete? YES; Monocytes 7 % (0-10); Myelocyte 1 % (0-0); Neutrophil 44 % (42-75); Platelet Morphology Comment Appears Adequate; RBC Morphology Normal; Reactive Lymphocytes 2 % (0-10)
[2021-08-08] MEDS: HumaLOG 300 UNITS/3 ML VIAL SC PRN (17:06)
[2021-08-08] MEDS: Lantus 1000 UNITS/10 ML VIAL SC SCH (21:39)
[2021-08-09] MEDS ORDERED: Amino Acids 4.25 %/Dextrose 5% 1,000 ML IV SCH (00:45)
[2021-08-09 06:27] VITALS: BP 131/77; TEMP 99.3
[2021-08-09] MEDS: Cefepime 1 GM in Sodium Chloride 0.9% 100 ML IVPB SCH (08:12)
[2021-08-09] MEDS: Divalproex Sodium 125 mg Sprinkle Capsule PO SCH (08:12)
[2021-08-09] MEDS: Enoxaparin Sodium 30 MG/0.3 ML SYRINGE SC SCH (08:13)
== END 2021-08-09 07:05 | disposition expired | DRG 871 ==
LOC: ERS 16:14 → ERHOLD 21:33 → T4-A 08-06 15:38
PROVIDERS: ADMIT Student in an Organized Health Care Education/Training Program; ATTEND Internal Medicine
DX: A41.9 Sepsis, unspecified organism (principal); J96.01 Acute respiratory failure with hypoxia; J18.9 Pneumonia, unspecified organism; G93.41 Metabolic encephalopathy; N39.0 Urinary tract infection, site not specified; N17.9 Acute kidney failure, unspecified; E87.2 Acidosis; J44.0 Chronic obstructive pulmonary disease with (acute) lower respiratory infection; Z66 Do not resuscitate; Z20.822 Contact with and (suspected) exposure to COVID-19; K21.9 Gastro-esophageal reflux disease without esophagitis; G30.9 Alzheimer's disease, unspecified; F02.80 Dementia in other diseases classified elsewhere, unspecified severity, without behavioral disturbance, psychotic disturbance, mood disturbance, and anxiety; E11.65 Type 2 diabetes mellitus with hyperglycemia; E11.22 Type 2 diabetes mellitus with diabetic chronic kidney disease; N18.9 Chronic kidney disease, unspecified; R56.9 Unspecified convulsions; R13.10 Dysphagia, unspecified; I12.9 Hypertensive chronic kidney disease with stage 1 through stage 4 chronic kidney disease, or unspecified chronic kidney disease; Z87.440 Personal history of urinary (tract) infections; Z98.890 Other specified postprocedural states; Z79.899 Other long term (current) drug therapy; Z79.51 Long term (current) use of inhaled steroids; Z79.82 Long term (current) use of aspirin; Z79.4 Long term (current) use of insulin; F32.A Depression, unspecified; R65.20 Severe sepsis without septic shock
CPT/HCPCS: 0240U; 36415; 36416; 70450; 71045; 71275; 80048; 80053; 80202; 81003; 81015; 82550; 84443; 84484; 85007; 85025; 85027; 87081; 93005; 94640; 96374; A4217; J0692; J0696; J1650; J1815; J1885; J2270; J3370; J3490; J7050; J7620; Q9967